=== PATIENT | male | born 1970 | race Caucasian/White ===

== ENCOUNTER 2018-09-13 10:53 | Emergency (ER) | payer SELFPAY ==
--- OUTSIDE RECORDS SUMMARY | 2018-09-13 10:55 | XMS REPORT ---
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
--- OUTSIDE RECORDS SUMMARY | 2018-09-13 10:55 | XMS REPORT ---
:1970 Author Organization [employer] Care Team Providers Name Role Phone Layla Merino Provider Role Unavailable Allergies, Adverse Reactions, Alerts Substance Reaction Event Type N.K.D.A. 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
--- NOTE | 2018-09-13 13:13 | RAD REPORT ---
EXAM DESCRIPTION: RAD - Chest Single View - 09/13/2018 1:08 pm CLINICAL HISTORY: DYSPNEA Chest pain. COMPARISON: No comparisons FINDINGS: Portable technique limits examination quality. The lungs are grossly clear. The heart is normal in size. No displaced fractures. IMPRESSION: No acute intrathoracic process suspected.
[2018-09-13 13:23] LABS: Absolute Lymphocytes (CBC) 0.5 K/uL (0.7-4.9); Absolute Monocytes 0.4 K/uL (0.1-1.3); Absolute Neutrophil 3.4 K/uL (1.8-8.0); Basophils % 0.2 % (0-1.3); Hematocrit 44.8 % (39.6-49.0); Lymphocytes % 12.1 % (15.3-44.8); MPV 10.5 fL (7.6-11.3); Monocytes % 9.6 % (3.3-12.3); RBC Red Blood Cell Count 4.74 M/uL (4.33-5.43)
[2018-09-13 13:24] LABS: Protime INR 1.16
[2018-09-13] MEDS ORDERED: NA CHLORIDE 0.9% 1,000 ML ONE (13:32)
[2018-09-13 13:50] LABS: ALT/SGPT 28 U/L (12-78); AST/SGOT 37 U/L (15-37); Albumin 3.5 g/dL (3.4-5.0); Alkaline Phosphatase 72 U/L (45-117); BUN Blood Urea Nitrogen 23 mg/dL (7-18); Bicarbonate 29 mmol/L (21-32); Bilirubin Direct 0.3 mg/dL (0-0.2); Glucose Level 80 mg/dL (74-106); Lipase 91 U/L (73-393); Magnesium 2.6 mg/dL (1.8-2.4); Potassium 3.6 mmol/L (3.5-5.1); Sodium Level 142 mmol/L (136-145)
[2018-09-13 13:54] LABS: NT PRO-BNP 164 pg/mL (<125); Troponin (Emerg Dept Use Only) < 0.02 ng/mL (0.0-0.045)
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
[2018-09-13 16:07] LABS: Blood Morphology Comment NOT SEEN (NOT SEEN); Platelet Estimate DECR; Urine White Blood Cell Casts OK
--- NOTE | 2018-09-13 16:31 | EKG ---
Test Date: 2018-09-13 Test Time: 13:01:04 Stonework Tracer: CHELY MEASUREMENT RESULTS: Intervals: Rate: 78 RI: 186 QRSD: 148 QT: 404 QTc: 460 [place]: P: 78 RI: 186 QRS: -54 T: 63 INTERPRETIVE STATEMENTS: Sinus rhythm with occasional premature ventricular complexes Right bundle branch block Left anterior fascicular block Bifascicular block Abnormal ECG Compared to ECG 08/19/2015 11:49:33 Ventricular premature complex(es) now present ST (T wave) deviation now present Bifascicular block still present Electronically Signed On 09-13-18 16:30:59 EXPERIENCE SPECIALIST by Chapo Mcgrath
== END 2018-09-13 16:22 | disposition home or self-care (01) ==
LOC: ER 10:53
DX: J10.1 Influenza due to other identified influenza virus with other respiratory manifestations (principal); I49.3 Ventricular premature depolarization; I45.2 Bifascicular block; R94.31 Abnormal electrocardiogram [ECG] [EKG]
CPT/HCPCS: 36415; 71045; 80048; 80076; 83690; 83735; 83880; 84484; 85025; 85610; 87804; 93005; 96360; 99284; J7030

== ENCOUNTER 2018-09-26 18:01 | Inpatient (IN) | payer OTHER, SELFPAY ==
--- OUTSIDE RECORDS SUMMARY | 2018-09-26 18:02 | XMS REPORT ---
[...] Medications Results No Known Results Summary Purpose [employer] Submission
[2018-09-26] MEDS ORDERED: NA CHLORIDE 0.9% 1,000 ML ONE (19:26)
--- NOTE | 2018-09-26 19:41 | RAD REPORT ---
EXAM DESCRIPTION: RAD - Chest Single View - 09/26/2018 7:31 pm CLINICAL HISTORY: Fatigue, chest pain, back pain COMPARISON: September 13, 2018 TECHNIQUE: AP portable chest image was obtained 1925 hours . FINDINGS: Focal consolidation is present in the left lung base obscuring the left hemidiaphragm. Sma ll left pleural effusion is present as well. No right lung infiltrate. Heart and vasculature are norm al. No measurable pleural effusion and no pneumothorax. No acute bony abnormality seen. No acute aort ic findings suspected. IMPRESSION: Moderately large consolidated pneumonia left lung base. Follow-up is needed to assure complete clearing.
[2018-09-26 20:04] LABS: Protime INR 1.39
[2018-09-26 20:05] LABS: Absolute Lymphocytes (CBC) 0.9 K/uL (0.7-4.9); Absolute Monocytes 0.8 K/uL (0.1-1.3); Absolute Neutrophil 4.4 K/uL (1.8-8.0); Basophils % 0.2 % (0-1.3); Eosinophils % 0.1 % (0-4.4); Hematocrit 38.7 % (39.6-49.0); Lymphocytes % 14.3 % (15.3-44.8); MPV 8.6 fL (7.6-11.3); Monocytes % 12.9 % (3.3-12.3); RBC Red Blood Cell Count 4.07 M/uL (4.33-5.43)
[2018-09-26] MEDS ORDERED: ASPIRIN 81 MG CHEWABLE TABLET ONE (20:17)
[2018-09-26] MEDS ORDERED: FAMOTIDINE 20 MG/2 ML VIAL IV ONE (20:17)
[2018-09-26] MEDS ORDERED: AZITHROMYCIN 500 MG/250 ML BAG ONE (20:18)
[2018-09-26] MEDS ORDERED: PIPER/TAZO/NS 3.375gm 3.375 GM/100 ML BAG ONE (20:18)
[2018-09-26] MEDS ORDERED: HEPARIN/D5W 25,000 UNIT/500 ML BAG IV ONE (20:20)
[2018-09-26 20:29] LABS: ALT/SGPT 18 U/L (12-78); AST/SGOT 13 U/L (15-37); Albumin 2.4 g/dL (3.4-5.0); Alkaline Phosphatase 100 U/L (45-117); BUN Blood Urea Nitrogen 9 mg/dL (7-18); Bicarbonate 31 mmol/L (21-32); Bilirubin Direct 0.4 mg/dL (0-0.2); Bilirubin Total 1.3 mg/dL (0.2-1.0); Glucose Level 94 mg/dL (74-106); Magnesium 2.2 mg/dL (1.8-2.4); NT PRO-BNP 366 pg/mL (<125); Protein, Total 6.5 g/dL (6.4-8.2); Sodium Level 139 mmol/L (136-145); Troponin (Emerg Dept Use Only) < 0.02 ng/mL (0.0-0.045)
[2018-09-26] MEDS ORDERED: FENTANYL CITR 100 MCG/2 ML ONE (20:49)
[2018-09-26] MEDS ORDERED: POTASSIUM 25 MEQ EFFERV TAB ONE (21:22)
[2018-09-26] MEDS ORDERED: VANCOMYCIN 1 GM/250 ML BAG ONE (21:23)
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
[2018-09-26] MEDS ORDERED: ALBUTEROL 2.5 MG/3 ML NEB SOL NEB PRN (23:10)
[2018-09-26] MEDS ORDERED: IPRATROPIUM BROM 0.5MG/2.5ML NEB PRN (23:10)
[2018-09-26] MEDS: NA CHLORIDE 0.9% 1,000 ML IV SCH (23:50)
[2018-09-27] MEDS: PIPER/TAZO/NS 3.375gm 3.375 GM/100 ML BAG IVPB SCH ×4 (01:59→17:00)
[2018-09-27] MEDS ORDERED: PIPER/TAZO/NS 3.375gm 3.375 GM/100 ML BAG ONE ×2 (02:06→06:29)
[2018-09-27] MEDS: TRAMADOL HCL 50 MG TAB PO PRN (05:53)
[2018-09-27 06:32] LABS: Urine Appearance CLEAR; Urine Bilirubin NEGATIVE (NEG); Urine Blood NEGATIVE (NEG); Urine Color YELLOW; Urine Glucose NEGATIVE (NEG); Urine Protein NEGATIVE (NEG); Urine Specific Gravity 1.025 (1.005-1.030)
[2018-09-27 06:33] LABS: Urine Microscopic Reflex NO UMIC
[2018-09-27 06:56] LABS: Absolute Lymphocytes (CBC) 0.8 K/uL (0.7-4.9); Absolute Monocytes 0.5 K/uL (0.1-1.3); Absolute Neutrophil 2.7 K/uL (1.8-8.0); Basophils % 0.3 % (0-1.3); Eosinophils % 0.4 % (0-4.4); Hematocrit 34.3 % (39.6-49.0); Lymphocytes % 20.3 % (15.3-44.8); MPV 8.7 fL (7.6-11.3); Monocytes % 12.9 % (3.3-12.3); RBC Red Blood Cell Count 3.63 M/uL (4.33-5.43)
[2018-09-27 07:07] LABS: BUN Blood Urea Nitrogen 8 mg/dL (7-18); Bicarbonate 28 mmol/L (21-32); Glucose Level 77 mg/dL (74-106); Potassium 3.7 mmol/L (3.5-5.1); Sodium Level 144 mmol/L (136-145)
[2018-09-27] MEDS ORDERED: INFLUENZA VACCINE (for 3y+) 0.5 ML DOSE IMVAC ONE (08:00)
[2018-09-27] MEDS ORDERED: POTASSIUM 25 MEQ EFFERV TAB PO ONE (09:00)
[2018-09-27] MEDS: NA CHLORIDE 0.9% 1,000 ML IV SCH ×2 (09:10→19:10)
[2018-09-27] MEDS: ENOXAPARIN 40 MG/0.4 ML SQ SCH (09:15)
[2018-09-27 10:11] LABS: Arterial Blood Carboxyhemoglob 1.3 % (0-1.5); Blood Gas Oxyhemoglobin 93.2 % (94-97); Blood O2 Saturation 95.5 % (92-98.5)
--- NOTE | 2018-09-27 10:45 | EKG ---
Test Date: 2018-09-26 Test Time: 19:34:58 Ortho Tech: GISSELL MEASUREMENT RESULTS: Intervals: Rate: 66 TX: 200 QRSD: 152 QT: 450 QTc: 471 [place]: P: 69 TX: 200 QRS: 4 T: 63 INTERPRETIVE STATEMENTS: Normal sinus rhythm Possible Left atrial enlargement Right bundle branch block ST elevation, consider lateral injury or acute infarct ACUTE NE / STEMI Abnormal ECG Compared to ECG 09/13/2018 13:01:04 ST (T wave) deviation now present Myocardial infarct finding now present Ventricular premature complex(es) no longer present Left anterior fascicular block no longer present Bifascicular block no longer present Electronically Signed On 09-27-18 10:42:54 SAMPLING THEORY TEACHER by Chapo Mcgrath
--- NOTE | 2018-09-27 10:45 | EKG ---
Test Date: 2018-09-26 Test Time: 19:49:28 Grader Tender: GISSELL MEASUREMENT RESULTS: Intervals: Rate: 66 PA: 200 QRSD: 154 QT: 450 QTc: 471 [place]: P: 78 PA: 200 QRS: 13 T: 63 INTERPRETIVE STATEMENTS: Normal sinus rhythm Right bundle branch block ST elevation, consider lateral injury or acute infarct ACUTE TN / STEMI Abnormal ECG Compared to ECG 09/26/2018 19:34:58 No significant changes Electronically Signed On 09-27-18 10:42:52 ECMO SPECIALIST by Chapo Mcgrath
[2018-09-27] MEDS: VANCOMYCIN 750 MG in NA CHLORIDE 0.9% 150 ML IVPB SCH ×2 (11:55→23:54)
[2018-09-27] MEDS ORDERED: VANCOMYCIN 0.75 GM in NA CHLORIDE 0.9% 250 ML IVPB SCH (12:00)
--- NOTE | 2018-09-27 14:32 | PN ---
Date of Progress Note: 09/27/2018 Subjective: The patient seen and examined. Chart reviewed and case discussed with RN. The patient overall is still having some cough and sputum production. Still feels like he has no energy. Medications: List reviewed. Physical Examination: Vital Signs: Temperature 99.2, heart rate 57, blood pressure 97/58, respirations 17, O2 saturation 9 7% on room air. General: Awake, alert, and oriented x3. Some mild distress, ill-appearing male, cachectic, BMI 15. CV: S1 and S2. No murmurs. Peripheral pulses present. Respiratory: Diminished breath sounds. No wheezing or crackles. No use of accessory muscles. Gastrointestinal: Abdomen is soft, nontender, nondistended. Positive bowel sounds. Extremities: No clubbing, cyanosis, or edema. Neurologic: Nonfocal. Laboratory Data: Sodium 144, potassium 3.7, chloride 110, CO2 28, BUN 8, creatinine 0.56, glucose 77 , calcium 7.7. WBC 4.1, H and H 11.5 and 34.3, platelets 220, neutrophils 66%. Blood cultures and s putum cultures are pending. Chest x-ray, personally reviewed, shows moderately large consolidated pn eumonia, left lung base. Assessment And Plan: A 48-year-old male with: 1.Large left lower lobe pneumonia, lobar pneumonia. We will continue with IV antibiotics. We will follow up on cultures. 2.Recent history of influenza. 3.Muscular dystrophy. 4.Pleuritic chest pain. 5.Failure to thrive. BMI 15.7. 6.Moderate protein-calorie malnutrition. Albumin is 2.4. 7.Gastrointestinal and deep venous thrombosis prophylaxis with Lovenox. We will add ranitidine. Plan: Continue IV antibiotics. Follow up on cultures. Discharge in the next 48-72 hours depending on clinical response. The patient does have large consolidated pneumonia. SA/MODL Voice ID: [id number] Report ID: [id number]
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
[2018-09-27] MEDS: RANITIDINE 150 MG TABLET PO SCH (20:38)
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
[2018-09-28] MEDS: PIPER/TAZO/NS 3.375gm 3.375 GM/100 ML BAG IVPB SCH ×2 (01:55→09:28)
[2018-09-28 03:43] LABS: BUN Blood Urea Nitrogen 9 mg/dL (7-18); Bicarbonate 28 mmol/L (21-32); Glucose Level 81 mg/dL (74-106); Potassium 3.9 mmol/L (3.5-5.1); Sodium Level 145 mmol/L (136-145)
[2018-09-28] MEDS: NA CHLORIDE 0.9% 1,000 ML IV SCH (03:51)
[2018-09-28] MEDS ORDERED: POTASSIUM 25 MEQ EFFERV TAB PO ONE (09:00)
[2018-09-28] MEDS: RANITIDINE 150 MG TABLET PO SCH ×2 (09:28→21:00)
[2018-09-28] MEDS: ENOXAPARIN 40 MG/0.4 ML SQ SCH (09:29)
--- NOTE | 2018-09-28 10:25 | P.PN ---
Subjective Date of Service: 09/28/18 Chief Complaint: Pneumonia Subjective: Improving (Patient is improving still has some chest discomfort on the left side has persistent weakness) Review of Systems General: Weakness Respiratory: Pleuritic Pain Physical Examination - Vital Signs Temperature: 99.4 F Blood Pressure: 89/52 Pulse: 52 Respirations: 18 Pulse Ox (%): 96 - Physical Exam General: Alert, Oriented x3, Mild distress Respiratory: Clear to auscultation bilaterally Cardiovascular: No edema, Regular rate/rhythm Assessment & Plan - Problems (Diagnosis) (1) Pneumonia Onset Date: 09/27/18 Current Visit: Yes Status: Acute Plan: Patient is doing well cultures are all negative he has left lower lobe pneumonia change to p.o. levofloxacin tomorrow Dc IV fluids chemistries and blood work are all unremarkable possible discharge home tomorrow on levofloxacin for 7 days I does Qualifiers: Pneumonia type: due to unspecified organism Laterality: left Lung location: lower lobe of lung Qualified Code(s): J18.1 - Lobar pneumonia, unspecified organism (2) Chronic respiratory failure Current Visit: Yes Status: Acute Plan: Patient fortunately has no insurance Veliz qualify him for Medicaid and then arrange for him to have a BiPAP as an outpatient
--- NOTE | 2018-09-28 11:44 | PN ---
Date of Progress Note: 09/28/2018 Subjective: The patient is seen and examined. Chart reviewed and case discussed with RN and Dr. Krishnamurthy. The patient does have moderate muscular dystrophy, currently not on disability, lives alone. The patient states he is feeling better, however, still having some cough and sputum production. Medications: List reviewed. Physical Examination: Vital Signs: Temperature 99.4, heart rate 52, blood pressure 89/52, respirations 18, and O2 of 96% on room air. General: Awake, alert, and oriented x3, some mild distress, ill-appearing male , frail, cachectic. BMI of 15. CV: S1 and S2. Peripheral pulses present. No murmurs. Respiratory: Diminished breath sounds on the left. Some rhonchi heard. No wheezing. No use of accessory muscles. Gastrointestinal: Abdomen is soft, nontender, and nondistended. Positive bowel sounds. Extremities: No clubbing, cyanosis, or edema. Neurologic: Nonfocal. Laboratory Data: Sodium 145, potassium 3.9, chloride 112, CO2 of 28, BUN 9, creatinine 0.69, glucose 81, and calcium 7.9. WBC 4.1, H and H of 11.5 and 34.3 , platelets pending. Blood cultures, no growth to date. Sputum cultures, no growth. Assessment And Plan: A 48-year-old male with, 1. Large left lower lobe pneumonia, lobar. Continue with IV antibiotics. Appreciate Dr. Krishnamurthy's input. The patient is improving. Still having some cough and sputum production. Cultures are negative. 2. Recent history of influenza. 3. Muscular dystrophy. 4. Pleuritic chest pain, improving. 5. Failure to thrive, BMI of 15.7. 6. Severe protein-calorie malnutrition, albumin 2.4. 7. Gastrointestinal and deep venous thrombosis prophylaxis with PPI and Lovenox. PLAN: Unfortunately, the patient is unfunded. He will need to be set up with disability as an outpatient and have noninvasive ventilator versus BiPAP set up as an outpatient through Pulmonology. The patient was evaluated by Neurology. Patient may need PEG tube placement - BMI is 15. Has risk of aspiration. Speech therapy eval. /MODL Voice ID: [id number] Report ID: [id number] [facility]
[2018-09-28] MEDS ORDERED: JEVITY 1.5 CAL LIQUID 1,000 ML BOT FT SCH (18:00)
[2018-09-28] MEDS: D5 0.45 NS 1,000 ML IV SCH (18:53)
[2018-09-29] MEDS: D5 0.45 NS 1,000 ML IV SCH ×3 (02:16→18:14)
[2018-09-29 05:20] LABS: Absolute Lymphocytes (CBC) 1.1 K/uL (0.7-4.9); Absolute Monocytes 0.4 K/uL (0.1-1.3); Absolute Neutrophil 2.1 K/uL (1.8-8.0); Basophils % 0.5 % (0-1.3); Eosinophils % 1.9 % (0-4.4); Hematocrit 35.8 % (39.6-49.0); Lymphocytes % 29.7 % (15.3-44.8); MPV 8.7 fL (7.6-11.3); Monocytes % 10.2 % (3.3-12.3); RBC Red Blood Cell Count 3.77 M/uL (4.33-5.43)
[2018-09-29 05:32] LABS: BUN Blood Urea Nitrogen 5 mg/dL (7-18); Bicarbonate 30 mmol/L (21-32); Glucose Level 95 mg/dL (74-106); Potassium 3.6 mmol/L (3.5-5.1); Sodium Level 144 mmol/L (136-145)
[2018-09-29] MEDS ORDERED: KCL 20 MEQ/100 mL IVPB 20 MEQ/100 ML BAG IV SCH (07:00)
[2018-09-29] MEDS ORDERED: levoFLOXacin 750 MG TAB PO SCH (09:00)
[2018-09-29] MEDS: RANITIDINE 150 MG TABLET PO SCH ×2 (09:00→21:00)
[2018-09-29] MEDS: ENOXAPARIN 40 MG/0.4 ML SQ SCH (09:40)
[2018-09-29] MEDS: Levofloxacin 750mg IV 750 MG/150 ML BAG IV SCH (11:24)
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
[2018-09-29 18:55] LABS: Albumin 1.9 g/dL (3.4-5.0); Bilirubin Direct 0.2 mg/dL (0-0.2); Bilirubin Total 0.5 mg/dL (0.2-1.0); Protein, Total 5.6 g/dL (6.4-8.2)
[2018-09-30] MEDS: D5 0.45 NS 1,000 ML IV SCH ×3 (03:00→18:06)
[2018-09-30] MEDS: RANITIDINE 150 MG TABLET PO SCH ×2 (08:47→21:00)
[2018-09-30] MEDS: Levofloxacin 750mg IV 750 MG/150 ML BAG IV SCH (10:39)
--- NOTE | 2018-09-30 10:51 | RAD REPORT ---
EXAM DESCRIPTION: Denzel Pa And Lat (2 Views)09/30/2018 6:11 am CLINICAL HISTORY: Cough COMPARISON: September 26 FINDINGS: The left basilar opacity has partially resolved. Small left pleural effusion is noted. The right lung appears clear. The heart is normal size IMPRESSION: Partial resolution in a left basilar pneumonia
--- NOTE | 2018-09-30 12:59 | PN ---
Date of Progress Note: 09/30/2018 Subjective: The patient overall doing better. Minimal cough or sputum production. The patient has been n.p.o. This morning, the patient states that he understands that getting the NG tube is in his best interest and has been seen by Dr. Feliciano, who has planned on performing an EGD. The patient troy l be reassessed after EGD to have NG tube placed and possible PEG tube placement after a modified bar ium swallow study result. Medications: List reviewed. Physical Examination: Vital Signs: Temperature 98.3, heart rate 63, blood pressure 111/67, respirations 20, O2 98% on room air. General: Awake, alert, oriented x3, ill-appearing male, cachectic, frail. BMI 15. CV: S1 and S2. Regular rate and rhythm. Peripheral pulses present. Respiratory: Moving air bilaterally. Some diminished breath sounds on the left. No rhonchi. No wh eezing. Gastrointestinal: Abdomen is soft, nontender, nondistended. Positive bowel sounds. Extremities: No clubbing, cyanosis, or edema. Neuro: Nonfocal. The patient does have some abnormal muscle strength, difficulty with relaxing his muscles. Does have ptosis. Laboratory Data: Potassium 4.1. Blood cultures, no growth to date. Sputum cultures not done. Ches t x-ray, I personally reviewed, shows partial resolution in left basilar pneumonia. Assessment And Plan: A 48-year-old male with: 1.Left lower lobe lobar pneumonia due to aspiration, improved, currently n.p.o. Continue IV antibio tics. The patient cannot tolerate p.o. Cultures negative to date, improving. Still has some cough, minimal sputum production. 2.Recent history of influenza. 3.Dysphagia. Modified barium swallow study scheduled for a.m. 4.Muscular dystrophy, severe muscle wasting, decreased tone. The patient has significant complicati ons including ptosis, difficulty swallowing, dysphagia, difficulty ambulating and has now developed p neumonia. He is unable to properly eat and his BMI is 15. 5.Severe protein-calorie malnutrition, albumin is 1.9. The patient is now more acceptable towards N G tube placement. We will go ahead and proceed with NG tube placement and start feeds. Modified bar ium swallow study on Monday. GI is on board. The patient receiving EGD today and will possibly need PEG tube placement in a.m. 6.Gastrointestinal and deep venous thrombosis prophylaxis with PPI and SCDs. Lovenox on hold due to procedure. Plan: EGD today. Proceed with NG tube placement, modified barium swallow study in a.m. and elio milligan on results, possible PEG tube feeds. /JOEY Voice ID: [id number] Report ID: [id number]
[2018-09-30] MEDS ORDERED: NA CHLORIDE 0.9% 500 ML ONE (19:22)
[2018-09-30] MEDS ORDERED: LIDOCAINE 1% MPF 5 ML VIAL ONE (19:29)
[2018-09-30] MEDS ORDERED: PROPOFOL 200 MG/20 ML VIAL IV ONE (19:29)
--- NOTE | 2018-09-30 20:11 | ENDO RPT ---
[address], [address] EGD WITH PEG PROCEDURE REPORT EXAM DATE: 09/30/2018 PATIENT NAME: Watson Dodge MR #: [id number] BIRTHDATE: 1970 ATTENDING: Fabian Feliciano Dr STATUS: inpatient EDGE STRIPPER: Gunjan Monge and Zoya Rojo RN INDICATIONS: The patient is a 48 yr old Male here for an EGD with PEG due to malnutrition and dysphagia PROCEDURE PERFORMED: EGD with biopsy EGD with PEG placement MEDICATIONS: Per Anesthesia. TOPICAL ANESTHETIC: none CONSENT: The patient understands the risks and benefits of the procedure and understands that these risks include, but are not limited to: sedation, allergic reaction, infection, perforation and/or bleeding. Alternative means of evaluation and treatment include, among others: physical exam, x-rays, and/or surgical intervention. The patient elects to proceed with this endoscopic procedure. DESCRIPTION OF PROCEDURE: During intra-op preparation period all mechanical medical equipment was checked for proper function. Hand hygiene and appropriate measures for infection prevention was taken. After the risks, benefits and alternatives of the procedure were thoroughly explained, Informed consent was verified, confirmed and timeout was successfully executed by the treatment team. The patient was anesthetized with topical anesthesia and the EG-[id number] ([id number]) endoscope was introduced through the mouth and advanced to the third portion of the duodenum. The instrument was slowly withdrawn as the mucosa was fully examined. Mild gastritis was found in the antrum. Multiple biopsies were obtained and sent to pathology. Duodenitis was found in the bulb of the duodenum. The stomach was then inflated with air, and by a combination of transillumination and manual palpation, the site for the gastrostomy tube placement was selected and marked on the anterior abdominal wall. The skin of the anterior abdomen was surgically prepped and draped with sterile towels. Utilizing strict sterile technique, the selected site was then anesthetized with 1% xylocaine by injection into the skin and subcutaneous tissue. A 1 cm incision was made through the skin and subcutaneous tissue, and the needle/cannula assembly was then passed through the abdominal wall and through the anterior wall of the stomach, maintaining visualization with the endoscope. A snare device previously placed through the instrument channel was then opened and placed around the cannula, the needle was removed, and the insertion wire was passed through the cannula and into the stomach lumen. The snare was then loosened from the cannula, and repositioned to snare the insertion wire. The snare was then pulled up to the endoscope distal tip, and the scope was then withdrawn bringing with it the snare and insertion wire. The insertion wire was then released from the snare, and the PEG PUSH gastrostomy tube placed over the guidewire. Using the "push technique", the tube was then pushed into place over the insertion wire at the abdominal wall end. The tube insertion site was then cleansed once again, and the external bolster was placed over the tube to secure it to the abdominal wall. A sterile dressing was then applied, and the procedure terminated. Retroflexed views revealed no abnormalities. The gastroscope was then slowly withdrawn and removed. ADVERSE EVENT: There were no complications. IMPRESSIONS: 1. Status post 20 Fr percutaneous endoscopic gastrostomy 2. Mild gastritis in the antrum, s/p biopsies 3. Duodenitis in the bulb of the duodenum RECOMMENDATIONS: 1. await biopsy results 2. acid suppression therapy 3. begin PEG use in 3 hours REPEAT EXAM: Fabian Feliciano Dr eSigned: Fabian Feliciano Dr 09/30/2018 8:10 PM cc: CPT CODES: ICD9 CODES: PATIENT NAME: Watson Dodge MR#: [id number]
[2018-09-30] MEDS ORDERED: FENTANYL CITR 100 MCG/2 ML ONE (20:58)
[2018-10-01] MEDS: ONDANSETRON 4 MG/2 ML VIAL IV PRN (01:23)
[2018-10-01] MEDS: KETOROLAC 30 MG/ML INJ IV PRN (01:28)
[2018-10-01] MEDS: D5 0.45 NS 1,000 ML IV SCH (03:00)
[2018-10-01] MEDS ORDERED: NA CHLORIDE 0.9% 250 ML IV ONE ×2 (04:25→05:35)
[2018-10-01 06:56] LABS: ALT/SGPT 27 U/L (12-78); AST/SGOT 38 U/L (15-37); Absolute Lymphocytes (CBC) 0.7 K/uL (0.7-4.9); Absolute Monocytes 0.6 K/uL (0.1-1.3); Absolute Neutrophil 4.7 K/uL (1.8-8.0); Albumin 2.1 g/dL (3.4-5.0); Alkaline Phosphatase 111 U/L (45-117); BUN Blood Urea Nitrogen 5 mg/dL (7-18); Basophils % 0.2 % (0-1.3); Bicarbonate 27 mmol/L (21-32); Bilirubin Total 0.5 mg/dL (0.2-1.0); Eosinophils % 0.6 % (0-4.4); Glucose Level 82 mg/dL (74-106); Lymphocytes % 11.8 % (15.3-44.8); MPV 8.2 fL (7.6-11.3); Monocytes % 9.4 % (3.3-12.3); Potassium 4.1 mmol/L (3.5-5.1); Protein, Total 5.7 g/dL (6.4-8.2); RBC Red Blood Cell Count 3.72 M/uL (4.33-5.43); Sodium Level 142 mmol/L (136-145)
[2018-10-01] MEDS: RANITIDINE 150 MG TABLET PO SCH (08:38)
[2018-10-01] MEDS ORDERED: NA CHLORIDE 0.9% 1,000 ML IV ONE (09:45)
[2018-10-01] MEDS ORDERED: SODIUM CHLORIDE 0.9% 10ML INJ IV PRN (09:56)
[2018-10-01] MEDS: Levofloxacin 750mg IV 750 MG/150 ML BAG IV SCH (10:39)
[2018-10-01] MEDS: TRAMADOL HCL 50 MG TAB PO PRN (10:49)
[2018-10-01] MEDS ORDERED: NA CHLORIDE 0.9% 500 ML IV ONE (11:04)
--- NOTE | 2018-10-01 12:08 | PN ---
Date of Progress Note: 10/01/2018 Subjective: The patient is seen and examined. Chart reviewed, and case discussed with RN and Dr. Satnam rolon. The patient had EGD done yesterday along with PEG tube placement. Medications: List reviewed. Physical Examination: Vital Signs: Temperature 98.5, heart rate 59, blood pressure 81/52, respirations 18, O2 of 97% on ro om air. General: Awake, alert, oriented x3, not in any acute distress. The patient does appear lethargic, c achectic. BMI 15. CV: S1, S2. Regular rate and rhythm. Peripheral pulses present. Respiratory: Moving air well bilaterally. No wheezing. Improved aeration on the left. Gastrointestinal: Abdomen is soft, nontender, nondistended. Positive bowel sounds. PEG tube in izaiah ce. Extremities: No clubbing, cyanosis, or edema. Neurologic: Nonfocal. Laboratory Data: sodium 142, potassium 4.1, chloride 110, CO2 of 27, BUN 5, creatinine 0.62, glucose 82, calcium 8.4, albumin 2.1. WBC 6, H and H 11.6 and 35, platelets 258, neutrophils 78%. Blood cu ltures, no growth to date. Assessment: A 48-year-old male with: 1.Left lower lobe pneumonia secondary to aspiration, improved. Chest x-ray shows improvement. Cult ures are negative. White blood cell count normalized. 2.Dysphagia, status post PEG tube placement, multifactorial reasons. The patient also has severe pr otein-calorie malnutrition. 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 3.Myotonic dystrophy, severe muscle wasting, decreased tone with multiple complications including pt osis, dysphagia, difficulty ambulating, pneumonia. Appreciate Dr. Grant's input. 4.Hypotension. We will bolus with 1 L normal saline. If no improvement, we will transfer to ICU. Start on pressors to keep MAP above 65. 5.Severe protein-calorie malnutrition. Albumin is 2.1. The patient now has PEG tube in place. Fee ds have been started. Appreciate Dr. Feliciano's input. 6.Gastritis and duodenitis found on endoscopy. We will start the patient on IV PPI. Follow up on b iopsy results. 7.Gastrointestinal and deep venous thrombosis prophylaxis with PPI and SCDs. We will restart Loveno x 24 hours after procedure. Plan: Monitor blood pressure closely. May need to be moved to ICU depending on improvement in the b lood pressure with fluid challenge. SA/MODL Voice ID: [id number] Report ID: [id number]
[2018-10-01] MEDS: NA CHLORIDE 0.9% 1,000 ML IV SCH ×2 (13:18→21:30)
[2018-10-02] MEDS: NA CHLORIDE 0.9% 1,000 ML IV SCH (04:38)
[2018-10-02 06:20] LABS: Absolute Lymphocytes (CBC) 0.9 K/uL (0.7-4.9); Absolute Monocytes 0.4 K/uL (0.1-1.3); Absolute Neutrophil 2.1 K/uL (1.8-8.0); Basophils % 0.4 % (0-1.3); Eosinophils % 1.2 % (0-4.4); Hematocrit 34.2 % (39.6-49.0); Lymphocytes % 25.2 % (15.3-44.8); MPV 8.2 fL (7.6-11.3); RBC Red Blood Cell Count 3.62 M/uL (4.33-5.43)
[2018-10-02 06:38] LABS: ALT/SGPT 26 U/L (12-78); AST/SGOT 25 U/L (15-37); Alkaline Phosphatase 99 U/L (45-117); BUN Blood Urea Nitrogen 5 mg/dL (7-18); Bicarbonate 27 mmol/L (21-32); Bilirubin Total 0.3 mg/dL (0.2-1.0); Glucose Level 99 mg/dL (74-106); Potassium 3.8 mmol/L (3.5-5.1); Protein, Total 5.3 g/dL (6.4-8.2); Sodium Level 146 mmol/L (136-145)
[2018-10-02] MEDS ORDERED: KCL 20 MEQ/100 mL IVPB 20 MEQ/100 ML BAG IV SCH (07:00)
[2018-10-02] MEDS: PANTOPRAZOLE 40 MG INJ IVP SCH (09:01)
[2018-10-02] MEDS: TRAMADOL HCL 50 MG TAB PO PRN (09:05)
[2018-10-02] MEDS: Levofloxacin 750mg IV 750 MG/150 ML BAG IV SCH (10:22)
[2018-10-02] MEDS: NACHLORIDE 0.45% 1,000 ML IV SCH ×2 (10:23→21:32)
--- NOTE | 2018-10-02 15:29 | RAD REPORT ---
EXAM DESCRIPTION: RAD - Barium Swallow Modified - 10/02/2018 3:09 pm CLINICAL HISTORY: Myotonic dystrophy COMPARISON: None. TECHNIQUE: The patient was given liquid, semi-solid and solid forms of barium. Lateral view fluorosc opic imaging was performed in conjunction with speech pathology service. FINDINGS: Cineloop acquisitions: 16 Fluoro time: 4 minutes 43 seconds Laryngeal penetration was observed without clearing by the patient. Likelihood of aspiration is felt to be high. There is residual contrast in the valleculae and piriform sinuses. Patient showed a signi ficant delay in swallow reflex. IMPRESSION: Laryngeal penetration without clearing by the patient. Aspiration risk is considered thi gh. Additional findings are detailed above and on speech pathology report.
--- NOTE | 2018-10-02 17:06 | P.PN ---
Subjective Date of Service: 10/02/18 Chief Complaint: Pneumonia Subjective: Improving Physical Examination - Vital Signs Temperature: 98.7 F Blood Pressure: 98/57 Pulse: 73 Respirations: 17 Pulse Ox (%): 99 - Studies Microbiology Data (last 24 hrs): 09/26/18 21:45 Blood - Blood Aerobic Blood Culture - Final No growth in 5 days. 09/26/18 21:45 Blood - Blood Anaerobic Blood Culture - Final No growth in 5 days.
--- NOTE | 2018-10-02 19:19 | P.PN ---
Subjective Date of Service: 10/02/18 Chief Complaint: Pneumonia Subjective: No C/O voiced, Improving Patient seen and examined at bedside. No family at bedside. Chart reviewed and case discussed with nursing staff. Review of Systems 10-point ROS is otherwise unremarkable Physical Examination - Vital Signs Temperature: 98.7 F Blood Pressure: 98/57 Pulse: 73 Respirations: 17 Pulse Ox (%): 99 - Studies Microbiology Data (last 24 hrs): 09/26/18 21:45 Blood - Blood Aerobic Blood Culture - Final No growth in 5 days. 09/26/18 21:45 Blood - Blood Anaerobic Blood Culture - Final No growth in 5 days. Assessment And Plan - Plan A 48-year-old male with: 1. Left lower lobe pneumonia secondary to aspiration, improved. Chest x-ray shows improvement. Cultures are negative. White blood cell count normalized. 2. Dysphagia, status post PEG tube placement, multifactorial reasons. The patient also has severe protein-calorie malnutrition. 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 3. Myotonic dystrophy, severe muscle wasting, decreased tone with multiple complications including ptosis, dysphagia, difficulty ambulating, pneumonia. Appreciate Dr. Grant's input. 4. Hypotension. Blood pressure continues to remain low, though stable. Continue to monitor. Continue IV fluids. If no improvement, we will transfer to ICU. Start on pressors to keep MAP above 65. 5. Severe protein-calorie malnutrition. Albumin is 2.1. The patient now has PEG tube in place. Feeds have been started. Appreciate Dr. Feliciano's input. 6. Gastritis and duodenitis found on endoscopy. We will start the patient on IV PPI. Follow up on biopsy results. 7. Gastrointestinal and deep venous thrombosis prophylaxis with PPI and SCDs. We will restart Lovenox 24 hours after procedure. Plan: Monitor blood pressure closely. May need to be moved to ICU depending on improvement in the blood pressure with fluid challenge. Time Spent Managing PTS Care (In Minutes): 40
[2018-10-02] MEDS: JEVITY 1.5 CAL LIQUID 1,000 ML BOT RTH SCH (21:33)
[2018-10-03] MEDS: NACHLORIDE 0.45% 1,000 ML IV SCH ×4 (05:38→19:00)
[2018-10-03 06:21] LABS: BUN Blood Urea Nitrogen 8 mg/dL (7-18); Bicarbonate 33 mmol/L (21-32); Glucose Level 109 mg/dL (74-106); Potassium 3.9 mmol/L (3.5-5.1); Sodium Level 145 mmol/L (136-145)
[2018-10-03] MEDS ORDERED: KCL 20 MEQ/100 mL IVPB 20 MEQ/100 ML BAG IV SCH (07:30)
[2018-10-03] MEDS: PANTOPRAZOLE 40 MG INJ IVP SCH (08:32)
[2018-10-03] MEDS: Levofloxacin 750mg IV 750 MG/150 ML BAG IV SCH (10:25)
[2018-10-03] MEDS: JEVITY 1.5 CAL LIQUID 1,000 ML BOT RTH SCH (11:09)
--- NOTE | 2018-10-03 13:28 | P.PN ---
Subjective Date of Service: 10/02/18 Chief Complaint: Pneumonia, protein-calorie malnutrition Subjective: Improving (s/p PEG yesterday. Tolerating Jevity TFs at 50 cc/hour. More energy today. Wants to eat but has not had MBS. May warrant further speech therapy to try to regain ability to swallow and take p.o.) Review of Systems 10-point ROS is otherwise unremarkable General: Weakness, Malaise Gastrointestinal: Other (dysphagia) Physical Examination - Vital Signs Temperature: 96.7 F Blood Pressure: 100/50 Pulse: 71 Respirations: 18 Pulse Ox (%): 99 - Physical Exam General: Alert, In no apparent distress, Oriented x3, Cooperative, Cachectic, Disheveled (thin) HEENT: Atraumatic, Normocephalic, PERRLA, EOMI, Sclerae nonicteric, Scleral icterus Neck: Supple Respiratory: Normal air movement Cardiovascular: Normal pulses Gastrointestinal: Soft and benign, No rebound, No guarding Neurological: Normal speech Assessment And Plan - Current Problems (Diagnosis) (1) Protein-calorie malnutrition Current Visit: Yes Status: Acute Comment: Albumin 1.9, Pre-albumin 8 (2) Dysphagia Current Visit: Yes Status: Acute (3) Pneumonia, aspiration Current Visit: Yes Status: Acute (4) Muscular dystrophy Onset Date: 09/27/18 Current Visit: Yes Status: Acute - Plan REC: 1) continue TFs via PEG 2) prn pain meds
--- NOTE | 2018-10-03 14:52 | P.PN ---
Subjective Date of Service: 10/03/18 Chief Complaint: Pneumonia, protein-calorie malnutrition Subjective: No new changes, No C/O voiced Patient seen and examined at bedside. No family at bedside. Chart reviewed and case discussed with nursing staff. Patient with PEG tube in place, placed recently. States he has had 6+ stools overnight but they are more formed today than yesterday. Review of Systems 10-point ROS is otherwise unremarkable Physical Examination - Vital Signs Temperature: 96.7 F Blood Pressure: 100/50 Pulse: 71 Respirations: 18 Pulse Ox (%): 99 - Physical Exam General: Alert, In no apparent distress, Oriented x3 HEENT: Atraumatic, PERRLA, EOMI Neck: Supple, JVD not distended Respiratory: Clear to auscultation bilaterally, Normal air movement Cardiovascular: Regular rate/rhythm, Normal S1 S2 Gastrointestinal: Other (PEG tube in place) Musculoskeletal: No tenderness Integumentary: No rashes Neurological: Normal speech, Normal tone, Normal affect Assessment And Plan - Plan A 48-year-old male with: Left lower lobe pneumonia secondary to aspiration, improved. Chest x-ray shows improvement. Cultures are negative. White blood cell count normalized. Dysphagia, status post PEG tube placement, multifactorial reasons. The patient also has severe protein-calorie malnutrition. 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 Myotonic dystrophy, severe muscle wasting, decreased tone with multiple complications including ptosis, dysphagia, difficulty ambulating, pneumonia. Appreciate Dr. Grant's input. Hypotension. Blood pressure continues to remain low, though stable. Continue to monitor. Continue IV fluids. If no improvement, we will transfer to ICU. Start on pressors to keep MAP above 65. Severe protein-calorie malnutrition. Albumin is 2.1. The patient now has PEG tube in place. Feeds have been started. Appreciate Dr. Feliciano's input. Gastritis and duodenitis found on endoscopy. Continue IV PPI. Follow up on biopsy results. DVT prophylaxis: SCDs and Lovenox GI prophylaxis: Protonix Disposition: Continue to monitor on the floor. Patient is pending SSI hearing on 10/09/2018. Further disposition plans after hearing. Time Spent Managing PTS Care (In Minutes): 35
[2018-10-04] MEDS: NACHLORIDE 0.45% 1,000 ML IV SCH ×4 (01:44→21:03)
[2018-10-04 06:41] LABS: BUN Blood Urea Nitrogen 11 mg/dL (7-18); Bicarbonate 32 mmol/L (21-32); Glucose Level 107 mg/dL (74-106); Magnesium 2.7 mg/dL (1.8-2.4); Sodium Level 146 mmol/L (136-145)
[2018-10-04] MEDS: PANTOPRAZOLE 40 MG INJ IVP SCH (08:14)
[2018-10-04] MEDS: JEVITY 1.5 CAL LIQUID 1,000 ML BOT RTH SCH (10:10)
[2018-10-04] MEDS: Levofloxacin 750mg IV 750 MG/150 ML BAG IV SCH (10:35)
--- NOTE | 2018-10-04 11:15 | P.PN ---
Subjective Date of Service: 10/04/18 Chief Complaint: Pneumonia, protein-calorie malnutrition Subjective: No C/O voiced, Improving Patient seen and examined at bedside. No family at bedside. Chart reviewed and case discussed with nursing staff. Patient with PEG tube in place, placed recently. Had no complaints this morning , resting comfortably in bed Review of Systems 10-point ROS is otherwise unremarkable Physical Examination - Vital Signs Temperature: 98.3 F Blood Pressure: 87/50 Pulse: 55 Respirations: 18 Pulse Ox (%): 96 - Physical Exam General: Alert, In no apparent distress HEENT: Atraumatic, PERRLA, EOMI Neck: Supple, JVD not distended Respiratory: Clear to auscultation bilaterally, Normal air movement Cardiovascular: Regular rate/rhythm, Normal S1 S2 Gastrointestinal: Normal bowel sounds, No tenderness Musculoskeletal: No tenderness Integumentary: No rashes Neurological: Normal speech, Normal tone, Normal affect Lymphatics: No axilla or inguinal lymphadenopathy Assessment And Plan - Plan A 48-year-old male with: Left lower lobe pneumonia secondary to aspiration, improved. Repeat Chest x- ray shows improvement. Cultures are negative. White blood cell count normalized. Dysphagia, status post PEG tube placement, multifactorial reasons. The patient also has severe protein-calorie malnutrition. 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 Myotonic dystrophy, severe muscle wasting, decreased tone with multiple complications including ptosis, dysphagia, difficulty ambulating, pneumonia. Appreciate Dr. Grant's input. Hypotension. Blood pressure continues to remain low, though stable. Continue to monitor. Continue IV fluids. If no improvement, we will transfer to ICU. Start on pressors to keep MAP above 65. Severe protein-calorie malnutrition. Albumin is 2.1. The patient now has PEG tube in place. Feeds have been started. Appreciate Dr. Feliciano's input. Gastritis and duodenitis found on endoscopy. Continue IV PPI. Follow up on biopsy results. DVT prophylaxis: SCDs and Lovenox GI prophylaxis: Protonix Disposition: Continue to monitor on the floor. Patient is pending SSI hearing on 10/09/2018. Further disposition plans after hearing.
[2018-10-05] MEDS: NACHLORIDE 0.45% 1,000 ML IV SCH ×3 (01:53→17:29)
[2018-10-05] MEDS: JEVITY 1.5 CAL LIQUID 1,000 ML BOT RTH SCH (06:09)
[2018-10-05] MEDS: ACETAMINOPHEN 500 MG TAB PO PRN (08:41)
[2018-10-05] MEDS: PANTOPRAZOLE 40 MG INJ IVP SCH (08:41)
[2018-10-05] MEDS: KETOROLAC 30 MG/ML INJ IV PRN (08:51)
--- NOTE | 2018-10-05 10:35 | P.PN ---
Subjective Date of Service: 10/05/18 Chief Complaint: Pneumonia, protein-calorie malnutrition Subjective: No C/O voiced, Improving Patient seen and examined at bedside. No family at bedside. Chart reviewed and case discussed with nursing staff. Patient with PEG tube in place, placed recently. Had no complaints this morning , resting comfortably in bed Review of Systems 10-point ROS is otherwise unremarkable Physical Examination - Vital Signs Temperature: 98.3 F Blood Pressure: 93/56 Pulse: 63 Respirations: 12 Pulse Ox (%): 98 - Physical Exam General: Alert, In no apparent distress HEENT: Atraumatic, PERRLA, EOMI Neck: Supple, JVD not distended Respiratory: Clear to auscultation bilaterally, Normal air movement Cardiovascular: Regular rate/rhythm, Normal S1 S2 Gastrointestinal: Normal bowel sounds, No tenderness Musculoskeletal: No tenderness Integumentary: No rashes Neurological: Normal speech, Normal tone, Normal affect Lymphatics: No axilla or inguinal lymphadenopathy Assessment And Plan - Plan A 48-year-old male with: Left lower lobe pneumonia secondary to aspiration, improved. Repeat Chest x- ray shows improvement. Cultures are negative. White blood cell count normalized. Dysphagia, status post PEG tube placement, multifactorial reasons. The patient also has severe protein-calorie malnutrition. 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 Myotonic dystrophy, severe muscle wasting, decreased tone with multiple complications including ptosis, dysphagia, difficulty ambulating, pneumonia. Appreciate Dr. Grant's input. Hypotension. Blood pressure continues to remain low, though stable. Continue to monitor. Continue IV fluids. If no improvement, we will transfer to ICU. Start on pressors to keep MAP above 65. Severe protein-calorie malnutrition. Albumin is 2.1. The patient now has PEG tube in place. Feeds have been started. Appreciate Dr. Feliciano's input. Gastritis and duodenitis found on endoscopy. Continue IV PPI. Follow up on biopsy results. DVT prophylaxis: SCDs and Lovenox GI prophylaxis: Protonix Disposition: Continue to monitor on the floor. Patient is pending SSI hearing on 10/09/2018. Further disposition plans after hearing.
[2018-10-05] MEDS: Levofloxacin 750mg IV 750 MG/150 ML BAG IV SCH (11:15)
[2018-10-06] MEDS: NACHLORIDE 0.45% 1,000 ML IV SCH ×2 (05:41→17:03)
[2018-10-06] MEDS: JEVITY 1.5 CAL LIQUID 1,000 ML BOT RTH SCH (05:42)
[2018-10-06] MEDS: PANTOPRAZOLE 40 MG INJ IVP SCH (09:16)
--- NOTE | 2018-10-06 11:42 | P.PN ---
Subjective Date of Service: 10/06/18 Chief Complaint: Pneumonia, protein-calorie malnutrition Subjective: No C/O voiced, Improving Patient seen and examined at bedside. No family at bedside. Chart reviewed and case discussed with nursing staff. Patient with PEG tube in place, placed recently. Had no complaints this morning , resting comfortably in bed Review of Systems 10-point ROS is otherwise unremarkable Physical Examination - Vital Signs Temperature: 98.0 F Blood Pressure: 104/62 Pulse: 61 Respirations: 17 Pulse Ox (%): 98 Assessment And Plan - Plan A 48-year-old male with: Left lower lobe pneumonia secondary to aspiration, improved. Repeat Chest x- ray shows improvement. Cultures are negative. White blood cell count normalized. Dysphagia, status post PEG tube placement, multifactorial reasons. The patient also has severe protein-calorie malnutrition. 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 Myotonic dystrophy, severe muscle wasting, decreased tone with multiple complications including ptosis, dysphagia, difficulty ambulating, pneumonia. Appreciate Dr. Grant's input. Hypotension. Blood pressure continues to remain low, though stable. Continue to monitor. Continue IV fluids. If no improvement, we will transfer to ICU. Start on pressors to keep MAP above 65. Severe protein-calorie malnutrition. Albumin is 2.1. The patient now has PEG tube in place. Feeds have been started. Appreciate Dr. Feliciano's input. Gastritis and duodenitis found on endoscopy. Continue IV PPI. Follow up on biopsy results. DVT prophylaxis: SCDs and Lovenox GI prophylaxis: Protonix Disposition: Continue to monitor on the floor. Patient is pending SSI hearing on 10/09/2018. Further disposition plans after hearing.
[2018-10-06] MEDS: Levofloxacin 750mg IV 750 MG/150 ML BAG IV SCH (12:43)
[2018-10-07] MEDS: NACHLORIDE 0.45% 1,000 ML IV SCH ×3 (02:14→22:44)
[2018-10-07] MEDS: JEVITY 1.5 CAL LIQUID 1,000 ML BOT RTH SCH ×2 (02:16→22:44)
[2018-10-07] MEDS: ACETAMINOPHEN 500 MG TAB PO PRN (03:52)
[2018-10-07] MEDS: PANTOPRAZOLE 40 MG INJ IVP SCH (08:28)
--- NOTE | 2018-10-07 09:40 | P.PN ---
Subjective Date of Service: 10/07/18 Chief Complaint: Pneumonia, protein-calorie malnutrition Subjective: No C/O voiced Patient seen and examined at bedside. No family at bedside. Chart reviewed and case discussed with nursing staff. Patient with PEG tube in place, placed recently. Had no complaints this morning , resting comfortably in bed Review of Systems 10-point ROS is otherwise unremarkable Physical Examination - Vital Signs Temperature: 98.7 F Blood Pressure: 98/61 Pulse: 66 Respirations: 18 Pulse Ox (%): 97 - Physical Exam General: Alert, In no apparent distress, Oriented x3 HEENT: Atraumatic, PERRLA, EOMI Neck: Supple, JVD not distended Respiratory: Clear to auscultation bilaterally, Normal air movement Cardiovascular: Regular rate/rhythm, Normal S1 S2 Gastrointestinal: Normal bowel sounds, No tenderness Musculoskeletal: No tenderness Integumentary: No rashes Neurological: Normal speech, Normal tone, Normal affect Lymphatics: No axilla or inguinal lymphadenopathy Assessment And Plan - Plan A 48-year-old male with: Left lower lobe pneumonia secondary to aspiration, improved. Repeat Chest x- ray shows improvement. Cultures are negative. White blood cell count normalized. Continue IV Levaquin, day #8. Will do a 10 day course. Dysphagia, status post PEG tube placement, multifactorial reasons. The patient also has severe protein-calorie malnutrition. 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 Myotonic dystrophy, severe muscle wasting, decreased tone with multiple complications including ptosis, dysphagia, difficulty ambulating, pneumonia. Appreciate Dr. Grant's input. Hypotension. Blood pressure continues to remain low, though stable. Continue to monitor. Patient continues to remain asymptomatic. Continue IV fluids. Monitor a.m. labs Severe protein-calorie malnutrition. The patient now has PEG tube in place. Continue feeds. Appreciate Dr. Feliciano's input. Gastritis and duodenitis found on endoscopy. Continue IV PPI. Follow up on biopsy results. DVT prophylaxis: SCDs and Lovenox GI prophylaxis: Protonix Disposition: Continue to monitor on the floor. Patient is pending SSI hearing on 10/09/2018. Further disposition/placement plans after hearing.
[2018-10-07] MEDS: Levofloxacin 750mg IV 750 MG/150 ML BAG IV SCH (11:00)
[2018-10-08] MEDS: NACHLORIDE 0.45% 1,000 ML IV SCH ×4 (06:00→18:34)
[2018-10-08 06:28] LABS: Absolute Lymphocytes (CBC) 1.2 K/uL (0.7-4.9); Absolute Monocytes 0.4 K/uL (0.1-1.3); Absolute Neutrophil 2.8 K/uL (1.8-8.0); Basophils % 0.5 % (0-1.3); Eosinophils % 1.6 % (0-4.4); Hematocrit 39.3 % (39.6-49.0); Lymphocytes % 26.4 % (15.3-44.8); MPV 8.3 fL (7.6-11.3); Monocytes % 8.9 % (3.3-12.3); RBC Red Blood Cell Count 4.23 M/uL (4.33-5.43)
[2018-10-08 06:29] LABS: ALT/SGPT 39 U/L (12-78); AST/SGOT 22 U/L (15-37); Albumin 2.7 g/dL (3.4-5.0); Alkaline Phosphatase 94 U/L (45-117); BUN Blood Urea Nitrogen 17 mg/dL (7-18); Bicarbonate 33 mmol/L (21-32); Bilirubin Total 0.4 mg/dL (0.2-1.0); Glucose Level 103 mg/dL (74-106); Potassium 4.5 mmol/L (3.5-5.1); Protein, Total 6.7 g/dL (6.4-8.2); Sodium Level 142 mmol/L (136-145)
[2018-10-08] MEDS: PANTOPRAZOLE 40 MG INJ IVP SCH (08:31)
[2018-10-08] MEDS: Levofloxacin 750mg IV 750 MG/150 ML BAG IV SCH (12:05)
--- NOTE | 2018-10-08 15:29 | P.PN ---
Subjective Date of Service: 10/08/18 Primary Care Provider: none Chief Complaint: Pneumonia, protein-calorie malnutrition Subjective: Improving Physical Examination - Vital Signs Temperature: 99.1 F Blood Pressure: 98/61 Pulse: 72 Respirations: 18 Pulse Ox (%): 97 - Physical Exam General: Alert, In no apparent distress, Cooperative HEENT: Atraumatic Neck: Supple Respiratory: Clear to auscultation bilaterally, Normal air movement Cardiovascular: Normal pulses, Regular rate/rhythm Gastrointestinal: Normal bowel sounds, Other (PEG tube in place) Neurological: Other (Muscle atrophy noted) - Studies Medications List Reviewed: Yes Assessment & Plan Discharge Plan: Home Plan to discharge in: 72 Hours Physician Review Additional Text: Impression: Left lower lobe pneumonia secondary to aspiration with recent influenza Dysphagia with noted muscular dystrophy-myotonic type complicated with severe malnutrition Gastritis Plan: Left lower lobe pneumonia secondary to aspiration with recent influenza: Patient has completed IV Levaquin times 10 days. Continue aspiration precaution. 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 Continue with speech recommendations. Continue aspiration precaution. Patient remains NPO due to his severe dysphagia. Patient will need to follow up with GI as an outpatient. Anticipate discharge once assistance for PEG tube feeds arranged at discharge. Likely in the next 2-3 days. Gastritis: Continue with PPI. Time Spent Managing Pts Care (In Minutes): 55
[2018-10-08] MEDS: ENOXAPARIN 30 MG/0.3 ML SQ SCH (18:35)
[2018-10-08] MEDS: ONDANSETRON 4 MG/2 ML VIAL IV PRN (18:35)
[2018-10-08] MEDS: JEVITY 1.5 CAL LIQUID 1,000 ML BOT RTH SCH (21:34)
[2018-10-09] MEDS: NACHLORIDE 0.45% 1,000 ML IV SCH (05:02)
[2018-10-09] MEDS: Pantoprazole (granules) 40 MG/BLIST PACKET FT SCH (05:03)
[2018-10-09 06:39] LABS: Absolute Lymphocytes (CBC) 1.1 K/uL (0.7-4.9); Absolute Monocytes 0.3 K/uL (0.1-1.3); Absolute Neutrophil 1.9 K/uL (1.8-8.0); Basophils % 0.6 % (0-1.3); Eosinophils % 2.3 % (0-4.4); Hematocrit 37.8 % (39.6-49.0); Lymphocytes % 32.3 % (15.3-44.8); MPV 8.4 fL (7.6-11.3); Monocytes % 9.5 % (3.3-12.3); RBC Red Blood Cell Count 4.04 M/uL (4.33-5.43)
[2018-10-09 06:58] LABS: ALT/SGPT 38 U/L (12-78); AST/SGOT 26 U/L (15-37); Albumin 2.6 g/dL (3.4-5.0); Alkaline Phosphatase 98 U/L (45-117); BUN Blood Urea Nitrogen 17 mg/dL (7-18); Bicarbonate 32 mmol/L (21-32); Bilirubin Total 0.5 mg/dL (0.2-1.0); Glucose Level 97 mg/dL (74-106); Potassium 4.6 mmol/L (3.5-5.1); Protein, Total 6.6 g/dL (6.4-8.2); Sodium Level 141 mmol/L (136-145)
--- NOTE | 2018-10-09 14:50 | P.PN ---
Subjective Date of Service: 10/09/18 Primary Care Provider: none Chief Complaint: Pneumonia, protein-calorie malnutrition Subjective: Improving Physical Examination - Vital Signs Temperature: 98.6 F Blood Pressure: 104/68 Pulse: 73 Respirations: 18 Pulse Ox (%): 98 - Physical Exam General: Alert HEENT: Atraumatic Neck: Supple Respiratory: Clear to auscultation bilaterally, Normal air movement Cardiovascular: Normal pulses, Regular rate/rhythm Gastrointestinal: Normal bowel sounds, Soft and benign, Non-distended Neurological: Normal speech, Normal strength at 5/5 x4 extr, Normal tone, Normal affect - Studies Medications List Reviewed: Yes Assessment & Plan Discharge Plan: Home Plan to discharge in: 48 Hours Physician Review Additional Text: Impression: Left lower lobe pneumonia secondary to aspiration with recent influenza Dysphagia with noted muscular dystrophy-myotonic type complicated with severe malnutrition Gastritis Plan: Left lower lobe pneumonia secondary to aspiration with recent influenza: Patient has completed IV Levaquin times 10 days. Continue aspiration precaution. Will monitor closely. 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 Will have dietary transition to bolus feeds. Patient remains NPO due to severe dysphagia. Patient will need to follow up with GI as an outpatient to further evaluate. Awaiting assistance from social professionals to see if the patient could qualify for help at home. Patient is to discuss further with [employer] to determine insurance status. Gastritis: Continue with PPI. Time Spent Managing Pts Care (In Minutes): 55
[2018-10-09] MEDS: ACETAMINOPHEN 500 MG TAB PO PRN (16:37)
[2018-10-09] MEDS: ENOXAPARIN 30 MG/0.3 ML SQ SCH (16:37)
[2018-10-09] MEDS: JEVITY 1.5 CAL LIQUID 1,000 ML BOT RTH SCH (20:22)
[2018-10-10] MEDS: Pantoprazole (granules) 40 MG/BLIST PACKET FT SCH (05:50)
[2018-10-10 06:53] LABS: Absolute Lymphocytes (CBC) 1.2 K/uL (0.7-4.9); Absolute Monocytes 0.3 K/uL (0.1-1.3); Absolute Neutrophil 1.7 K/uL (1.8-8.0); Basophils % 0.7 % (0-1.3); Eosinophils % 2.5 % (0-4.4); Lymphocytes % 35.4 % (15.3-44.8); MPV 8.9 fL (7.6-11.3); RBC Red Blood Cell Count 4.38 M/uL (4.33-5.43)
[2018-10-10 07:13] LABS: ALT/SGPT 46 U/L (12-78); AST/SGOT 31 U/L (15-37); Albumin 2.8 g/dL (3.4-5.0); Alkaline Phosphatase 97 U/L (45-117); BUN Blood Urea Nitrogen 19 mg/dL (7-18); Bicarbonate 32 mmol/L (21-32); Bilirubin Total 0.4 mg/dL (0.2-1.0); Glucose Level 120 mg/dL (74-106); Protein, Total 6.9 g/dL (6.4-8.2); Sodium Level 142 mmol/L (136-145)
--- NOTE | 2018-10-10 10:41 | P.PN ---
Subjective Date of Service: 10/10/18 Primary Care Provider: none Chief Complaint: Pneumonia, protein-calorie malnutrition Subjective: Doing well Physical Examination - Vital Signs Temperature: 97.9 F Blood Pressure: 98/58 Pulse: 72 Respirations: 16 Pulse Ox (%): 95 - Physical Exam General: Alert, In no apparent distress, Oriented x3, Cooperative HEENT: Atraumatic Neck: Supple Respiratory: Clear to auscultation bilaterally, Normal air movement Cardiovascular: Normal pulses, Regular rate/rhythm Gastrointestinal: Normal bowel sounds, Soft and benign, Non-distended Musculoskeletal: No erythema, No tenderness, No warmth Integumentary: No tenderness/swelling, No erythema, No warmth, No cyanosis Neurological: Normal speech, Normal strength at 5/5 x4 extr, Normal tone - Studies Medications List Reviewed: Yes Assessment & Plan Discharge Plan: Home Plan to discharge in: 24 Hours Physician Review Additional Text: Impression: Left lower lobe pneumonia secondary to aspiration with recent influenza 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 Continue with incentive spirometer. Continue aspiration precaution. Will monitor closely. 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 Will have dietary transition to bolus feeds. Patient remains NPO due to severe dysphagia. Patient will need to follow up with GI as an outpatient to further evaluate. Patient still waiting assistance from social services manager to discuss case further with [employer] office. They were to call yesterday but apparently he did not get a call. Financial services has contacted [employer] to contact patient to complete insurance progress. Gastritis: Continue with PPI. Time Spent Managing Pts Care (In Minutes): 55
[2018-10-10] MEDS: JEVITY 1.5 CAL LIQUID 1,000 ML BOT FT SCH ×4 (11:00→20:23)
[2018-10-10] MEDS: ENOXAPARIN 30 MG/0.3 ML SQ SCH (16:57)
[2018-10-11] MEDS: Pantoprazole (granules) 40 MG/BLIST PACKET FT SCH (05:25)
[2018-10-11] MEDS: JEVITY 1.5 CAL LIQUID 1,000 ML BOT FT SCH ×5 (08:28→20:32)
--- NOTE | 2018-10-11 11:28 | P.PN ---
Subjective Date of Service: 10/11/18 Primary Care Provider: none Chief Complaint: Pneumonia, protein-calorie malnutrition Subjective: Doing well (Patient doing well. Patient has been transitioned to bolus feeds.) Physical Examination - Vital Signs Temperature: 98.6 F Blood Pressure: 95/68 Pulse: 71 Respirations: 17 Pulse Ox (%): 97 - Physical Exam General: Alert, In no apparent distress, Oriented x3, Cooperative HEENT: Atraumatic Neck: Supple Respiratory: Clear to auscultation bilaterally, Normal air movement Cardiovascular: Normal pulses, Regular rate/rhythm Gastrointestinal: Normal bowel sounds, Soft and benign, Non-distended Integumentary: No erythema, No warmth, No cyanosis Neurological: Normal speech, Normal strength at 5/5 x4 extr, Normal tone, Normal affect - Studies Medications List Reviewed: Yes Assessment & Plan Discharge Plan: Home Plan to discharge in: 48 Hours Physician Review Additional Text: Impression: Left lower lobe pneumonia secondary to aspiration with recent influenza 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 Continue with incentive spirometer. Continue aspiration precaution. Will monitor closely. 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 Patient has been transitioned to bolus feeds. Will discuss with GI about future possibility of taking oral intake. Will check to see if the patient will require further evaluation and treatment of his condition. Still waiting approval for insurance. [employer] Tender is aware and working to help get this in order. Gastritis: Continue with PPI. Time Spent Managing Pts Care (In Minutes): 55
[2018-10-11] MEDS: ENOXAPARIN 30 MG/0.3 ML SQ SCH (18:06)
[2018-10-12] MEDS: Pantoprazole (granules) 40 MG/BLIST PACKET FT SCH (06:10)
[2018-10-12] MEDS: JEVITY 1.5 CAL LIQUID 1,000 ML BOT FT SCH ×2 (08:00→08:30)
[2018-10-12] MEDS: TWOCAL HN 1,000 ML BOT FT SCH ×4 (09:00→20:54)
--- NOTE | 2018-10-12 12:38 | P.PN ---
Subjective Date of Service: 10/12/18 Primary Care Provider: none Chief Complaint: Pneumonia, protein-calorie malnutrition Subjective: Doing well Physical Examination - Vital Signs Temperature: 97.7 F Blood Pressure: 114/69 Pulse: 81 Respirations: 16 Pulse Ox (%): 100 - Physical Exam General: Alert, In no apparent distress, Oriented x3, Cooperative HEENT: Atraumatic Neck: Supple Respiratory: Clear to auscultation bilaterally, Normal air movement Cardiovascular: Normal pulses, Regular rate/rhythm Gastrointestinal: Normal bowel sounds, Soft and benign, Non-distended Neurological: Normal speech, Normal strength at 5/5 x4 extr, Normal tone, Normal affect - Studies Medications List Reviewed: Yes Assessment & Plan Discharge Plan: Home Plan to discharge in: Greater than 2 days Physician Review Additional Text: Impression: Left lower lobe pneumonia secondary to aspiration with recent influenza 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 Continue with incentive spirometer. Continue aspiration precaution. Will monitor closely. 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 Patient has been transitioned to bolus feeds. Will have speech reassess swallow as the patient patient is wanting to oral intake. Still waiting approval for insurance. Sales[employer] is aware and working to help get this in order. Gastritis: Continue with PPI. Time Spent Managing Pts Care (In Minutes): 55
--- NOTE | 2018-10-12 15:52 | RAD REPORT ---
EXAM DESCRIPTION: RAD - Barium Swallow Modified - 10/12/2018 3:45 pm CLINICAL HISTORY: Dysphagia COMPARISON: October 02 TECHNIQUE: The patient was given liquid, semi-solid and solid forms of barium. Lateral view fluorosc opic imaging was performed in conjunction with speech pathology service. FINDINGS: Cineloop acquisitions: 24 Fluoro time: 4 minutes 1 second Laryngeal penetration: not cleared nectar, regular thin, pudding mech soft Aspiration: ineffective cough with regular thin wash after nectar in an attempt to decrease residue Pharyngeal residue: vallecular and pyriform. Other: delayed swallow, incomplete swallow, decreased UES opening mild with thin and nectar, moderate - sever with pudding and mech soft. moderate at beginning with all severe as study progressed IMPRESSION: Modified barium swallow as detailed above and further detailed on speech pathology sona allen
[2018-10-12] MEDS: ENOXAPARIN 30 MG/0.3 ML SQ SCH (18:00)
[2018-10-13] MEDS: Pantoprazole (granules) 40 MG/BLIST PACKET FT SCH (05:41)
[2018-10-13] MEDS: TWOCAL HN 1,000 ML BOT FT SCH ×4 (09:00→21:08)
--- NOTE | 2018-10-13 09:24 | P.PN ---
Subjective Date of Service: 10/13/18 Primary Care Provider: none Chief Complaint: Pneumonia, protein-calorie malnutrition Subjective: Doing well Physical Examination - Vital Signs Temperature: 98.1 F Blood Pressure: 105/63 Pulse: 75 Respirations: 17 Pulse Ox (%): 96 - Physical Exam General: Alert, In no apparent distress, Oriented x3, Cooperative HEENT: Atraumatic Neck: Supple Respiratory: Clear to auscultation bilaterally, Normal air movement Cardiovascular: Normal pulses, Regular rate/rhythm Neurological: Normal speech, Normal strength at 5/5 x4 extr, Normal tone - Studies Medications List Reviewed: Yes Assessment & Plan Discharge Plan: Home Plan to discharge in: Greater than 2 days Physician Review Additional Text: Impression: Left lower lobe pneumonia secondary to aspiration with recent influenza DysphPharyngeal/esophageal Dysphagia with possible esophageal stenosis and noted muscular dystrophy-myotonic type complicated with severe malnutrition status post PEG tube placement Gastritis Plan: Left lower lobe pneumonia secondary to aspiration with recent influenza: Patient has completed IV Levaquin treatment. Continue with incentive spirometer. Continue aspiration precaution. Will monitor closely. Pharyngeal/esophageal Dysphagia with possible esophageal stenosis and noted muscular dystrophy-myotonic type complicated with severe malnutrition status post PEG tube placement: Continue with PEG tube feeds. Patient has been transitioned to bolus feeds. Speech reassess swallowing. Patient still at risk for aspiration. Patient remains NPO continues with PEG tube feeds. Still waiting approval for insurance. Ply[employer] Stock Grader is aware and working to help get this in order. Awaiting approval for patient assistance program to supply PEG tube feeds. Hopefully this can be expedited. If so, the patient can be possibly discharged but this will need to be arranged 1st. Will continue to work with marriage and family social worker. Gastritis: Continue with PPI. Time Spent Managing Pts Care (In Minutes): 55
[2018-10-13] MEDS: ENOXAPARIN 30 MG/0.3 ML SQ SCH (16:27)
[2018-10-14] MEDS: Pantoprazole (granules) 40 MG/BLIST PACKET FT SCH (05:43)
[2018-10-14] MEDS: TWOCAL HN 1,000 ML BOT FT SCH ×4 (09:59→20:21)
--- NOTE | 2018-10-14 10:13 | P.PN ---
Subjective Date of Service: 10/14/18 Primary Care Provider: none Chief Complaint: Pneumonia, protein-calorie malnutrition Subjective: Doing well Physical Examination - Vital Signs Temperature: 97.0 F Blood Pressure: 111/60 Pulse: 74 Respirations: 16 Pulse Ox (%): 99 - Physical Exam General: Alert, In no apparent distress, Oriented x3, Cooperative HEENT: Atraumatic Neck: Supple Respiratory: Clear to auscultation bilaterally, Normal air movement Cardiovascular: Normal pulses, Regular rate/rhythm Gastrointestinal: Normal bowel sounds, Soft and benign, Non-distended, No masses , No rebound, No guarding Musculoskeletal: No erythema, No tenderness, No warmth Integumentary: No tenderness/swelling, No erythema, No warmth, No cyanosis Neurological: Normal speech, Normal strength at 5/5 x4 extr, Normal tone, Normal affect - Studies Medications List Reviewed: Yes Assessment & Plan Discharge Plan: Home Plan to discharge in: Greater than 2 days Physician Review Additional Text: Impression: Left lower lobe pneumonia secondary to aspiration with recent influenza DysphPharyngeal/esophageal Dysphagia with possible esophageal stenosis and noted muscular dystrophy-myotonic type complicated with severe malnutrition status post PEG tube placement Gastritis Plan: Left lower lobe pneumonia secondary to aspiration with recent influenza: Patient has completed IV Levaquin treatment. Continue with incentive spirometer. Continue aspiration precaution. Continue to monitor closely. I will turn the service over to Dr. Alicia tomorrow. I will go over the plan of care with her. Pharyngeal/esophageal Dysphagia with possible esophageal stenosis and noted muscular dystrophy-myotonic type complicated with severe malnutrition status post PEG tube placement: Continue with PEG tube feeds. Patient has been transitioned to bolus feeds. Speech reassessed swallowing on Monday. Patient still at risk for aspiration. Patient remains NPO and continues with PEG tube feeds. Patient will need to follow up with GI to further evaluate his esophageal stenosis. This will likely be done as an outpatient. I will reach out to GI for further recommendations as patient desires to be eat by mouth in the future. Still waiting approval for insurance. Cabinet Mounter is aware and working to help get this in order. Awaiting approval for patient assistance program to supply PEG tube feeds. Hopefully this can be expedited. If so, the patient can be possibly discharged but this will need to be arranged 1st. Will continue to work with social security specialist. Gastritis: Continue with PPI. Time Spent Managing Pts Care (In Minutes): 55
[2018-10-14] MEDS: ENOXAPARIN 30 MG/0.3 ML SQ SCH (16:13)
[2018-10-15] MEDS: Pantoprazole (granules) 40 MG/BLIST PACKET FT SCH (05:45)
[2018-10-15 06:20] LABS: BUN Blood Urea Nitrogen 20 mg/dL (7-18); Bicarbonate 32 mmol/L (21-32); Glucose Level 83 mg/dL (74-106); Magnesium 2.8 mg/dL (1.8-2.4); Sodium Level 144 mmol/L (136-145)
--- NOTE | 2018-10-15 06:43 | P.PN ---
Subjective Date of Service: 10/15/18 Primary Care Provider: none Chief Complaint: Pneumonia, protein-calorie malnutrition Subjective: Improving (Patient is tolerating 2 raghav TFs well, bolus TFs 4 cans per day with water flushes. He is still NPO. He wants to eat but was admitted with probable aspiration pneumonia and failed swallow evaluation. 10-12-18 modified barium swallow again revealed aspiration but also noted incomplete upper esophageal sphincter opening (muscular dystrophy history).) Review of Systems Unremarkable Physical Examination - Vital Signs Temperature: 98.9 F Blood Pressure: 95/59 Pulse: 78 Respirations: 16 Pulse Ox (%): 95 - Physical Exam General: Alert, In no apparent distress, Oriented x3, Cooperative HEENT: Atraumatic, Normocephalic, PERRLA, EOMI Neck: Supple Respiratory: Normal air movement Cardiovascular: Normal pulses Gastrointestinal: Soft and benign, No tenderness, No rebound, No guarding Neurological: Normal speech - Studies Medications List Reviewed: Yes Assessment And Plan - Current Problems (Diagnosis) (1) Protein-calorie malnutrition Current Visit: Yes Status: Acute Comment: Albumin 1.9, Pre-albumin 8 (2) Dysphagia Current Visit: Yes Status: Acute (3) Pneumonia, aspiration Current Visit: Yes Status: Acute (4) Muscular dystrophy Onset Date: 09/27/18 Current Visit: Yes Status: Acute - Plan REC: 1) continue TFs via PEG 2) check pre-albumin 3) consider esophageal motility study and possible therapy at tertiary center ( muscular dystrophy history) Physician Review Additional Text: Impression: Left lower lobe pneumonia secondary to aspiration with recent influenza DysphPharyngeal/esophageal Dysphagia with possible esophageal stenosis and noted muscular dystrophy-myotonic type complicated with severe malnutrition status post PEG tube placement Gastritis Plan: Left lower lobe pneumonia secondary to aspiration with recent influenza: Patient has completed IV Levaquin treatment. Continue with incentive spirometer. Continue aspiration precaution. Continue to monitor closely. I will turn the service over to Dr. Alicia tomorrow. I will go over the plan of care with her. Pharyngeal/esophageal Dysphagia with possible esophageal stenosis and noted muscular dystrophy-myotonic type complicated with severe malnutrition status post PEG tube placement: Continue with PEG tube feeds. Patient has been transitioned to bolus feeds. Speech reassessed swallowing on Monday. Patient still at risk for aspiration. Patient remains NPO and continues with PEG tube feeds. Patient will need to follow up with GI to further evaluate his esophageal stenosis. This will likely be done as an outpatient. I will reach out to GI for further recommendations as patient desires to be eat by mouth in the future. Still waiting approval for insurance. Ticket Machine Operator is aware and working to help get this in order. Awaiting approval for patient assistance program to supply PEG tube feeds. Hopefully this can be expedited. If so, the patient can be possibly discharged but this will need to be arranged 1st. Will continue to work with oncology social work. Gastritis: Continue with PPI.
[2018-10-15] MEDS: TWOCAL HN 1,000 ML BOT FT SCH ×4 (09:00→20:20)
--- NOTE | 2018-10-15 15:26 | P.PN ---
Subjective Date of Service: 10/15/18 Primary Care Provider: none Chief Complaint: Pneumonia, protein-calorie malnutrition Subjective: No C/O voiced Patient seen and examined at bedside. No family at bedside. Chart reviewed and case discussed with nursing staff. No acute events overnight. Complaints of slight burning at the tube site when she was being cleaned with alcohol. Denies any abdominal pain, current burning, discharge, redness, warmth or fevers. Review of Systems 10-point ROS is otherwise unremarkable Physical Examination - Vital Signs Temperature: 98.4 F Blood Pressure: 127/65 Pulse: 75 Respirations: 16 Pulse Ox (%): 98 - Physical Exam General: Alert, In no apparent distress, Oriented x3 HEENT: Atraumatic, PERRLA, EOMI Neck: Supple, JVD not distended Respiratory: Clear to auscultation bilaterally, Normal air movement Cardiovascular: Regular rate/rhythm, Normal S1 S2 Gastrointestinal: Normal bowel sounds, No tenderness, Other (PEG tube in place; incision site clear, dry and intact) Musculoskeletal: No tenderness Integumentary: No rashes Neurological: Normal speech, Normal tone, Normal affect Lymphatics: No axilla or inguinal lymphadenopathy - Studies Medications List Reviewed: Yes Assessment And Plan - Plan A 48-year-old male with: Left lower lobe pneumonia secondary to aspiration. Completed 10 day course of IV Levaquin. Continue with incentive spirometer, aspiration precautions. Dysphagia, status post PEG tube placement, Myotonic dystrophy Severe muscle wasting, decreased tone with multiple complications including ptosis, dysphagia, difficulty ambulating, pneumonia. Continue with PEG tube feeds, patient has been transitioned to post dates. The patient noted to be still at risk for aspiration, therefore remains NPO at this time. Patient will need to follow up with GI as an outpatient to further evaluate his esophageal stenosis. GI on board, recommendations appreciated. Patient unable to work from this point on due to his worsening muscle wasting/ myotonic dystrophy. Severe protein-calorie malnutrition. PEG tube in place. Continue feeds. Appreciate Dr. Feliciano's input. Gastritis and duodenitis found on endoscopy. Continue PPI. DVT prophylaxis: SCDs and Lovenox GI prophylaxis: Protonix Disposition: Continue to monitor on the floor. Patient is pending approval for insurance. security services specialist on board. He is awaiting approval for patient assistance program to supply PEG tube feeds. He can be discharged home once all that has been set up. Time Spent Managing PTS Care (In Minutes): 45
[2018-10-15] MEDS: ENOXAPARIN 30 MG/0.3 ML SQ SCH (16:44)
[2018-10-16] MEDS: Pantoprazole (granules) 40 MG/BLIST PACKET FT SCH (05:37)
[2018-10-16] MEDS: TWOCAL HN 1,000 ML BOT FT SCH ×4 (08:33→21:00)
--- NOTE | 2018-10-16 10:16 | P.PN ---
Subjective Date of Service: 10/16/18 Primary Care Provider: none Chief Complaint: Pneumonia, protein-calorie malnutrition Subjective: No C/O voiced, Improving Patient seen and examined at bedside. No family at bedside. Chart reviewed and case discussed with nursing staff. No acute events overnight. Review of Systems 10-point ROS is otherwise unremarkable Physical Examination - Vital Signs Temperature: 97.5 F Blood Pressure: 100/58 Pulse: 64 Respirations: 14 Pulse Ox (%): 97 - Physical Exam General: Alert, In no apparent distress, Oriented x3 HEENT: Atraumatic, PERRLA, EOMI Neck: Supple, JVD not distended Respiratory: Clear to auscultation bilaterally, Normal air movement Cardiovascular: Regular rate/rhythm, Normal S1 S2 Gastrointestinal: Normal bowel sounds, No tenderness Musculoskeletal: No tenderness Integumentary: No rashes Neurological: Normal speech, Normal tone, Normal affect Lymphatics: No axilla or inguinal lymphadenopathy - Studies Medications List Reviewed: Yes Assessment And Plan - Plan A 48-year-old male with: Left lower lobe pneumonia secondary to aspiration. Completed 10 day course of IV Levaquin. Continue with incentive spirometer, aspiration precautions. Dysphagia, status post PEG tube placement, Myotonic dystrophy Severe muscle wasting, decreased tone with multiple complications including ptosis, dysphagia, difficulty ambulating, pneumonia. Continue with PEG tube feeds, patient has been transitioned to post dates. The patient noted to be still at risk for aspiration, therefore remains NPO at this time. Patient will need to follow up with GI as an outpatient to further evaluate his esophageal stenosis. GI on board, recommendations appreciated. Patient unable to work from this point on due to his worsening muscle wasting/ myotonic dystrophy. Severe protein-calorie malnutrition. PEG tube in place. Continue feeds. Appreciate Dr. Feliciano's input. Gastritis and duodenitis found on endoscopy. Continue PPI. DVT prophylaxis: SCDs and Lovenox GI prophylaxis: Protonix Disposition: Continue to monitor on the floor. Patient is pending approval for insurance. director of environmental services on board. He is awaiting approval for patient assistance program to supply PEG tube feeds. He can be discharged home once all that has been set up.
[2018-10-16] MEDS: ENOXAPARIN 30 MG/0.3 ML SQ SCH (17:03)
[2018-10-17] MEDS: Pantoprazole (granules) 40 MG/BLIST PACKET FT SCH (05:38)
[2018-10-17] MEDS: TWOCAL HN 1,000 ML BOT FT SCH ×4 (08:20→21:00)
--- NOTE | 2018-10-17 14:17 | P.PN ---
Subjective Date of Service: 10/17/18 Primary Care Provider: none Chief Complaint: Pneumonia, protein-calorie malnutrition Subjective: No C/O voiced Patient seen and examined at bedside. No family at bedside. Chart reviewed and case discussed with nursing staff. No acute events overnight. Review of Systems 10-point ROS is otherwise unremarkable Physical Examination - Vital Signs Temperature: 98.3 F Blood Pressure: 94/53 Pulse: 68 Respirations: 18 Pulse Ox (%): 96 - Physical Exam General: Alert, In no apparent distress HEENT: Atraumatic, PERRLA, EOMI Neck: Supple, JVD not distended Respiratory: Clear to auscultation bilaterally, Normal air movement Cardiovascular: Regular rate/rhythm, Normal S1 S2 Gastrointestinal: Normal bowel sounds, No tenderness Musculoskeletal: No tenderness Integumentary: No rashes Neurological: Normal speech, Normal tone, Normal affect Lymphatics: No axilla or inguinal lymphadenopathy - Studies Medications List Reviewed: Yes Assessment And Plan - Plan A 48-year-old male with: Left lower lobe pneumonia secondary to aspiration. Completed 10 day course of IV Levaquin. Continue with incentive spirometer, aspiration precautions. Dysphagia, status post PEG tube placement, Myotonic dystrophy Severe muscle wasting, decreased tone with multiple complications including ptosis, dysphagia, difficulty ambulating, pneumonia. Continue with PEG tube feeds, patient has been transitioned to post dates. The patient noted to be still at risk for aspiration, therefore remains NPO at this time. Patient will need to follow up with GI as an outpatient to further evaluate his esophageal stenosis. GI on board, recommendations appreciated. Patient unable to work from this point on due to his worsening muscle wasting/ myotonic dystrophy. Severe protein-calorie malnutrition. PEG tube in place. Continue feeds. Appreciate Dr. Feliciano's input. Gastritis and duodenitis found on endoscopy. Continue PPI. DVT prophylaxis: SCDs and Lovenox GI prophylaxis: Protonix Disposition: Continue to monitor on the floor. Patient is pending approval for insurance. health services rn on board. He is awaiting approval for patient assistance program to supply PEG tube feeds. He can be discharged home once all that has been set up.
[2018-10-17] MEDS: ENOXAPARIN 30 MG/0.3 ML SQ SCH (17:09)
[2018-10-18] MEDS: Pantoprazole (granules) 40 MG/BLIST PACKET FT SCH (05:47)
[2018-10-18] MEDS: TWOCAL HN 1,000 ML BOT FT SCH ×4 (09:00→20:45)
--- NOTE | 2018-10-18 14:03 | P.PN ---
Subjective Date of Service: 10/18/18 Primary Care Provider: none Chief Complaint: Pneumonia, protein-calorie malnutrition Subjective: No C/O voiced Patient seen and examined at bedside. No family at bedside. Chart reviewed and case discussed with nursing staff. No acute events overnight. Review of Systems 10-point ROS is otherwise unremarkable Physical Examination - Vital Signs Temperature: 98.1 F Blood Pressure: 92/53 Pulse: 59 Respirations: 18 Pulse Ox (%): 96 - Physical Exam General: Alert, In no apparent distress HEENT: Atraumatic, PERRLA, EOMI Neck: Supple, JVD not distended Respiratory: Clear to auscultation bilaterally, Normal air movement Cardiovascular: Regular rate/rhythm, Normal S1 S2 Gastrointestinal: Normal bowel sounds, No tenderness Musculoskeletal: No tenderness Integumentary: No rashes Neurological: Normal speech, Normal tone, Normal affect Lymphatics: No axilla or inguinal lymphadenopathy - Studies Medications List Reviewed: Yes Assessment And Plan - Plan A 48-year-old male with: Left lower lobe pneumonia secondary to aspiration. Completed 10 day course of IV Levaquin. Continue with incentive spirometer, aspiration precautions. Dysphagia, status post PEG tube placement, Myotonic dystrophy Severe muscle wasting, decreased tone with multiple complications including ptosis, dysphagia, difficulty ambulating, pneumonia. Continue with PEG tube feeds, patient has been transitioned to post dates. The patient noted to be still at risk for aspiration, therefore remains NPO at this time. Patient will need to follow up with GI as an outpatient to further evaluate his esophageal stenosis. GI on board, recommendations appreciated. Patient unable to work from this point on due to his worsening muscle wasting/ myotonic dystrophy. Severe protein-calorie malnutrition. PEG tube in place. Continue feeds. Appreciate Dr. Feliciano's input. Gastritis and duodenitis found on endoscopy. Continue PPI. DVT prophylaxis: SCDs and Lovenox GI prophylaxis: Protonix Disposition: Continue to monitor on the floor. Patient is pending approval for insurance. business services representative on board. He is awaiting approval for patient assistance program to supply PEG tube feeds. He can be discharged home once all that has been set up.
[2018-10-18] MEDS: ENOXAPARIN 30 MG/0.3 ML SQ SCH (17:35)
[2018-10-19] MEDS: Pantoprazole (granules) 40 MG/BLIST PACKET FT SCH (06:05)
[2018-10-19] MEDS: TWOCAL HN 1,000 ML BOT FT SCH ×4 (09:00→21:31)
--- NOTE | 2018-10-19 12:05 | P.PN ---
Subjective Date of Service: 10/19/18 Primary Care Provider: none Chief Complaint: Pneumonia, protein-calorie malnutrition Patient seen and examined at bedside. No family at bedside. Chart reviewed and case discussed with nursing staff. No acute events overnight. Review of Systems 10-point ROS is otherwise unremarkable Physical Examination - Vital Signs Temperature: 98.2 F Blood Pressure: 91/53 Pulse: 63 Respirations: 16 Pulse Ox (%): 98 - Physical Exam General: Alert, In no apparent distress HEENT: Atraumatic, PERRLA, EOMI Neck: Supple, JVD not distended Respiratory: Clear to auscultation bilaterally, Normal air movement Cardiovascular: Regular rate/rhythm, Normal S1 S2 Gastrointestinal: Normal bowel sounds, No tenderness Musculoskeletal: No tenderness Integumentary: No rashes Neurological: Normal speech, Normal tone, Normal affect Lymphatics: No axilla or inguinal lymphadenopathy - Studies Medications List Reviewed: Yes Assessment And Plan - Plan A 48-year-old male with: Left lower lobe pneumonia secondary to aspiration. Completed 10 day course of IV Levaquin. Continue with incentive spirometer, aspiration precautions. Dysphagia, status post PEG tube placement, Myotonic dystrophy Severe muscle wasting, decreased tone with multiple complications including ptosis, dysphagia, difficulty ambulating, pneumonia. Continue with PEG tube feeds, patient has been transitioned to post dates. The patient noted to be still at risk for aspiration, therefore remains NPO at this time. Patient will need to follow up with GI as an outpatient to further evaluate his esophageal stenosis. GI on board, recommendations appreciated. Patient unable to work from this point on due to his worsening muscle wasting/ myotonic dystrophy. Severe protein-calorie malnutrition. PEG tube in place. Continue feeds. Appreciate Dr. Feliciano's input. Gastritis and duodenitis found on endoscopy. Continue PPI. DVT prophylaxis: SCDs and Lovenox GI prophylaxis: Protonix Disposition: Continue to monitor on the floor. Patient is pending approval for insurance. human services worker on board. He is awaiting approval for patient assistance program to supply PEG tube feeds. He can be discharged home once all that has been set up.
[2018-10-19] MEDS: ENOXAPARIN 30 MG/0.3 ML SQ SCH (17:13)
[2018-10-20] MEDS: Pantoprazole (granules) 40 MG/BLIST PACKET FT SCH (05:33)
[2018-10-20] MEDS: TWOCAL HN 1,000 ML BOT FT SCH ×4 (09:00→21:57)
[2018-10-20] MEDS: ACETAMINOPHEN 500 MG TAB PO PRN (11:31)
--- NOTE | 2018-10-20 12:42 | P.PN ---
Subjective Date of Service: 10/20/18 Primary Care Provider: none Chief Complaint: Pneumonia, protein-calorie malnutrition Subjective: No C/O voiced Patient seen and examined at bedside. No family at bedside. Chart reviewed and case discussed with nursing staff. No acute events overnight. Review of Systems 10-point ROS is otherwise unremarkable Physical Examination - Vital Signs Temperature: 98.1 F Blood Pressure: 99/56 Pulse: 65 Respirations: 16 Pulse Ox (%): 96 - Physical Exam General: Alert, In no apparent distress HEENT: Atraumatic, PERRLA, EOMI Neck: Supple, JVD not distended Respiratory: Clear to auscultation bilaterally, Normal air movement Cardiovascular: Regular rate/rhythm, Normal S1 S2 Gastrointestinal: Normal bowel sounds, No tenderness Musculoskeletal: No tenderness Integumentary: No rashes Neurological: Normal speech, Normal tone, Normal affect Lymphatics: No axilla or inguinal lymphadenopathy - Studies Medications List Reviewed: Yes Assessment And Plan - Plan A 48-year-old male with: Left lower lobe pneumonia secondary to aspiration. Completed 10 day course of IV Levaquin. Continue with incentive spirometer, aspiration precautions. Dysphagia, status post PEG tube placement, Myotonic dystrophy Severe muscle wasting, decreased tone with multiple complications including ptosis, dysphagia, difficulty ambulating, pneumonia. Continue with PEG tube feeds, patient has been transitioned to post dates. The patient noted to be still at risk for aspiration, therefore remains NPO at this time. Patient will need to follow up with GI as an outpatient to further evaluate his esophageal stenosis. GI on board, recommendations appreciated. Patient unable to work from this point on due to his worsening muscle wasting/ myotonic dystrophy. Severe protein-calorie malnutrition. PEG tube in place. Continue feeds. Appreciate Dr. Feliciano's input. Gastritis and duodenitis found on endoscopy. Continue PPI. DVT prophylaxis: SCDs and Lovenox GI prophylaxis: Protonix Disposition: Continue to monitor on the floor. Patient is pending approval for insurance. visitor services assistant on board. He is awaiting approval for patient assistance program to supply PEG tube feeds. He can be discharged home once all that has been set up.
[2018-10-20] MEDS: ENOXAPARIN 30 MG/0.3 ML SQ SCH (17:30)
[2018-10-20] MEDS ORDERED: HYDROCODONE/APAP 10/325 TAB PO ONE (21:24)
[2018-10-21] MEDS: Pantoprazole (granules) 40 MG/BLIST PACKET FT SCH (05:33)
[2018-10-21] MEDS: TWOCAL HN 1,000 ML BOT FT SCH ×4 (09:00→21:25)
--- NOTE | 2018-10-21 11:02 | P.PN ---
Subjective Date of Service: 10/21/18 Primary Care Provider: none Chief Complaint: Pneumonia, protein-calorie malnutrition Subjective: No C/O voiced Patient seen and examined at bedside. No family at bedside. Chart reviewed and case discussed with nursing staff. No acute events overnight. Review of Systems 10-point ROS is otherwise unremarkable Physical Examination - Vital Signs Temperature: 97.5 F Blood Pressure: 91/54 Pulse: 67 Respirations: 18 Pulse Ox (%): 97 - Physical Exam General: Alert, In no apparent distress HEENT: Atraumatic, PERRLA, EOMI Neck: Supple, JVD not distended Respiratory: Clear to auscultation bilaterally, Normal air movement Cardiovascular: Regular rate/rhythm, Normal S1 S2 Gastrointestinal: Normal bowel sounds, No tenderness Musculoskeletal: No tenderness Integumentary: No rashes Neurological: Normal speech, Normal tone, Normal affect Lymphatics: No axilla or inguinal lymphadenopathy - Studies Medications List Reviewed: Yes Assessment And Plan - Plan A 48-year-old male with: Left lower lobe pneumonia secondary to aspiration. Completed 10 day course of IV Levaquin. Continue with incentive spirometer, aspiration precautions. Dysphagia, status post PEG tube placement, Myotonic dystrophy Severe muscle wasting, decreased tone with multiple complications including ptosis, dysphagia, difficulty ambulating, pneumonia. Continue with PEG tube feeds, patient has been transitioned to post dates. The patient noted to be still at risk for aspiration, therefore remains NPO at this time. Patient will need to follow up with GI as an outpatient to further evaluate his esophageal stenosis. GI on board, recommendations appreciated. Patient unable to work from this point on due to his worsening muscle wasting/ myotonic dystrophy. Severe protein-calorie malnutrition. PEG tube in place. Continue feeds. Appreciate Dr. Feliciano's input. Gastritis and duodenitis found on endoscopy. Continue PPI. DVT prophylaxis: SCDs and Lovenox GI prophylaxis: Protonix Disposition: Continue to monitor on the floor. Patient is pending approval for insurance. patient services manager on board. He is awaiting approval for patient assistance program to supply PEG tube feeds. He can be discharged home once all that has been set up. Physician Review Additional Text: Impression: Left lower lobe pneumonia secondary to aspiration with recent influenza DysphPharyngeal/esophageal Dysphagia with possible esophageal stenosis and noted muscular dystrophy-myotonic type complicated with severe malnutrition status post PEG tube placement Gastritis Plan: Left lower lobe pneumonia secondary to aspiration with recent influenza: Patient has completed IV Levaquin treatment. Continue with incentive spirometer. Continue aspiration precaution. Continue to monitor closely. I will turn the service over to Dr. Alicia tomorrow. I will go over the plan of care with her. Pharyngeal/esophageal Dysphagia with possible esophageal stenosis and noted muscular dystrophy-myotonic type complicated with severe malnutrition status post PEG tube placement: Continue with PEG tube feeds. Patient has been transitioned to bolus feeds. Speech reassessed swallowing on Monday. Patient still at risk for aspiration. Patient remains NPO and continues with PEG tube feeds. Patient will need to follow up with GI to further evaluate his esophageal stenosis. This will likely be done as an outpatient. I will reach out to GI for further recommendations as patient desires to be eat by mouth in the future. Still waiting approval for insurance. Code Inspector is aware and working to help get this in order. Awaiting approval for patient assistance program to supply PEG tube feeds. Hopefully this can be expedited. If so, the patient can be possibly discharged but this will need to be arranged 1st. Will continue to work with social security benefits interviewer. Gastritis: Continue with PPI.
[2018-10-21] MEDS: ENOXAPARIN 30 MG/0.3 ML SQ SCH (17:54)
[2018-10-22] MEDS: Pantoprazole (granules) 40 MG/BLIST PACKET FT SCH (05:17)
[2018-10-22 05:58] LABS: Absolute Lymphocytes (CBC) 1.3 K/uL (0.7-4.9); Absolute Monocytes 0.3 K/uL (0.1-1.3); Absolute Neutrophil 0.9 K/uL (1.8-8.0); Basophils % 0.5 % (0-1.3); Eosinophils % 3.8 % (0-4.4); Hematocrit 39.6 % (39.6-49.0); Lymphocytes % 49.3 % (15.3-44.8); MPV 10.4 fL (7.6-11.3); Monocytes % 10.9 % (3.3-12.3); RBC Red Blood Cell Count 4.23 M/uL (4.33-5.43)
[2018-10-22 06:04] LABS: BUN Blood Urea Nitrogen 19 mg/dL (7-18); Bicarbonate 30 mmol/L (21-32); Glucose Level 83 mg/dL (74-106); Potassium 4.3 mmol/L (3.5-5.1); Sodium Level 143 mmol/L (136-145)
[2018-10-22] MEDS: TWOCAL HN 1,000 ML BOT FT SCH ×4 (09:00→22:26)
--- NOTE | 2018-10-22 10:53 | P.PN ---
Subjective Date of Service: 10/22/18 Primary Care Provider: none Chief Complaint: Pneumonia, protein-calorie malnutrition Subjective: No C/O voiced Patient seen and examined at bedside. No family at bedside. Chart reviewed and case discussed with nursing staff. No acute events overnight. Review of Systems 10-point ROS is otherwise unremarkable Physical Examination - Vital Signs Temperature: 98 F Blood Pressure: 97/60 Pulse: 66 Respirations: 18 Pulse Ox (%): 96 - Physical Exam General: Alert, In no apparent distress HEENT: Atraumatic, PERRLA, EOMI Neck: Supple, JVD not distended Respiratory: Clear to auscultation bilaterally, Normal air movement Cardiovascular: Regular rate/rhythm, Normal S1 S2 Gastrointestinal: Normal bowel sounds, No tenderness Musculoskeletal: No tenderness Integumentary: No rashes Neurological: Normal speech, Normal tone, Normal affect Lymphatics: No axilla or inguinal lymphadenopathy - Studies Medications List Reviewed: Yes Assessment And Plan - Plan A 48-year-old male with: Left lower lobe pneumonia secondary to aspiration. Completed 10 day course of IV Levaquin. Continue with incentive spirometer, aspiration precautions. Dysphagia, status post PEG tube placement, Myotonic dystrophy Severe muscle wasting, decreased tone with multiple complications including ptosis, dysphagia, difficulty ambulating, pneumonia. Continue with PEG tube feeds, patient has been transitioned to post dates. The patient noted to be still at risk for aspiration, therefore remains NPO at this time. Patient will need to follow up with GI as an outpatient to further evaluate his esophageal stenosis. GI on board, recommendations appreciated. Patient unable to work from this point on due to his worsening muscle wasting/ myotonic dystrophy. Severe protein-calorie malnutrition. PEG tube in place. Continue feeds. Appreciate Dr. Feliciano's input. Gastritis and duodenitis found on endoscopy. Continue PPI. DVT prophylaxis: SCDs and Lovenox GI prophylaxis: Protonix Disposition: Continue to monitor on the floor. Patient is pending approval for insurance. social services analyst on board. He is awaiting approval for patient assistance program to supply PEG tube feeds. He can be discharged home once all that has been set up.
[2018-10-22] MEDS: ENOXAPARIN 30 MG/0.3 ML SQ SCH (16:38)
[2018-10-23] MEDS: Pantoprazole (granules) 40 MG/BLIST PACKET FT SCH (06:18)
[2018-10-23] MEDS: TWOCAL HN 1,000 ML BOT FT SCH ×4 (09:00→20:27)
[2018-10-23] MEDS: ENOXAPARIN 30 MG/0.3 ML SQ SCH (16:43)
--- NOTE | 2018-10-23 17:49 | PN ---
Date of Progress Note: 10/23/2018 Subjective: Patient seen and examined. Chart reviewed and case discussed with RN. The patient is doing well, working with physical therapy. Tolerating his tube feeds. He was seen by me initially during the earlier stages of his hospitalization. Currently waiting for social security disability and his feeds , which will be delivered within the next 10 days. Medications: List reviewed. Physical Examination: Vital Signs: Temperature 98.6, heart rate 77, blood pressure 103/69, respirations 18, O2 98% on room air. General: Awake, alert, and oriented x3. Frail, cachectic male, ill-appearing. CV: S1 and S2. Peripheral pulses present. Respiratory: Poor respiratory effort, however, clear to auscultation bilaterally. No wheezing. Gastrointestinal: Abdomen is soft, nontender, nondistended. Positive bowel sounds. PEG tube in place. Extremities: No clubbing, cyanosis, or edema. Neurologic: Nonfocal, overall generalized weakness. Laboratory Data: Sodium 143, potassium 4.3, chloride 108, CO2 30, BUN 19, creatinine 0.54, glucose 83, calcium 8.9. This lab is from 10/22/2018. Assessment And Plan: A 48-year-old male with: 1. Left lower lobe pneumonia secondary to aspiration. The patient completed a course of IV Levaquin. We will continue with incentive spirometer and aspiration precautions. 2. Dysphagia status post PEG tube placement. Tolerating feeds. 3. Myotonic dystrophy. Severe muscle wasting, decreased tone, and multiple complications including ptosis, dysphagia, difficulty ambulating, as well as pneumonia. The patient did have a repeat swallow study, did worse, therefore remains n.p.o. at the time. Continue with PEG tube feeds. We will need to follow up with GI as outpatient to evaluate his esophageal stenosis. The patient is also disabled due to inability to work due to his worsening muscle wasting and myotonic dystrophy. 4. Severe protein-calorie malnutrition. BMI is 15. We will continue with PEG tube feeds. 5. Gastritis and duodenitis, status post esophagogastroduodenoscopy. Continue PPI. 6. DVT prophylaxis with Lovenox. 7. Leukopenia Plan: We will continue to monitor pending insurance approval, disability approval, and the patient assistance program to supply for PEG tube feeds. Discharge home once these have been arranged. /VIKASHL Voice ID: [id number] Report ID: [id number] MTDD
[2018-10-24] MEDS: Pantoprazole (granules) 40 MG/BLIST PACKET FT SCH (05:30)
[2018-10-24] MEDS: TWOCAL HN 1,000 ML BOT FT SCH ×4 (08:54→22:18)
[2018-10-24] MEDS: ENOXAPARIN 30 MG/0.3 ML SQ SCH (17:37)
--- NOTE | 2018-10-24 17:47 | PN ---
Date of Progress Note: 10/24/2018 History: The patient is seen and examined. Chart reviewed and case discussed with RN. The patient is doing well. Denies any specific complaints. Medications: List reviewed. Physical Examination: Vital Signs: Temperature 99.3, heart rate 62, blood pressure 95/60, respirations 18, O2 96% on room air. General: Awake, alert, oriented x3. No acute distress. Ill-appearing, frail, cachectic male. CV: S1, S2. Regular rate and rhythm. No murmurs. Respiratory: Moving air well bilaterally. Gastrointestinal: Abdomen is soft, nontender, nondistended. Positive bowel sounds. PEG tube in izaiah ce. Extremities: No clubbing, cyanosis, or edema. Neurologic: Nonfocal. The patient has difficulty with education rn strength. Laboratory Data: None. Assessment/plan: A 48-year-old male with: 1.Left lower lobe pneumonia secondary to aspiration. Treatment course with IV Levaquin completed. Continue with aspiration precautions and incentive spirometer. 2.Dysphagia, status post PEG tube placement. The patient doing well with tube feeds. 3.Myotonic dystrophy. The patient has severe muscle wasting, decreased tone, multiple complications including ptosis, dysphagia, difficulty ambulating, and pneumonia. The patient has been evaluated b y Neuro. Unfortunately, no significant treatment is available. Neuro did recommend oral magnesium t o help the muscular dystrophy. The patient is disabled due to his inability to work related to his m uscle wasting and myotonic dystrophy. Currently awaiting disability approval. 4.Severe protein-calorie malnutrition. BMI is 15. Continue with PEG tube feeds. 5.Gastritis and duodenitis, status post esophagogastroduodenoscopy. Will continue with PPI. 6.Deep vein thrombosis prophylaxis with Lovenox. Plan: Pending insurance approval for his PEG tube feeds supply, will be discharged home once arrange ments have been made. /JOEY Voice ID: [id number] Report ID: [id number]
[2018-10-25] MEDS: Pantoprazole (granules) 40 MG/BLIST PACKET FT SCH (00:46)
[2018-10-25] MEDS: TWOCAL HN 1,000 ML BOT FT SCH ×4 (09:00→21:00)
[2018-10-25] MEDS: BOTU TOX TYPE A 100 UNIT/VIAL ID ONE ×2 (09:30→10:56)
[2018-10-25] MEDS ORDERED: Ringers Lactate 1,000 ML IV ONE (09:58)
[2018-10-25] MEDS ORDERED: LIDOCAINE 1% MPF 5 ML VIAL ONE (10:36)
[2018-10-25] MEDS ORDERED: PROPOFOL 200 MG/20 ML VIAL IV ONE (10:36)
--- NOTE | 2018-10-25 11:17 | ENDO RPT ---
[address], [address] EGD PROCEDURE REPORT EXAM DATE: 10/25/2018 PATIENT NAME: Watson Dodge MR#: [id number] BIRTHDATE: 1970 ATTENDING: Fabian Feliciano Dr STATUS: inpatient INNER TUBE TUBER MACHINE OPERATOR: Lizzie Monge, Alice Lopez RN, and Katie Dietz RN INDICATIONS: The patient is a 48 yr old Male here for an EGD due to dysphagia and abnormal esophagram / modified barium swallow with UES spasm resulting in PROCEDURE PERFORMED: EGD with injection of Botox to upper esophageal sphincter MEDICATIONS: Per Anesthesia. TOPICAL ANESTHETIC: none CONSENT: The patient understands the risks and benefits of the procedure and understands that these risks include, but are not limited to: sedation, allergic reaction, infection, perforation and/or bleeding. Alternative means of evaluation and treatment include, among others: physical exam, x-rays, and/or surgical intervention. The patient elects to proceed with this endoscopic procedure. DESCRIPTION OF PROCEDURE: During intra-op preparation period all mechanical medical equipment was checked for proper function. Hand hygiene and appropriate measures for infection prevention was taken. Procedure, possible complications, and alternatives including but not limited to the possibility of bleeding, perforation, tear, infection, sepsis, need for surgery, need for blood transfusion, and anesthesia related complications were explained to the patient. After the risks, benefits and alternatives of the procedure were thoroughly explained, Informed consent was verified, confirmed and timeout was successfully executed by the treatment team. The patient was placed in the left lateral position. The patient was anesthetized with topical anesthesia. Through the anesthetized oropharyngeal area, the scope was passed without any difficulty. The Pentax EG-2990i ([id number]) endoscope was introduced through the mouth and advanced to the second portion of the duodenum. Retroflexed views revealed no abnormalities. The gastroscope was then slowly withdrawn and removed. Stenosis / spasm was found at the upper esophagus, s/p 8 cc of Botox (12.5 units/cc) with relaxation of UES. Mild gastritis was found in the antrum (prior biopsies on 09-30-18). ADVERSE EVENTS: There were no complications. IMPRESSIONS: 1. Stenosis / spasm at the upper esophagus sphincter, s/p 8 cc of Botox (12.5 units/cc) with relaxation of UES 2. Mild gastritis was found in the antrum (prior biopsies on 09-30-18) RECOMMENDATIONS: 1. surgery 2. begin PEG use in 3 hours REPEAT EXAM: Fabian Feliciano Dr eSigned: Fabian Feliciano Dr 10/25/2018 11:16 AM cc: CPT CODES: ICD9 CODES: PATIENT NAME: Watson DodgeJoan MR#: [id number]
--- NOTE | 2018-10-25 11:23 | ENDO RPT ---
[address], [address] EGD PROCEDURE REPORT EXAM DATE: 10/25/2018 PATIENT NAME: Watson Dodge MR#: [id number] BIRTHDATE: 1970 ATTENDING: Fabian Feliciano Dr STATUS: inpatient SPIKE MACHINE HEATER: Lizzie Monge, Alice Lopez RN, and Katie Dietz RN INDICATIONS: The patient is a 48 yr old Male here for an EGD due to dysphagia and abnormal esophagram / modified barium swallow with UES spasm resulting in PROCEDURE PERFORMED: EGD with injection of Botox to upper esophageal sphincter MEDICATIONS: Per Anesthesia. TOPICAL ANESTHETIC: none CONSENT: The patient understands the risks and benefits of the procedure and understands that these risks include, but are not limited to: sedation, allergic reaction, infection, perforation and/or bleeding. Alternative means of evaluation and treatment include, among others: physical exam, x-rays, and/or surgical intervention. The patient elects to proceed with this endoscopic procedure. DESCRIPTION OF PROCEDURE: During intra-op preparation period all mechanical medical equipment was checked for proper function. Hand hygiene and appropriate measures for infection prevention was taken. Procedure, possible complications, and alternatives including but not limited to the possibility of bleeding, perforation, tear, infection, sepsis, need for surgery, need for blood transfusion, and anesthesia related complications were explained to the patient. After the risks, benefits and alternatives of the procedure were thoroughly explained, Informed consent was verified, confirmed and timeout was successfully executed by the treatment team. The patient was placed in the left lateral position. The patient was anesthetized with topical anesthesia. Through the anesthetized oropharyngeal area, the scope was passed without any difficulty. The Pentax EG-2990i ([id number]) endoscope was introduced through the mouth and advanced to the second portion of the duodenum. Retroflexed views revealed no abnormalities. The gastroscope was then slowly withdrawn and removed. Stenosis / spasm was found at the upper esophagus, s/p 8 cc of Botox (12.5 units/cc) with relaxation of UES. Mild gastritis was found in the antrum (prior biopsies on 09-30-18). ADVERSE EVENTS: There were no complications. IMPRESSIONS: 1. Stenosis / spasm at the upper esophagus sphincter, s/p 8 cc of Botox (12.5 units/cc) with relaxation of UES 2. Mild gastritis was found in the antrum (prior biopsies on 09-30-18) RECOMMENDATIONS: 1. speech therapy to reevaluate swallow with modified barium swallow / esophagram 2. continue PEG use / tube feeds REPEAT EXAM: Fabian Feliciano Dr eSigned: Fabian Feliciano Dr 10/25/2018 11:22 AM Revised: 10/25/2018 11:22 AM cc: CPT CODES: ICD9 CODES: PATIENT NAME: Watson Dodge MR#: [id number]
--- NOTE | 2018-10-25 15:56 | PN ---
Subjective: No acute events overnight. The patient is scheduled for endoscopy today by Dr. Feliciano for esophageal dilatation. Medications: List reviewed. Physical Examination: Vital Signs: Temperature 97.6, heart rate 77, blood pressure 107/72, respirations 16, and O2 of 95% on room air. General: Awake, alert, and oriented x3. No acute distress. CV: S1 and S2. No murmurs. Respiratory: Moving air well bilaterally. No wheezing. Gastrointestinal: Abdomen is soft, nontender, and nondistended. Positive bowel sounds. PEG tube in place. Extremities: No clubbing, cyanosis, or edema. Neurologic: Nonfocal. Laboratory Data: None. Assessment And Plan: A 48-year-old male with, 1. Left lower lobe pneumonia secondary to aspiration. Completed course with Levaquin. Continue with aspiration precautions. 2. Dysphagia, status post PEG tube placement. Tolerating feeds well. Awaiting feed delivery. 3. Myotonic dystrophy. The patient has severe symptoms including muscle wasting, decreased tone, ptosis, dysphagia, difficulty ambulating and now pneumonia. 4. Severe protein-calorie malnutrition. BMI is 15.7. Continue PEG tube feeds. 5. Gastritis and duodenitis, status post EGD. Continue PPI. 6. Leukopenia 7. Deep venous thrombosis prophylaxis with SCDs. The patient wants Lovenox to be stopped as now they are hurting. The patient does ambulate 3 times a day at night as well as during the daytime. We will place SCDs. The patient understands the risk of developing clots off Lovenox. PLAN: The patient is going for a scope today for Botox injection to ease his esophageal motility. Awaiting PEG tube supplies including feeds. Once arranged, the patient may be able to be discharged. We will discuss further with Case Management. /JOEY Voice ID: [id number] Report ID: [id number] DON
[2018-10-26] MEDS: Pantoprazole (granules) 40 MG/BLIST PACKET FT SCH (05:33)
[2018-10-26] MEDS: TWOCAL HN 1,000 ML BOT FT SCH ×4 (09:00→21:00)
--- NOTE | 2018-10-26 09:52 | RAD REPORT ---
EXAM DESCRIPTION: RAD - Barium Swallow Modified - 10/26/2018 9:42 am CLINICAL HISTORY: Dysphagia COMPARISON: October 12 TECHNIQUE: The patient was given liquid, semi-solid and solid forms of barium. Lateral view fluorosc opic imaging was performed in conjunction with speech pathology service. FINDINGS: Cineloop acquisitions: 31 Fluoro time: 8 minutes 44 seconds Laryngeal penetration was observed. There is residual pharyngeal contrast material in the valleculae and piriform sinuses. Patient prolonged oral transit time crying multiple swallowing efforts. IMPRESSION: Modified barium swallow as detailed above and on speech pathology report.
--- NOTE | 2018-10-26 17:39 | PN ---
Date of Progress Note: 10/26/2018 Subjective: The patient seen and examined. Chart reviewed and case discussed with RN. The patient had a modified barium swallow study after EGD and Botox injection in the esophagus yesterday. Speech therapy evaluation still pending. Overall, patient is doing well. Medications: List reviewed. Physical Examination: Vital signs: Temperature 99, heart rate 65, blood pressure 86/53, respirations 18, and O2 96% on tami m air. General: Awake, alert, oriented x3. Some mild distress, cachectic male. BMI 15.7. CV: S1 and S2. Regular rate and rhythm. Peripheral pulses present. Respiratory: Moving air well bilaterally. No wheezing. Gastrointestinal: Abdomen is soft, nontender, nondistended. Positive bowel sounds. Extremities: No clubbing, cyanosis, or edema. Neurologic: Nonfocal. The patient does have some rigidity with extension. 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 Laboratory Data: Labs pending. Modified barium swallow study shows laryngeal penetration, residual pharyngeal contrast material in the vallecula and pyriform sinuses. Prolonged oral transit time with multiple swallowing effort. Assessment And Plan: A 48-year-old male with: 1.Left lower lobe pneumonia secondary to aspiration. The patient is taking Levaquin and completed a course of antibiotics. We will continue with aspiration precaution. 2.Dysphagia, status post PEG tube placement. Continue feeds. The patient did have a repeat EGD wit h Botox injection to help alleviate problems with his esophageal sphincter. Had a repeat swallow shiva dy done today. Awaiting speech therapy evaluation. We will continue tube feeds for now. 3.Myotonic dystrophy, severe symptoms including muscles wasting, decreased tone, ptosis, dysphagia, difficulty ambulating, as well as pneumonia. The patient has undergone neuro evaluation. We will ne ed continued followup. 4.Severe protein-calorie malnutrition. BMI 15.7. We will continue PEG tube feeds. 5.Gastritis and duodenitis. Repeat EGD also shows some gastritis. We will continue PPI. 6.Deep venous thrombosis prophylaxis with SCDs. The patient does not wish to use Lovenox. Plan: Follow up with speech therapy evaluation. Await delivery of feeds and SSI to start likely to see him once everything has been arranged. SA/MODL Voice ID: [id number] Report ID: [id number]
[2018-10-27 05:46] LABS: Absolute Lymphocytes (CBC) 1.4 K/uL (0.7-4.9); Absolute Monocytes 0.3 K/uL (0.1-1.3); Absolute Neutrophil 1.1 K/uL (1.8-8.0); Basophils % 0.3 % (0-1.3); Eosinophils % 3.7 % (0-4.4); Hematocrit 39.2 % (39.6-49.0); MPV 9.9 fL (7.6-11.3); RBC Red Blood Cell Count 4.21 M/uL (4.33-5.43)
[2018-10-27 06:04] LABS: ALT/SGPT 90 U/L (12-78); AST/SGOT 39 U/L (15-37); Alkaline Phosphatase 88 U/L (45-117); BUN Blood Urea Nitrogen 20 mg/dL (7-18); Bicarbonate 31 mmol/L (21-32); Bilirubin Total 0.8 mg/dL (0.2-1.0); Glucose Level 84 mg/dL (74-106); Potassium 3.8 mmol/L (3.5-5.1); Protein, Total 6.1 g/dL (6.4-8.2); Sodium Level 142 mmol/L (136-145)
[2018-10-27] MEDS: Pantoprazole (granules) 40 MG/BLIST PACKET FT SCH (06:04)
[2018-10-27] MEDS: TWOCAL HN 1,000 ML BOT FT SCH (08:49)
--- NOTE | 2018-10-27 08:52 | P.PN ---
Subjective Date of Service: 10/27/18 Primary Care Provider: none Chief Complaint: Pneumonia, protein-calorie malnutrition Subjective: Improving (Now able to swallow, passed swallow evalutation with speech therapy yesterday, tolerating po diet well yesterday and today! He is still doing 2cal TFs via PEG.) Review of Systems Unremarkable (Says he feels great, able to swallow and eat food again!) Physical Examination - Vital Signs Temperature: 97 F Blood Pressure: 98/63 Pulse: 62 Respirations: 16 Pulse Ox (%): 63 - Physical Exam General: Alert, In no apparent distress, Oriented x3, Cooperative HEENT: Atraumatic, Normocephalic, PERRLA, EOMI Neck: Supple Respiratory: Normal air movement Cardiovascular: Normal pulses Gastrointestinal: Soft and benign, No tenderness, No rebound, No guarding Neurological: Normal speech - Studies Medications List Reviewed: Yes Assessment And Plan - Current Problems (Diagnosis) (1) Protein-calorie malnutrition Current Visit: Yes Status: Acute Comment: Albumin 1.9, Pre-albumin 8. Improving with TFs and now po intake after EGD with Botox injection to upper esophageal sphincter 2 days ago. Passed speech therapy swallow evaluation after Botox treatment (2) Dysphagia Current Visit: Yes Status: Acute (3) Pneumonia, aspiration Current Visit: Yes Status: Acute (4) Muscular dystrophy Onset Date: 09/27/18 Current Visit: Yes Status: Acute - Plan REC: 1) continue TFs via PEG with po intake 2) check pre-albumin in 1 week 3) GI clinic f/u on 11-20-18 Physician Review Additional Text: Impression: Left lower lobe pneumonia secondary to aspiration with recent influenza DysphPharyngeal/esophageal Dysphagia with possible esophageal stenosis and noted muscular dystrophy-myotonic type complicated with severe malnutrition status post PEG tube placement Gastritis Plan: Left lower lobe pneumonia secondary to aspiration with recent influenza: Patient has completed IV Levaquin treatment. Continue with incentive spirometer. Continue aspiration precaution. Continue to monitor closely. I will turn the service over to Dr. Alicia tomorrow. I will go over the plan of care with her. Pharyngeal/esophageal Dysphagia with possible esophageal stenosis and noted muscular dystrophy-myotonic type complicated with severe malnutrition status post PEG tube placement: Continue with PEG tube feeds. Patient has been transitioned to bolus feeds. Speech reassessed swallowing on Monday. Patient still at risk for aspiration. Patient remains NPO and continues with PEG tube feeds. Patient will need to follow up with GI to further evaluate his esophageal stenosis. This will likely be done as an outpatient. I will reach out to GI for further recommendations as patient desires to be eat by mouth in the future. Still waiting approval for insurance. [employer] is aware and working to help get this in order. Awaiting approval for patient assistance program to supply PEG tube feeds. Hopefully this can be expedited. If so, the patient can be possibly discharged but this will need to be arranged 1st. Will continue to work with social services manager. Gastritis: Continue with PPI.
[2018-10-27] MEDS ORDERED: POTASSIUM 25 MEQ EFFERV TAB PO ONE (09:00)
--- NOTE | 2018-10-27 10:34 | RAD REPORT ---
EXAM DESCRIPTION: RAD - Chest Pa And Lat (2 Views) - 10/27/2018 6:25 am CLINICAL HISTORY: Cough, PNA Chest pain. COMPARISON: Chest Pa And Lat (2 Views) dated 09/30/2018; Chest Single View dated 09/26/2018; Chest Sin gle View dated 09/13/2018 FINDINGS: Emphysematous changes are present throughout the lungs. A small opacity is present left re trocardiac region suspicious for pneumonia versus postinflammatory residual. The heart is normal in s ize. No displaced fractures. IMPRESSION: Minimal infiltrate or postinflammatory residual noted left retrocardiac region.
--- NOTE | 2018-10-27 12:06 | DS ---
Date of Discharge: 10/27/2018 Consultants: Dr. Feliciano with GI, Dr. Grant with Neurology, Dr. Krishnamurthy with Pulmonology. Procedures: Dr. Feliciano, EGD on 09/30/2018, EGD with biopsy and PEG tube placement. Procedure on 10/25/2018 with repeat EGD and Botox injection into upper esophageal sphincter. Pathology: Stomach biopsy showed mild chronic and active gastritis. No Helicobacter pylori organisms. No evidence of malignancy. Admitting Diagnosis: 1. Pneumonia, left lower lobe. 2. History of influenza. 3. Muscular dystrophy. 4. Chest pain. Discharge Diagnosis: 1. Left lower lobe pneumonia, resolved, treated with Levaquin. Repeat chest x -ray shows minimal infiltrate or postinflammatory residual noted in the left retrocardiac region. 2. Dysphagia, status post PEG tube placement and Botox injection to upper esophageal sphincter. 3. Myotonic dystrophy. 4. Severe protein-calorie malnutrition, BMI 50.7. 5. Gastritis and duodenitis, on PPI. 6. Leukopenia: unclear etiology. Recommend outpt hematology work up. Hospital Course: The patient had a prolonged hospital course due to his underlying history of myotonic dystrophy. The patient was initially admitted for pneumonia in the left lower lobe which was thought to be possibly related to aspiration. He also had some pleuritic chest pain. The patient was seen by pulmonology initially for his pleuritic chest pain and respiratory symptoms. He was started on Levaquin and he improved with treatment. His blood cultures were negative and his sputum cultures were unable to be collected. The patient has significant disability and morbidity related to his myotonic dystrophy including ptosis, dysphagia, unable to use guttural sounds. Has difficulty with ambulation due to muscular stiffness and patient was seen by Neurology who recommended magnesium. The patient unfortunately has chronic condition for which there is no cure and likely has a terminal course the next 10-20 years unfortunately. The patient was susceptible to pneumonia due to his myotonic dystrophy. His swallowing function was evaluated by speech therapy. Modified barium swallow study was done and he failed his swallow study. Therefore, the patient was fed through NG tube initially, who at first was reluctant for PEG tube placement, however, was agreeable to PEG tube placement due to his dysphagia. The patient was seen by Dr. Feliciano who did an EGD, found to have gastritis and duodenitis. He was started on PPI and PEG tube was also placed. The patient was started on feeds, which he tolerated well. His BMI was very low at 15 and had severe malnutrition. The patient was then set up with social security office for disability and arrangements were made to have his feeds delivered and covered through his disability. The patient had a repeat EGD done as his repeat swallow study was also worse and after the Botox injection in the upper esophageal sphincter, he actually passed a swallow study and was able to be placed on a diet. The patient did well. He still needs to continue with aspiration precautions as well as his tube feeds to regain his weight and increase his BMI to at least goal of 18. The patient was then doing well. His repeat chest x-ray did not show any new developing pneumonia. Did have some post inflammatory changes, however, was asymptomatic. The patient was then cleared for discharge from consultants' standpoint. He is to followup with his new primary care physician Dr. Ortiz as soon as possible. Follow up with GI, Dr. Feliciano on 11/20/2018. Return to ER for worsening condition. Diet: Regular. Continue tube feeds. Activity: Fall precautions. Use a walker. Medications: As per medication reconciliation list. Physical Examination: General: Awake, alert, oriented x3. No acute distress. Frail, cachectic male. BMI 15. CV: S1, S2. Respiratory: Moving air well bilaterally. Abdomen: Abdomen is soft, nontender, nondistended. PEG tube in place. Extremities: No clubbing, cyanosis, edema. Neurologic: Nonfocal. Difficulty with extension and the patient has rigidity. Total time spent discharging the patient was 37 minutes. PEBBLES Voice ID: [id number] Report ID: [id number] DON
== END 2018-10-27 11:13 | disposition home or self-care (01) | DRG 177 ==
LOC: ER 18:01 → ERHOLD 21:46 → 2ND 23:03
PROVIDERS: ADMIT Internal Medicine; ATTEND Family Medicine
PROC: 0DH63UZ Insertion of Feeding Device into Stomach, Percutaneous Approach (ICD-10-PCS; 2018-09-30)
PROC: 3E0G76Z Introduction of Nutritional Substance into Upper GI, Via Natural or Artificial Opening (ICD-10-PCS; 2018-09-30)
PROC: 0DH67UZ Insertion of Feeding Device into Stomach, Via Natural or Artificial Opening (ICD-10-PCS; 2018-09-30)
PROC: 3E0G76Z Introduction of Nutritional Substance into Upper GI, Via Natural or Artificial Opening (ICD-10-PCS; 2018-09-30)
PROC: 0DB78ZX Excision of Stomach, Pylorus, Via Natural or Artificial Opening Endoscopic, Diagnostic (ICD-10-PCS; principal; 2018-09-30 12:00)
PROC: 3E0G8GC Introduction of Other Therapeutic Substance into Upper GI, Via Natural or Artificial Opening Endoscopic (ICD-10-PCS; 2018-10-25)
PROC: 0DJ08ZZ Inspection of Upper Intestinal Tract, Via Natural or Artificial Opening Endoscopic (ICD-10-PCS; 2018-10-25)
DX: J69.0 Pneumonitis due to inhalation of food and vomit (principal); E43 Unspecified severe protein-calorie malnutrition; Z68.1 Body mass index [BMI] 19.9 or less, adult; J96.12 Chronic respiratory failure with hypercapnia; J96.11 Chronic respiratory failure with hypoxia; R13.10 Dysphagia, unspecified; G71.11 Myotonic muscular dystrophy; K29.70 Gastritis, unspecified, without bleeding; K29.80 Duodenitis without bleeding; D72.819 Decreased white blood cell count, unspecified; G47.429 Narcolepsy in conditions classified elsewhere without cataplexy; G47.30 Sleep apnea, unspecified; R07.81 Pleurodynia; I45.10 Unspecified right bundle-branch block; R62.7 Adult failure to thrive; E87.6 Hypokalemia; H02.423 Myogenic ptosis of bilateral eyelids; R47.1 Dysarthria and anarthria; K30 Functional dyspepsia; I95.9 Hypotension, unspecified; K22.2 Esophageal obstruction; K22.4 Dyskinesia of esophagus
CPT/HCPCS: 36415; 71045; 71046; 74230; 80048; 80053; 80076; 80202; 81003; 82805; 82962; 83605; 83735; 83880; 84132; 84134; 84145; 84484; 85025; 85610; 85730; 87040; 87205; 88305; 88312; 92526; 92610; 92611; 93005; 94760; 99285; C9113; J0456; J0585; J1644; J1650; J2405; J2543; J2704; J3010; J3370; J7030

== ENCOUNTER 2020-07-21 20:08 | Inpatient (IN) | payer OTHER, SELFPAY ==
--- OUTSIDE RECORDS SUMMARY | 2020-07-21 20:11 | XMS REPORT | Continuity of Care Document ---
:1970 Author Organization [facility] t Address [address] [place] [address] Care Team Providers Name Role Phone Anthony Pond Attending Clinician Anthony Pond Admitting Clinician Problems Condition Condition Condition Status Onset Resolution Last Treating Co mments Source Name Details Category Date Date Treatment Clinician Date AUTO PED Diagnosis Active 2014-092015-08-20 M emoria ACC 2-16 02:30:00 l AUTO PED 00:00: Kris n ACC 00 Active 08/19/2015 [facility] PELVIC FX Diagnosis Active 2014-092015-08-26 Memoria 2-16 21:52:00 l PELVIC 00:00: Giovani FX 00 Active 5 [facility] Myotonic Myotonic Problem Active [facility] dystrophy [facility] [place] Problem Active 2018-12-30 Mem oria myotonic 06:35:09 l dystrophy [facility] 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) Active Problem 12/30/2018 [facility] Allergies, Adverse Reactions, Alerts Allergy Allergy Status Severity Reaction(s) Onset Inactive Treating Comm ents Source Name Type Date Date Clinician No Known No Known Active Memori a Medicati Medicati l on on Giovani Allergtj Allergie s s Social History Social Habit Start Date Stop Date Quantity Comments Source Social History 2018-12-13 2018-12-13 [place] 15:49:33 15:49:33 Smoking Status Start Date Stop Date Source Social History [facility] Giovani Medications Ordered Filled Start Stop Current Ordering Indication Dosage Frequency Signature Comments Components Source Medication Medication Date Date Medication? Clinician (SIG) Name Name Hydroxyzine 2014-09 Yes 25 mg = 1 M emoria Hydrochlori 2-18 cap, PO, l de 25 MG 19:52: QID, PRN Cindi nn Oral 00 Itching, X Capsule 7 day, # 28 cap, 0 Refill(s) Vistaril 2014-09 No 25 mg, Memoria 2-18 Route: PO, l 19:48: Drug form: [place] 00 CAP, QID, Dosing Weight 59, kg, PRN Anxiety, Start date: 08/21/15 13:48:00, Duration: 30 day, Stop date: 09/20/15 13:47:00 temazepam 2014-09 No 7.5 mg = 1 Me moria 7.5 mg oral 2-18 cap, PO, l capsule 19:45: Q12H, PRN Cindi nn 00 Anxiety, X 14 day, # 28 cap, 0 Refill(s) heparin 2014-09 No Notes: Memoria sodium, 2-17 porcine l porcine 22:00: heparin Giovani 2500 UNT/ML 00 Injectable Solution naproxen 2014-09 Yes 500 mg, Memori a 500 mg oral 2-17 PO, BID, l tablet 20:28: PRN Pain, Kris n 00 # 30 tab, 0 Refill(s) tramadol 2014-09 Yes 1 - 2 Memoria hydrochlori 2-17 tabs, PO, l de 50 MG 20:28: Q4-6H, PRN Her lopez Oral Tablet 00 Pain Score [Ultram] 1-5, X 7 day, # 50 tab, 0 Refill(s) sennosides, 2014-09 No Notes: Dillon janette CARE HOME 2-17 (Same as: l 15:00: Senokot) Gi[place]ani Docusate 2014-09 No Notes: Memoria 2-17 (Same as: l 15:00: Colace) Giovani (Do Not Crush) Naproxen 2014-09 No Notes: Memoria 2-17 (Same as: l 09:00: Naprosyn) Giovani Take with food. Hydroxyzine 2014-09 No Notes: Dillon janette 2-17 (Same as: l 08:43: Vistaril) [place] Trazodone 2014-09 No Notes: Memori a Hydrochlori 2-17 (Same As: l de 50 MG 08:43: Desyrel) Cindi nn Oral Tablet 00 Acetaminoph 2014-09 No Notes: Do M emoria en 2-17 not exceed l 08:43: 4 gm/day. [place] 00 (Same as: Tylenol) Acetaminoph 2014-09 No Notes: Dillon janette en 325 MG / 2-17 (Same as: l Hydrocodone 08:43: [place] Cindi nn Bitartrate 00 325/5) Do 5 MG Oral not exceed Tablet 4gm/day of acetaminop hen. Morphine 2014-09 No Notes: Memoria 2-17 (Same l 08:43: as:MORPhin Giovani 00 e Sulfate) Ondansetron 2014-09 No Notes: Dillon janette 2-17 (Same as: l 08:43: Zofran) [place] 00 MEDICATION WASTE Product Size: 4 mg Product Wasted: ___ mg Fentanyl 2014-09 No Notes: Memoria 2-17 (Same as: l 03:17: Sublimaze) [place] 00 Preservat jennie free. Zofran 2014-09 No Notes: Memoria -17 (Same as: l 03:17: Zofran) [place] 00 MEDICATION WASTE Product Size: 4 mg Product Wasted: ___ mg Saline 2014-09 No Notes: Memoria Flush 0.9% 10-20 (Same as: l 23:07: BD Giovani 00 Posiflush) Vital Signs Vital Name Observation Time Observation Value Comments Source Systolic (mm Hg) 2015-08-21 17:00:00 Dillon rial [place] Diastolic (mm Hg) 2015-08-21 17:00:00 Mem orial [place] Temperature Oral (F) 2015-08-21 17:00:00 96.6 F [facility] Heart Rate 2015-08-21 17:00:00 [facility] [place] Respitory Rate 2015-08-21 17:00:00 Memori al [place] Heart Rate 2015-08-21 13:23:00 [facility] [place] Respitory Rate 2015-08-21 13:23:00 Memori al [place] Temperature Oral (F) 2015-08-21 13:23:00 97.3 F [facility] [place] Systolic (mm Hg) 2015-08-21 13:23:00 Dillon rial [place] Diastolic (mm Hg) 2015-08-21 13:23:00 Mem orial [place] Systolic (mm Hg) 2015-08-21 10:49:00 Dillon rial [place] Diastolic (mm Hg) 2015-08-21 10:49:00 Mem orial [place] Respitory Rate 2015-08-21 10:49:00 Memori al [place] Heart Rate 2015-08-21 10:49:00 [facility] [place] Temperature Oral (F) 2015-08-21 10:49:00 98.4 F [facility] [place] Weight 2015-08-20 14:29:00 [facility] [place] Weight 2015-08-20 08:43:00 [facility] [place] BMI Calculated 2015-08-20 08:43:00 Mem[facility] al [place] Height 2015-08-20 08:43:00 175.26 cm [facility] Weight 2015-08-19 22:46:00 [facility] [place] BMI Calculated 2015-08-19 22:46:00 Mem[facility] al [place] Height 2015-08-19 22:46:00 175.26 cm [facility] Procedures Procedure Date / Time Performed Performing Clinician Sourc e Cheek operation [facility] Exploration<sup>1, 2</sup> Mem[facility] ial [facility] Nose operation [facility] Repair of ligament of knee Memor ial [place] joint<sup>3</sup> Tonsillectomy [facility] PEG - Percutaneous [facility] endoscopic gastrostomy Encounters Start End Encounter Admission Attending Care Care Encounter Source Date/Time Date/Time Type Type Clinicians Facility Department ID 2018-12-26 2018-12-27 Outpatient MHMISCHER MHMISCHER [id number] 08:37:00 23:59:59 00 2018-12-26 2018-12-27 Outpatient MHMISCHER MHMISCHER [id number] 08:37:00 23:59:59 00 2018-05-24 2018-05-24 [facility] [id number] [facility] 15:01:00 15:01:00 [facility] 2018-05-23 2018-05-23 [facility] [id number] [facility] [address] 15:26:00 15:26:00 [facility] 2018-05-22 2018-05-22 [facility] [id number] [facility] 13:20:00 13:20:00 [facility] 2018-05-17 2018-05-17 [facility] [id number] [facility] [address] 11:00:00 11:00:00 [facility] 2015-08-19 2015-08-21 Outpatient Dejah, [facility] [id number] 16:45:00 14:10:00 Kennedy Cruz Results Test Description Test Time Test Comments Results Result [facility] e Comments CARDIAC ENZYMES 2015-08-20 <0.02 [facility] 01:27:00 [place] DRUG SCREEN 2015-08-19 Negative [facility] 23:28:00 *NA*(08/19/15 [place] 5:28 PM) DRUG SCREEN 2015-08-19 Positive [facility] 23:28:00 *ABN*(08/19/15 [place] 5:28 PM) DRUG SCREEN 2015-08-19 Negative [facility] 23:28:00 *NA*(08/19/15 [place] 5:28 PM) DRUG SCREEN 2015-08-19 See Note [facility] 23:28:00 (08/19/15 5:28 [place] PM) DRUG SCREEN 2015-08-19 Negative [facility] 23:28:00 *NA*(08/19/15 [place] 5:28 PM) DRUG SCREEN 2015-08-19 Negative [facility] 23:28:00 *NA*(08/19/15 [place] 5:28 PM) DRUG SCREEN 2015-08-19 Negative [facility] 23:28:00 *NA*(08/19/15 [place] 5:28 PM) DRUG SCREEN 2015-08-19 Negative [facility] 23:28:00 *NA*(08/19/15 [place] 5:28 PM) URINE AND STOOL 2015-08-19 Small [facility] 23:28:00 *ABN*(08/19/15 [place] 5:28 PM) URINE AND STOOL 2015-08-19 Negative [facility] 23:28:00 *NA*(08/19/15 [place] 5:28 PM) URINE AND STOOL 2015-08-19 1 [facility] 23:28:00 [place] URINE AND STOOL 2015-08-19 Negative [facility] 23:28:00 (08/19/15 5:28 [place] PM) URINE AND STOOL 2015-08-19 Negative [facility] 23:28:00 (08/19/15 5:28 [place] PM) URINE AND STOOL 2015-08-19 2.0 [facility] 23:28:00 [place] URINE AND STOOL 2015-08-19 Negative [facility] 23:28:00 (08/19/15 5:28 [place] PM) URINE AND STOOL 2015-08-19 23:28:00 Test Item Value Reference Range Interpretation Comme nts UA pH (test code = UA pH) 6.5 1 5.0-8.0 [facility] [id number] 23:28:00Negative (08/19/15 5:28 PM) [facility] [id number] 23:28:00Negative (08/19/15 5:28 PM) [facility] [id number] 23:28:00 Test Item Value Reference Range Interpretation Comments UA Spec Grav (test code = UA Spec 1.010 1 Grav) [facility] [id number] 23:28:00Clear (08/19/15 5:28 PM) [facility] [id number] 23:28:00Yellow *NA*(08/19/15 5:28 PM) [facility] HermannBLOOD BANK [id number] 23:11:00Negative (08/19/15 5:11 PM) [facility]annCHEM [id number] 23:11:001.3[facility] HermannELECTROLYTES 2015-08-19 23:11:0026[facility] WzauyccHQACWJBZRVNX2518-57-66 23:11:18666Jphbinwm QirdhjsXXBFBAXZGTHP6303-88-49 23:11:008.9[facility] QxkhvtmVDUMPGRNMDWB9692-06-29 23:11:000.86[facility] CrhfyzmYVFWOAMGMDDU1320-51-74 23:11:74462Bwwboukm [facility] SEEOSPJQTXNG0605-67-10 23:11:004.1[facility] OreonhrFNAGIGALRLGL7151-64-04 23:11:24794Zugzuybu WfyddfuRIUAAAUJGAWU1089-07-02 23:11:0016[facility] VPYSSZHOSOSG1562-22-46 23:11:11214Pfhxisna ZynkwlyYDLWTTKLHWYM3021-69-97 23:11:0012.1[facility] WoqzmewQXLNAPFYRE5290-15-20 23:11:000.2[facility] [place] JRXUEOBBGT5224-68-33 23:11:008.4[facility] ZorquhwARCZYUKZVC0854-67-11 23:11:008.5 [facility] YskblacERCGIALSEL1086-54-72 23:11:000.6[facility] HermannHEMATOLOGY 2015-08-19 23:11:000.8[facility] YuhkklrGUVMHBIRHZ9221-12-72 23:11:006.1[facility] PuikppbCNGLOEKAPA9347-71-69 23:11:0085.3[facility] WegbgtxGFLSKISXBH6988-55-95 23:11:000.4[facility] NstldwaYCPXRJSPXC4027-04-53 23:11:00 Test Item Value Reference Range Interpretation Comments K-time (test code = K-time) 1.7 min 0.6-2.3 [facility]kt[facility]hRDJWNZGJFZ0153-70-20 23:11:00 Test Item Value Reference Range Interpretation Comments Angle (test code = Angle) 70 degrees 64-80 [facility] HospitalCcyjbkbESIQOBULXH1112-18-86 23:11:00 Test Item Value Reference Range Interpretation Comments R-time (test code = R-time) 0.8 min 0.4-0.7 [facility] HospitalRzijdjjINBVHBEZUP5293-40-43 23:11:00Citrated Whole Blood (08/19/15 5:11 PM)[facility] HospitalIwyjfgcNUIOLALHIE1460-73-12 23:11:00 Test Item Value Reference Range Interpretation Comments Split Point (test code = Split Point) 0.7 min [facility] HospitalKwsyknuIWLSTFHTPE8300-07-43 23:11:00 Test Item Value Reference Range Interpretation Comments ACT (TEG) (test code = ACT (TEG)) 128 s 86-118 [facility] HospitalIpdggiwUTVVPHHMZH8137-97-46 23:11:009.5[facility] 2015-08-19 23:11:00 Test Item Value Reference Range Interpretation Comments Max Amp (test code = Max Amp) 66 mm 52-71 [facility] HospitalQhgfjqiHXVUVCMYAJ7750-95-78 23:11:44452Yxuavkou HermannHEMATOLOGY 2015-08-19 23:11:009.4[facility] UgwjztbDTODRXEDWB6297-02-70 23:11:0014.0[facility] ThruklhUDUTNBYAAU6482-36-98 23:11:00 Test Item Value Reference Range Interpretation Comments MCH (test code = MCH) 31.3 pg 27.0-31.0 [facility] FgdbxriQQCKBRXFCB9115-76-25 23:11:0044.1[facility]annHEMATOLOGY 2015-08-19 23:11:0096.5[facility] MwchhjdYJDTQXNSQW5607-96-81 23:11:0014.3[facility] BfftaskTYGSSFQSRD6020-13-47 23:11:004.57[facility] LgicpkqQIWWQBPKNH3932-19-95 23:11:0032.5[facility] JswwfcjZHQFPTWYZG2125-32-69 23:11:0010.0[facility] [place]
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
[2020-07-21] MEDS ORDERED: NA CHLORIDE 0.9% 1,000 ML ONE (21:19)
[2020-07-21] MEDS ORDERED: FAMOTIDINE 20 MG/2 ML VIAL IV ONE (21:37)
[2020-07-21] MEDS ORDERED: METOPROLOL TARTRATE 5 MG/5 ML INJ IV ONE ×2 (21:37→22:28)
[2020-07-21] MEDS ORDERED: ASPIRIN 81 MG CHEWABLE TABLET ONE (21:37)
[2020-07-21 21:41] LABS: Absolute Lymphocytes (CBC) 0.5 K/uL (0.7-4.9); Basophils % 0.3 % (0-1.3); Hematocrit 47.6 % (39.6-49.0); Lymphocytes % 8.3 % (15.3-44.8)
[2020-07-21 21:46] LABS: Protime INR 1.02
[2020-07-21 22:01] LABS: ALT/SGPT 27 U/L (12-78); AST/SGOT 23 U/L (15-37); Albumin 3.3 g/dL (3.4-5.0); Alkaline Phosphatase 127 U/L (45-117); BUN Blood Urea Nitrogen 13 mg/dL (7-18); Bicarbonate 27 mmol/L (21-32); Bilirubin Direct 0.1 mg/dL (0-0.2); Bilirubin Total 0.8 mg/dL (0.2-1.0); CKMB Creatine Kinase MB 2.8 ng/mL (0.3-3.6); Creatine Phosphokinase 110 U/L (39-308); Glucose Level 95 mg/dL (74-106); Lipase 48 U/L (73-393); Magnesium 2.3 mg/dL (1.8-2.4); NT PRO-BNP 261 pg/mL (<125); Protein, Total 6.8 g/dL (6.4-8.2); Sodium Level 145 mmol/L (136-145); Troponin (Emerg Dept Use Only) < 0.02 ng/mL (0.0-0.045)
--- NOTE | 2020-07-21 22:05 | RAD REPORT ---
EXAM DESCRIPTION: RAD - Chest Single View - 07/21/2020 9:21 pm CLINICAL HISTORY: PAIN Chest pain. COMPARISON: Chest Pa And Lat (2 Views) dated 10/27/2018; Chest Pa And Lat (2 Views) dated 09/30/2018; Chest Single View dated 09/26/2018; Chest Single View dated 09/13/2018 FINDINGS: Portable technique limits examination quality. Mild interstitial pulmonary edema. The heart is upper limit of normal in size. Moderate left pleural effusion suspected.
[2020-07-21] MEDS ORDERED: METOPROLOL TAR 50 MG TAB ONE (22:27)
[2020-07-21] MEDS ORDERED: DIGOXIN 0.25 MG/ML AMP ONE (22:27)
[2020-07-21] MEDS ORDERED: ENOXAPARIN 100 MG/ML SYR SQ ONE (22:28)
[2020-07-21 22:34] LABS: Phosphorus 2.9 mg/dL (2.5-4.9)
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
[2020-07-22 00:17] LABS: Urine Blood NEGATIVE (NEG); Urine Glucose NEGATIVE (NEG); Urine Protein NEGATIVE (NEG); Urine Specific Gravity 1.025 (1.005-1.030)
[2020-07-22] MEDS ORDERED: ACETAMINOPHEN 500 MG TAB PO PRN (00:20)
[2020-07-22] MEDS ORDERED: METOPROLOL TARTRATE 5 MG/5 ML INJ IV PRN (00:20)
[2020-07-22] MEDS ORDERED: ONDANSETRON 4 MG/2 ML VIAL IV PRN (00:20)
[2020-07-22 00:40] VITALS: O2SAT 100; BMI 22.1
[2020-07-22 05:08] LABS: Basophils % 0.6 % (0-1.3); Hematocrit 41.9 % (39.6-49.0); Lymphocytes % 22.7 % (15.3-44.8); MPV 8.9 fL (7.6-11.3); RBC Red Blood Cell Count 4.39 M/uL (4.33-5.43)
[2020-07-22 05:22] LABS: BUN Blood Urea Nitrogen 10 mg/dL (7-18); Bicarbonate 25 mmol/L (21-32); Glucose Level 76 mg/dL (74-106); HDL Cholesterol 47 mg/dL (40-60); LDL Cholesterol, Calculated 86 (<130); Magnesium 2.1 mg/dL (1.8-2.4); Sodium Level 143 mmol/L (136-145)
[2020-07-22] MEDS: FUROSEMIDE 20 MG/ 2ML VIAL IV SCH ×2 (08:07→17:02)
[2020-07-22] MEDS ORDERED: FUROSEMIDE 100 MG/10 ML VIAL IV ONE (08:15)
[2020-07-22] MEDS ORDERED: ENOXAPARIN 60 MG/0.6 ML SQ ONE (08:15)
[2020-07-22] MEDS ORDERED: ENOXAPARIN 60 MG/0.6 ML SQ SCH (09:00)
[2020-07-22] MEDS ORDERED: METOPROLOL TAR 50 MG TAB PO SCH (09:00)
--- NOTE | 2020-07-22 10:24 | RAD REPORT ---
EXAM DESCRIPTION: CT - Chest For Pe Angio - 07/22/2020 6:57 am CLINICAL HISTORY: Chest pain; Dyspnea TECHNIQUE: Contiguous axial images obtained through the chest during angiographic phase following th e uneventful administration of IV contrast. Sagittal and coronal reformatted images were provided. UT P reformatted images were provided. This exam was performed according to our departmental dose-optimization program, which includes autom ated exposure control, adjustment of the mA and/or kV according to patient size and/or use of iterati ve reconstruction technique. COMPARISON: No prior exams provided for comparison. FINDINGS: Diagnostic quality: There is good opacification of the pulmonary arterial tree. Motion art ifact degrades image quality and limits evaluation of segmental and subsegmental vessels. Lungs: Mild biapical pleural parenchymal scar. Mild left basilar consolidation. Airways are patent. Pleura: Moderate left pleural effusion. No pneumothorax. Heart and pericardium: The heart is moderately enlarged. Trace pericardial effusion. Mediastinum and maribeth: No pathologically enlarged lymph nodes. Lower neck and chest wall: Unremarkable Vessels: No pulmonary arterial filling defects. The ascending aorta measures 3.8 cm in maximum diamet er. Upper abdomen: The liver is enlarged. Bones: Unremarkable IMPRESSION: 1. Motion artifact degrades image quality and limits evaluation of segmental and subse gmental vessels. No central pulmonary embolic disease. 2. Moderate left pleural effusion. Adjacent left basilar consolidation (atelectasis and/or infiltra te). 3. Other findings as above. Electronically signed by: Henna García MD 07/22/2020 12:13 AM CLIENT ACCOUNT REPRESENTATIVE Due to temporary technical issues with the PACS/Fluency reporting system, reports are being signed by the in house radiologist without review as a courtesy to ensure prompt reporting. The interpreting r adiologist is fully responsible for the content of the report.
--- NOTE | 2020-07-22 17:11 | P.DS ---
Admission Date: 07/21/20 Discharge Date: 07/22/20 Disposition: ROUTINE DISCHARGE Discharge Condition: FAIR Reason for Admission: Atrial flutter - Problems (1) Atrial flutter Current Visit: Yes Status: Acute (2) Acute diastolic heart failure Current Visit: Yes Status: Acute (3) Muscular dystrophy Onset Date: 09/27/18 Current Visit: No Status: Acute Brief History of Present Illness: 50-year-old gentleman with a history of muscular dystrophy and narcolepsy presented to the emergency department with a complaint of chest pain. Patient was found to have atrial flutter at a ventricular rate of 146. He was given multiple doses of IV Lopressor, digoxin, followed by oral metoprolol which finally controlled his heart rate to the 60s. His chest pain resolved with a heart rate control. Initial troponin was negative. Chest x-ray showed mild interstitial pulmonary edema and mild nerve pleural effusion. CTA thorax was performed which was negative for pulmonary embolism but demonstrated cardiomegaly and confirmed left pleural effusion. Patient was given full-dose Lovenox and hospitalized for further management. Hospital Course: Patient was asymptomatic during the hospital stay. Troponin trended negative. Echocardiogram was performed and result is pending. His systolic blood pressure ranged in the low 100s. His heart rate remained controlled in the 60s. Patient was denying any complain after hospitalization and was requesting to go home today. Case was discussed with cardiology-Dr. Mcgrath recommended low-dose beta-giana and anticoagulation for the atrial flutter. Dr. Mcgrath plans to follow with the patient within 2 weeks. Patient is therefore discharged per his request and prescribed metoprolol 25 mg bid and Eliquis. Vital Signs/Physical Exam: Temp Pulse Resp BP Pulse Ox 97.5 F 71 19 101/70 100 07/22/20 12:00 07/22/20 12:00 07/22/20 12:00 07/22/20 12:00 07/22/20 12:00 General: Alert, In no apparent distress HEENT: Atraumatic, PERRLA, Mucous membr. moist/pink, Abnormal EOM Neck: Supple, JVD not distended Respiratory: Clear to auscultation bilaterally, Normal air movement Cardiovascular: No edema, Normal pulses, Normal S1 S2, No murmurs, Irregular he art rate/rhythm Gastrointestinal: Normal bowel sounds, Soft and benign, Non-distended, No tenderness Musculoskeletal: No swelling, No tenderness Integumentary: No rashes, No erythema Neurological: Normal speech, Normal strength at 5/5 x4 extr, Cranial nerves 3-12 intact Laboratory Data at Discharge: WBC 4.5 K/uL (4.3-10.9) D 07/22/20 04:41 Hgb 13.9 g/dL (13.6-17.9) 07/22/20 04:41 Hct 41.9 % (39.6-49.0) 07/22/20 04:41 Plt Count 152 K/uL (152-406) 07/22/20 04:41 PT 12.0 SECONDS (9.5-12.5) 07/21/20 21:25 INR 1.02 07/21/20 21:25 Sodium 143 mmol/L (136-145) 07/22/20 04:41 Potassium 4.0 mmol/L (3.5-5.1) 07/22/20 04:41 BUN 10 mg/dL (7-18) 07/22/20 04:41 Creatinine 0.58 mg/dL (0.55-1.3) 07/22/20 04:41 Glucose 76 mg/dL (74-106) 07/22/20 04:41 Phosphorus Cancelled 07/21/20 22:16 Magnesium 2.1 mg/dL (1.8-2.4) 07/22/20 04:41 Total Bilirubin 0.8 mg/dL (0.2-1.0) 07/21/20 21:25 AST 23 U/L (15-37) 07/21/20 21:25 ALT 27 U/L (12-78) 07/21/20 21:25 Alkaline Phosphatase 127 U/L (45-117) H 07/21/20 21:25 Troponin I < 0.02 ng/mL (0.0-0.045) 07/22/20 10:30 Triglycerides 82 mg/dL (<150) 07/22/20 04:41 Cholesterol 149 mg/dL (<200) 07/22/20 04:41 HDL Cholesterol 47 mg/dL (40-60) 07/22/20 04:41 Cholesterol/HDL Ratio 3.17 07/22/20 04:41 Lipase 48 U/L (73-393) L 07/21/20 21:25 Home Medications: Magnesium Oxide 400 mg PO BID #60 tablet 10/27/18 Pantoprazole Granules [Protonix Granules*] 40 mg FT DAILYAC #30 packet 10/27/18 Twocal Hn 237 ml FT QID bot 10/27/18 Apixaban [Eliquis] 5 mg PO BID #60 tablet 07/22/20 Metoprolol Tartrate 25 mg PO BID #60 tablet 07/22/20 New Medications: Apixaban [Eliquis] 5 mg PO BID #60 tablet Metoprolol Tartrate 25 mg PO BID #60 tablet Diet: AHA Activity: Ad andrew Followup: Chapo Mcgrath MD [ACTIVE - CAN ADMIT] - 1-2 Weeks NONE,NONE [Primary Care Provider] - 1 Week Time spent managing pt's care (in minutes): 42
[2020-07-22 17:35] VITALS: BP 100/61; TEMP 98.2
--- NOTE | 2020-07-23 06:08 | EKG ---
Test Date: 2020-07-21 Test Time: 20:44:34 Hand Ii Cutter: JAYLIN MEASUREMENT RESULTS: Intervals: Rate: 148 CA: 88 QRSD: 158 QT: 340 QTc: 533 [place]: P: 78 CA: 88 QRS: -19 T: 60 INTERPRETIVE STATEMENTS: Sinus tachycardia with short CA Right bundle branch block Minimal voltage criteria for LVH, may be normal variant Abnormal ECG Compared to ECG 09/26/2018 19:49:28 Short CA interval now present Left ventricular hypertrophy now present Sinus rhythm no longer present ST (T wave) deviation no longer present Myocardial infarct finding no longer present Electronically Signed On 07-23-20 06:03:26 DIAMOND BROKER by Chapo Mcgrath
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
--- NOTE | 2020-07-23 07:22 | ECHO ---
HEIGHT: 5 ft 2 in WEIGHT: 182 lb 0 oz DATE OF STUDY: 07/22/[address]: Chapo Mcgrath MD 2-DIMENSIONAL: YES M.MODE: YES DOPPLER: YES COLOR FLOW: YES TDS: PORTABLE: DEFINITY: BUBBLE STUDY: DIAGNOSIS: ATRIAL FLUTTER CARDIAC HISTORY: CATHERIZATION: NO SURGERY: NO PROSTHETIC VALVE: NO PACEMAKER: NO MEASUREMENTS (cm) DIASTOLIC (NORMALS) SYSTOLIC (NORMALS) IVSd 1.0 (0.6-1.2) LA Diam 2.7 (1.9-4.0) LVEF 67% LVIDd 4.3 (3.5-5.7) LVIDs 2.7 (2.0-3.5) %FS 37% LVPWd 1.1 (0.6-1.2) Ao Diam 3.7 (2.0-3.7) 2 DIMENSIONAL ASSESSMENT: RIGHT ATRIUM: NORMAL LEFT ATRIUM: NORMAL RIGHT VENTRICLE: NORMAL LEFT VENTRICLE: NORMAL TRICUSPID VALVE: NORMAL MITRAL VALVE: NORMAL PULMONIC VALVE: NORMAL AORTIC VALVE: NORMAL PERICARDIAL EFFUSION: NONE AORTIC ROOT: NORMAL LEFT VENTRICULAR WALL MOTION: NORMAL DOPPLER/COLOR FLOW: MILD TRICUSPID REGURGITATION COMMENTS: ATRIAL FIBRILLATION. NORMAL LEFT VENTRICULAR SIZE AND FUNCTION. NO THROMBUS. MILD TRICUSPID REGURGITATION - NORMAL RIGHT VENTRICULAR SYSTOLIC PRESSURE. TECHNOLOGIST: MADHU HOLLAND
== END 2020-07-22 17:44 | disposition home or self-care (01) | DRG 308 ==
LOC: ER 20:08 → OBSVTOIN 23:41 → ERHOLD 23:41 → 4TH 07-22 14:17
PROVIDERS: ADMIT Internal Medicine; ATTEND Internal Medicine
DX: I48.92 Unspecified atrial flutter (principal); I50.31 Acute diastolic (congestive) heart failure; G71.00 Muscular dystrophy, unspecified; G47.419 Narcolepsy without cataplexy; Z60.2 Problems related to living alone; Z79.01 Long term (current) use of anticoagulants; Z79.899 Other long term (current) drug therapy; Z20.828 Contact with and (suspected) exposure to other viral communicable diseases
CPT/HCPCS: 36415; 71045; 71275; 80048; 80061; 80076; 81003; 82550; 82553; 83605; 83690; 83735; 83880; 84100; 84443; 84484; 85025; 85610; 87040; 87086; 87088; 93005; 93306; 96361; 96372; 96374; 96375; 99285; J1160; J1650; J1940; J7030; Q9967; U0003

== ENCOUNTER 2021-04-11 11:35 | Inpatient (IN) | payer OTHER, SELFPAY ==
--- OUTSIDE RECORDS SUMMARY | 2021-04-11 11:39 | XMS REPORT | Continuity of Care Document ---
:1970 Author Organization [facility] t Address [address] [place] [address] Care Team Providers Name Role Phone Anthony Pond Attending Clinician Anthony Pond Admitting Clinician Problems Condition Condition Condition Status Onset Resolution Last Treating Co mments Source Name Details Category Date Date Treatment Clinician Date PELVIC FX Diagnosis Active 2014-092015-08-26 Memoria 2-16 21:52:00 l PELVIC 00:00: [place] FX 00 Active 5 [facility] AUTO PED Diagnosis Active 2014-092015-08-20 M emoria ACC 2-16 02:30:00 l AUTO PED 00:00: Kris n ACC 00 Active 08/19/2015 [facility] 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 Social History Social Habit Start Date Stop Date Quantity Comments Source Social History 2018-12-13 2018-12-13 Gold rivera 15:49:33 15:49:33 Smoking Status Start Date Stop Date Source Social History [facility] Medications Ordered Filled Start Stop Current [...] 2-18 Route: PO, l 19:48: Drug form: Giovani 00 CAP, QID, Dosing Weight 59, kg, [...] sodium, 2-17 porcine l porcine 22:00: heparin [place] 2500 UNT/ML 00 Injectable Solution naproxen 2014-09 [...] Refill(s) sennosides, 2014-09 No Notes: Dillon janette JAIL 2-17 (Same as: l 15:00: Senokot) Docusate 2014-09 No Notes: Memoria 2-17 (Same as: l 15:00: Colace) Giovani (Do Not Crush) Naproxen 2014-09 No Notes: Memoria 2-17 (Same as: l 09:00: Naprosyn) [place] Take with food. Morphine 2014-09 No Notes: Memoria 2-17 (Same l 08:43: as:MORPhin Igovani 00 e Sulfate) Ondansetron 2014-09 No Notes: [place] janette 2-17 (Same as: l 08:43: Zofran) MEDICATION WASTE Product Size: 4 mg Product Wasted: ___ mg Hydroxyzine 2014-09 No Notes: Dillon janette 2-17 (Same as: l 08:43: Vistaril) Trazodone 2014-09 No Notes: Memori a Hydrochlori 2-17 (Same As: l de 50 MG 08:43: Desyrel) Cindi nn Oral Tablet 00 Acetaminoph 2014-09 No Notes: Do M emoria en 2-17 not exceed l 08:43: 4 gm/day. [place] 00 (Same as: Tylenol) Acetaminoph 2014-09 No Notes: Dillon janette en 325 MG / 2-17 (Same as: l Hydrocodone 08:43: [place] Cindi nn Bitartrate 00 325/5) Do 5 MG Oral not exceed Tablet 4gm/day of acetaminop hen. Fentanyl 2014-09 No Notes: Memoria 2-17 (Same as: l 03:17: Sublimaze) Giovani 00 Preservat jennie free. Zofran 2014-09 No Notes: Memoria 2-17 (Same as: l 03:17: Zofran) [place] 00 MEDICATION WASTE Product Size: 4 mg Product Wasted: ___ mg Saline 2014-09 No Notes: Memoria Flush 0.9% -16 (Same as: l 23:07: BD [place] 00 Posiflush) Vital Signs Vital Name Observation Time Observation Value Comments Source Systolic (mm Hg) 2015-08-21 17:00:00 Dillon rial [place] Diastolic (mm Hg) 2015-08-21 17:00:00 Mem orial [place] Temperature Oral (F) 2015-08-21 17:00:00 96.6 F [facility] Heart Rate 2015-08-21 17:00:00 [facility] [place] Respitory Rate 2015-08-21 17:00:00 Memori al [place] Respitory Rate 2015-08-21 13:23:00 Memori al [place] Temperature Oral (F) 2015-08-21 13:23:00 97.3 F [facility] [place] Systolic (mm Hg) 2015-08-21 13:23:00 Dillon rial Gi[place] Diastolic (mm Hg) 2015-08-21 13:23:00 Mem orial [place] Heart Rate 2015-08-21 13:23:00 [facility] [place] Systolic (mm Hg) 2015-08-21 10:49:00 Dillon rial [place] Diastolic (mm Hg) 2015-08-21 10:49:00 Mem orial [place] Respitory Rate 2015-08-21 10:49:00 Memori al [place] Heart Rate 2015-08-21 10:49:00 [facility] [place] Temperature Oral (F) 2015-08-21 10:49:00 98.4 F [facility] [place] Weight 2015-08-20 14:29:00 [facility] [place] Weight 2015-08-20 08:43:00 [facility] [place] BMI Calculated 2015-08-20 08:43:00 [facility] al [place] Height 2015-08-20 08:43:00 175.26 cm [facility] [place] Weight 2015-08-19 22:46:00 [facility] [place] BMI Calculated 2015-08-19 22:46:00 Memori al [place] Height 2015-08-19 22:46:00 175.26 cm [facility] [place] Procedures Procedure Date / Time Performed Performing Clinician Renetta e Cheek operation [facility] [place] Exploration<sup>1, 2</sup> [facility] Nose operation [facility] [place] Repair of ligament of knee [facility] ial [place] joint<sup>3</sup> Tonsillectomy [facility] [place] PEG - Percutaneous [facility] elisabeth endoscopic gastrostomy Encounters Start End Encounter Admission Attending Care Care Encounter Source Date/Time Date/Time Type Type Clinicians Facility Department ID 2018-12-26 2018-12-28 Outside nullFlavo MNA [id number] [facility] 13:37:00 04:59:59 Medical r Neurology 00 l Records Nereida Matute 2018-12-26 2018-12-27 Outpatient MHMISCHER MHMISCHER [id number] 08:37:00 23:59:59 00 2018-12-26 2018-12-27 Outpatient MHMISCHER MHMISCHER [id number] 08:37:00 23:59:59 00 2018-12-13 2018-12-13 Outpatient MHIE MHIE [id number] [facility] 10:15:00 10:15:00 00 marlyn Matute 2018-05-24 2018-05-24 Outpatient Jasmine Lynne [id number] [facility] 15:01:00 15:01:00 [facility] Medicine Medicine Outpati ent Clinics 2018-05-23 2018-05-23 Outpatient Jasmine Lynne [id number] [facility] 15:26:00 15:26:[address] [facility] ent [facility] 2018-05-22 2018-05-22 [facility] [id number] [facility] 13:20:00 13:20:00 t [facility] 2018-05-17 2018-05-17 [facility] [id number] [facility] 11:00:00 11:00:00 [facility] 2015-08-19 2015-08-21 OBS nullFlavo [facility] [id number] Memoria 22:45:00 20:10:00 Observatio r Giovani 50 l n Patient [facility] 2015-08-19 2015-08-21 Outpatient Dejah, [facility] [id number] 16:45:00 14:10:00 Kennedy Cruz Results Test Description Test Time Test Comments Results Result Sourc e Comments CARDIAC ENZYMES 2015-08-20 <0.02 [facility] 01:27:00 [place] DRUG SCREEN 2015-08-19 Negative [facility] 23:28:00 *NA*(08/19/15 Giovani 5:28 PM) DRUG SCREEN 2015-08-19 Positive [facility] 23:28:00 *ABN*(08/19/15 [place] 5:28 PM) DRUG SCREEN 2015-08-19 Negative [facility] 23:28:00 *NA*(08/19/15 [place] 5:28 PM) DRUG SCREEN 2015-08-19 See Note [facility] 23:28:00 (08/19/15 5:28 Giov[place] PM) DRUG SCREEN 2015-08-19 Negative [facility] 23:28:00 *NA*(08/19/15 [place] 5:28 PM) DRUG SCREEN 2015-08-19 Negative [facility] 23:28:00 *NA*(08/19/15 [place] 5:28 PM) DRUG SCREEN 2015-08-19 Negative [facility] 23:28:00 *NA*(08/19/15 [place] 5:28 PM) DRUG SCREEN 2015-08-19 Negative [facility] 23:28:00 *NA*(08/19/15 [place] 5:28 PM) URINE AND STOOL 2015-08-19 Small [facility] 23:28:00 *ABN*(12/16/15 Giov[place] 5:28 PM) URINE AND STOOL 2015-08-19 Negative [facility] 23:28:00 *NA*(08/19/15 [place] 5:28 PM) URINE AND STOOL 2015-08-19 1 [facility] 23:28:00 [place] URINE AND STOOL 2015-08-19 Negative [facility] 23:28:00 (08/19/15 5:28 Giovani PM) URINE AND STOOL 2015-08-19 Negative [facility] 23:28:00 (08/19/15 5:28 [place] PM) URINE AND STOOL 2015-08-19 2.0 [facility] 23:28:00 [place] URINE AND STOOL 2015-08-19 Negative [facility] 23:28:00 (08/19/15 5:28 [place] PM) URINE AND STOOL 2015-08-19 23:28:00 Test Item Value Reference Range Interpretation Comme nts UA pH (test code = UA pH) 6.5 1 5.0-8.0 [facility] [id number] 23:28:00Negative (08/19/15 5:28 PM) [facility] [id number] 23:28:00Negative (08/19/15 5:28 PM) [facility] [id number] 23:28:00 Test Item Value Reference Range Interpretation Comments UA Spec Grav (test code = UA Spec 1.010 1 Grav) [facility] [id number] 23:28:00Clear (08/19/15 5:28 PM) [facility] [id number] 23:28:00Yellow *NA*(08/19/15 5:28 PM) [facility] [id number] 23:11:00Negative (08/19/15 5:11 PM) [facility] ZUDBE6299-24-30 23:11:001.3[facility]annELECTROLYTES 2015-08-19 23:11:0026[facility] FfboyzaVGHWKUONHNFC0895-21-89 23:11:34512Dthdhnnm NhtkueiFJCSNVNFHOQM9372-62-54 23:11:008.9[facility] JvqzmbdHRORAQTFBIOA8235-89-89 23:11:000.86[facility] RgsgvstFYKZRTYXJJOG9893-73-49 23:11:32994Uakqdhsn [address] NJCBZMBMHHBY3488-56-49 23:11:004.1[facility] LjgnkqvURPLYDVVHOSY8565-97-69 23:11:85664Aczxmmnv MsrkzdzOLZKEAZJDMWD1173-86-26 23:11:0016[facility] RQWIWEXULZJV5643-87-01 23:11:77320Viwyhmet RoffannPKNPPHVJXEZU4600-20-10 23:11:0012.1[facility] NooudlhCKGGJGKVSQ3839-97-17 23:11:000.2[facility] [place] YMUWVFDCDT7970-01-51 23:11:008.4[facility] MaitpyzQWNZJVZDGG3947-81-76 23:11:008.5 Memorial GvvocjuYBLTYWYQPS1023-12-44 23:11:000.6[facility]annHEMATOLOGY 2015-08-19 23:11:000.8[facility] VcwsedjEGUVBAGSMA1107-88-34 23:11:006.1[facility] UgrhbsuOBRYXJQTMV2575-19-93 23:11:0085.3[facility] JdtqbwlCFUOSVNGNI5450-62-39 23:11:000.4[facility] ZswjukvWWCECFQCLX4373-69-14 23:11:00 Test Item Value Reference Range Interpretation Comments K-time (test code = K-time) 1.7 min 0.6-2.3 [facility] IcxncxbDYTGAGHQTT0085-16-54 23:11:00 Test Item Value Reference Range Interpretation Comments Angle (test code = Angle) 70 degrees 64-80 [facility] OsvzdkmRVMYAEKNLN9676-73-07 23:11:00 Test Item Value Reference Range Interpretation Comments R-time (test code = R-time) 0.8 min 0.4-0.7 [facility] IbgxepkDWALDILWBI3232-17-58 23:11:00Citrated Whole Blood (08/19/15 5:11 PM)[facility] LfrdcxuLFYDMMRAZB3815-99-62 23:11:00 Test Item Value Reference Range Interpretation Comments Split Point (test code = Split Point) 0.7 min [facility] MnwhbijKFUPMNGYGT1636-32-86 23:11:00 Test Item Value Reference Range Interpretation Comments ACT (TEG) (test code = ACT (TEG)) 128 s 86-118 [facility] NfrkzizXLKUJBNTIO7230-53-10 23:11:009.5[facility]annHEMATOLOGY 2015-08-19 23:11:00 Test Item Value Reference Range Interpretation Comments Max Amp (test code = Max Amp) 66 mm 52-71 [facility] WnfodzgUGIKNBJYWV8805-26-85 23:11:90899Vvdmiosc HermannHEMATOLOGY 2015-08-19 23:11:009.4[facility] SxqfecmCJBHYDELUY0099-22-47 23:11:0014.0[facility] GjuxqnfGCUDAXVTTS6388-44-51 23:11:00 Test Item Value Reference Range Interpretation Comments MCH (test code = MCH) 31.3 pg 27.0-31.0 [facility] BrhkincTYCFXKMVGP2048-11-83 23:11:0044.1[facility]ann[facility]MATOLOGY 2015-08-19 23:11:0096.5[facility] XppdellAVKZYDVKWK6229-27-30 23:11:0014.3[facility] WlwyspfGBXUPCISBV7794-65-70 23:11:004.57[facility] YsfjzmuXHPVSGSSTZ1175-62-10 23:11:0032.5[facility] RwwkqdeAKDTZDCRAE3863-37-24 23:11:0010.0[facility]
[2021-04-11 16:02] LABS: Absolute Lymphocytes (CBC) 0.5 K/uL (0.7-4.9); Basophils % 0.3 % (0-1.3); Hematocrit 55.2 % (39.6-49.0); Lymphocytes % 12.8 % (15.3-44.8); MPV 11.2 fL (7.6-11.3); Protime INR 1.13; RBC Red Blood Cell Count 5.75 M/uL (4.33-5.43)
[2021-04-11 16:32] LABS: Albumin 4.4 g/dL (3.4-5.0); Bilirubin Direct 0.4 mg/dL (0-0.2); Bilirubin Total 1.1 mg/dL (0.2-1.0); Protein, Total 8.9 g/dL (6.4-8.2); Troponin (Emerg Dept Use Only) 0.04 ng/mL (0.0-0.045)
[2021-04-11 16:33] LABS: Magnesium 2.7 mg/dL (1.8-2.4); Potassium 3.4 mmol/L (3.5-5.1)
[2021-04-11] MEDS ORDERED: NA CHLORIDE 0.9% 1,000 ML ONE (16:53)
[2021-04-11] MEDS ORDERED: PANTOPRAZOLE 40 MG INJ ONE (16:53)
[2021-04-11] MEDS ORDERED: ONDANSETRON 4 MG/2 ML VIAL ONE (16:53)
[2021-04-11] MEDS ORDERED: DIPHENHYDRAMINE 50 MG/ML VIAL ONE (17:11)
[2021-04-11] MEDS ORDERED: PROMETHAZINE INJ 25 MG/ML AMP ONE (17:12)
--- NOTE | 2021-04-11 17:32 | RAD REPORT ---
EXAM DESCRIPTION: RAD - Chest Single View - 04/11/2021 4:33 pm CLINICAL HISTORY: COUGH COMPARISON: Chest Single View dated 07/21/2020; Chest Pa And Lat (2 Views) dated 10/27/2018; Chest Pa And Lat (2 Views) dated 09/30/2018; Chest Single View dated 09/26/2018 FINDINGS: No evidence of edema or pneumonia. The heart size is within normal limits.No acute osseous abnormality. No significant pleural effusions or pneumothorax. IMPRESSION: No acute cardiopulmonary disease.
[2021-04-11] MEDS ORDERED: POTASSIUM 25 MEQ EFFERV TAB ONE (18:16)
[2021-04-11] MEDS ORDERED: METOPROLOL TAR 25 MG TAB ONE (18:16)
[2021-04-11] MEDS ORDERED: METOPROLOL TARTRATE 5 MG/5 ML INJ IV ONE (18:17)
--- NOTE | 2021-04-11 18:20 | ER ---
Nurse's Notes [facility] Name: Watson Dodge Age: 51 yrs Sex: Male : 1970 Arrival Date: 04/11/2021 Time: 11:38 Bed 18 Private MD: Diagnosis: Dysphagia;SARS-associated coronavirus as the cause of diseases classified elsewhere;Chronic atrial fibrillation Presentation: 04/11 12:24 Chief complaint: Patient states: Difficulty swallowing x 4 days, it happened before 2 jl[address] Dr[address] Becerril did a Botox shot. Also have a headache and chills. Coronavirus screen: Client denies travel out of the [place] in the last 14 days. At this time, the client does not indicate any symptoms associated with coronavirus-19. Ebola Screen: No symptoms or risks identified at this time. Initial Sepsis Screen: Does the patient meet any 2 criteria? No. Patient's initial sepsis screen is negative. Does the patient have a suspected source of infection? No. Patient's initial sepsis screen is negative. Risk Assessment: Do you want to hurt yourself or someone else? Patient reports no desire to harm self or others. Onset of symptoms was March 09, 2021. Care prior to arrival: None. 12:24 Method Of Arrival: Wheelchair jl7 12:24 Acuity: JOSE C 3 jl7 Triage Assessment: 12:26 General: Appears in no apparent distress. uncomfortable, Behavior is calm, cooperative. jl7 Pain: Complains of pain in neck Pain currently is 3 out of 10 on a pain scale. Neuro: Level of Consciousness is awake, alert, obeys commands, Oriented to person, place, time, situation. Cardiovascular: Patient's skin is warm and dry. Respiratory: Airway is patent Respiratory effort is even, unlabored, Respiratory pattern is regular, symmetrical, Denies shortness of breath. GI: Reports nausea. Derm: Skin is dry, Skin is pale, Skin temperature is warm. Historical: - Allergies: 16:50 Zofran; rb3 - PMHx: 12:26 muscular dystrophy; narcolepsy; Sleep Apnea; jl7 - Immunization history:: Adult Immunizations not up to date, Client reports having NOT received the Covid vaccine. - Social history:: Smoking status: Patient denies any tobacco usage or history of. Screenin:48 Abuse screen: Denies threats or abuse. Denies injuries from another. Nutritional iw screening: Has had N/V for 3 or more days. Tuberculosis screening: No symptoms or risk factors identified. Fall Risk IV access (20 points). Assessment: 15:47 General: Appears in no apparent distress. uncomfortable, Behavior is calm, cooperative. iw Pain: Denies pain. Neuro: Level of Consciousness is awake, alert, obeys commands, Moves all extremities. GI: EENT: Reports difficulty swallowing. Derm: Skin is thin, with poor turgor Skin is Skin temperature is warm. 16:40 Reassessment: Patient appears in no apparent distress at this time. Patient and/or rb3 family updated on plan of care and expected duration. Pain level reassessed. Patient is alert, oriented x 3, equal unlabored respirations, skin warm/dry/pink. Pt was moved from a hallway chair to the bed at approximately 1633. 16:47 Reassessment: Pt reports that his arm is itching and red after receiving his rb3 medications. Reports having Protonix before without any reaction, but can not recall if he has had Zofran before. Provider notified. Received verbal order for Benadryl 25 mg IVP x once and Phenergan 12.5 mg IVP x once. 100% verbal read back. 17:17 Reassessment: Rash is pink instead of red now and pt reports that his arm isn't itching rb3 anymore. Improvement noted on the right forearm. 18:15 Reassessment: Patient appears in no apparent distress at this time. Patient and/or rb3 family updated on plan of care and expected duration. Pain level reassessed. Patient is alert, oriented x 3, equal unlabored respirations, skin warm/dry/pink. Vital Signs: 12:24 BP 97 / 66; Pulse 71; Resp 16; Temp 98.3(O); Pulse Ox 96% on R/A; Weight 67.59 kg; jl7 Height 5 ft. 9 in. (175.26 cm); Pain 3/10; 17:00 BP 117 / 75; Pulse 106; Resp 17; Pulse Ox 99% ; rb3 18:00 BP 117 / 79; Pulse 97; Resp 18; Pulse Ox 98% ; rb3 12:24 Body Mass Index 22.00 (67.59 kg, 175.26 cm) jl7 ED Course: 11:38 Patient arrived in ED. ds1 12:26 Triage completed. jl7 12:26 Arm band placed on right wrist. jl7 15:01 Barrie Gann MD is Attending Physician. chadwick 15:26 Barrie Matta PA is PHCP. cp 15:37 Kerline Alexander, RN is Primary Nurse. iw 15:46 Initial lab(s) drawn, by me, sent to lab. Inserted saline lock: 22 gauge in right iw forearm, using aseptic technique. Blood collected. 16:33 XRAY Chest (1 view) In Process Unspecified. EDMS 16:40 Patient has correct armband on for positive identification. Bed in low position. Call rb3 light in reach. Side rails up X 1. pvc monitor on. Pulse ox on. NIBP on. Warm blanket given. 17:34 US Abdomen Limited In Process Unspecified. EDMS 18:19 Sonny Wyatt FNP-C is Hospitalizing Provider. cp 18:20 Latoya Sheth MD is Hospitalizing Provider. la1 19:31 Thyroid Stimulating Hormone Sent. bs2 19:31 CBC with Automated Diff Sent. bs2 19:31 T4 Free Sent. bs2 19:31 T4 Free Sent. bs2 19:31 Thyroid Stimulating Hormone Sent. bs2 19:31 Magnesium Sent. bs2 04/12 19:21 Primary Nurse role handed off by Kreline Alexander, RN mw2 04/13 19:00 Report given to Lorenzo BAUMAN. vg1 04/14 13:20 Theodora Cardenas, MERNA is Primary Nurse. tr6 13:21 Patient admitted, IV remains in place. tr6 Administered Medications: 04/11 16:33 Drug: NS 0.9% 1000 ml Route: IV; Rate: 1 bolus; Site: right wrist; rb3 16:33 Drug: ProTONIX (pantoprazole) 40 mg Route: IVP; Site: right wrist; rb3 16:47 Follow up: Response: pt reports having protonix before without any reaction. rb3 16:34 Drug: Zofran (Ondansetron) 4 mg Route: IVP; Site: right wrist; rb3 16:47 Follow up: Response: Adverse reaction, Physician notified; pt reports that he doesn't rb3 recall if he has ever had Zofran before. Arm is red and itching. Provider notified. 16:50 Drug: Benadryl (diphenhydrAMINE) 25 mg Route: IVP; Site: right wrist; rb3 17:17 Follow up: Response: No adverse reaction; Marked relief of symptoms rb3 16:50 Drug: Phenergan (promethazine) 12.5 mg Route: IVP; Site: right wrist; rb3 17:05 Follow up: Response: No adverse reaction; Nausea is decreased rb3 17:23 Not Given (Duplicate Order): Phenergan (promethazine) 12.5 mg IVP once rb3 18:20 Drug: Lopressor (metoprolol) 5 mg Route: IVP; Site: right forearm; rb3 18:22 Not Given (Other Intervention Used): Potassium Effervescent Tablet 50 mEq PO once; la1 dissolve in 4 ounces of water or juice 18:22 Not Given (Other Intervention Used): Aspirin Chewable Tablet 324 mg PO once; 81 mg la1 tablets x 4 18:22 Not Given (Other Intervention Used): Eliquis (apixaban) 5 mg PO once la1 18:30 Drug: Lovenox (enoxaparin) 1 mg/kg Route: Sub-Q; Site: abdomen; rb3 18:45 Follow up: Response: No adverse reaction rb3 Intake: Outcome: 18:20 Decision to Hospitalize by Provider. deedee 04/14 13:20 Admitted to Med/surg accompanied by nurse, via wheelchair, room . tr6 13:21 Condition: stable tr6 13:24 Patient left the ED. tr6 Signatures: Dispatcher [employer] EDVA Barrie Gann MD MD cha [place], Demi ds1 Kerline Alexander, RN RN Sonny Muniz, K 8 SCHOOL PRINCIPAL-C K 8 SCHOOL PRINCIPAL-Cla1 Barrie Matta PA PA cp Regan Galicia RN RN jl7 Julián Ram mw2 Estela Lopez RN RN vg1 Renee Louise, RN RN rb3 Theodora Cardenas RN RN tr6 Cindy Amaya RN RN bs2 Corrections: (The following items were deleted from the chart) 04/11 17:17 12:26 Allergies: No Known Allergies; jl7 rb3 17:22 16:40 Reassessment: Patient appears in no apparent distress at this time. Patient rb3 and/or family updated on plan of care and expected duration. Pain level reassessed. Patient is alert, oriented x 3, equal unlabored respirations, skin warm/dry/pink. rb3
--- NOTE | 2021-04-11 18:20 | EDPHYS ---
Physician Documentation [facility] Name: Watson Dodge Age: 51 yrs Sex: Male : 1970 Arrival Date: 04/11/2021 Time: 11:38 Bed 18 Private MD: HEATH Physician Barrie Gann HPI: 04/11 15:05 This 51 yrs old Male presents to ER via Wheelchair with complaints of cp Difficulty Swallowing, Chills. 15:05 The patient presents with dysphagia, of both solids and liquids. cp 15:05 Onset: The symptoms/episode began/occurred gradually, and became worse 4 day(s) ago. cp 15:05 The patient presents to the emergency department with nausea, with "dry heaves", cp vomiting, that is continuous. Possible causes: flare up of chronic muscular dystrophy. Severity of symptoms: in the emergency department the symptoms are unchanged, despite home interventions. Historical: - Allergies: 16:50 Zofran; rb3 - PMHx: 12:26 muscular dystrophy; narcolepsy; Sleep Apnea; jl7 - Immunization history:: Adult Immunizations not up to date, Client reports having NOT received the Covid vaccine. - Social history:: Smoking status: Patient denies any tobacco usage or history of. ROS: 15:05 Abdomen/GI: Positive for nausea and vomiting, anorexia, Negative for hematemesis. cp 15:05 Constitutional: Positive for poor PO intake, Negative for fever. cp 15:05 ENT: Positive for difficulty swallowing, Negative for difficulty handling secretions. 15:05 Cardiovascular: Negative for chest pain, palpitations. cp 15:05 Eyes: Negative for injury, pain, redness, and discharge. cp 15:05 Respiratory: Negative for cough, shortness of breath, wheezing. 15:05 Neuro: Negative for altered mental status, dizziness, headache, syncope, weakness. 15:05 All other systems are negative. Exam: 15:10 Constitutional: The patient appears alert, awake, non-diaphoretic, non-toxic, well cp developed, frail. 15:10 Head/Face: Normocephalic, atraumatic. cp 15:10 Eyes: Periorbital structures: appear normal, Pupils: equal, round, and reactive to light and accomodation, Extraocular movements: intact throughout, Conjunctiva: normal, no exudate, no injection, Sclera: no appreciated abnormality, Lids and lashes: appear normal, bilaterally. 15:10 ENT: External ear(s): are unremarkable, Nose: is normal, Mouth: Lips: moist, Oral mucosa: pink and intact, moist, Posterior pharynx: Airway: no evidence of obstruction, patent, Tonsils: are normal in appearance, Uvula: midline, swelling, is not appreciated, erythema, is not appreciated, exudate, is not appreciated. 15:10 Neck: ROM/movement: is normal, is supple, without pain, no range of motions limitations, no meningismus, no nuchal rigidity. 15:10 Chest/axilla: Inspection: normal, Palpation: is normal, no crepitus, no tenderness. 15:10 Cardiovascular: Rate: normal, Rhythm: irregular, Edema: is not appreciated, JVD: is not appreciated. 15:10 Respiratory: the patient does not display signs of respiratory distress, Respirations: normal, no use of accessory muscles, no retractions, labored breathing, is not present, Breath sounds: are clear throughout, no decreased breath sounds, no stridor, no wheezing. 15:10 Abdomen/GI: Inspection: abdomen appears normal, Bowel sounds: active, all quadrants, Palpation: soft, in all quadrants, mild abdominal tenderness, in the epigastric area, rebound tenderness, is not appreciated, voluntary guarding, is not appreciated, involuntary guarding, is not appreciated. 15:10 Back: pain, is absent, ROM is normal. 15:10 Skin: no rash present. 15:10 Neuro: Orientation: to person, place \\T\\ time. Mentation: is normal, Motor: moves all fours, general weakness with no focal deficits, Sensation: is normal. 17:50 ECG was reviewed by the Attending Physician. cp Vital Signs: 12:24 BP 97 / 66; Pulse 71; Resp 16; Temp 98.3(O); Pulse Ox 96% on R/A; Weight 67.59 kg; jl7 Height 5 ft. 9 in. (175.26 cm); Pain 3/10; 17:00 BP 117 / 75; Pulse 106; Resp 17; Pulse Ox 99% ; rb3 18:00 BP 117 / 79; Pulse 97; Resp 18; Pulse Ox 98% ; rb3 12:24 Body Mass Index 22.00 (67.59 kg, 175.26 cm) jl7 MDM: 15:01 Patient medically screened. [facility] 16:00 Differential diagnosis: gastritis, pancreatitis, dehydration, electrolyte abnormality cp tonsillitis, uvulitis, viral syndrome. 18:30 Data reviewed: vital signs, nurses notes, lab test result(s), EKG, radiologic studies, cp plain films, I have discussed the patient's presentation/case with the attending Emergency Department Physician; and as a result, I will admit patient. 18:30 Test interpretation: by ED physician or midlevel provider: ECG, plain radiologic cp studies. Counseling: I had a detailed discussion with the patient and/or guardian regarding: the historical points, exam findings, and any diagnostic results supporting the discharge/admit diagnosis, lab results, radiology results, the need for further work-up and treatment in the hospital. Response to treatment: the patient's symptoms have mildly improved after treatment, VSS. Patient continues to be intolerant of po meds. Will admit for continued treatment. Physician consultation: Sonny MEJIA was contacted at 18:20, regarding admission, to the telemetry unit. patient's condition, and will see patient in ED, shortly. 04/11 15:02 Order name: Basic Metabolic Panel; Complete Time: 16:34 [facility] 04/11 16:34 Interpretation: Normal except: K 3.4; CL 108; BUN 19; GFR 73. cp 04/11 15:02 Order name: CBC with Diff; Complete Time: 16:17 [facility] 04/11 16:18 Interpretation: Normal except: WBC 3.50; RBC 5.75; HGB 18.1; HCT 55.2; PLT 112; LYM% cp 12.8; MN% 15.5; LYMA 0.5. 04/11 15:02 Order name: LFT's; Complete Time: 16:34 [facility] 04/11 15:02 Order name: Magnesium; Complete Time: 16:34 [facility] 04/11 15:02 Order name: NT PRO-BNP; Complete Time: 16:34 [facility] 04/11 15:02 Order name: PT-INR; Complete Time: 16:17 [facility] 04/11 15:02 Order name: Troponin (emerg Dept Use Only); Complete Time: 16:34 [facility] 04/11 15:02 Order name: Lipase; Complete Time: 16:34 [facility] 04/11 18:07 Order name: SARS-COV-2 RT PCR; Complete Time: 18:08 EDMS 04/11 18:09 Interpretation: SARSCOV2 RT PCR POSITIVE; Results reviewed. cp 04/11 19:19 Order name: Comprehensive Metabolic Panel EDMS 04/11 19:19 Order name: Comprehensive Metabolic Panel EDMS 04/11 19:19 Order name: Comprehensive Metabolic Panel EDMS 04/11 19:19 Order name: Comprehensive Metabolic Panel EDMS 04/11 19:19 Order name: Comprehensive Metabolic Panel EDMS 04/11 19:19 Order name: Magnesium EDMS 04/11 19:19 Order name: Magnesium EDMS 04/11 19:19 Order name: Magnesium EDMS 04/11 19:19 Order name: Magnesium EDMS 04/11 19:19 Order name: Magnesium EDMS 04/11 19:19 Order name: T4 Free EDMS 04/11 19:19 Order name: T4 Free EDMS 04/11 19:19 Order name: Thyroid Stimulating Hormone EDMS 04/11 19:19 Order name: CBC with Automated Diff EDMS 04/11 19:19 Order name: Thyroid Stimulating Hormone EDMS 04/12 04:58 Order name: CBC with Automated Diff EDMS 04/12 05:25 Order name: C-Reactive Protein EDMS 04/12 05:25 Order name: Ferritin EDMS 04/12 09:01 Order name: Manual Differential EDMS 04/13 05:20 Order name: CBC with Automated Diff EDMS 04/11 15:02 Order name: XRAY Chest (1 view); Complete Time: 17:37 [facility] 04/11 15:02 Order name: EKG; Complete Time: 15:03 [facility] 04/11 15:02 Order name: Cardiac monitoring; Complete Time: 19:22 [facility] 04/11 15:02 Order name: EKG - Nurse/Tech; Complete Time: 19:22 [facility] 04/11 15:02 Order name: IV Saline Lock; Complete Time: 15:46 [facility] 04/11 15:02 Order name: Labs collected and sent; Complete Time: 15:46 [facility] 04/11 15:02 Order name: O2 Per Protocol; Complete Time: 16:27 [facility] 04/11 15:02 Order name: O2 Sat Monitoring; Complete Time: 16:27 [facility] 04/11 15:02 Order name: Urine Dipstick-Ancillary (obtain specimen) [facility] 04/11 16:36 Order name: US Abdomen Limited; Complete Time: 19:47 cp 04/11 19:19 Order name: CONS Physician Consult EDMS 04/11 19:19 Order name: Speech Therapy Consult EDMS 04/11 19:19 Order name: NPO EDMS 04/12 13:01 Order name: RAD EDMS 04/13 05:34 Order name: C-Reactive Protein EDMS 04/13 05:34 Order name: Ferritin EDMS 04/14 05:04 Order name: CBC with Automated Diff EDMS 04/14 05:20 Order name: C-Reactive Protein EDMS 04/14 05:20 Order name: Ferritin EDMS 04/11 16:37 Order name: NPO; Complete Time: 17:23 cp EC:50 Rate is 102 beats/min. Rhythm is irregular. QRS interval is prolonged at 1 msec. QT cp interval is normal. Interpreted by me. Reviewed by me. Administered Medications: 16:33 Drug: NS 0.9% 1000 ml Route: IV; Rate: 1 bolus; Site: right wrist; rb3 16:33 Drug: ProTONIX (pantoprazole) 40 mg Route: IVP; Site: right wrist; rb3 16:47 Follow up: Response: pt reports having protonix before without any reaction. rb3 16:34 Drug: Zofran (Ondansetron) 4 mg Route: IVP; Site: right wrist; rb3 16:47 Follow up: Response: Adverse reaction, Physician notified; pt reports that he doesn't rb3 recall if he has ever had Zofran before. Arm is red and itching. Provider notified. 16:50 Drug: Benadryl (diphenhydrAMINE) 25 mg Route: IVP; Site: right wrist; rb3 17:17 Follow up: Response: No adverse reaction; Marked relief of symptoms rb3 16:50 Drug: Phenergan (promethazine) 12.5 mg Route: IVP; Site: right wrist; rb3 17:05 Follow up: Response: No adverse reaction; Nausea is decreased rb3 17:23 Not Given (Duplicate Order): Phenergan (promethazine) 12.5 mg IVP once rb3 18:20 Drug: Lopressor (metoprolol) 5 mg Route: IVP; Site: right forearm; rb3 18:22 Not Given (Other Intervention Used): Potassium Effervescent Tablet 50 mEq PO once; la1 dissolve in 4 ounces of water or juice 18:22 Not Given (Other Intervention Used): Aspirin Chewable Tablet 324 mg PO once; 81 mg la1 tablets x 4 18:22 Not Given (Other Intervention Used): Eliquis (apixaban) 5 mg PO once la1 18:30 Drug: Lovenox (enoxaparin) 1 mg/kg Route: Sub-Q; Site: abdomen; rb3 18:45 Follow up: Response: No adverse reaction rb3 Disposition: 04/15 07:11 Co-signature as Attending Physician, Barrie Gann MD I agree with the assessment and chadwick plan of care. Disposition Summary: 04/11/21 18:20 Hospitalization Ordered Hospitalization Status: Inpatient Admission cp Condition: Fair cp Problem: an acute exacerbation cp Symptoms: have improved cp Bed/Room Type: Standard cp Provider: Latoya Sheth(04/11/21 18:20) la1 Location: Telemetry/MedSurg (Inpatient)(04/14/21 12:18) aa5 Room Assignment: 404(04/14/21 12:18) aa5 Diagnosis - Dysphagia cp - SARS-associated coronavirus as the cause of diseases classified elsewhere cp - Chronic atrial fibrillation cp Forms: - Medication Reconciliation Form cp - SBAR form cp Signatures: Dispatcher [employer] EDMS Barrie Gann MD MD cha Calderon, Audri, RN RN aa5 Sonny Wyatt, BLUNGER LOADER-C BLUNGER LOADER-Cla1 Barrie Matta PA PA cp Garcia, Cindy, RN Regan Tijerina RN RN jl7 Renee Louise, RN RN rb3 Corrections: (The following items were deleted from the chart) 04/11 17:05 15:03 CORONAVIRUS+MR.LAB.BRZ ordered. EDMS EDMS 17:17 12:26 Allergies: No Known Allergies; jl7 rb3 18:20 18:20 Sonny Wyatt cp la1 19:02 18:19 Soft Tissue Neck W/Contr+CT.RAD.BRZ ordered. EDMS EDMS 23:10 18:20 Telemetry/MedSurg (Inpatient) cp cg 23:10 18:20 cp cg 04/14 12:18 04/11 23:10 [facility] ER HOLD cg aa5 04/14 12:18 04/11 23:10 ERHOLD- aa5
[2021-04-11] MEDS ORDERED: ASPIRIN EC 81 MG TAB PO ONE (18:21)
--- NOTE | 2021-04-11 18:21 | RAD REPORT ---
EXAM DESCRIPTION: US - Abdomen Exam Limited - 04/11/2021 5:34 pm CLINICAL HISTORY: elevated liver enzymes COMPARISON: Barium Swallow Modified dated 10/26/2018 FINDINGS: Mildly nodular liver contour with coarsened echogenicity. No gallbladder wall thickening. No pericholecystic fluid is seen. No focal mass identified. The common bile duct measures 6 millimete rs which is upper limits of normal. 5 millimeter echogenic intraluminal focus may represent a small p olyp. No shadowing gallstones identified. Negative sonographic Stiles's sign. IMPRESSION: Negative for cholelithiasis or acute cholecystitis. Question 5 millimeter gallbladder po lyp which does not require follow-up
[2021-04-11] MEDS ORDERED: APIXABAN 5 MG TABLET ONE (18:29)
[2021-04-11] MEDS ORDERED: ENOXAPARIN 60 MG/0.6 ML SQ ONE (18:39)
[2021-04-11] MEDS: D5.45NS W/KCL 20MEQ 1,000 ML IV SCH (19:18)
[2021-04-11] MEDS ORDERED: METOPROLOL TARTRATE 5 MG/5 ML INJ IV PRN (19:18)
[2021-04-11] MEDS ORDERED: ONDANSETRON 4 MG/2 ML VIAL IV PRN (19:18)
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
[2021-04-11] MEDS ORDERED: D5.45NS W/KCL 20MEQ 1,000 ML IV ONE (21:26)
[2021-04-12 04:47] LABS: Absolute Lymphocytes (CBC) 0.7 K/uL (0.7-4.9); Basophils % 0.2 % (0-1.3); Hematocrit 45.9 % (39.6-49.0); Lymphocytes % 38.2 % (15.3-44.8); MPV 9.7 fL (7.6-11.3); RBC Red Blood Cell Count 4.74 M/uL (4.33-5.43)
[2021-04-12 05:12] LABS: ALT/SGPT 28 U/L (12-78); AST/SGOT 41 U/L (15-37); Albumin 2.9 g/dL (3.4-5.0); Alkaline Phosphatase 94 U/L (45-117); BUN Blood Urea Nitrogen 15 mg/dL (7-18); Bicarbonate 26 mmol/L (21-32); Bilirubin Total 0.7 mg/dL (0.2-1.0); Ferritin 261.7 ng/mL (26-388); Glucose Level 90 mg/dL (74-106); Magnesium 2.3 mg/dL (1.8-2.4); Potassium 3.2 mmol/L (3.5-5.1); Protein, Total 5.9 g/dL (6.4-8.2); Sodium Level 146 mmol/L (136-145); Thyroid Stimulating Hormone 0.458 uIU/mL (0.360-3.740)
[2021-04-12] MEDS: D5.45NS W/KCL 20MEQ 1,000 ML IV SCH ×2 (05:18→17:03)
[2021-04-12 09:01] LABS: Blood Morphology Comment NOT SEEN (NOT SEEN); Platelet Estimate DECR
[2021-04-12] MEDS: ENOXAPARIN 80 MG/0.8 ML SQ SCH ×2 (11:00→21:00)
[2021-04-12] MEDS ORDERED: ENOXAPARIN 80 MG/0.8 ML SQ ONE ×2 (11:12→21:12)
--- NOTE | 2021-04-12 13:00 | RAD REPORT ---
EXAM DESCRIPTION: RAD - Barium Swallow Modified - 04/12/2021 12:54 pm CLINICAL HISTORY: Dysphagia, pneumonia FINDINGS: Aspiration, no cough with thin liquid by cup , residue Pharyngeal residue: Moderate to Severe with thin by tsp, thin by cup and pudding by tsp in both the V allecula and Pyriform Absent swallow response, no epiglottic deflection. decreased UES opening. Min residue in UES at end o f study. Thirty-four fluoroscopic spot series obtained. Fluoroscopy time 4 minutes
--- NOTE | 2021-04-12 13:39 | CON ---
Date of Consultation: 04/12/2021 Reason For Consultation: Atrial flutter and dysphagia. History Of Present Illness: Mr. Dodge is 51. He was admitted and complaining of chills and difficult y swallowing and was noted to be in atrial flutter at a rate of 71. He has a history of muscular dys trophy. Denied narcolepsy and sleep apnea. No chest pain. No nausea, vomiting, diaphoresis, PND, o rthopnea, pedal edema, palpitations, or syncope. He has dysphagia to both liquids and solids. Past Medical History: As stated above. Allergies: HE IS ALLERGIC TO ZOFRAN. Review of Systems: Negative. Social History: Negative. Family History: Noncontributory. Medications: At home include Eliquis, metoprolol, pantoprazole. Physical Examination: Vital Signs: He was in atrial flutter at a rate of 80. Blood pressure was 105/69. He had 96% O2 sa turation on 2 L. Atrial flutter, rate controlled. HEENT: Negative. Neck: Supple with no bruit. Chest: Clear. Cardiac: Revealed a regular rhythm and rate. No murmurs, gallops, or rubs. Abdomen: Benign. Extremities: Revealed no clubbing, cyanosis, or edema. The patient has muscular dystrophy. Diagnostic Data: Showed a hemoglobin of 8.1. His white count was 3.5. Creatinine was normal. Gluc ose was 143. Magnesium was 2.3. His troponin was negative. BNP was 2473. C-reactive protein was 1 20. He was COVID positive. Impression And Plan: 1.Chronic atrial fibrillation, on metoprolol and Eliquis. 2.Muscular dystrophy. 3.Hypertension. 4.Gastroesophageal reflux disease. I have no intention of changing his medicine. He should be on a beta-igana and Eliquis which is already on. Case was discussed with Dr. Sheth. Echocardiogram is pending. We will see what that shows before making further decisions. JOYCE/VIKASHL Voice ID: [id number] Report ID: [id number]
--- NOTE | 2021-04-12 14:30 | ECHO ---
HEIGHT: 5 ft 9 in WEIGHT: 148 lb 0 oz DATE OF STUDY: 04/12/[address]: Latoya Sheth MD 2-DIMENSIONAL: YES M.MODE: YES DOPPLER: YES COLOR FLOW: YES TDS: NO PORTABLE: NO DEFINITY: NO BUBBLE STUDY: NO DIAGNOSIS: CONGESTIVE HEART FAILURE CARDIAC HISTORY: CATHERIZATION: NO SURGERY: NO PROSTHETIC VALVE: NO PACEMAKER: NO MEASUREMENTS (cm) DIASTOLIC (NORMALS) SYSTOLIC (NORMALS) IVSd 1.0 (0.6-1.2) LA Diam 2.5 (1.9-4.0) LVEF 43% LVIDd 4.7 (3.5-5.7) LVIDs 3.7 (2.0-3.5) %FS 21% LVPWd 0.9 (0.6-1.2) Ao Diam 3.9 (2.0-3.7) 2 DIMENSIONAL ASSESSMENT: RIGHT ATRIUM: NORMAL LEFT ATRIUM: NORMAL RIGHT VENTRICLE: NORMAL LEFT VENTRICLE: REDUCED FUNCTION TRICUSPID VALVE: MITRAL VALVE: PULMONIC VALVE: NORMAL AORTIC VALVE: NORMAL PERICARDIAL EFFUSION: NONE AORTIC ROOT: NORMAL LEFT VENTRICULAR WALL MOTION: MILD GLOBAL HYPOKINESIS. DOPPLER/COLOR FLOW: MILD MITRAL AND TRICUSPID REGURGITATION. COMMENTS: MILDLY REDUCED LEFT VENTRICULAR EJECTION FRACTION OF 40-45%. MILD GLOBAL HYPOKINESIS. MILD MITRAL AND TRICUSPID REGURGITATION. TECHNOLOGIST: Keegan HOLLAND
[2021-04-12] MEDS ORDERED: DIGOXIN 0.25 MG/ML AMP IV SCH (17:00)
[2021-04-12] MEDS ORDERED: DIGOXIN 0.25 MG/ML AMP ONE (17:08)
[2021-04-12] MEDS ORDERED: D5.45NS W/KCL 20MEQ 1,000 ML IV ONE (17:09)
--- NOTE | 2021-04-12 18:05 | P.PN ---
Subjective Date of Service: 04/12/21 Subjective: No new changes, No C/O voiced, Improving Review of Systems 10-point ROS is otherwise unremarkable Physical Examination - Vital Signs Temperature: 98.5 F Blood Pressure: 114/68 Pulse: 88 Respirations: 22 Pulse Ox (%): 97 - Physical Exam General: Alert, In no apparent distress, Oriented x3 Respiratory: Clear to auscultation bilaterally, Normal air movement Cardiovascular: Regular rate/rhythm, Normal S1 S2, No murmurs Gastrointestinal: Normal bowel sounds, Soft and benign, Non-distended, No tenderness Musculoskeletal: No clubbing, No swelling, No tenderness Neurological: Sensation intact, Cranial nerves 3-12 intact - Studies Medications List Reviewed: Yes Assessment & Plan - Problems (Diagnosis) (1) Acute diastolic heart failure Current Visit: No Status: Acute (2) Atrial flutter Current Visit: No Status: Acute (3) Chronic respiratory failure Current Visit: No Status: Acute (4) Pneumonia Onset Date: 09/27/18 Current Visit: No Status: Acute Qualifiers: Pneumonia type: due to unspecified organism Laterality: left Lung location: lower lobe of lung Qualified Code(s): J18.9 - Pneumonia, unspecified organism (5) Dysphagia Current Visit: No Status: Acute (6) Muscular dystrophy Onset Date: 09/27/18 Current Visit: No Status: Acute - Plan PLAN: 1. SWALLOW STUDY 2. SPEECH 3. GI & CARDIOLOGY APPRECIATED 4. RATE CONTROL WITH BETA-TERRY; ECHO PENDING 5. NPO Discharge Plan: Home Plan to discharge in: Greater than 2 days - Advance Directives Does patient have a Living Will: No Does patient have a Durable POA for Healthcare: No - Code Status/Comfort Care Code Status Assessed: Yes Code Status: Full Code Critical Care: No Time Spent Managing PTS Care (In Minutes): 35
--- NOTE | 2021-04-12 20:13 | CON ---
Reason For Consultation: Dysphagia, failure to thrive. History Of Present Illness: Patient is 51-year-old gentleman who came because of chills, difficulty swallowing, not feeling well, found to be having atrial flutter, rate of 51. He has a history of mus cular dystrophy, has had dysphagia for a long time. He has had PEG tube placed multiple times before , but had them removed due to issues, specifically diarrhea. Past Medical History: As above. Allergies: TO ZOFRAN. Social History: Negative. Family History: Noncontributory. Medications: Eliquis, metoprolol, pantoprazole. Physical Examination: Patient was asleep, comfortable with good saturation. I tried to wake him up twice, but he did not w ant to at this time, so I did not do physical exam. Laboratory Data: Reviewed. He is COVID positive. Barium swallow was done, which shows some aspirat ion. Impression: A 51-year-old gentleman with muscular dystrophy, dysphagia, would be a candidate for PEG ; however, he has had several times before, but refuses because of complications, particularly diarrh ea. He is COVID positive as well. Plan: Continue current management. No intervention from GI at this time. If the patient decides he definitely wants to proceed with PEG tube placement, we will consider it. However, as it is an elec tive procedure, we will discuss with Anesthesia when they would be willing to do the case. /JOEY Voice ID: [id number] Report ID: [id number]
[2021-04-13] MEDS ORDERED: D5.45NS W/KCL 20MEQ 1,000 ML IV ONE ×3 (01:41→21:25)
[2021-04-13] MEDS: D5.45NS W/KCL 20MEQ 1,000 ML IV SCH ×3 (02:07→21:18)
[2021-04-13 05:09] LABS: Absolute Lymphocytes (CBC) 0.6 K/uL (0.7-4.9); Basophils % 0.6 % (0-1.3); Hematocrit 41.9 % (39.6-49.0); MPV 9.4 fL (7.6-11.3); RBC Red Blood Cell Count 4.39 M/uL (4.33-5.43)
[2021-04-13 05:33] LABS: ALT/SGPT 24 U/L (12-78); AST/SGOT 43 U/L (15-37); Albumin 2.5 g/dL (3.4-5.0); Alkaline Phosphatase 86 U/L (45-117); BUN Blood Urea Nitrogen 8 mg/dL (7-18); Bicarbonate 27 mmol/L (21-32); Bilirubin Total 0.7 mg/dL (0.2-1.0); Ferritin 258.6 ng/mL (26-388); Glucose Level 91 mg/dL (74-106); Magnesium 2.1 mg/dL (1.8-2.4); Potassium 3.7 mmol/L (3.5-5.1); Protein, Total 5.1 g/dL (6.4-8.2); Sodium Level 144 mmol/L (136-145)
--- NOTE | 2021-04-13 07:36 | P.PN ---
Date of Service: 04/13/21 Subjective Subjective: FAILED SWALLOW STUDY; NPO; WILL NEED FEEDING TUBE Review of Systems 10-point ROS is otherwise unremarkable Physical Examination - Vital Signs REVIEWED - Physical Exam General: Alert, In no apparent distress, Oriented x3 Respiratory: Clear to auscultation bilaterally, Normal air movement Cardiovascular: Regular rate/rhythm, Normal S1 S2, No murmurs Gastrointestinal: Normal bowel sounds, Soft and benign, Non-distended, No tenderness Musculoskeletal: No clubbing, No swelling, No tenderness Neurological: Sensation intact, Cranial nerves 3-12 intact - Studies Medications List Reviewed: Yes Assessment & Plan - Problems (Diagnosis) (1) Acute diastolic heart failure Current Visit: No Status: Acute (2) Atrial flutter Current Visit: No Status: Acute (3) Chronic respiratory failure Current Visit: No Status: Acute (4) Pneumonia Onset Date: 09/27/18 Current Visit: No Status: Acute Qualifiers: Pneumonia type: due to unspecified organism Laterality: left Lung lo cation: lower lobe of lung Qualified Code(s): J18.9 - Pneumonia, unspecified organism (5) Dysphagia Current Visit: No Status: Acute (6) Muscular dystrophy Onset Date: 09/27/18 Current Visit: No Status: Acute - Plan PLAN: 1. SWALLOW STUDY FAILED 2. SPEECH 3. GI & CARDIOLOGY APPRECIATED 4. ECHO GLOBAL HYPOKINESIS; EF OF 40-45% 5. NPO 6. SCHEDULE IV BETABLOCKER THERAPY 7. HOLD LOVENOX 12H PRIOR TO SURGERY
[2021-04-13] MEDS: METOPROLOL TARTRATE 5 MG/5 ML INJ IV SCH ×3 (08:00→20:00)
[2021-04-13] MEDS: ENOXAPARIN 80 MG/0.8 ML SQ SCH ×2 (09:00→21:00)
[2021-04-13] MEDS ORDERED: METOPROLOL TARTRATE 5 MG/5 ML INJ IV ONE (10:01)
[2021-04-13] MEDS ORDERED: ENOXAPARIN 80 MG/0.8 ML SQ ONE ×2 (10:01→21:25)
--- NOTE | 2021-04-13 14:50 | PN ---
Date of Progress Note: 04/13/2021 The patient had come in with atrial flutter. Ejection fraction was 40% to 45%. He typically takes m etoprolol and Eliquis at home, which should be continued. There is a plan for a PEG placement, but t he patient is not sure if he wants it. His white count is down. For now, he is staying on IV beta-b locker p.r.n., heart rate greater than 110. He is in atrial flutter this morning with a rate of 90. No cardiac complaints. I will sign off his case for now. The patient should eventually be on metop rolol and Eliquis for rate control. He may benefit from a low-dose SAI inhibitor because of his ejec tion fraction. JOYCE/JOEY Voice ID: [id number] Report ID: [id number]
[2021-04-13 20:10] VITALS: BMI 21.9
[2021-04-14] MEDS: METOPROLOL TARTRATE 5 MG/5 ML INJ IV SCH ×4 (00:17→13:58)
[2021-04-14] MEDS ORDERED: METOPROLOL TARTRATE 5 MG/5 ML INJ IV ONE ×2 (00:37→10:09)
[2021-04-14] MEDS: PROMETHAZINE INJ 25 MG/ML AMP IV PRN (01:37)
[2021-04-14] MEDS ORDERED: PROMETHAZINE INJ 25 MG/ML AMP ONE (01:54)
[2021-04-14] MEDS ORDERED: NA CHLORIDE 0.9% 50 ML ONE (01:55)
[2021-04-14 05:00] LABS: Absolute Lymphocytes (CBC) 0.5 K/uL (0.7-4.9); Basophils % 0.3 % (0-1.3); Hematocrit 44.5 % (39.6-49.0); Lymphocytes % 29.2 % (15.3-44.8); MPV 10.3 fL (7.6-11.3)
[2021-04-14 05:19] LABS: ALT/SGPT 28 U/L (12-78); AST/SGOT 54 U/L (15-37); Albumin 2.6 g/dL (3.4-5.0); Alkaline Phosphatase 100 U/L (45-117); BUN Blood Urea Nitrogen 6 mg/dL (7-18); Bicarbonate 25 mmol/L (21-32); Bilirubin Total 0.8 mg/dL (0.2-1.0); Ferritin 327.2 ng/mL (26-388); Glucose Level 88 mg/dL (74-106); Magnesium 1.9 mg/dL (1.8-2.4); Protein, Total 5.4 g/dL (6.4-8.2); Sodium Level 141 mmol/L (136-145)
[2021-04-14] MEDS: ENOXAPARIN 80 MG/0.8 ML SQ SCH ×2 (09:00→20:39)
[2021-04-14] MEDS: D5.45NS W/KCL 20MEQ 1,000 ML IV SCH ×2 (09:55→17:28)
[2021-04-14] MEDS ORDERED: ENOXAPARIN 80 MG/0.8 ML SQ ONE (10:10)
[2021-04-14] MEDS ORDERED: D5.45NS W/KCL 20MEQ 1,000 ML IV ONE (10:10)
--- NOTE | 2021-04-14 13:03 | EKG ---
Test Date: 2021-04-12 Test Time: 19:54:47 Outside Sales Account Executive: HB MEASUREMENT RESULTS: Intervals: Rate: 73 PA: 192 QRSD: 162 QT: 480 QTc: 528 [place]: P: PA: 192 QRS: -28 T: -50 INTERPRETIVE STATEMENTS: Demand pacemaker, interpretation is based on intrinsic rhythm Sinus rhythm with premature supraventricular complexes with occasional premature ventricular complexes Right bundle branch block Lateral infarct, age undetermined Abnormal ECG Compared to ECG 04/12/2021 16:30:58 Atrial premature complex(es) now present Ventricular premature complex(es) now present Myocardial infarct finding now present Atrial flutter no longer present Left-axis deviation no longer present Left ventricular hypertrophy no longer present T-wave abnormality no longer present Possible ischemia no longer present Electronically Signed On 04-14-21 12:59:32 CDT by Chapo Mcgrath
--- NOTE | 2021-04-14 13:03 | EKG ---
Test Date: 2021-04-12 Test Time: 16:30:58 [place]: CLAUDIO MEASUREMENT RESULTS: Intervals: Rate: 66 NM: QRSD: 160 QT: 490 QTc: 513 [place]: P: 236 NM: QRS: -35 T: 3 INTERPRETIVE STATEMENTS: Atrial flutter with variable AV block Left axis deviation Right bundle branch block Voltage criteria for left ventricular hypertrophy T wave abnormality, consider inferolateral ischemia Abnormal ECG Compared to ECG 04/11/2021 17:43:52 Myocardial infarct finding no longer present T-wave abnormality still present Possible ischemia still present Electronically Signed On 04-14-21 12:59:33 CDT by Chapo Mcgrath
--- NOTE | 2021-04-14 16:16 | P.PN ---
Date of Service: 04/14/21 Subjective Subjective: Patient does not want feeding tube. States he had Botox injected per Dr. Feliciano. Spoke with GI and they recommend discussing this with Dr. Feliciano as possible treatment for patient while in the hospital or we can talk to ENT and see if they will do it.. Review of Systems 10-point ROS is otherwise unremarkable Physical Examination - Vital Signs REVIEWED - Physical Exam General: Alert, In no apparent distress, Oriented x3 Respiratory: Clear to auscultation bilaterally, Normal air movement Cardiovascular: Regular rate/rhythm, Normal S1 S2, No murmurs Gastrointestinal: Normal bowel sounds, Soft and benign, Non-distended, No tenderness Musculoskeletal: No clubbing, No swelling, No tenderness Neurological: Sensation intact, Cranial nerves 3-12 intact - Studies Medications List Reviewed: Yes Assessment & Plan - Problems (Diagnosis) (1) Acute diastolic heart failure Current Visit: No Status: Acute (2) Atrial flutter Current Visit: No Status: Acute (3) Chronic respiratory failure Current Visit: No Status: Acute (4) Pneumonia Onset Date: 09/27/18 Current Visit: No Status: Acute Qualifiers: Pneumonia type: due to unspecified organism Laterality: left Lung location: lower lobe of lung Qualified Code(s): J18.9 - Pneumonia, unspecified organism (5) Dysphagia Current Visit: No Status: Acute (6) Muscular dystrophy Onset Date: 09/27/18 Current Visit: No Status: Acute - Plan PLAN: 1. SWALLOW STUDY FAILED; will try to get REBECA, Dr. Feliciano to do intervention. 2. SPEECH therapy consultation 3. GI & CARDIOLOGY APPRECIATED 4. ECHO GLOBAL HYPOKINESIS; EF OF 40-45% 5. NPO 6. SCHEDULE IV BETABLOCKER THERAPY 7. HOLD LOVENOX 12H PRIOR TO SURGERY
[2021-04-14] MEDS ORDERED: ACETAMINOPHEN 650MG/RECT SUPP PR ONE (17:00)
--- NOTE | 2021-04-15 02:12 | P.PN ---
Date of Service: 04/15/21 Subjective Subjective: Spoke with shell worker Dr. Feliciano and he may be able to do the procedure today or tomorrow. Also spoke with ENT and they will be available if necessary. Review of Systems 10-point ROS is otherwise unremarkable Physical Examination - Vital Signs REVIEWED - Physical Exam General: Alert, In no apparent distress, Oriented x3 Respiratory: Clear to auscultation bilaterally, Normal air movement Cardiovascular: Regular rate/rhythm, Normal S1 S2, No murmurs Gastrointestinal: Normal bowel sounds, Soft and benign, Non-distended, No tenderness Musculoskeletal: No clubbing, No swelling, No tenderness Neurological: Sensation intact, Cranial nerves 3-12 intact - Studies Medications List Reviewed: Yes Assessment & Plan - Problems (Diagnosis) (1) Acute diastolic heart failure Current Visit: No Status: Acute (2) Atrial flutter Current Visit: No Status: Acute (3) Chronic respiratory failure Current Visit: No Status: Acute (4) Pneumonia Onset Date: 09/27/18 Current Visit: No Status: Acute Qualifiers: Pneumonia type: due to unspecified organism Laterality: left Lung location: lower lobe of lung Qualified Code(s): J18.9 - Pneumonia, unspecified organism (5) Dysphagia Current Visit: No Status: Acute (6) Muscular dystrophy Onset Date: 09/27/18 Current Visit: No Status: Acute - Plan PLAN: 1. SWALLOW STUDY FAILED 2. Speech therapy was consulted 3. GI & CARDIOLOGY APPRECIATED; Dr. Felix wanted us to talk with Dr. Feliciano or ENT. Dr. Feliciano states that he may be able to do the procedure. 4. ECHO GLOBAL HYPOKINESIS; EF OF 40-45% 5. NPO; pending cricopharyngeal injection with Botox 6. SCHEDULE IV BETABLOCKER THERAPY 7. HOLD LOVENOX 12H PRIOR TO SURGERY
[2021-04-15] MEDS: METOPROLOL TARTRATE 5 MG/5 ML INJ IV SCH ×4 (02:38→20:28)
[2021-04-15] MEDS: PROMETHAZINE INJ 25 MG/ML AMP IV PRN ×2 (02:39→12:25)
[2021-04-15] MEDS: D5.45NS W/KCL 20MEQ 1,000 ML IV SCH ×3 (04:49→20:03)
[2021-04-15 06:16] LABS: Absolute Lymphocytes (CBC) 0.4 K/uL (0.7-4.9); Basophils % 0.3 % (0-1.3); Hematocrit 42.8 % (39.6-49.0); Lymphocytes % 31.6 % (15.3-44.8); MPV 9.5 fL (7.6-11.3); RBC Red Blood Cell Count 4.53 M/uL (4.33-5.43)
[2021-04-15 06:22] LABS: Potassium 3.6 mmol/L (3.5-5.1); Sodium Level 145 mmol/L (136-145)
[2021-04-15 06:32] LABS: ALT/SGPT 35 U/L (12-78); AST/SGOT 69 U/L (15-37); Albumin 2.5 g/dL (3.4-5.0); Alkaline Phosphatase 100 U/L (45-117); BUN Blood Urea Nitrogen 3 mg/dL (7-18); Bicarbonate 29 mmol/L (21-32); Bilirubin Total 0.6 mg/dL (0.2-1.0); Ferritin 379.5 ng/mL (26-388); Glucose Level 93 mg/dL (74-106); Protein, Total 5.2 g/dL (6.4-8.2)
[2021-04-15] MEDS ORDERED: POTASSIUM CL SA 10 MEQ TAB PO ONE (09:00)
[2021-04-15] MEDS ORDERED: KCL 20 MEQ/100 mL IVPB 20 MEQ/100 ML BAG IV SCH (11:00)
[2021-04-15] MEDS: ACETAMINOPHEN 650MG/RECT SUPP PR PRN (20:24)
[2021-04-16] MEDS: METOPROLOL TARTRATE 5 MG/5 ML INJ IV SCH ×4 (02:00→20:00)
[2021-04-16] MEDS: D5.45NS W/KCL 20MEQ 1,000 ML IV SCH ×2 (05:46→19:18)
[2021-04-16] MEDS: PROMETHAZINE INJ 25 MG/ML AMP IV PRN (07:19)
[2021-04-16] MEDS: METOPROLOL TARTRATE 5 MG/5 ML INJ IV PRN (07:58)
[2021-04-16] MEDS ORDERED: NA CHLORIDE 0.9% 500 ML IV ONE (08:24)
--- NOTE | 2021-04-16 09:37 | P.PN ---
Date of Service: 04/16/21 Subjective Subjective: Patient was tachycardic. Rate controlled after beta-giana therapy. Continue with gentle hydration. Patient status post Botox intramuscularly to the cricopharyngeal muscle per GI, Dr. Feliciano; patient has some increased secretions. Will need to do a bedside swallow eval. Use scopolamine and some IV steroids. Repeat chest x-ray and will get a CT scan of the chest if secretions continue. Patient does have COVID-19, but no pulmonary issues as of yet. Continue to closely monitor. Review of Systems 10-point ROS is otherwise unremarkable Physical Examination - Vital Signs REVIEWED - Physical Exam General: Alert, In no apparent distress, Oriented x3 Respiratory: Clear to auscultation bilaterally, Normal air movement Cardiovascular: Regular rate/rhythm, Normal S1 S2, No murmurs Gastrointestinal: Normal bowel sounds, Soft and benign, Non-distended, No tenderness Musculoskeletal: No clubbing, No swelling, No tenderness Neurological: Sensation intact, Cranial nerves 3-12 intact; generalized weakness - Studies Medications List Reviewed: Yes Assessment & Plan - Problems (Diagnosis) (1) Acute diastolic heart failure Current Visit: No Status: Acute (2) Atrial flutter Current Visit: No Status: Acute (3) leukopenia Current Visit: No Status: Acute (4) Pneumonia Onset Date: 09/27/18 Current Visit: No Status: Acute Qualifiers: Pneumonia type: due to unspecified organism Laterality: left Lung location: lower lobe of lung Qualified Code(s): J18.9 - Pneumonia, unspecified organism (5) Dysphagia Current Visit: No Status: Acute (6) Muscular dystrophy Onset Date: 09/27/18 Current Visit: No Status: Acute - Plan Plan: 1. Botox injection to the cricopharyngeal muscle has helped. However, patient with increased secretions. This is not abnormal per GI. He is able to handle his secretions and is not really choking on them. Will get chest x-ray and CT scan as well. 2. Speech therapy outpt; bedside swallow eval; If patient bedside swallow eval is appropriate then may start feeding 3. Echocardiogram with global hypokinesis 4. Monitor volume status and continue with beta-giana therapy orally. 5. Patient with absolute neutrophil count of 800. No need for Neupogen at this time; if white blood cell count decreases and absolute neutrophil count under 500; then we may give him a dose of Neupogen and Consult Hematology 6. Continue with IV beta-giana therapy 7. Hold anti coagulation
[2021-04-16] MEDS ORDERED: BOTU TOX TYPE A 100 UNIT/VIAL ID ONE (13:11)
[2021-04-16] MEDS ORDERED: Ringers Lactate 1,000 ML IV ONE (14:07)
[2021-04-16] MEDS ORDERED: propofoL 200 MG/20 ML VIAL IV ONE (14:53)
[2021-04-16] MEDS ORDERED: LIDOCAINE 1% MPF 5 ML VIAL ONE (14:53)
[2021-04-16] MEDS ORDERED: POTASSIUM CL SA 10 MEQ TAB PO ONE (15:00)
--- NOTE | 2021-04-16 15:16 | ENDO RPT ---
[address], [address] EGD PROCEDURE REPORT EXAM DATE: 04/16/2021 PATIENT NAME: Watson Dodge MR#: [id number] BIRTHDATE: 1970 ATTENDING: Fabian Feliciano Dr STATUS: inpatient - [facility] [employer] MACH[employer] OPERATOR: Kellen Chaney RN and Lisa Monge INDICATIONS: The patient is a 51 yr old Male here for an EGD due to dysphagia and malnutrition PROCEDURE PERFORMED: EGD with biopsy MEDICATIONS: Per Anesthesia. TOPICAL ANESTHETIC: none CONSENT: The patient understands the risks and benefits of the procedure and understands that these risks include, but are not limited to: sedation, allergic reaction, infection, perforation and/or bleeding. Alternative means of evaluation and treatment include, among others: physical exam, x-rays, and/or surgical intervention. The patient elects to proceed with this endoscopic procedure. DESCRIPTION OF PROCEDURE: During intra-op preparation period all mechanical medical equipment was checked for proper function. Hand hygiene and appropriate measures for infection prevention was taken. Procedure, possible complications, and alternatives including but not limited to the possibility of bleeding, perforation, tear, infection, sepsis, need for surgery, need for blood transfusion, and anesthesia related complications were explained to the patient. After the risks, benefits and alternatives of the procedure were thoroughly explained, Informed consent was verified, confirmed and timeout was successfully executed by the treatment team. The patient was placed in the left lateral position. The patient was anesthetized with topical anesthesia. Through the anesthetized oropharyngeal area, the scope was passed without any difficulty. The EG-[id number] ([id number]) endoscope was introduced through the mouth and advanced to the second portion of the duodenum. Retroflexed views revealed no abnormalities. The gastroscope was then slowly withdrawn and removed. ADVERSE EVENTS: There were no complications. IMPRESSIONS: RECOMMENDATIONS: REPEAT EXAM: Fabian Feliciano Dr eSigned: Fabian Feliciano Dr 04/16/2021 3:16 PM cc: CPT CODES: ICD9 CODES: PATIENT NAME: Watson Dodge MR#: [id number]
--- NOTE | 2021-04-16 15:30 | ENDO RPT ---
[address], [address] EGD PROCEDURE REPORT EXAM DATE: 04/16/2021 PATIENT NAME: Watson Dodge MR#: [id number] BIRTHDATE: 1970 ATTENDING: Fabian Feliciano Dr STATUS: inpatient - [facility] P[employer] HATCH[employer] LABORER: Kellen Chaney RN and Lisa Monge INDICATIONS: The patient is a 51 yr old Male here for an EGD due to dysphagia and malnutrition, prior 2019 abnormal esophagram / modified barium swallow with successful Botox injection) PROCEDURE PERFORMED: EGD with biopsy, EGD with injection of Botox to upper esophageal sphincter MEDICATIONS: Per Anesthesia. TOPICAL ANESTHETIC: none CONSENT: The patient understands the risks and benefits of the procedure and understands that these risks include, but are not limited to: sedation, allergic reaction, infection, perforation and/or bleeding. Alternative means of evaluation and treatment include, among others: physical exam, x-rays, and/or surgical intervention. The patient elects to proceed with this endoscopic procedure. DESCRIPTION OF PROCEDURE: During intra-op preparation period all mechanical medical equipment was checked for proper function. Hand hygiene and appropriate measures for infection prevention was taken. Procedure, possible complications, and alternatives including but not limited to the possibility of bleeding, perforation, tear, infection, sepsis, need for surgery, need for blood transfusion, and anesthesia related complications were explained to the patient. After the risks, benefits and alternatives of the procedure were thoroughly explained, Informed consent was verified, confirmed and timeout was successfully executed by the treatment team. The patient was placed in the left lateral position. The patient was anesthetized with topical anesthesia. Through the anesthetized oropharyngeal area, the scope was passed without any difficulty. The EG-[id number] ([id number]) endoscope was introduced through the mouth and advanced to the second portion of the duodenum. Retroflexed views revealed no abnormalities. The gastroscope was then slowly withdrawn and removed. Stenosis / spasm was found at the upper esophageal sphincter, s/p 8 cc of Botox (10 units/cc) with relaxation of UES. Moderate gastritis was found in the body < the antrum of the stomach. Multiple biopsies were obtained and sent to pathology. Multiple (7) erosions were found in the antrum. ADVERSE EVENTS: There were no complications. IMPRESSIONS: 1. 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 Moderate gastritis in the body < the antrum of the stomach, s/p biopsies 3. Multiple (7) erosions were found in the antrum RECOMMENDATIONS: 1. await biopsy results 2. acid suppression therapy advance 4. consider ENT consult for possible surgical myotomy of cricopharyngeus muscle instead of repeated Botox injections REPEAT EXAM: Fabian Feliciano Dr eSigned: Fabian Feliciano Dr 04/16/2021 3:29 PM Revised: 04/16/2021 3:29 PM cc: CPT CODES: ICD9 CODES: PATIENT NAME: Watson Dodge MR#: [id number]
[2021-04-16] MEDS ORDERED: ALBUTEROL 2.5 MG/3 ML NEB SOL ONE (15:54)
[2021-04-16] MEDS ORDERED: DIGOXIN 0.25 MG/ML AMP IV ONE (17:00)
[2021-04-16] MEDS: ENOXAPARIN 80 MG/0.8 ML SQ SCH (20:52)
[2021-04-17] MEDS: METOPROLOL TARTRATE 5 MG/5 ML INJ IV PRN (00:09)
[2021-04-17] MEDS: PROMETHAZINE INJ 25 MG/ML AMP IV PRN (00:13)
[2021-04-17] MEDS ORDERED: PROMETHAZINE INJ 25 MG/ML AMP IV ONE (00:45)
[2021-04-17] MEDS ORDERED: METOPROLOL TARTRATE 5 MG/5 ML INJ IV STA (01:18)
[2021-04-17] MEDS ORDERED: SCOPOLAMINE HYDROBROMIDE PATCH TD ONE (01:32)
[2021-04-17] MEDS: METOPROLOL TARTRATE 5 MG/5 ML INJ IV SCH ×4 (01:36→20:00)
[2021-04-17] MEDS: PANTOPRAZOLE 40 MG INJ IVP SCH ×3 (01:36→21:14)
[2021-04-17] MEDS: DIGOXIN 0.25 MG/ML AMP IV SCH ×2 (01:57→08:00)
[2021-04-17] MEDS ORDERED: ALBUTEROL 2.5 MG/3 ML NEB SOL NEB SCH (02:00)
[2021-04-17] MEDS: LEVALBUTEROL 1.25 MG/3 ML NEB NEB SCH ×4 (02:00→20:30)
[2021-04-17] MEDS: FENTANYL CITR 100 MCG/2 ML IV PRN (02:01)
[2021-04-17] MEDS: METHYLPREDNISOLONE 125 MG INJ IV SCH ×3 (02:05→17:23)
[2021-04-17] MEDS: ACETAMINOPHEN 650MG/RECT SUPP PR PRN (04:30)
[2021-04-17] MEDS: ENOXAPARIN 80 MG/0.8 ML SQ SCH ×2 (09:00→21:00)
[2021-04-17] MEDS: D5.45NS W/KCL 20MEQ 1,000 ML IV SCH (09:07)
--- NOTE | 2021-04-17 10:50 | P.PN ---
Subjective Date of Service: 04/17/21 Primary Care Provider: Dr. Ramon Chief Complaint: Dysphagia Subjective: No new changes (more drowsy today -reported given benadryl last pm for icthing -s/p high secretions last pm after given pudding with some coughing fits -) Physical Examination - Vital Signs Temperature: 96.3 F Blood Pressure: 115/55 Pulse: 70 Respirations: 24 Pulse Ox (%): 91 - Physical Exam General: Other (drowsy) HEENT: Atraumatic, Normocephalic, PERRLA Neck: Supple, 2+ carotid pulse no bruit, JVD not distended, Other (poor swallowing noted ) Respiratory: Normal air movement, Diminished Cardiovascular: No edema, Normal pulses, Regular rate/rhythm, Normal S1 S2 Gastrointestinal: Normal bowel sounds, Soft and benign, Non-distended, W/out succussion splash Musculoskeletal: No clubbing, No swelling, No erythema Integumentary: No rashes, No breakdown, No significant lesion Neurological: Abnormal affect - Studies Medications List Reviewed: Yes Assessment And Plan Physician Review: Patient Assessed, Agree with Above Assessment and Plan Physician Review Additional Text: Problems (Diagnosis) (1) Acute diastolic heart failure Current Visit: No Status: Acute (2) Atrial flutter Current Visit: No Status: Acute (3) leukopenia Current Visit: No Status: Acute (4) Pneumonia Onset Date: 09/27/18 Current Visit: No Status: Acute Qualifiers: Pneumonia type: due to unspecified organism Laterality: left Lung location: lower lobe of lung Qualified Code(s): J18.9 - Pneumonia, unspecified organism (5) Dysphagia Current Visit: No Status: Acute (6) Muscular dystrophy Onset Date: 09/27/18 Current Visit: No Status: Acute 7 Covid Pneumonia - Plan Increase drowsy state today may be due to scopolamine patch as well as recent Benadryl use Will avoid further sedatives Botox injection to the cricopharyngeal muscle has helped. However, patient with increased secretions. This is not abnormal per GI. DC scopolamine patch and further Benadryl as needed use We will reassess swallowing eval when patient more awake Hold further p.o. intake for now We will switch IV fluid from D5 half NS to D5W since borderline low glucose le vels and associated Covid pneumonia to avoid fluid overload especially in setting of diastolic CHF Follow repeat pending labs today Pleural low absolute neutrophil count of 800, follow-up plan for dose Neupogen if less than 500 Prior echo with global hypokinesis, avoid fluid overload Continue IV steroids insulin sliding scale for Covid pneumonia Continue to hold anticoagulation/DVT prophylaxis Continue to follow inflammatory markers History of A. fib, currently rate controlled, continue metoprolol Time Spent Managing PTS Care (In Minutes): 35
[2021-04-17] MEDS ORDERED: D5W 1,000 ML IV SCH (11:00)
[2021-04-17 11:29] LABS: Absolute Lymphocytes (CBC) 0.4 K/uL (0.7-4.9); Basophils % 0.2 % (0-1.3); Hematocrit 46.2 % (39.6-49.0); Lymphocytes % 6.4 % (15.3-44.8); MPV 9.6 fL (7.6-11.3); RBC Red Blood Cell Count 4.84 M/uL (4.33-5.43)
--- NOTE | 2021-04-17 11:29 | RAD REPORT ---
EXAM DESCRIPTION: CT - Chest For Pe Angio - 04/17/2021 10:36 am CLINICAL HISTORY: cough, abnormal chest film COMPARISON: Chest For Pe Angio dated 07/21/2020; Chest Single View dated 04/17/2021 TECHNIQUE: Dynamically enhanced 3 mm thick images of the chest were obtained during administration o f approximately 150mL Isovue 370 IV contrast. Coronal and oblique MIP reconstruction images were gene rated and reviewed. Exam utilizes a protocol to evaluate the pulmonary arterial tree. All CT scans are performed using dose optimization technique as appropriate and may include automated exposure control or mA/KV adjustment according to patient size. FINDINGS: No pulmonary emboli are identified. The aorta as imaged shows no acute or suspicious finding. No pericardial thickening or effusion. Posteromedial left lower lobe airspace opacification present. Air bronchograms are present. Patchy op acification is seen in the air spaces of the left upper lobe along the fissure. Trace amounts of grou nd-glass opacification seen in the lateral right upper lobe along the major fissure. Trace amount of pleural fluid on the left and right. Trace amount of atelectasis in the posterior gutter on the right . No mediastinal or hilar suspicious masses. A few small reactive type mediastinal and hilar lymph node s seen. No chest wall masses or abnormal axillary lymphadenopathy. No mass or abnormality seen at the GE junction. No evidence for esophageal wall thickening or mass. N o endobronchial lesions seen. IMPRESSION: No pulmonary emboli identified. Left lower lobe pneumonia with minimal pneumonia findings in the left upper lobe and right upper lobe . Minimal bilateral pleural effusions. No esophageal or GE junction abnormality evident.
[2021-04-17] MEDS: PIPER/TAZO/NS 3.375gm 3.375 GM/100 ML BAG IVPB SCH ×2 (11:31→17:23)
[2021-04-17 11:45] LABS: ALT/SGPT 86 U/L (12-78); Albumin 2.6 g/dL (3.4-5.0); Alkaline Phosphatase 186 U/L (45-117); BUN Blood Urea Nitrogen 5 mg/dL (7-18); Bicarbonate 25 mmol/L (21-32); Bilirubin Total 1.9 mg/dL (0.2-1.0); Glucose Level 122 mg/dL (74-106); Protein, Total 5.9 g/dL (6.4-8.2); Sodium Level 141 mmol/L (136-145)
[2021-04-17 11:47] LABS: AST/SGOT 166 U/L (15-37); Magnesium 1.7 mg/dL (1.8-2.4); Potassium 5.3 mmol/L (3.5-5.1)
[2021-04-17] MEDS: METOPROLOL TAR 25 MG TAB PO SCH (17:14)
--- NOTE | 2021-04-17 18:22 | RAD REPORT ---
EXAM DESCRIPTION: RAD - Chest Single View - 04/17/2021 1:57 am CLINICAL HISTORY: Cough COMPARISON: CTA Chest With Contrast 07/21/2020 TECHNIQUE: Chest 1 View AP FINDINGS: Patient moderately leftward rotated making evaluation more difficult. Poor visualization of left lower lung/chest (retrocardiac space). An underlying true left lower lung/chest opacity at this location cannot be ruled out. Right lung grossly clear. No pneumothorax. Bones unremarkable. IMPRESSION: Patient moderately leftward rotated making evaluation more difficult. Poor visualization of left lower lung/chest (retrocardiac space). An underlying true left lower lung/chest opacity such as atelectasis, consolidation, mass, or pleural effusion at this location cannot be ruled out. Follow up chest radiograph 2 views (PA and lateral) in upright position with full inspiration in radi ology department may be helpful. Electronically signed by: Bobby Shipman MD 04/17/2021 2:28 AM CDT Due to temporary technical issues with the PACS/Fluency reporting system, reports are being signed by the in house radiologists without review as a courtesy to insure prompt reporting. The interpreting radiologist is fully responsible for the content of the report.
[2021-04-18] MEDS: METHYLPREDNISOLONE 125 MG INJ IV SCH ×2 (00:36→08:43)
[2021-04-18] MEDS: METOPROLOL TARTRATE 5 MG/5 ML INJ IV SCH ×4 (01:43→20:00)
[2021-04-18] MEDS: LEVALBUTEROL 1.25 MG/3 ML NEB NEB SCH ×2 (02:55→09:41)
[2021-04-18 03:57] LABS: Absolute Lymphocytes (CBC) 0.4 K/uL (0.7-4.9); Basophils % 0.1 % (0-1.3); Hematocrit 44.8 % (39.6-49.0); Lymphocytes % 10.8 % (15.3-44.8); MPV 9.6 fL (7.6-11.3); RBC Red Blood Cell Count 4.74 M/uL (4.33-5.43)
[2021-04-18 04:17] LABS: ALT/SGPT 76 U/L (12-78); AST/SGOT 89 U/L (15-37); Albumin 2.5 g/dL (3.4-5.0); Alkaline Phosphatase 142 U/L (45-117); BUN Blood Urea Nitrogen 9 mg/dL (7-18); Bicarbonate 27 mmol/L (21-32); Bilirubin Total 1.3 mg/dL (0.2-1.0); Glucose Level 135 mg/dL (74-106); Potassium 3.7 mmol/L (3.5-5.1); Protein, Total 5.9 g/dL (6.4-8.2); Sodium Level 143 mmol/L (136-145)
[2021-04-18] MEDS: PIPER/TAZO/NS 3.375gm 3.375 GM/100 ML BAG IVPB SCH ×4 (05:17→17:25)
[2021-04-18] MEDS: METOPROLOL TAR 25 MG TAB PO SCH ×2 (05:36→17:26)
--- NOTE | 2021-04-18 06:06 | P.PN ---
Subjective Date of Service: 04/18/21 Primary Care Provider: Dr. Ramon Chief Complaint: Dysphagia Subjective: Other (Patient alert. Currently on 2 L per nasal cannula.) Physical Examination - Vital Signs Temperature: 97.3 F Blood Pressure: 110/60 Pulse: 43 Respirations: 22 Pulse Ox (%): 100 - Studies Medications List Reviewed: Yes Assessment & Plan Discharge Plan: Home Plan to discharge in: 48 Hours Physician Review Additional Text: COVID: Positive CT scan: COMPARISON: Chest For Pe Angio dated 07/21/2020; Chest Single View dated 04/17/2021 TECHNIQUE: Dynamically enhanced 3 mm thick images of the chest were obtained during administration of approximately 150mL Isovue 370 IV contrast. Coronal and oblique MIP reconstruction images were generated and reviewed. Exam utilizes a protocol to evaluate the pulmonary arterial tree. All CT scans are performed using dose optimization technique as appropriate and may include automated exposure control or mA/KV adjustment according to patient size. FINDINGS: No pulmonary emboli are identified. The aorta as imaged shows no acute or suspicious finding. No pericardial thickening or effusion. Posteromedial left lower lobe airspace opacification present. Air bronchograms are present. Patchy opacification is seen in the air spaces of the left upper lobe along the fissure. Trace amounts of ground-glass opacification seen in the lateral right upper lobe along the major fissure. Trace amount of pleural fluid on the left and right. Trace amount of atelectasis in the posterior gutter on the right. No mediastinal or hilar suspicious masses. A few small reactive type mediastinal and hilar lymph nodes seen. No chest wall masses or abnormal axillary lymphadenopathy. No mass or abnormality seen at the GE junction. No evidence for esophageal wall thickening or mass. No endobronchial lesions seen. IMPRESSION: No pulmonary emboli identified. Left lower lobe pneumonia with minimal pneumonia findings in the left upper lobe and right upper lobe. Minimal bilateral pleural effusions. No esophageal or GE junction abnormality evident. ECHO: MEASUREMENTS (cm) DIASTOLIC (NORMALS) SYSTOLIC (NORMALS) IVSd 1.0 (0.6-1.2) LA Diam 2.5 (1.9-4.0) LVEF 43% LVIDd 4.7 (3.5-5.7) LVIDs 3.7 (2.0-3.5) %FS 21% LVPWd 0.9 (0.6-1.2) Ao Diam 3.9 (2.0-3.7) 2 DIMENSIONAL ASSESSMENT: RIGHT ATRIUM: NORMAL LEFT ATRIUM: NORMAL RIGHT VENTRICLE: NORMAL LEFT VENTRICLE: REDUCED FUNCTION TRICUSPID VALVE: MITRAL VALVE: PULMONIC VALVE: NORMAL AORTIC VALVE: NORMAL PERICARDIAL EFFUSION: NONE AORTIC ROOT: NORMAL LEFT VENTRICULAR WALL MOTION: MILD GLOBAL HYPOKINESIS. DOPPLER/COLOR FLOW: MILD MITRAL AND TRICUSPID REGURGITATION. COMMENTS: MILDLY REDUCED LEFT VENTRICULAR EJECTION FRACTION OF 40-45%. MILD GLOBAL HYPOKINESIS. MILD MITRAL AND TRICUSPID REGURGITATION. Endoscopy: Impression 1. 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 Moderate gastritis in the body at the antrum of the stomach, s/p biopsies 3. Multiple 7 erosions were found in the antrum Plan: Await biopsy Continue acid suppression therapy Consider ENT for possible surgical myotomy of cryo pharyngeus muscle instead of repeated Botox injections in the future Physical exam: General: Patient, alert and cooperative. HEENT: Atraumatic, Normocephalic, PERRLA Neck: Supple, 2+ carotid pulse no bruit, JVD not distended, Other (poor swallowing noted ) Respiratory: Normal air movement, Diminished. Currently on 2 L per nasal cannula Cardiovascular: No edema, Normal pulses, Regular rate/rhythm, Normal S1 S2 Gastrointestinal: Normal bowel sounds, Soft and benign, Non-distended, W/out succussion splash Musculoskeletal: No clubbing, No swelling, No erythema Integumentary: No rashes, No breakdown, No significant lesion Neurological: Abnormal affect Impression: Dyspnea secondary to bilateral Covid pneumonia with hypoxia complicated with left lower lobe pneumonia Atrial flutter/atrial fibrillation Acute on chronic diastolic CHF Dysphagia with history of muscular dystrophy status post EGD with Botox treatment of the upper esophageal sphincter Moderate gastritis with noted stenosis/spasm of the upper esophageal sphincter and antrum erosions status post Botox treatment Thrombocytopenia Plan: Dyspnea secondary to bilateral Covid pneumonia with hypoxia complicated with left lower lobe pneumonia: Patient continues with IV Zosyn. Will decrease IV Solu-Medrol for his Covid pneumonia. Continue to wean off oxygen. Currently on 2 L per nasal cannula. Continue with Xopenex as needed. Patient had Botox tr eatments for his dysphagia. Scopolamine was discontinued due to increased sedation. Patient failed swallow study today. Will have speech evaluate tomorrow. If he continues to fail will need some direction from GI about future plan of care. Patient has had PEG tube in the past with complications related to diarrhea. We will continue to monitor closely. Await further recommendations from pulmonology. Wean off oxygen. Continue IV fluids for now. Wanted to consider other alternatives for nutrition if speech evaluation tomorrow is abnormal. Atrial flutter/atrial fibrillation: Continue metoprolol. Parameters in place. Patient also on digoxin. Patient on Lovenox with parameters to hold if with significant thrombocytopenia. Acute on chronic diastolic CHF EF 40 to 45%: Ejection fraction 40 to 45%. Continue to monitor fluid intake. Dysphagia with history of muscular dystrophy status post EGD with Botox treatment of the upper esophageal sphincter: Patient had Botox treatment by GI. Continue Protonix IV twice daily. Patient failed a swallow evaluation by nursing today. Will consult speech for further recommendation. If still abnormal will need to discuss with GI about plan of care. Moderate gastritis with noted stenosis/spasm of the upper esophageal sphincter and antrum erosions status post Botox treatment: Continue with Protonix Thrombocytopenia: Etiology unknown. Parameters in place to hold Lovenox if platelet count less than 100 CODE STATUS: Full code DVT prophylaxis: Lovenox Advanced care [id number] minutes: Home at discharge Time Spent Managing Pts Care (In Minutes): 55
[2021-04-18] MEDS: PANTOPRAZOLE 40 MG INJ IVP SCH ×2 (08:42→20:24)
[2021-04-18] MEDS: DIGOXIN 0.25 MG TABLET PO SCH (08:45)
[2021-04-18] MEDS ORDERED: KCL 20 MEQ/100 mL IVPB 20 MEQ/100 ML BAG IV SCH (09:00)
[2021-04-18] MEDS: ENOXAPARIN 80 MG/0.8 ML SQ SCH ×2 (09:00→20:24)
[2021-04-18] MEDS ORDERED: MAGNESIUM SULFATE 1 gm IVPB 1 GM/100 ML BAG IV ONE (11:00)
[2021-04-18] MEDS ORDERED: LEVALBUTEROL 1.25 MG/3 ML NEB NEB PRN (12:57)
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
[2021-04-18 19:46] LABS: Magnesium 2.4 mg/dL (1.8-2.4); Potassium 3.9 mmol/L (3.5-5.1)
[2021-04-18] MEDS: METHYLPREDNISOLONE 40 MG INJ IV SCH (20:25)
[2021-04-19] MEDS: METOPROLOL TARTRATE 5 MG/5 ML INJ IV SCH ×4 (02:00→20:00)
[2021-04-19 04:26] LABS: Absolute Lymphocytes (CBC) 0.2 K/uL (0.7-4.9); Basophils % 0.2 % (0-1.3); Hematocrit 38.5 % (39.6-49.0); Lymphocytes % 5.4 % (15.3-44.8); MPV 9.3 fL (7.6-11.3); RBC Red Blood Cell Count 4.07 M/uL (4.33-5.43)
[2021-04-19 04:45] LABS: BUN Blood Urea Nitrogen 12 mg/dL (7-18); Bicarbonate 28 mmol/L (21-32); Ferritin 372.9 ng/mL (26-388); Glucose Level 107 mg/dL (74-106); Magnesium 2.4 mg/dL (1.8-2.4); Sodium Level 145 mmol/L (136-145)
[2021-04-19] MEDS: PIPER/TAZO/NS 3.375gm 3.375 GM/100 ML BAG IVPB SCH ×4 (05:38→16:53)
[2021-04-19] MEDS: METOPROLOL TAR 25 MG TAB PO SCH ×2 (05:39→18:00)
--- NOTE | 2021-04-19 06:15 | P.PN ---
Subjective Date of Service: 04/19/21 Primary Care Provider: Dr. Ramon Chief Complaint: Dysphagia Subjective: Other (Overall stable. Currently on 1 to 2 L) Physical Examination - Vital Signs Temperature: 97.8 F Blood Pressure: 104/68 Pulse: 55 Respirations: 15 Pulse Ox (%): 97 - Studies Medications List Reviewed: Yes Assessment & Plan Discharge Plan: Other (Inpatient rehab) Plan to discharge in: 72 Hours Physician Review Additional Text: COVID: Positive, unvaccinated CT scan: COMPARISON: Chest For Pe Angio dated 07/21/2020; Chest Single View dated 04/17/2021 TECHNIQUE: Dynamically enhanced 3 mm thick images of the chest were obtained during administration of approximately 150mL Isovue 370 IV contrast. Coronal and oblique MIP reconstruction images were generated and reviewed. Exam utilizes a protocol to evaluate the pulmonary arterial tree. All CT scans are performed using dose optimization technique as appropriate and may include automated exposure control or mA/KV adjustment according to patient size. FINDINGS: No pulmonary emboli are identified. The aorta as imaged shows no acute or suspicious finding. No pericardial thickening or effusion. Posteromedial left lower lobe airspace opacification present. Air bronchograms are present. Patchy opacification is seen in the air spaces of the left upper lobe along the fissure. Trace amounts of ground-glass opacification seen in the lateral right upper lobe along the major fissure. Trace amount of pleural fluid on the left and right. Trace amount of atelectasis in the posterior gutter on the right. No mediastinal or hilar suspicious masses. A few small reactive type mediastinal and hilar lymph nodes seen. No chest wall masses or abnormal axillary lymphadenopathy. No mass or abnormality seen at the GE junction. No evidence for esophageal wall thickening or mass. No endobronchial lesions seen. IMPRESSION: No pulmonary emboli identified. Left lower lobe pneumonia with minimal pneumonia findings in the left upper lobe and right upper lobe. Minimal bilateral pleural effusions. No esophageal or GE junction abnormality evident. ECHO: MEASUREMENTS (cm) DIASTOLIC (NORMALS) SYSTOLIC (NORMALS) IVSd 1.0 (0.6-1.2) LA Diam 2.5 (1.9-4.0) LVEF 43% LVIDd 4.7 (3.5-5.7) LVIDs 3.7 (2.0-3.5) %FS 21% LVPWd 0.9 (0.6-1.2) Ao Diam 3.9 (2.0-3.7) 2 DIMENSIONAL ASSESSMENT: RIGHT ATRIUM: NORMAL LEFT ATRIUM: NORMAL RIGHT VENTRICLE: NORMAL LEFT VENTRICLE: REDUCED FUNCTION TRICUSPID VALVE: MITRAL VALVE: PULMONIC VALVE: NORMAL AORTIC VALVE: NORMAL PERICARDIAL EFFUSION: NONE AORTIC ROOT: NORMAL LEFT VENTRICULAR WALL MOTION: MILD GLOBAL HYPOKINESIS. DOPPLER/COLOR FLOW: MILD MITRAL AND TRICUSPID REGURGITATION. COMMENTS: MILDLY REDUCED LEFT VENTRICULAR EJECTION FRACTION OF 40-45%. MILD GLOBAL HYPOKINESIS. MILD MITRAL AND TRICUSPID REGURGITATION. Endoscopy: Impression 1. 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 Moderate gastritis in the body at the antrum of the stomach, s/p biopsies 3. Multiple 7 erosions were found in the antrum Plan: Await biopsy Continue acid suppression therapy Consider ENT for possible surgical myotomy of cryo pharyngeus muscle instead of repeated Botox injections in the future Physical exam: General: Patient, alert and cooperative. HEENT: Atraumatic, Normocephalic, PERRLA Neck: Supple, 2+ carotid pulse no bruit, JVD not distended, Other (poor swallowing noted ) Respiratory: Normal air movement, Diminished. Currently on 2 L per nasal cannula Cardiovascular: No edema, Normal pulses, Regular rate/rhythm, Normal S1 S2 Gastrointestinal: Normal bowel sounds, Soft and benign, Non-distended, W/out succussion splash Musculoskeletal: No clubbing, No swelling, No erythema Integumentary: No rashes, No breakdown, No significant lesion Neurological: Abnormal affect Impression: Dyspnea secondary to bilateral Covid pneumonia with hypoxia complicated with left lower lobe pneumonia Atrial flutter/atrial fibrillation Acute on chronic diastolic CHF Dysphagia with history of muscular dystrophy status post EGD with Botox treatment of the upper esophageal sphincter Moderate gastritis with noted stenosis/spasm of the upper esophageal sphincter and antrum erosions status post Botox treatment Thrombocytopenia Plan: Dyspnea secondary to bilateral Covid pneumonia with hypoxia complicated with left lower lobe pneumonia: Patient remained stable on 2 L. Patient continues on IV Zosyn, IV Solu-Medrol. Continue to wean off oxygen to maintain sats above 93%. Patient had Botox treatments for his dysphagia. Scopolamine was discontinued due to increased sedation. Patient failed swallow study over the weekend. Patient remains n.p.o until he is seen by speech. Speech to perform modified barium swallow to further evaluate his dysphagia. If abnormal patient will require PEG tube. Patient understands this. Await recommendations from speech. Physical therapy and Occupational Therapy ordered. Will recommend inpatient rehab at discharge. Atrial flutter/atrial fibrillation: Heart rate is low. Will discontinue digoxin. Metoprolol was decreased to 12.5 mg 1 pill twice daily. Continue metoprolol with parameters in place. Patient on Lovenox with parameters to hold if with significant thrombocytopenia. Acute on chronic diastolic CHF EF 40 to 45%: Ejection fraction 40 to 45%. Continue to monitor fluid intake. Dysphagia with history of muscular dystrophy status post EGD with Botox treatment of the upper esophageal sphincter: Patient had Botox treatment by GI. Continue Protonix IV twice daily. Patient failed a swallow evaluation by nursing over the weekend. Speech to evaluate for further evaluation. Modified barium swallow ordered. Await recommendations. If abnormal patient will need PEG tube. Patient in agreement. Moderate gastritis with noted stenosis/spasm of the upper esophageal sphincter and antrum erosions status post Botox treatment: Continue with Protonix Thrombocytopenia: Etiology unknown. Parameters in place to hold Lovenox if platelet count less than 100 CODE STATUS: Full code DVT prophylaxis: Lovenox Advanced care [id number] minutes: Home at discharge Time Spent Managing Pts Care (In Minutes): 55
[2021-04-19] MEDS: PANTOPRAZOLE 40 MG INJ IVP SCH ×2 (08:45→21:14)
[2021-04-19] MEDS: ENOXAPARIN 80 MG/0.8 ML SQ SCH ×2 (08:45→21:00)
[2021-04-19] MEDS: DIGOXIN 0.25 MG TABLET PO SCH (08:46)
[2021-04-19] MEDS: METHYLPREDNISOLONE 40 MG INJ IV SCH ×2 (08:46→21:14)
[2021-04-19 08:51] LABS: Blood Morphology Comment NOT SEEN (NOT SEEN); Platelet Estimate DECR; White Blood Cell Scan OK (OK)
[2021-04-20] MEDS: PIPER/TAZO/NS 3.375gm 3.375 GM/100 ML BAG IVPB SCH ×3 (00:34→16:29)
[2021-04-20] MEDS: METOPROLOL TARTRATE 5 MG/5 ML INJ IV SCH ×4 (02:00→20:00)
[2021-04-20 05:06] LABS: Absolute Lymphocytes (CBC) 0.2 K/uL (0.7-4.9); Basophils % 0.1 % (0-1.3); Hematocrit 40.6 % (39.6-49.0); MPV 9.8 fL (7.6-11.3); RBC Red Blood Cell Count 4.28 M/uL (4.33-5.43)
[2021-04-20 05:14] LABS: BUN Blood Urea Nitrogen 23 mg/dL (7-18); Bicarbonate 29 mmol/L (21-32); Ferritin 372.7 ng/mL (26-388); Glucose Level 85 mg/dL (74-106); Magnesium 2.9 mg/dL (1.8-2.4); Potassium 4.1 mmol/L (3.5-5.1); Sodium Level 147 mmol/L (136-145)
[2021-04-20] MEDS: METOPROLOL TAR 25 MG TAB PO SCH ×2 (06:00→17:50)
--- NOTE | 2021-04-20 06:03 | P.PN ---
Subjective Date of Service: 04/20/21 Primary Care Provider: Dr. Ramon Chief Complaint: Dysphagia Subjective: Other (Patient stable. Awaiting modified barium swallow with speech today.) Physical Examination - Vital Signs Temperature: 97.6 F Blood Pressure: 97/55 Pulse: 37 Respirations: 16 Pulse Ox (%): 95 - Studies Medications List Reviewed: Yes Assessment & Plan Discharge Plan: Other (Inpatient rehab) Plan to discharge in: 24 Hours Physician Review Additional Text: COVID: Positive, unvaccinated CT scan: COMPARISON: Chest For Pe Angio dated 07/21/2020; Chest Single View dated 04/17/2021 TECHNIQUE: Dynamically enhanced 3 mm thick images of the chest were obtained during administration of approximately 150mL Isovue 370 IV contrast. Coronal and oblique MIP reconstruction images were generated and reviewed. Exam utilizes a protocol to evaluate the pulmonary arterial tree. All CT scans are performed using dose optimization technique as appropriate and may include automated exposure control or mA/KV adjustment according to patient size. FINDINGS: No pulmonary emboli are identified. The aorta as imaged shows no acute or suspicious finding. No pericardial thickening or effusion. Posteromedial left lower lobe airspace opacification present. Air bronchograms are present. Patchy opacification is seen in the air spaces of the left upper lobe along the fissure. Trace amounts of ground-glass opacification seen in the lateral right upper lobe along the major fissure. Trace amount of pleural fluid on the left and right. Trace amount of atelectasis in the posterior gutter on the right. No mediastinal or hilar suspicious masses. A few small reactive type mediastinal and hilar lymph nodes seen. No chest wall masses or abnormal axillary lymphadenopathy. No mass or abnormality seen at the GE junction. No evidence for esophageal wall thickening or mass. No endobronchial lesions seen. IMPRESSION: No pulmonary emboli identified. Left lower lobe pneumonia with minimal pneumonia findings in the left upper lobe and right upper lobe. Minimal bilateral pleural effusions. No esophageal or GE junction abnormality evident. ECHO: MEASUREMENTS (cm) DIASTOLIC (NORMALS) SYSTOLIC (NORMALS) IVSd 1.0 (0.6-1.2) LA Diam 2.5 (1.9-4.0) LVEF 43% LVIDd 4.7 (3.5-5.7) LVIDs 3.7 (2.0-3.5) %FS 21% LVPWd 0.9 (0.6-1.2) Ao Diam 3.9 (2.0-3.7) 2 DIMENSIONAL ASSESSMENT: RIGHT ATRIUM: NORMAL LEFT ATRIUM: NORMAL RIGHT VENTRICLE: NORMAL LEFT VENTRICLE: REDUCED FUNCTION TRICUSPID VALVE: MITRAL VALVE: PULMONIC VALVE: NORMAL AORTIC VALVE: NORMAL PERICARDIAL EFFUSION: NONE AORTIC ROOT: NORMAL LEFT VENTRICULAR WALL MOTION: MILD GLOBAL HYPOKINESIS. DOPPLER/COLOR FLOW: MILD MITRAL AND TRICUSPID REGURGITATION. COMMENTS: MILDLY REDUCED LEFT VENTRICULAR EJECTION FRACTION OF 40-45%. MILD GLOBAL HYPOKINESIS. MILD MITRAL AND TRICUSPID REGURGITATION. Endoscopy: Impression 1. 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 Moderate gastritis in the body at the antrum of the stomach, s/p biopsies 3. Multiple 7 erosions were found in the antrum Plan: Await biopsy Continue acid suppression therapy Consider ENT for possible surgical myotomy of cryo pharyngeus muscle instead of repeated Botox injections in the future Physical exam: General: Patient, alert and cooperative. HEENT: Atraumatic, Normocephalic, PERRLA Neck: Neck supple. Patient remains n.p.o. Respiratory: Normal air movement, Diminished. Currently on 2 L per nasal cannula Cardiovascular: No edema, Normal pulses, Regular rate/rhythm, Normal S1 S2 Gastrointestinal: Normal bowel sounds, Soft and benign, Non-distended, W/out succussion splash Musculoskeletal: No clubbing, No swelling, No erythema Integumentary: No rashes, No breakdown, No significant lesion Neurological: Abnormal affect Impression: Dyspnea secondary to bilateral Covid pneumonia with hypoxia complicated with left lower lobe pneumonia Atrial flutter/atrial fibrillation Acute on chronic diastolic CHF Dysphagia with history of muscular dystrophy status post EGD with Botox treatment of the upper esophageal sphincter Moderate gastritis with noted stenosis/spasm of the upper esophageal sphincter and antrum erosions status post Botox treatment Thrombocytopenia Hypernatremia Plan: Dyspnea secondary to bilateral Covid pneumonia with hypoxia complicated with left lower lobe pneumonia: Patient overall stable. Patient remained stable on 2 L. Patient continues on IV Zosyn, IV Solu-Medrol. Will decrease Solu-Medrol today. Will transition to oral medication once patient evaluated by speech. Continue to wean off oxygen to maintain sats above 93%. Patient had Botox treatments for his dysphagia. Patient failed swallow study over the weekend. Patient remains n.p.o until he is seen by speech. Speech to perform modified barium swallow to further evaluate his dysphagia today. If abnormal patient will require PEG tube. Patient understands this. Await recommendations from speech. Physical therapy and Occupational Therapy ordered. Will recommend inpatient rehab at discharge. Will discuss with social services specialist. Atrial flutter/atrial fibrillation: Digoxin discontinued yesterday. Metoprolol was decreased to 12.5 mg 1 pill twice daily. Continue metoprolol with parameters in place. Patient on Lovenox with parameters to hold if with significant thrombocytopenia. Acute on chronic diastolic CHF EF 40 to 45%: Ejection fraction 40 to 45%. Continue to monitor fluid intake. Dysphagia with history of muscular dystrophy status post EGD with Botox treatment of the upper esophageal sphincter: Patient had Botox treatment by GI. Continue Protonix IV twice daily. Patient failed a swallow evaluation by nursing over the weekend. Speech to evaluate for further evaluation. Modified barium swallow ordered. Await recommendations. If abnormal patient will need PEG tube. Patient in agreement. Moderate gastritis with noted stenosis/spasm of the upper esophageal sphincter and antrum erosions status post Botox treatment: Continue with Protonix Thrombocytopenia: Etiology unknown. Parameters in place to hold Lovenox if platelet count less than 100 Hypernatremia: D5W started. Await recommendations from speech. CODE STATUS: Full code DVT prophylaxis: Lovenox Advanced care [id number] minutes: Home at discharge Time Spent Managing Pts Care (In Minutes): 55
[2021-04-20] MEDS: D5W 1,000 ML IV SCH ×2 (06:50→20:26)
[2021-04-20] MEDS: THIAMINE 200 MG/2 ML INJ IVP SCH ×2 (09:00→09:43)
[2021-04-20] MEDS: ENOXAPARIN 80 MG/0.8 ML SQ SCH ×2 (09:00→20:27)
[2021-04-20] MEDS: FOLIC ACID 5 MG/ML VIAL IVP SCH ×2 (09:00→09:44)
[2021-04-20] MEDS: METHYLPREDNISOLONE 40 MG INJ IV SCH ×2 (09:41→20:25)
[2021-04-20] MEDS: PANTOPRAZOLE 40 MG INJ IVP SCH ×2 (09:41→20:26)
[2021-04-20 10:43] LABS: Urine Appearance CLEAR (Clear); Urine Blood NEGATIVE (Negative); Urine Color DK YELLOW (Yellow); Urine Glucose NEGATIVE (Negative); Urine Protein TRACE (Negative); Urine Specific Gravity >=1.030 (1.005-1.030)
[2021-04-20 11:03] LABS: Urine Bilirubin 1+ (Negative); Urine Microscopic Reflex ORDER UMIC
[2021-04-20 11:15] LABS: Urine Amorphous Sediment 1+ /HPF (NONE SEEN); Urine Bacteria NONE SEEN /HPF (NONE SEEN); Urine RBC <5 /HPF (NONE SEEN)
--- NOTE | 2021-04-20 12:22 | RAD REPORT ---
EXAM DESCRIPTION: RAD - Barium Swallow Modified - 04/20/2021 12:13 pm CLINICAL HISTORY: failed bedside swallow Dysphagia COMPARISON: Barium Swallow Modified dated 04/12/2021 TECHNIQUE: The patient was given liquid, semi-solid and solid forms of barium. Lateral view fluorosc opic imaging was performed in conjunction with speech pathology service. FINDINGS: Laryngeal penetration: Not cleared with thin liquid, nectar, honey Aspiration: with thin liquid, with delayed ineffective cough. Moderate to severe residue in the vallecule and pyriforms with thin, nectar, and honey. Multiple swallow attempts, 10 sec + swallow delay. absent swallow response, slight improvement in UES opening since previous study. Total fluoroscopy time: 1 minutes 45 seconds
[2021-04-21] MEDS: PIPER/TAZO/NS 3.375gm 3.375 GM/100 ML BAG IVPB SCH ×3 (00:07→16:00)
[2021-04-21] MEDS: METOPROLOL TARTRATE 5 MG/5 ML INJ IV SCH ×2 (01:15→08:00)
[2021-04-21 04:23] LABS: Absolute Lymphocytes (CBC) 0.2 K/uL (0.7-4.9); Basophils % 0.2 % (0-1.3); Hematocrit 36.7 % (39.6-49.0); Lymphocytes % 5.9 % (15.3-44.8); RBC Red Blood Cell Count 3.89 M/uL (4.33-5.43)
[2021-04-21 04:33] LABS: BUN Blood Urea Nitrogen 18 mg/dL (7-18); Bicarbonate 30 mmol/L (21-32); Ferritin 308.3 ng/mL (26-388); Glucose Level 122 mg/dL (74-106); Magnesium 2.8 mg/dL (1.8-2.4); Sodium Level 144 mmol/L (136-145)
[2021-04-21] MEDS: METOPROLOL TAR 25 MG TAB PO SCH (05:31)
--- NOTE | 2021-04-21 06:05 | P.PN ---
Subjective Date of Service: 04/21/21 Primary Care Provider: Dr. Ramon Chief Complaint: Dysphagia Subjective: Other (Overall stable. Patient prepared for PEG tube placement today.) Physical Examination - Vital Signs Temperature: 96.7 F Blood Pressure: 119/63 Pulse: 43 Respirations: 16 Pulse Ox (%): 95 - Studies Medications List Reviewed: Yes Assessment & Plan Discharge Plan: Other (Inpatient rehab) Plan to discharge in: 48 Hours Physician Review Additional Text: COVID: Positive, unvaccinated CT scan: COMPARISON: Chest For Pe Angio dated 07/21/2020; Chest Single View dated 04/17/2021 TECHNIQUE: Dynamically enhanced 3 mm thick images of the chest were obtained during administration of approximately 150mL Isovue 370 IV contrast. Coronal and oblique MIP reconstruction images were generated and reviewed. Exam utilizes a protocol to evaluate the pulmonary arterial tree. All CT scans are performed using dose optimization technique as appropriate and may include automated exposure control or mA/KV adjustment according to patient size. FINDINGS: No pulmonary emboli are identified. The aorta as imaged shows no acute or suspicious finding. No pericardial thickening or effusion. Posteromedial left lower lobe airspace opacification present. Air bronchograms are present. Patchy opacification is seen in the air spaces of the left upper lobe along the fissure. Trace amounts of ground-glass opacification seen in the lateral right upper lobe along the major fissure. Trace amount of pleural fluid on the left and right. Trace amount of atelectasis in the posterior gutter on the right. No mediastinal or hilar suspicious masses. A few small reactive type mediastinal and hilar lymph nodes seen. No chest wall masses or abnormal axillary lymphadenopathy. No mass or abnormality seen at the GE junction. No evidence for esophageal wall thickening or mass. No endobronchial lesions seen. IMPRESSION: No pulmonary emboli identified. Left lower lobe pneumonia with minimal pneumonia findings in the left upper lobe and right upper lobe. Minimal bilateral pleural effusions. No esophageal or GE junction abnormality evident. ECHO: MEASUREMENTS (cm) DIASTOLIC (NORMALS) SYSTOLIC (NORMALS) IVSd 1.0 (0.6-1.2) LA Diam 2.5 (1.9-4.0) LVEF 43% LVIDd 4.7 (3.5-5.7) LVIDs 3.7 (2.0-3.5) %FS 21% LVPWd 0.9 (0.6-1.2) Ao Diam 3.9 (2.0-3.7) 2 DIMENSIONAL ASSESSMENT: RIGHT ATRIUM: NORMAL LEFT ATRIUM: NORMAL RIGHT VENTRICLE: NORMAL LEFT VENTRICLE: REDUCED FUNCTION TRICUSPID VALVE: MITRAL VALVE: PULMONIC VALVE: NORMAL AORTIC VALVE: NORMAL PERICARDIAL EFFUSION: NONE AORTIC ROOT: NORMAL LEFT VENTRICULAR WALL MOTION: MILD GLOBAL HYPOKINESIS. DOPPLER/COLOR FLOW: MILD MITRAL AND TRICUSPID REGURGITATION. COMMENTS: MILDLY REDUCED LEFT VENTRICULAR EJECTION FRACTION OF 40-45%. MILD GLOBAL HYPOKINESIS. MILD MITRAL AND TRICUSPID REGURGITATION. Endoscopy: Impression 1. 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 Moderate gastritis in the body at the antrum of the stomach, s/p biopsies 3. Multiple 7 erosions were found in the antrum Plan: Await biopsy Continue acid suppression therapy Consider ENT for possible surgical myotomy of cryo pharyngeus muscle instead of repeated Botox injections in the future Physical exam: General: Patient, alert and cooperative. HEENT: Atraumatic, Normocephalic, PERRLA Neck: Neck supple. Patient remains n.p.o. Respiratory: Normal air movement, Diminished. Currently on 3 L per nasal cannula Cardiovascular: No edema, Normal pulses, Regular rate/rhythm, Normal S1 S2 Gastrointestinal: Normal bowel sounds, Soft and benign, Non-distended, W/out succussion splash Musculoskeletal: No clubbing, No swelling, No erythema Integumentary: No rashes, No breakdown, No significant lesion Neurological: Abnormal affect Impression: Dyspnea secondary to bilateral Covid pneumonia with hypoxia complicated with left lower lobe pneumonia Atrial flutter/atrial fibrillation now with sinus bradycardia Acute on chronic diastolic CHF Dysphagia with history of muscular dystrophy status post EGD with Botox treatment of the upper esophageal sphincter Moderate gastritis with noted stenosis/spasm of the upper esophageal sphincter and antrum erosions status post Botox treatment Thrombocytopenia Hypernatremia Plan: Dyspnea secondary to bilateral Covid pneumonia with hypoxia complicated with left lower lobe pneumonia: Patient overall stable. Patient on 3 L per nasal cannula. Patient continues on IV Zosyn and IV Solu-Medrol. Solu-Medrol was decreased yesterday. CRP and ferritin improved. Continue to wean off oxygen to maintain sats above 93%. Patient had Botox treatments for his dysphagia. Patient failed swallow study over the weekend. Patient was seen and evaluated by speech therapy with modified barium swallow. Patient failed evaluation. Speech recommends PEG tube placement. Case discussed with GI yesterday. GI will plan for PEG tube. Patient in agreement. Continue with physical therapy and Occupational Therapy as the patient would benefit with inpatient rehab at discharge. Case discussed with social science analyst as well. Atrial flutter/atrial fibrillation now with bradycardia: Patient no longer on digoxin. Heart rate still low. Will discontinue metoprolol. Will monitor off medication. Will discuss with cardiology. Patient on Lovenox with parameters to hold if with significant thrombocytopenia. Acute on chronic diastolic CHF EF 40 to 45%: Ejection fraction 40 to 45%. Continue to monitor fluid intake. Dysphagia with history of muscular dystrophy status post EGD with Botox treatment of the upper esophageal sphincter: Patient had Botox treatment by GI. Continue Protonix IV twice daily. Patient failed a swallow evaluation by nursing over the weekend. Continue with above plan of care for PEG tube. Moderate gastritis with noted stenosis/spasm of the upper esophageal sphincter and antrum erosions status post Botox treatment: Continue with Protonix Thrombocytopenia: Etiology unknown. Parameters in place to hold Lovenox if platelet count less than 100 Hypernatremia: D5W started. Will monitor lab closely. Will transition off IV fluids likely in the next 1 to 2 days. CODE STATUS: Full code DVT prophylaxis: Lovenox Advanced care minutes: Home at discharge Time Spent Managing Pts Care (In Minutes): 55
[2021-04-21] MEDS: FOLIC ACID 1 MG in NA CHLORIDE 0.9% 50 ML IV SCH (08:00)
[2021-04-21] MEDS: ENOXAPARIN 80 MG/0.8 ML SQ SCH ×2 (08:12→19:51)
[2021-04-21] MEDS: PANTOPRAZOLE 40 MG INJ IVP SCH ×2 (08:13→19:51)
[2021-04-21] MEDS: METHYLPREDNISOLONE 40 MG INJ IV SCH (08:13)
[2021-04-21] MEDS: THIAMINE 200 MG/2 ML INJ IVP SCH (08:13)
[2021-04-21] MEDS: D5W 1,000 ML IV SCH ×2 (08:14→19:54)
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
--- NOTE | 2021-04-21 15:39 | RAD REPORT ---
EXAM DESCRIPTION: RAD - Chest Single View - 04/21/2021 3:04 pm CLINICAL HISTORY: COVID pneumonia COMPARISON: CT chest April 17, portable chest April 17 TECHNIQUE: AP portable chest image was obtained 04/21/2021 3:04 pm . FINDINGS: Lung volumes are substantially lower than the prior study. Left base consolidation is stil l present obscuring the left hemidiaphragm and partially obscuring the left heart border. Patchy inte rstitial and alveolar opacities in both lower lung heath are present suspected to be atelectasis rat her than progressive pneumonia. No diffuse pulmonary edema pattern. Heart and vasculature are normal. No pneumothorax. Small left pleural effusion could be obscured. No acute bony abnormality seen. No acute aortic findings suspected. IMPRESSION: Consolidated pneumonia in the left base not clearly different from April 17. New or progressive lung parenchymal disease not suspected.
--- NOTE | 2021-04-21 17:43 | P.PN ---
Subjective Date of Service: 04/21/21 Primary Care Provider: Dr. Ramon Chief Complaint: Dysphagia/ Cvid penumonia Subjective: New changes (Failed swallow evaluation s/p repeat Botox to cricopharyngeus muscle (prior success in 2019). Crowded OR schedule did not allow add on GI cases today until after 530 PM and told no OR cases (or few) tomorrow.) Physical Examination - Vital Signs Temperature: 98.6 F Blood Pressure: 135/63 Pulse: 35 Respirations: 18 Pulse Ox (%): 96 - Studies Medications List Reviewed: Yes Assessment And Plan - Current Problems (Diagnosis) (1) Acute diastolic heart failure Current Visit: No Status: Acute (2) Atrial flutter Current Visit: No Status: Acute (3) Chronic respiratory failure Current Visit: No Status: Acute (4) Dysphagia Current Visit: No Status: Acute (5) Muscular dystrophy Onset Date: 09/27/18 Current Visit: No Status: Acute (6) Pneumonia, aspiration Current Visit: No Status: Acute (7) Protein-calorie malnutrition Current Visit: No Status: Acute - Plan REC: 1) continue IVFs 2) can use NGT or DHT for TFs and NPO after MN 3) EGD with PEG tomorrow Physician Review: Patient Assessed, Agree with Above Assessment and Plan Physician Review Additional Text: COVID: Positive, unvaccinated CT scan: COMPARISON: Chest For Pe Angio dated 07/21/2020; Chest Single View dated 04/17/2021 TECHNIQUE: Dynamically enhanced 3 mm thick images of the chest were obtained during administration of approximately 150mL Isovue 370 IV contrast. Coronal and oblique MIP reconstruction images were generated and reviewed. Exam utilizes a protocol to evaluate the pulmonary arterial tree. All CT scans are performed using dose optimization technique as appropriate and may include automated exposure control or mA/KV adjustment according to patient size. FINDINGS: No pulmonary emboli are identified. The aorta as imaged shows no acute or suspicious finding. No pericardial thickening or effusion. Posteromedial left lower lobe airspace opacification present. Air bronchograms are present. Patchy opacification is seen in the air spaces of the left upper lobe along the fissure. Trace amounts of ground-glass opacification seen in the lateral right upper lobe along the major fissure. Trace amount of pleural fluid on the left and right. Trace amount of atelectasis in the posterior gutter on the right. No mediastinal or hilar suspicious masses. A few small reactive type mediastinal and hilar lymph nodes seen. No chest wall masses or abnormal axillary lymphadenopathy. No mass or abnormality seen at the GE junction. No evidence for esophageal wall thickening or mass. No endobronchial lesions seen. IMPRESSION: No pulmonary emboli identified. Left lower lobe pneumonia with minimal pneumonia findings in the left upper lobe and right upper lobe. Minimal bilateral pleural effusions. No esophageal or GE junction abnormality evident. ECHO: MEASUREMENTS (cm) DIASTOLIC (NORMALS) SYSTOLIC (NORMALS) IVSd 1.0 (0.6-1.2) LA Diam 2.5 (1.9-4.0) LVEF 43% LVIDd 4.7 (3.5-5.7) LVIDs 3.7 (2.0-3.5) %FS 21% LVPWd 0.9 (0.6-1.2) Ao Diam 3.9 (2.0-3.7) 2 DIMENSIONAL ASSESSMENT: RIGHT ATRIUM: NORMAL LEFT ATRIUM: NORMAL RIGHT VENTRICLE: NORMAL LEFT VENTRICLE: REDUCED FUNCTION TRICUSPID VALVE: MITRAL VALVE: PULMONIC VALVE: NORMAL AORTIC VALVE: NORMAL PERICARDIAL EFFUSION: NONE AORTIC ROOT: NORMAL LEFT VENTRICULAR WALL MOTION: MILD GLOBAL HYPOKINESIS. DOPPLER/COLOR FLOW: MILD MITRAL AND TRICUSPID REGURGITATION. COMMENTS: MILDLY REDUCED LEFT VENTRICULAR EJECTION FRACTION OF 40-45%. MILD GLOBAL HYPOKINESIS. MILD MITRAL AND TRICUSPID REGURGITATION. Endoscopy: Impression 1. 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 Moderate gastritis in the body at the antrum of the stomach, s/p biopsies 3. Multiple 7 erosions were found in the antrum Plan: Await biopsy Continue acid suppression therapy Consider ENT for possible surgical myotomy of cryo pharyngeus muscle instead of repeated Botox injections in the future Physical exam: General: Patient, alert and cooperative. HEENT: Atraumatic, Normocephalic, PERRLA Neck: Neck supple. Patient remains n.p.o. Respiratory: Normal air movement, Diminished. Currently on 3 L per nasal cannula Cardiovascular: No edema, Normal pulses, Regular rate/rhythm, Normal S1 S2 Gastrointestinal: Normal bowel sounds, Soft and benign, Non-distended, W/out succussion splash Musculoskeletal: No clubbing, No swelling, No erythema Integumentary: No rashes, No breakdown, No significant lesion Neurological: Abnormal affect Impression: Dyspnea secondary to bilateral Covid pneumonia with hypoxia complicated with left lower lobe pneumonia Atrial flutter/atrial fibrillation now with sinus bradycardia Acute on chronic diastolic CHF Dysphagia with history of muscular dystrophy status post EGD with Botox treatment of the upper esophageal sphincter Moderate gastritis with noted stenosis/spasm of the upper esophageal sphincter and antrum erosions status post Botox treatment Thrombocytopenia Hypernatremia Plan: Dyspnea secondary to bilateral Covid pneumonia with hypoxia complicated with left lower lobe pneumonia: Patient overall stable. Patient on 3 L per nasal cannula. Patient continues on IV Zosyn and IV Solu-Medrol. Solu-Medrol was decreased yesterday. CRP and ferritin improved. Continue to wean off oxygen to maintain sats above 93%. Patient had Botox treatments for his dysphagia. Patient failed swallow study over the weekend. Patient was seen and evaluated by speech therapy with modified barium swallow. Patient failed evaluation. Speech recommends PEG tube placement. Case discussed with GI yesterday. GI will plan for PEG tube. Patient in agreement. Continue with physical therapy and Occupational Therapy as the patient would benefit with inpatient rehab at discharge. Case discussed with social worker health services as well. Atrial flutter/atrial fibrillation now with bradycardia: Patient no longer on digoxin. Heart rate still low. Will discontinue metoprolol. Will monitor off medication. Will discuss with cardiology. Patient on Lovenox with parameters to hold if with significant thrombocytopenia. Acute on chronic diastolic CHF EF 40 to 45%: Ejection fraction 40 to 45%. Continue to monitor fluid intake. Dysphagia with history of muscular dystrophy status post EGD with Botox treatment of the upper esophageal sphincter: Patient had Botox treatment by GI. Continue Protonix IV twice daily. Patient failed a swallow evaluation by nursing over the weekend. Continue with above plan of care for PEG tube. Moderate gastritis with noted stenosis/spasm of the upper esophageal sphincter and antrum erosions status post Botox treatment: Continue with Protonix Thrombocytopenia: Etiology unknown. Parameters in place to hold Lovenox if platelet count less than 100 Hypernatremia: D5W started. Will monitor lab closely. Will transition off IV fluids likely in the next 1 to 2 days. CODE STATUS: Full code DVT prophylaxis: Lovenox Advanced care [id number] minutes: Home at discharge
[2021-04-22] MEDS: PIPER/TAZO/NS 3.375gm 3.375 GM/100 ML BAG IVPB SCH ×3 (00:29→16:00)
[2021-04-22 04:18] LABS: Absolute Lymphocytes (CBC) 0.3 K/uL (0.7-4.9); Basophils % 0.3 % (0-1.3); Hematocrit 39.5 % (39.6-49.0); Lymphocytes % 10.6 % (15.3-44.8); MPV 8.9 fL (7.6-11.3); RBC Red Blood Cell Count 4.24 M/uL (4.33-5.43)
[2021-04-22 04:39] LABS: BUN Blood Urea Nitrogen 8 mg/dL (7-18); Bicarbonate 30 mmol/L (21-32); Ferritin 358.6 ng/mL (26-388); Glucose Level 98 mg/dL (74-106); Magnesium 2.6 mg/dL (1.8-2.4); Potassium 3.4 mmol/L (3.5-5.1); Sodium Level 146 mmol/L (136-145)
--- NOTE | 2021-04-22 06:12 | P.PN ---
Subjective Date of Service: 04/22/21 Primary Care Provider: Dr. Ramon Chief Complaint: Dysphagia/Covid penumonia Subjective: Other (Patient overall stable. Patient in preparation for PEG tube) Physical Examination - Vital Signs Temperature: 98.6 F Blood Pressure: 118/67 Pulse: 47 Respirations: 17 Pulse Ox (%): 95 - Studies Medications List Reviewed: Yes Assessment & Plan Discharge Plan: Other (Inpatient rehab) Plan to discharge in: 72 Hours Physician Review Additional Text: COVID: Positive, unvaccinated CT scan: COMPARISON: Chest For Pe Angio dated 07/21/2020; Chest Single View dated 04/17/2021 TECHNIQUE: Dynamically enhanced 3 mm thick images of the chest were obtained during administration of approximately 150mL Isovue 370 IV contrast. Coronal and oblique MIP reconstruction images were generated and reviewed. Exam utilizes a protocol to evaluate the pulmonary arterial tree. All CT scans are performed using dose optimization technique as appropriate and may include automated exposure control or mA/KV adjustment according to patient size. FINDINGS: No pulmonary emboli are identified. The aorta as imaged shows no acute or suspicious finding. No pericardial thickening or effusion. Posteromedial left lower lobe airspace opacification present. Air bronchograms are present. Patchy opacification is seen in the air spaces of the left upper lobe along the fissure. Trace amounts of ground-glass opacification seen in the lateral right upper lobe along the major fissure. Trace amount of pleural fluid on the left and right. Trace amount of atelectasis in the posterior gutter on the right. No mediastinal or hilar suspicious masses. A few small reactive type mediastinal and hilar lymph nodes seen. No chest wall masses or abnormal axillary lymphadenopathy. No mass or abnormality seen at the GE junction. No evidence for esophageal wall thickening or mass. No endobronchial lesions seen. IMPRESSION: No pulmonary emboli identified. Left lower lobe pneumonia with minimal pneumonia findings in the left upper lobe and right upper lobe. Minimal bilateral pleural effusions. No esophageal or GE junction abnormality evident. ECHO: MEASUREMENTS (cm) DIASTOLIC (NORMALS) SYSTOLIC (NORMALS) IVSd 1.0 (0.6-1.2) LA Diam 2.5 (1.9-4.0) L VEF 43% LVIDd 4.7 (3.5-5.7) LVIDs 3.7 (2.0-3.5) %FS 21% LVPWd 0.9 (0.6-1.2) Ao Diam 3.9 (2.0-3.7) 2 DIMENSIONAL ASSESSMENT: RIGHT ATRIUM: NORMAL LEFT ATRIUM: NORMAL RIGHT VENTRICLE: NORMAL LEFT VENTRICLE: REDUCED FUNCTION TRICUSPID VALVE: MITRAL VALVE: PULMONIC VALVE: NORMAL AORTIC VALVE: NORMAL PERICARDIAL EFFUSION: NONE AORTIC ROOT: NORMAL LEFT VENTRICULAR WALL MOTION: MILD GLOBAL HYPOKINESIS. DOPPLER/COLOR FLOW: MILD MITRAL AND TRICUSPID REGURGITATION. COMMENTS: MILDLY REDUCED LEFT VENTRICULAR EJECTION FRACTION OF 40-45%. MILD GLOBAL HYPOKINESIS. MILD MITRAL AND TRICUSPID REGURGITATION. Endoscopy: Impression 1. 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 Moderate gastritis in the body at the antrum of the stomach, s/p biopsies 3. Multiple 7 erosions were found in the antrum Plan: Await biopsy Continue acid suppression therapy Consider ENT for possible surgical myotomy of cryo pharyngeus muscle instead of repeated Botox injections in the future Physical exam: General: Patient, alert and cooperative. HEENT: Atraumatic, Normocephalic, PERRLA Neck: Neck supple. Patient remains n.p.o. Respiratory: Normal air movement. Currently on room air Cardiovascular: No edema, Normal pulses, Regular rate/rhythm, Normal S1 S2 Gastrointestinal: Normal bowel sounds, Soft and benign, Non-distended, W/out succussion splash Musculoskeletal: No clubbing, No swelling, No erythema Integumentary: No rashes, No breakdown, No significant lesion Neurological: Abnormal affect Impression: Dyspnea secondary to bilateral Covid pneumonia with hypoxia complicated with left lower lobe pneumonia Atrial flutter/atrial fibrillation now with sinus bradycardia Acute on chronic diastolic CHF Dysphagia with history of muscular dystrophy status post EGD with Botox treatment of the upper esophageal sphincter Moderate gastritis with noted stenosis/spasm of the upper esophageal sphincter a nd antrum erosions status post Botox treatment Thrombocytopenia Hypernatremia Plan: Dyspnea secondary to bilateral Covid pneumonia with hypoxia complicated with left lower lobe pneumonia: Patient overall stable. Currently on room air. Patient remains on IV Zosyn, IV Solu-Medrol. Patient in preparation for PEG tube today. Continue to monitor CRP and ferritin. Continue to wean off oxygen to maintain sats above 93%. Once PEG tube placed will discuss with GI on when this can be used. Dietary consulted to help with PEG tube feeds. Patient cleared by cardiology for procedure. Will order physical therapy and Occupational Therapy in preparation for inpatient rehab after PEG tube placement Atrial flutter/atrial fibrillation now with bradycardia: Patient no longer on digoxin. Heart rate still low. Will discontinue metoprolol. Will monitor off medication. Patient cleared by cardiology for PEG tube.. Patient on Lovenox with parameters to hold if with significant thrombocytopenia. Acute on chronic diastolic CHF EF 40 to 45%: Ejection fraction 40 to 45%. Continue to monitor fluid intake. Dysphagia with history of muscular dystrophy status post EGD with Botox treatment of the upper esophageal sphincter: Continue Protonix twice daily. Continue with PEG tube. Moderate gastritis with noted stenosis/spasm of the upper esophageal sphincter and antrum erosions status post Botox treatment: Continue with Protonix Thrombocytopenia: Etiology unknown. Parameters in place to hold Lovenox if platelet count less than 100 Hypernatremia: D5W started. Will monitor lab closely. Will transition off IV fluids likely in the next 1 to 2 days. CODE STATUS: Full code DVT prophylaxis: Lovenox Advanced care [id number] minutes: Will recommend inpatient rehab after PEG tube placement to help with recovery Time Spent Managing Pts Care (In Minutes): 55
[2021-04-22] MEDS: KCL 20 MEQ/100 mL IVPB 20 MEQ/100 ML BAG IV SCH ×2 (06:27→07:40)
[2021-04-22] MEDS: D5W 1,000 ML IV SCH ×2 (06:27→12:20)
[2021-04-22] MEDS: PANTOPRAZOLE 40 MG INJ IVP SCH ×2 (07:38→21:07)
[2021-04-22] MEDS: THIAMINE 200 MG/2 ML INJ IVP SCH (07:38)
[2021-04-22] MEDS: ENOXAPARIN 80 MG/0.8 ML SQ SCH (07:39)
[2021-04-22] MEDS: FOLIC ACID 1 MG in NA CHLORIDE 0.9% 50 ML IV SCH (08:00)
--- NOTE | 2021-04-22 08:31 | EKG ---
Test Date: 2021-04-21 Test Time: 12:58:26 Foster Care Case Manager: CHELY MEASUREMENT RESULTS: Intervals: Rate: 40 GA: QRSD: 168 QT: 606 QTc: 493 [place]: P: GA: QRS: -11 T: -77 INTERPRETIVE STATEMENTS: Atrial fibrillation with slow ventricular response with premature ventricular or aberrantly conducted complexes Right bundle branch block T wave abnormality, consider inferolateral ischemia or digitalis effect Abnormal ECG Compared to ECG 04/19/2021 12:13:28 Sinus bradycardia no longer present Sinus arrhythmia no longer present T-wave abnormality still present Possible ischemia still present Electronically Signed On 04-22-21 08:29:35 CDT by Chapo Mcgrath
--- NOTE | 2021-04-22 08:31 | EKG ---
Test Date: 2021-04-19 Test Time: 12:13:28 Road Engineer: CHELY MEASUREMENT RESULTS: Intervals: Rate: 50 DE: 206 QRSD: 154 QT: 538 QTc: 490 [place]: P: 57 DE: 206 QRS: -1 T: -57 INTERPRETIVE STATEMENTS: Sinus bradycardia with marked sinus arrhythmia with occasional premature ventricular complexes Right bundle branch block T wave abnormality, consider inferolateral ischemia Abnormal ECG Compared to ECG 04/12/2021 19:54:47 T-wave abnormality now present Possible ischemia now present Ventricular-paced complex(es) or rhythm no longer present Sinus rhythm no longer present Atrial premature complex(es) no longer present Myocardial infarct finding no longer present Electronically Signed On 04-22-21 08:29:36 CDT by Chapo Mcgrath
[2021-04-22] MEDS ORDERED: Ringers Lactate 1,000 ML IV ONE (11:37)
--- NOTE | 2021-04-22 12:13 | PN ---
Date of Progress Note: 04/21/2021 I was asked for cardiac clearance before a GI procedure by Dr. Feliciano. The patient is 51. He was in itially seen because of atrial flutter and dysphagia on 04/11/2021. He has chronic atrial fibrillati on for which he was taking metoprolol and Eliquis, both of those have been held because of bradycardi a. His heart rate is 60. No cardiac complaint. He has muscular dystrophy, hypertension, and gastro esophageal reflux disease. He had an echocardiogram on 04/12/2021, showing ejection fraction of 43% with mild global hypokinesis and mild mitral tricuspid regurgitation. He is hemodynamically stable w ith adequate blood pressure despite heart rate that has run between 35 and 47. He is on Lovenox. He is not on beta-blockers. He is not on calcium blockers or digoxin. I think he is at low risk for p erioperative mortality. I would definitely give him some atropine if he becomes hypotensive. Otherw ise, as long as his blood pressure is adequate, I would not do anything about the heart rate at this point. JOYCE/JOEY Voice ID: [id number] Report ID: [id number]
[2021-04-22] MEDS ORDERED: propofoL 200 MG/20 ML VIAL IV ONE (12:27)
[2021-04-22] MEDS ORDERED: LIDOCAINE 1% MPF 5 ML VIAL ONE (12:27)
[2021-04-22] MEDS ORDERED: ETOMIDATE 20 MG/10 ML VIAL IV ONE (12:27)
--- NOTE | 2021-04-22 13:06 | ENDO RPT ---
[address], [address] EGD WITH PEG PROCEDURE REPORT EXAM DATE: 04/22/2021 PATIENT NAME: Watson Dodge MR #: [id number] BIRTHDATE: 1970 ATTENDING: Fabian Feliciano Dr STATUS: inpatient DIETITIAN ASSISTANT: Noemi Yang RN and Renee SMART INDICATIONS: The patient is a 51 yr old Male here for an EGD with PEG due to dysphagia and protein-calorie malnutrition (albumin 2.5) PROCEDURE PERFORMED: EGD-PEG MEDICATIONS: Per Anesthesia. TOPICAL ANESTHETIC: none CONSENT: The patient understands the risks and benefits of the procedure and understands that these risks include, but are not limited to: sedation, allergic reaction, infection, perforation and/or bleeding. Alternative means of evaluation and treatment include, among others: physical exam, x-rays, and/or surgical intervention. The patient elects to proceed with this endoscopic procedure. DESCRIPTION OF PROCEDURE: During intra-op preparation period all mechanical medical equipment was checked for proper function. Hand hygiene and appropriate measures for infection prevention was taken. After the risks, benefits and alternatives of the procedure were thoroughly explained, Informed consent was verified, confirmed and timeout was successfully executed by the treatment team. The patient was anesthetized with topical anesthesia and the EG-[id number] ([id number]) endoscope was introduced through the mouth and advanced to the third portion of the duodenum. The instrument was slowly withdrawn as the mucosa was fully examined. Bile reflux was found in the total esophagus - suctioned out with endoscope. The stomach was then inflated with air, and by a combination of transillumination and manual palpation, the site for the gastrostomy tube placement was selected and marked on the anterior abdominal wall. The skin of the anterior abdomen was surgically prepped and draped with sterile towels. Utilizing strict sterile technique, the selected site was then anesthetized with 1% xylocaine by injection into the skin and subcutaneous tissue. A 1 cm incision was made through the skin and subcutaneous tissue, and the needle/cannula assembly was then passed through the abdominal wall and through the anterior wall of the stomach, maintaining visualization with the endoscope. A snare device previously placed through the instrument channel was then opened and placed around the cannula, the needle was removed, and the insertion wire was passed through the cannula and into the stomach lumen. The snare was then loosened from the cannula, and repositioned to snare the insertion wire. The snare was then pulled up to the endoscope distal tip, and the scope was then withdrawn bringing with it the snare and insertion wire. The insertion wire was then released from the snare, and the PEG PUSH gastrostomy tube placed over the guidewire. Using the push technique, the tube was then pushed into place over the insertion wire at the abdominal wall end. The tube insertion site was then cleansed once again, and the external bolster was placed over the tube to secure it to the abdominal wall. A sterile dressing was then applied, and the procedure terminated. Retroflexed views revealed no abnormalities. The gastroscope was then slowly withdrawn and removed. ADVERSE EVENT: There were no complications. IMPRESSIONS: 1. Status post 20 Fr percutaneous endoscopic gastrostomy 2. Bile reflux in the total esophagus - suctioned out with endoscope RECOMMENDATIONS: begin PEG use in 3 hours REPEAT EXAM: Fabian Feliciano Dr eSigned: Fabian Feliciano Dr 04/22/2021 1:05 PM cc: CPT CODES: ICD9 CODES: PATIENT NAME: Watson Dodge MR#: [id number]
[2021-04-22] MEDS: JEVITY 1.5 CAL LIQUID 1,000 ML BOT RTH SCH (16:49)
[2021-04-23] MEDS: PIPER/TAZO/NS 3.375gm 3.375 GM/100 ML BAG IVPB SCH ×3 (00:16→16:42)
[2021-04-23] MEDS: GUAIFENESIN/DM 5 ML UCUP PO PRN (00:30)
[2021-04-23] MEDS: D5W 1,000 ML IV SCH ×2 (01:40→16:42)
[2021-04-23] MEDS ORDERED: DIGOXIN 0.25 MG/ML AMP IV ONE (02:36)
[2021-04-23] MEDS ORDERED: DIGOXIN 0.25 MG/ML AMP ONE (02:59)
[2021-04-23 04:36] LABS: Absolute Lymphocytes (CBC) 1.3 K/uL (0.7-4.9); Basophils % 0.3 % (0-1.3); Hematocrit 55.4 % (39.6-49.0); Lymphocytes % 19.3 % (15.3-44.8); MPV 9.2 fL (7.6-11.3); RBC Red Blood Cell Count 5.88 M/uL (4.33-5.43)
[2021-04-23] MEDS ORDERED: METOPROLOL TARTRATE 5 MG/5 ML INJ IV STA (04:41)
[2021-04-23] MEDS ORDERED: POTASSIUM 25 MEQ EFFERV TAB PO ONE (04:50)
[2021-04-23] MEDS ORDERED: METOPROLOL TARTRATE 5 MG/5 ML INJ IV ONE (05:06)
--- NOTE | 2021-04-23 06:18 | P.PN ---
Subjective Date of Service: 04/23/21 Primary Care Provider: Dr. Ramon Chief Complaint: Dysphagia/Covid penumonia Subjective: Other (Patient had episode of increased cough yesterday. Patient required more oxygen. A flutter noted as well. Patient given digoxin. PEG tu be feeds were held. Later this afternoon patient had diarrhea.) Physical Examination - Vital Signs Temperature: 97.1 F Blood Pressure: 100/55 Pulse: 132 Respirations: 20 Pulse Ox (%): 97 - Studies Medications List Reviewed: Yes Assessment & Plan Discharge Plan: LTAC Plan to discharge in: Greater than 2 days Physician Review Additional Text: COVID: Positive, unvaccinated CT scan: COMPARISON: Chest For Pe Angio dated 07/21/2020; Chest Single View dated 04/17/2021 TECHNIQUE: Dynamically enhanced 3 mm thick images of the chest were obtained during administration of approximately 150mL Isovue 370 IV contrast. Coronal and oblique MIP reconstruction images were generated and reviewed. Exam utilizes a protocol to evaluate the pulmonary arterial tree. All CT scans are performed using dose optimization technique as appropriate and may include automated exposure control or mA/KV adjustment according to patient size. FINDINGS: No pulmonary emboli are identified. The aorta as imaged shows no acute or suspicious finding. No pericardial thickening or effusion. Posteromedial left lower lobe airspace opacification present. Air bronchograms are present. Patchy opacification is seen in the air spaces of the left upper lobe along the fissure. Trace amounts of ground-glass opacification seen in the lateral right upper lobe along the major fissure. Trace amount of pleural fluid on the left and right. Trace amount of atelectasis in the posterior gutter on the right. No mediastinal or hilar suspicious masses. A few small reactive type mediastinal and hilar lymph nodes seen. No chest wall masses or abnormal axillary lymphadenopathy. No mass or abnormality seen at the GE junction. No evidence for esophageal wall thickening or mass. No endobronchial lesions seen. IMPRESSION: No pulmonary emboli identified. Left lower lobe pneumonia with minimal pneumonia findings in the left upper lobe and right upper lobe. Minimal bilateral pleural effusions. No esophageal or GE junction abnormality evident. ECHO: MEASUREMENTS (cm) DIASTOLIC (NORMALS) SYSTOLIC (NORMALS) IVSd 1.0 (0.6-1.2) LA Diam 2.5 (1.9-4.0) LVEF 43% LVIDd 4.7 (3.5-5.7) LVIDs 3.7 (2.0-3.5) %FS 21% LVPWd 0.9 (0.6-1.2) Ao Diam 3.9 (2.0-3.7) 2 DIMENSIONAL ASSESSMENT: RIGHT ATRIUM: NORMAL LEFT ATRIUM: NORMAL RIGHT VENTRICLE: NORMAL LEFT VENTRICLE: REDUCED FUNCTION TRICUSPID VALVE: MITRAL VALVE: PULMONIC VALVE: NORMAL AORTIC VALVE: NORMAL PERICARDIAL EFFUSION: NONE AORTIC ROOT: NORMAL LEFT VENTRICULAR WALL MOTION: MILD GLOBAL HYPOKINESIS. DOPPLER/COLOR FLOW: MILD MITRAL AND TRICUSPID REGURGITATION. COMMENTS: MILDLY REDUCED LEFT VENTRICULAR EJECTION FRACTION OF 40-45%. MILD GLOBAL HYPOKINESIS. MILD MITRAL AND TRICUSPID REGURGITATION. Endoscopy: Impression 1. 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 Moderate gastritis in the body at the antrum of the stomach, s/p biopsies 3. Multiple 7 erosions were found in the antrum Plan: Await biopsy Continue acid suppression therapy Consider ENT for possible surgical myotomy of cryo pharyngeus muscle instead of repeated Botox injections in the future EGD 04/22/2021: PEG tube placement Follow-up chest x-ray 04/23/2021: COMPARISON: 04/17/2021 FINDINGS: Single view of the chest was obtained portable. Prior films were compared. The lung volume is decreased. External EKG leads within the [id number] limits diagnosis. The heart is not enlarged. The thoracic aorta is unremarkable. Focal area of opacity/consolidation is again identified within the left lung base suspicious for pneumonia and/or small trace of left pleural effusion. The right lung demonstrate minimal atelectatic changes medial aspect. The rest of the soft tissue and bony structures demonstrate to be unremarkable. IMPRESSION: Decreased lung volume. Focal area of opacity/consolidation left lung base suspicious for pneumonia and/or small trace of left pleural effusion. No significant interval change. Physical exam: General: Patient, alert and cooperative. HEENT: Atraumatic, Normocephalic, PERRLA Neck: Neck supple. Patient remains n.p.o. Respiratory: Slightly decreased to the bases. Currently on 15 L. Cardiovascular: No edema, Normal pulses, Regular rate/rhythm, Normal S1 S2 Gastrointestinal: Normal bowel sounds, Soft and benign, Non-distended, W/out succussion splash Musculoskeletal: No clubbing, No swelling, No erythema Integumentary: No rashes, No breakdown, No significant lesion Neurological: Abnormal affect Impression: Dyspnea secondary to bilateral Covid pneumonia with hypoxia complicated with left lower lobe pneumonia Atrial flutter/atrial fibrillation now with sinus bradycardia Acute on chronic diastolic CHF Dysphagia with history of muscular dystrophy status post EGD with Botox treatment of the upper esophageal sphincter Moderate gastritis with noted stenosis/spasm of the upper esophageal sphincter and antrum erosions status post Botox treatment Thrombocytopenia Hypernatremia Diarrhea Plan: Dyspnea secondary to bilateral Covid pneumonia with hypoxia complicated with left lower lobe pneumonia: Patient currently on 15 L. Patient had coughing episode last night. Patient was suctioned by respiratory. Improvement noted. PEG tube was placed yesterday afternoon. PEG tube feeds held. Some diarrhea noted this afternoon. Patient also with atrial fibrillation. Heart rate slightly elevated. Digoxin restarted. With his diarrhea will consult dietary to consider change in feeding. Patient has had issues with his prior PEG tubes in the past. Continue with IV Zosyn, Solu-Medrol. Will monitor CRP and ferritin. Maintain sats above 93%. Continue to wean off. Await recommendations by dietary. Due to his current status patient likely not a good candidate for inpatient rehab. Therefore we will pursue long-term acute care facility placement. I will turn the service over to the hospitalist team tomorrow. I will go plan of care with him. Atrial flutter/atrial fibrillation now with bradycardia: Heart rate elevated. Patient restarted on digoxin. Will monitor closely on this medication. Hold off on metoprolol. Will discuss with cardiology. Patient on Lovenox with parameters to hold if with significant thrombocytopenia. Acute on chronic diastolic CHF EF 40 to 45%: Ejection fraction 40 to 45%. Continue to monitor fluid intake. Dysphagia with history of muscular dystrophy status post EGD with Botox treatment of the upper esophageal sphincter: Continue Protonix twice daily. Continue with PEG tube. Moderate gastritis with noted stenosis/spasm of the upper esophageal sphincter and antrum erosions status post Botox treatment: Continue with Protonix Thrombocytopenia: This has improved. Will monitor closely.. Parameters in place to hold Lovenox if platelet count less than 100 Hypernatremia: Continue D5W. Will monitor lab closely. Will transition off IV fluids likely in the next 1 to 2 days once patient taking good oral intake. Diarrhea: This may be related to his current PEG tube feeds. Will have dietary evaluate this. We will need to monitor closely. Continue IV fluids.. CODE STATUS: Full code DVT prophylaxis: Stephy Advanced care [id number] minutes: We will pursue long-term acute care facility placement Time Spent Managing Pts Care (In Minutes): 55
[2021-04-23] MEDS: FOLIC ACID 1 MG in NA CHLORIDE 0.9% 50 ML IV SCH (09:52)
[2021-04-23] MEDS: THIAMINE 200 MG/2 ML INJ IVP SCH (09:53)
[2021-04-23] MEDS: DIGOXIN 0.125 MG TABLET FT SCH (09:53)
[2021-04-23] MEDS: PANTOPRAZOLE 40 MG INJ IVP SCH ×2 (09:54→19:28)
--- NOTE | 2021-04-23 10:31 | RAD REPORT ---
EXAM DESCRIPTION: RAD - Chest Single View - 04/23/2021 3:45 am CLINICAL HISTORY: 51 years, Male, SOB COMPARISON: 04/17/2021 FINDINGS: Single view of the chest was obtained portable. Prior films were compared. The lung volume is decreased. External EKG leads within the [id number] limits diagnosis. The heart is not enlar ged. The thoracic aorta is unremarkable. Focal area of opacity/consolidation is again identified with in the left lung base suspicious for pneumonia and/or small trace of left pleural effusion. The right lung demonstrate minimal atelectatic changes medial aspect. The rest of the soft tissue and bony str uctures demonstrate to be unremarkable. IMPRESSION: Decreased lung volume. Focal area of opacity/consolidation left lung base suspicious for pneumonia and/or small trace of lef t pleural effusion. No significant interval change. Electronically signed by: Justin Vicente MD 04/23/2021 3:56 AM CDT Due to temporary technical issues with the PACS/Fluency reporting system, reports are being signed by the in house radiologist without review as a courtesy to ensure prompt reporting. The interpreting r adiologist is fully responsible for the content of the report.
[2021-04-23 12:26] LABS: Blood Morphology Comment NOT SEEN (NOT SEEN); Platelet Estimate ADEQ; White Blood Cell Scan OK (OK)
[2021-04-23 14:56] LABS: BUN Blood Urea Nitrogen 15 mg/dL (7-18); Bicarbonate 28 mmol/L (21-32); Ferritin 610.4 ng/mL (26-388); Glucose Level 76 mg/dL (74-106); Magnesium 2.1 mg/dL (1.8-2.4); Potassium 3.7 mmol/L (3.5-5.1); Sodium Level 145 mmol/L (136-145)
--- NOTE | 2021-04-23 16:35 | P.PN ---
Subjective Date of Service: 04/28/21 Primary Care Provider: Dr. Ramon Chief Complaint: Dysphagia/Covid penumonia Subjective: New changes (s/p EGD with PEG tube yesterday. Not tolerating TFs. Stopped due to fluid overload though IVFs continued though at reduced rate.) Review of Systems General: Weakness, Malaise Respiratory: Shortness of Breath Physical Examination - Vital Signs Temperature: 97.1 F Blood Pressure: 100/55 Pulse: 132 Respirations: 20 Pulse Ox (%): 97 - Physical Exam General: Alert, Cooperative HEENT: Atraumatic, Normocephalic, PERRLA, EOMI Neck: Supple Respiratory: Diminished Cardiovascular: Normal pulses Gastrointestinal: Soft and benign, No tenderness, No rebound, No guarding - Studies Medications List Reviewed: Yes Assessment And Plan - Current Problems (Diagnosis) (1) Acute diastolic heart failure Current Visit: No Status: Acute (2) Atrial flutter Current Visit: No Status: Acute (3) Chronic respiratory failure Current Visit: No Status: Acute (4) Dysphagia Current Visit: No Status: Acute (5) Muscular dystrophy Onset Date: 09/27/18 Current Visit: No Status: Acute (6) Pneumonia, aspiration Current Visit: No Status: Acute (7) Protein-calorie malnutrition Current Visit: No Status: Acute - Plan REC: 1) restart tube feeds & discontinue IVFs at this time 2) check gastric residuals 3) outpatient speech therapy follow-up Physician Review: Patient Assessed, Agree with Above Assessment and Plan Physician Review Additional Text: COVID: Positive, unvaccinated CT scan: COMPARISON: Chest For Pe Angio dated 07/21/2020; Chest Single View dated 04/17/2021 TECHNIQUE: Dynamically enhanced 3 mm thick images of the chest were obtained during administration of approximately 150mL Isovue 370 IV contrast. Coronal and oblique MIP reconstruction images were generated and reviewed. Exam utilizes a protocol to evaluate the pulmonary arterial tree. All CT scans are performed using dose optimization technique as appropriate and may include automated exposure control or mA/KV adjustment according to patient size. FINDINGS: No pulmonary emboli are identified. The aorta as imaged shows no acute or suspicious finding. No pericardial thickening or effusion. Posteromedial left lower lobe airspace opacification present. Air bronchograms are present. Patchy opacification is seen in the air spaces of the left upper lobe along the fissure. Trace amounts of ground-glass opacification seen in the lateral right upper lobe along the major fissure. Trace amount of pleural fluid on the left and right. Trace amount of atelectasis in the posterior gutter on the right. No mediastinal or hilar suspicious masses. A few small reactive type mediastinal and hilar lymph nodes seen. No chest wall masses or abnormal axillary lymphadenopathy. No mass or abnormality seen at the GE junction. No evidence for esophageal wall thickening or mass. No endobronchial lesions seen. IMPRESSION: No pulmonary emboli identified. Left lower lobe pneumonia with minimal pneumonia findings in the left upper lobe and right upper lobe. Minimal bilateral pleural effusions. No esophageal or GE junction abnormality evident. ECHO: MEASUREMENTS (cm) DIASTOLIC (NORMALS) SYSTOLIC (NORMALS) IVSd 1.0 (0.6-1.2) LA Diam 2.5 (1.9-4.0) LVEF 43% LVIDd 4.7 (3.5-5.7) LVIDs 3.7 (2.0-3.5) %FS 21% LVPWd 0.9 (0.6-1.2) Ao Diam 3.9 (2.0-3.7) 2 DIMENSIONAL ASSESSMENT: RIGHT ATRIUM: NORMAL LEFT ATRIUM: NORMAL RIGHT VENTRICLE: NORMAL LEFT VENTRICLE: REDUCED FUNCTION TRICUSPID VALVE: MITRAL VALVE: PULMONIC VALVE: NORMAL AORTIC VALVE: NORMAL PERICARDIAL EFFUSION: NONE AORTIC ROOT: NORMAL LEFT VENTRICULAR WALL MOTION: MILD GLOBAL HYPOKINESIS. DOPPLER/COLOR FLOW: MILD MITRAL AND TRICUSPID REGURGITATION. COMMENTS: MILDLY REDUCED LEFT VENTRICULAR EJECTION FRACTION OF 40-45%. MILD GLOBAL HYPOKINESIS. MILD MITRAL AND TRICUSPID REGURGITATION. Endoscopy: Impression 1. 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 Moderate gastritis in the body at the antrum of the stomach, s/p biopsies 3. Multiple 7 erosions were found in the antrum Plan: Await biopsy Continue acid suppression therapy Consider ENT for possible surgical myotomy of cryo pharyngeus muscle instead of repeated Botox injections in the future EGD 04/22/2021: PEG tube placement Follow-up chest x-ray 04/23/2021: COMPARISON: 04/17/2021 FINDINGS: Single view of the chest was obtained portable. Prior films were compared. The lung volume is decreased. External EKG leads within the [id number] limits diagnosis. The heart is not enlarged. The thoracic aorta is unremarkable. Focal area of opacity/consolidation is again identified within the left lung base suspicious for pneumonia and/or small trace of left pleural effusion. The right lung demonstrate minimal atelectatic changes medial aspect. The rest of the soft tissue and bony structures demonstrate to be unremarkable. IMPRESSION: Decreased lung volume. Focal area of opacity/consolidation left lung base suspicious for pneumonia and/or small trace of left pleural effusion. No significant interval change. Physical exam: General: Patient, alert and cooperative. HEENT: Atraumatic, Normocephalic, PERRLA Neck: Neck supple. Patient remains n.p.o. Respiratory: Slightly decreased to the bases. Currently on 15 L. Cardiovascular: No edema, Normal pulses, Regular rate/rhythm, Normal S1 S2 Gastrointestinal: Normal bowel sounds, Soft and benign, Non-distended, W/out succussion splash Musculoskeletal: No clubbing, No swelling, No erythema Integumentary: No rashes, No breakdown, No significant lesion Neurological: Abnormal affect Impression: Dyspnea secondary to bilateral Covid pneumonia with hypoxia complicated with left lower lobe pneumonia Atrial flutter/atrial fibrillation now with sinus bradycardia Acute on chronic diastolic CHF Dysphagia with history of muscular dystrophy status post EGD with Botox treatment of the upper esophageal sphincter Moderate gastritis with noted stenosis/spasm of the upper esophageal sphincter and antrum erosions status post Botox treatment Thrombocytopenia Hypernatremia Diarrhea Plan: Dyspnea secondary to bilateral Covid pneumonia with hypoxia complicated with left lower lobe pneumonia: Patient currently on 15 L. Patient had coughing episode last night. Patient was suctioned by respiratory. Improvement noted. PEG tube was placed yesterday afternoon. PEG tube feeds held. Some diarrhea noted this afternoon. Patient also with atrial fibrillation. Heart rate slightly elevated. Digoxin restarted. With his diarrhea will consult dietary to consider change in feeding. Patient has had issues with his prior PEG tubes in the past. Continue with IV Zosyn, Solu-Medrol. Will monitor CRP and ferritin. Maintain sats above 93%. Continue to wean off. Await recommendations by dietary. Due to his current status patient likely not a good candidate for inpatient rehab. Therefore we will pursue long-term acute care facility placement. I will turn the service over to the hospitalist team tomorrow. I will go plan of care with him. Atrial flutter/atrial fibrillation now with bradycardia: Heart rate elevated. Patient restarted on digoxin. Will monitor closely on this medication. Hold off on metoprolol. Will discuss with cardiology. Patient on Lovenox with parameters to hold if with significant thrombocytopenia. Acute on chronic diastolic CHF EF 40 to 45%: Ejection fraction 40 to 45%. Continue to monitor fluid intake. Dysphagia with history of muscular dystrophy status post EGD with Botox treatment of the upper esophageal sphincter: Continue Protonix twice daily. Continue with PEG tube. Moderate gastritis with noted stenosis/spasm of the upper esophageal sphincter and antrum erosions status post Botox treatment: Continue with Protonix Thrombocytopenia: This has improved. Will monitor closely.. Parameters in place to hold Lovenox if platelet count less than 100 Hypernatremia: Continue D5W. Will monitor lab closely. Will transition off IV fluids likely in the next 1 to 2 days once patient taking good oral intake. Diarrhea: This may be related to his current PEG tube feeds. Will have dietary evaluate this. We will need to monitor closely. Continue IV fluids.. CODE STATUS: Full code DVT prophylaxis: Lovenox Advanced care [id number] minutes: We will pursue long-term acute care facility placement
[2021-04-24] MEDS: PIPER/TAZO/NS 3.375gm 3.375 GM/100 ML BAG IVPB SCH ×3 (02:07→17:44)
[2021-04-24 06:58] LABS: Absolute Lymphocytes (CBC) 0.4 K/uL (0.7-4.9); Basophils % 0.4 % (0-1.3); Hematocrit 42.8 % (39.6-49.0); Lymphocytes % 4.9 % (15.3-44.8); MPV 9.6 fL (7.6-11.3); RBC Red Blood Cell Count 4.58 M/uL (4.33-5.43)
[2021-04-24 07:40] LABS: BUN Blood Urea Nitrogen 12 mg/dL (7-18); Bicarbonate 29 mmol/L (21-32); Ferritin 864.3 ng/mL (26-388); Glucose Level 120 mg/dL (74-106); Magnesium 2.1 mg/dL (1.8-2.4); Potassium 3.4 mmol/L (3.5-5.1); Sodium Level 140 mmol/L (136-145)
[2021-04-24] MEDS: PANTOPRAZOLE 40 MG INJ IVP SCH ×2 (09:26→20:07)
[2021-04-24] MEDS: THIAMINE 200 MG/2 ML INJ IVP SCH (09:26)
[2021-04-24] MEDS: DIGOXIN 0.125 MG TABLET FT SCH (09:27)
[2021-04-24] MEDS: ACETAMINOPHEN 650MG/RECT SUPP PR PRN ×2 (09:27→21:22)
[2021-04-24] MEDS: FOLIC ACID 1 MG in NA CHLORIDE 0.9% 50 ML IV SCH (09:29)
[2021-04-24 12:12] LABS: Blood Morphology Comment NOT SEEN (NOT SEEN); Platelet Estimate DECR; White Blood Cell Scan OK (OK)
--- NOTE | 2021-04-24 16:06 | P.PN ---
Date of Service: 04/24/21 Subjective Subjective: Patient did not tolerate the Botox injection. Dysphagia continued and PEG tube placed a couple a days ago. Patient tolerating tube feeds. Working on LTAC placement Review of Systems 10-point ROS is otherwise unremarkable Physical Examination - Vital Signs REVIEWED - Physical Exam General: Alert, In no apparent distress, Oriented x3 Respiratory: Clear to auscultation bilaterally, Normal air movement Cardiovascular: Regular rate/rhythm, Normal S1 S2, No murmurs Gastrointestinal: Normal bowel sounds, Soft and benign, Non-distended, No tenderness Musculoskeletal: No clubbing, No swelling, No tenderness Neurological: Sensation intact, Cranial nerves 3-12 intact; generalized weakness - Studies Medications List Reviewed: Yes Assessment & Plan - Problems (Diagnosis) (1) Acute diastolic heart failure Current Visit: No Status: Acute (2) Atrial flutter Current Visit: No Status: Acute (3) leukopenia Current Visit: No Status: Acute (4) Pneumonia Onset Date: 09/27/18 Current Visit: No Status: Acute Qualifiers: Pneumonia type: due to unspecified organism Laterality: left Lung location: lower lobe of lung Qualified Code(s): J18.9 - Pneumonia, unspecified organism (5) Dysphagia Current Visit: No Status: Acute (6) Muscular dystrophy Onset Date: 09/27/18 Current Visit: No Status: Acute - Plan Plan: 1. Botox injection to the cricopharyngeal muscle did not fix the dysphasia and patient required PEG tube placement a couple of days ago. Clinically stable what wheezing. Continue nutritional support. Awaiting LTAC placement. 2. Speech therapy 3. Echocardiogram with global hypokinesis; continue with cardiac meds 4. Monitor volume status and continue with beta-giana therapy orally. 5. Monitor CBC 6. Continue with IV beta-giana therapy 7. Hold anti coagulation
[2021-04-24] MEDS: GUAIFENESIN/DM 5 ML UCUP PO PRN (20:07)
[2021-04-24] MEDS: FENTANYL CITR 100 MCG/2 ML IV PRN (21:22)
[2021-04-25] MEDS: PIPER/TAZO/NS 3.375gm 3.375 GM/100 ML BAG IVPB SCH ×3 (00:20→15:52)
[2021-04-25] MEDS: THIAMINE 200 MG/2 ML INJ IVP SCH (08:37)
[2021-04-25] MEDS: PANTOPRAZOLE 40 MG INJ IVP SCH ×2 (08:37→21:27)
[2021-04-25] MEDS: DIGOXIN 0.125 MG TABLET FT SCH (08:38)
[2021-04-25] MEDS: GUAIFENESIN/DM 5 ML UCUP PO PRN ×2 (08:49→15:52)
--- NOTE | 2021-04-25 10:45 | EKG ---
Test Date: 2021-04-23 Test Time: 02:29:49 Lugger: RT MEASUREMENT RESULTS: Intervals: Rate: 114 KS: QRSD: 140 QT: 404 QTc: 556 Sheridan: P: KS: QRS: -34 T: 239 INTERPRETIVE STATEMENTS: Atrial fibrillation with rapid ventricular response with premature ventricular or aberrantly conducted complexes Left axis deviation Right bundle branch block Moderate voltage criteria for LVH, may be normal variant Abnormal ECG Compared to ECG 04/21/2021 12:58:26 Left-axis deviation now present Left ventricular hypertrophy now present T-wave abnormality no longer present Possible ischemia no longer present Electronically Signed On 04-25-21 10:40:24 CDT by Chapo Mcgrath
[2021-04-25] MEDS: FOLIC ACID 1 MG in NA CHLORIDE 0.9% 50 ML IV SCH (12:17)
--- NOTE | 2021-04-25 12:50 | P.PN ---
Subjective Date of Service: 04/25/21 Primary Care Provider: Dr. Ramon Chief Complaint: Dysphagia/Covid penumonia, increasing WBC and polys Subjective: New changes Physical Examination - Vital Signs Temperature: 100.1 F Blood Pressure: 107/67 Pulse: 102 Respirations: 20 Pulse Ox (%): 93 - Studies Medications List Reviewed: Yes Assessment And Plan - Current Problems (Diagnosis) (1) Acute diastolic heart failure Current Visit: No Status: Acute (2) Atrial flutter Current Visit: No Status: Acute (3) Chronic respiratory failure Current Visit: No Status: Acute (4) Dysphagia Current Visit: No Status: Acute (5) Muscular dystrophy Onset Date: 09/27/18 Current Visit: No Status: Acute (6) Pneumonia, aspiration Current Visit: No Status: Acute (7) Protein-calorie malnutrition Current Visit: No Status: Acute - Plan REC: 1) consider addition of Clindamycin or other, with increasing WBC / polys in aspiration pneumonia pt 2) continue tube feeds 3) outpatient speech therapy follow-up Physician Review: Patient Assessed, Agree with Above Assessment and Plan Physician Review Additional Text: COVID: Positive, unvaccinated CT scan: COMPARISON: Chest For Pe Angio dated 07/21/2020; Chest Single View dated 04/17/2021 TECHNIQUE: Dynamically enhanced 3 mm thick images of the chest were obtained during administration of approximately 150mL Isovue 370 IV contrast. Coronal and oblique MIP reconstruction images were generated and reviewed. Exam utilizes a protocol to evaluate the pulmonary arterial tree. All CT scans are performed using dose optimization technique as appropriate and may include automated exposure control or mA/KV adjustment according to patient size. FINDINGS: No pulmonary emboli are identified. The aorta as imaged shows no acute or suspicious finding. No pericardial thickening or effusion. Posteromedial left lower lobe airspace opacification present. Air bronchograms are present. Patchy opacification is seen in the air spaces of the left upper lobe along the fissure. Trace amounts of ground-glass opacification seen in the lateral right upper lobe along the major fissure. Trace amount of pleural fluid on the left and right. Trace amount of atelectasis in the posterior gutter on the right. No mediastinal or hilar suspicious masses. A few small reactive type mediastinal and hilar lymph nodes seen. No chest wall masses or abnormal axillary lymphadenopathy. No mass or abnormality seen at the GE junction. No evidence for esophageal wall thickening or mass. No endobronchial lesions seen. IMPRESSION: No pulmonary emboli identified. Left lower lobe pneumonia with minimal pneumonia findings in the left upper lobe and right upper lobe. Minimal bilateral pleural effusions. No esophageal or GE junction abnormality evident. ECHO: MEASUREMENTS (cm) DIASTOLIC (NORMALS) SYSTOLIC (NORMALS) IVSd 1.0 (0.6-1.2) LA Diam 2.5 (1.9-4.0) LVEF 43% LVIDd 4.7 (3.5-5.7) LVIDs 3.7 (2.0-3.5) %FS 21% LVPWd 0.9 (0.6-1.2) Ao Diam 3.9 (2.0-3.7) 2 DIMENSIONAL ASSESSMENT: RIGHT ATRIUM: NORMAL LEFT ATRIUM: NORMAL RIGHT VENTRICLE: NORMAL LEFT VENTRICLE: REDUCED FUNCTION TRICUSPID VALVE: MITRAL VALVE: PULMONIC VALVE: NORMAL AORTIC VALVE: NORMAL PERICARDIAL EFFUSION: NONE AORTIC ROOT: NORMAL LEFT VENTRICULAR WALL MOTION: MILD GLOBAL HYPOKINESIS. DOPPLER/COLOR FLOW: MILD MITRAL AND TRICUSPID REGURGITATION. COMMENTS: MILDLY REDUCED LEFT VENTRICULAR EJECTION FRACTION OF 40-45%. MILD GLOBAL HYPOKINESIS. MILD MITRAL AND TRICUSPID REGURGITATION. Endoscopy: Impression 1. 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 Moderate gastritis in the body at the antrum of the stomach, s/p biopsies 3. Multiple 7 erosions were found in the antrum Plan: Await biopsy Continue acid suppression therapy Consider ENT for possible surgical myotomy of cryo pharyngeus muscle instead of repeated Botox injections in the future EGD 04/22/2021: PEG tube placement Follow-up chest x-ray 04/23/2021: COMPARISON: 04/17/2021 FINDINGS: Single view of the chest was obtained portable. Prior films were compared. The lung volume is decreased. External EKG leads within the [id number] limits diagnosis. The heart is not enlarged. The thoracic aorta is unremarkable. Focal area of opacity/consolidation is again identified within the left lung base suspicious for pneumonia and/or small trace of left pleural effusion. The right lung demonstrate minimal atelectatic changes medial aspect. The rest of the soft tissue and bony structures demonstrate to be unremarkable. IMPRESSION: Decreased lung volume. Focal area of opacity/consolidation left lung base suspicious for pneumonia and/or small trace of left pleural effusion. No significant interval change. Physical exam: General: Patient, alert and cooperative. HEENT: Atraumatic, Normocephalic, PERRLA Neck: Neck supple. Patient remains n.p.o. Respiratory: Slightly decreased to the bases. Currently on 15 L. Cardiovascular: No edema, Normal pulses, Regular rate/rhythm, Normal S1 S2 Gastrointestinal: Normal bowel sounds, Soft and benign, Non-distended, W/out succussion splash Musculoskeletal: No clubbing, No swelling, No erythema Integumentary: No rashes, No breakdown, No significant lesion Neurological: Abnormal affect Impression: Dyspnea secondary to bilateral Covid pneumonia with hypoxia complicated with left lower lobe pneumonia Atrial flutter/atrial fibrillation now with sinus bradycardia Acute on chronic diastolic CHF Dysphagia with history of muscular dystrophy status post EGD with Botox treatment of the upper esophageal sphincter Moderate gastritis with noted stenosis/spasm of the upper esophageal sphincter and antrum erosions status post Botox treatment Thrombocytopenia Hypernatremia Diarrhea Plan: Dyspnea secondary to bilateral Covid pneumonia with hypoxia complicated with left lower lobe pneumonia: Patient currently on 15 L. Patient had coughing episode last night. Patient was suctioned by respiratory. Improvement noted. PEG tube was placed yesterday afternoon. PEG tube feeds held. Some diarrhea noted this afternoon. Patient also with atrial fibrillation. Heart rate slightly elevated. Digoxin restarted. With his diarrhea will consult dietary to consider change in feeding. Patient has had issues with his prior PEG tubes in the past. Continue with IV Zosyn, Solu-Medrol. Will monitor CRP and ferritin. Maintain sats above 93%. Continue to wean off. Await recommendations by dietary. Due to his current status patient likely not a good candidate for inpatient rehab. Therefore we will pursue long-term acute care facility placement. I will turn the service over to the hospitalist team tomorrow. I will go plan of care with him. Atrial flutter/atrial fibrillation now with bradycardia: Heart rate elevated. Patient restarted on digoxin. Will monitor closely on this medication. Hold off on metoprolol. Will discuss with cardiology. Patient on Lovenox with parameters to hold if with significant thrombocytopenia. Acute on chronic diastolic CHF EF 40 to 45%: Ejection fraction 40 to 45%. Continue to monitor fluid intake. Dysphagia with history of muscular dystrophy status post EGD with Botox treatment of the upper esophageal sphincter: Continue Protonix twice daily. Continue with PEG tube. Moderate gastritis with noted stenosis/spasm of the upper esophageal sphincter and antrum erosions status post Botox treatment: Continue with Protonix Thrombocytopenia: This has improved. Will monitor closely.. Parameters in place to hold Lovenox if platelet count less than 100 Hypernatremia: Continue D5W. Will monitor lab closely. Will transition off IV fluids likely in the next 1 to 2 days once patient taking good oral intake. Diarrhea: This may be related to his current PEG tube feeds. Will have dietary evaluate this. We will need to monitor closely. Continue IV fluids.. CODE STATUS: Full code DVT prophylaxis: Lovenox Advanced care [id number] minutes: We will pursue long-term acute care facility placement
[2021-04-25] MEDS: JEVITY 1.5 CAL LIQUID 1,000 ML BOT RTH SCH (16:00)
[2021-04-25] MEDS: FENTANYL CITR 100 MCG/2 ML IV PRN (21:27)
[2021-04-26] MEDS: PIPER/TAZO/NS 3.375gm 3.375 GM/100 ML BAG IVPB SCH ×3 (01:56→16:34)
[2021-04-26] MEDS: FENTANYL CITR 100 MCG/2 ML IV PRN (04:46)
[2021-04-26] MEDS: D5W 1,000 ML IV SCH (05:29)
[2021-04-26 06:43] LABS: BUN Blood Urea Nitrogen 8 mg/dL (7-18); Bicarbonate 28 mmol/L (21-32); Glucose Level 108 mg/dL (74-106); Potassium 3.7 mmol/L (3.5-5.1); Sodium Level 141 mmol/L (136-145)
[2021-04-26] MEDS: DIGOXIN 0.125 MG TABLET FT SCH (09:18)
[2021-04-26] MEDS: THIAMINE 200 MG/2 ML INJ IVP SCH (09:18)
[2021-04-26] MEDS: FOLIC ACID 1 MG in NA CHLORIDE 0.9% 50 ML IV SCH (09:18)
[2021-04-26] MEDS: PANTOPRAZOLE 40 MG INJ IVP SCH ×2 (09:18→21:59)
--- NOTE | 2021-04-26 10:57 | P.PN ---
Date of Service: 04/25/21 Subjective Patient tolerating tube feeds. Patient clinically symptoms are improving. Review of Systems 10-point ROS is otherwise unremarkable Physical Examination - Vital Signs REVIEWED - Physical Exam General: Alert, In no apparent distress, Oriented x2-3 Respiratory: Clear to auscultation bilaterally, Normal air movement Cardiovascular: Regular rate/rhythm, Normal S1 S2, No murmurs Gastrointestinal: Normal bowel sounds, Soft and benign, Non-distended, No tenderness Musculoskeletal: No clubbing, No swelling, No tenderness Neurological: Generalized weakness; physical therapy evaluation - Studies Medications List Reviewed: Yes Assessment & Plan - Problems (Diagnosis) (1) Acute diastolic heart failure Current Visit: No Status: Acute (2) Atrial flutter Current Visit: No Status: Acute (3) leukopenia Current Visit: No Status: Acute (4) Pneumonia Onset Date: 09/27/18 Current Visit: No Status: Acute Qualifiers: Pneumonia type: due to unspecified organism Laterality: left Lung location: lower lobe of lung Qualified Code(s): J18.9 - Pneumonia, unspecified organism (5) Dysphagia Current Visit: No Status: Acute (6) Muscular dystrophy Onset Date: 09/27/18 Current Visit: No Status: Acute - Plan Plan: 1. Tolerating tube feeds. Waiting for LTAC placement. 2. Speech therapy, physical therapy, and occupational therapy consultation 3. Echocardiogram with global hypokinesis; continue with cardiac meds 4. Monitor volume status and continue with beta-giana therapy orally. 5. Monitor CBC 6. Continue with beta-giana therapy 7. Hold anti coagulation
--- NOTE | 2021-04-26 11:36 | P.PN ---
Date of Service: 04/26/21 Subjective Patient tolerating tube feeds. Patient still with generalized weakness and we have just started tube feeds. Patient's strength is diminished. He needs to start ambulating better. With his muscular dystrophy and being in bed for the last couple weeks prognosis is poor unless he gets significant assistance. Attempting placement at [facility] Review of Systems 10-point ROS is otherwise unremarkable Physical Examination - Vital Signs REVIEWED - Physical Exam General: Alert, In no apparent distress, Oriented x2-3 Respiratory: Clear to auscultation bilaterally, Normal air movement Cardiovascular: Regular rate/rhythm, Normal S1 S2, No murmurs Gastrointestinal: Normal bowel sounds, Soft and benign, Non-distended, No tenderness Musculoskeletal: No clubbing, No swelling, No tenderness Neurological: Generalized weakness; physical therapy evaluation - Studies Medications List Reviewed: Yes Assessment & Plan - Problems (Diagnosis) (1) Acute diastolic heart failure Current Visit: No Status: Acute (2) Atrial flutter Current Visit: No Status: Acute (3) leukopenia Current Visit: No Status: Acute (4) Pneumonia Onset Date: 09/27/18 Current Visit: No Status: Acute Qualifiers: Pneumonia type: due to unspecified organism Laterality: left Lung location: lower lobe of lung Qualified Code(s): J18.9 - Pneumonia, unspecified organism (5) Dysphagia Current Visit: No Status: Acute (6) Muscular dystrophy Onset Date: 09/27/18 Current Visit: No Status: Acute - Plan Plan: 1. Tolerating tube feeds. Waiting for LTAC placement. 2. Speech therapy, physical therapy, and occupational therapy consultation 3. Echocardiogram with global hypokinesis; continue with cardiac meds 4. Monitor volume status and continue with beta-giana therapy orally. 5. Monitor CBC 6. Continue with beta-giana therapy 7. Hold anti coagulation
[2021-04-26] MEDS: METOCLOPRAMIDE 10 MG/2mL INJ IV SCH ×2 (15:43→17:14)
[2021-04-26] MEDS ORDERED: HYDROCORTISONE SUC 100 MG INJ IV ONE (18:11)
[2021-04-26] MEDS: FLUCONAZOLE 200mg IVPB 200 MG/100 ML BAG IV SCH (18:30)
[2021-04-26] MEDS ORDERED: ALBUTEROL 2.5 MG/3 ML NEB SOL NEB SCH (20:00)
[2021-04-26] MEDS: IPRATROPIUM BROM 0.5MG/2.5ML NEB SCH (20:00)
[2021-04-26] MEDS: LEVALBUTEROL 1.25 MG/3 ML NEB NEB SCH (20:00)
[2021-04-27] MEDS ORDERED: PIPER/TAZO/NS 3.375gm 3.375 GM/100 ML BAG IVPB SCH
[2021-04-27] MEDS: PIPER/TAZO/NS 3.375gm 3.375 GM/100 ML BAG IVPB SCH ×3 (01:34→16:13)
[2021-04-27] MEDS: METOCLOPRAMIDE 10 MG/2mL INJ IV SCH ×4 (01:34→17:34)
[2021-04-27] MEDS: LEVALBUTEROL 1.25 MG/3 ML NEB NEB SCH ×4 (02:25→19:20)
[2021-04-27] MEDS: IPRATROPIUM BROM 0.5MG/2.5ML NEB SCH ×4 (02:25→19:20)
[2021-04-27] MEDS: MORPHINE 2 MG/ML SYR IV PRN (04:59)
[2021-04-27] MEDS ORDERED: D50W 25 GM/50 ML SYRINGE IV PRN (06:02)
[2021-04-27] MEDS ORDERED: D50W 50 ML IV ONE (06:28)
[2021-04-27 07:58] LABS: ALT/SGPT 29 U/L (12-78); AST/SGOT 16 U/L (15-37); Absolute Lymphocytes (CBC) 0.4 K/uL (0.7-4.9); Albumin 1.7 g/dL (3.4-5.0); Alkaline Phosphatase 97 U/L (45-117); BUN Blood Urea Nitrogen 6 mg/dL (7-18); Basophils % 0.2 % (0-1.3); Bicarbonate 30 mmol/L (21-32); Bilirubin Total 1.7 mg/dL (0.2-1.0); Glucose Level 104 mg/dL (74-106); Hematocrit 41.1 % (39.6-49.0); Lymphocytes % 4.6 % (15.3-44.8); MPV 8.9 fL (7.6-11.3); Magnesium 2.3 mg/dL (1.8-2.4); NT PRO-BNP 1550 pg/mL (<125); Potassium 3.2 mmol/L (3.5-5.1); Protein, Total 5.5 g/dL (6.4-8.2); RBC Red Blood Cell Count 4.41 M/uL (4.33-5.43); Sodium Level 143 mmol/L (136-145)
--- NOTE | 2021-04-27 08:03 | RAD REPORT ---
EXAM DESCRIPTION: Denzel Single View04/27/2021 6:26 am CLINICAL HISTORY: Shortness of breath COMPARISON: April 23, 2021 FINDINGS: Mild worsening in left lung opacities. Small left pleural effusion. Mild right basilar lung opacity unchanged Heart is mildly enlarged IMPRESSION: Mild worsening in the left and no significant change in the right pulmonary opacities pr obably pneumonia
[2021-04-27] MEDS: THIAMINE 200 MG/2 ML INJ IVP SCH (09:00)
[2021-04-27] MEDS: PANTOPRAZOLE 40 MG INJ IVP SCH ×2 (09:00→20:40)
[2021-04-27] MEDS: FOLIC ACID 1 MG in NA CHLORIDE 0.9% 50 ML IV SCH (09:00)
[2021-04-27] MEDS: DIGOXIN 0.125 MG TABLET FT SCH (09:00)
[2021-04-27] MEDS: D5W 1,000 ML IV SCH (10:18)
[2021-04-27] MEDS: FLUCONAZOLE 200mg IVPB 200 MG/100 ML BAG IV SCH (17:34)
[2021-04-28] MEDS: METOCLOPRAMIDE 10 MG/2mL INJ IV SCH ×4 (01:13→17:09)
[2021-04-28] MEDS: PIPER/TAZO/NS 3.375gm 3.375 GM/100 ML BAG IVPB SCH ×3 (01:13→17:11)
[2021-04-28] MEDS: LEVALBUTEROL 1.25 MG/3 ML NEB NEB SCH ×4 (01:15→20:00)
[2021-04-28] MEDS: IPRATROPIUM BROM 0.5MG/2.5ML NEB SCH ×4 (01:15→20:00)
[2021-04-28 05:57] LABS: Absolute Lymphocytes (CBC) 0.4 K/uL (0.7-4.9); Basophils % 0.2 % (0-1.3); Lymphocytes % 4.9 % (15.3-44.8); MPV 8.6 fL (7.6-11.3); RBC Red Blood Cell Count 4.49 M/uL (4.33-5.43)
[2021-04-28 06:05] LABS: BUN Blood Urea Nitrogen 7 mg/dL (7-18); Bicarbonate 30 mmol/L (21-32); Glucose Level 82 mg/dL (74-106); Magnesium 2.4 mg/dL (1.8-2.4); Potassium 3.3 mmol/L (3.5-5.1); Sodium Level 144 mmol/L (136-145)
[2021-04-28] MEDS: THIAMINE 200 MG/2 ML INJ IVP SCH (08:05)
[2021-04-28] MEDS: DIGOXIN 0.125 MG TABLET FT SCH (08:05)
[2021-04-28] MEDS: PANTOPRAZOLE 40 MG INJ IVP SCH ×2 (08:06→20:15)
[2021-04-28] MEDS ORDERED: POTASSIUM 25 MEQ EFFERV TAB PO ONE (09:00)
[2021-04-28] MEDS: FOLIC ACID 1 MG in NA CHLORIDE 0.9% 50 ML IV SCH (09:22)
[2021-04-28 10:04] LABS: Blood Morphology Comment NOT SEEN (NOT SEEN); Platelet Estimate ADEQ; White Blood Cell Scan OK (OK)
--- NOTE | 2021-04-28 13:13 | P.PN ---
Subjective Date of Service: 04/28/21 Primary Care Provider: Dr. Ramon Chief Complaint: Dysphagia/Covid penumonia Subjective: New changes (Not tolerating TFs for N/V/regurgitation for unclear reasons. Still on antibiotics for pneumonia.) Review of Systems 10-point ROS is otherwise unremarkable General: Weakness, Malaise Respiratory: Cough, Shortness of Breath Physical Examination - Vital Signs Temperature: 99.2 F Blood Pressure: 124/76 Pulse: 123 Respirations: 24 Pulse Ox (%): 92 - Physical Exam General: Disheveled, Delirious HEENT: Atraumatic, Normocephalic, PERRLA Respiratory: Diminished, Crackles/rales (faint) Gastrointestinal: Soft and benign, No rebound, No guarding - Studies Medications List Reviewed: Yes Assessment And Plan - Current Problems (Diagnosis) (1) Acute diastolic heart failure Current Visit: No Status: Acute (2) Atrial flutter Current Visit: No Status: Acute (3) Chronic respiratory failure Current Visit: No Status: Acute (4) Dysphagia Current Visit: No Status: Acute (5) Muscular dystrophy Onset Date: 09/27/18 Current Visit: No Status: Acute (6) Pneumonia, aspiration Current Visit: No Status: Acute (7) Protein-calorie malnutrition Current Visit: No Status: Acute - Plan REC: 1) attempt 20 cc/hour tube feeds with Reglan 10 mg IV q 8 hours 2) check gastric residuals 3) if not successful, surgically placed J-tube Physician Review: Patient Assessed, Agree with Above Assessment and Plan Physician Review Additional Text: COVID: Positive, unvaccinated CT scan: COMPARISON: Chest For Pe Angio dated 07/21/2020; Chest Single View dated 04/17/2021 TECHNIQUE: Dynamically enhanced 3 mm thick images of the chest were obtained during administration of approximately 150mL Isovue 370 IV contrast. Coronal and oblique MIP reconstruction images were generated and reviewed. Exam utilizes a protocol to evaluate the pulmonary arterial tree. All CT scans are performed using dose optimization technique as appropriate and may include automated exposure control or mA/KV adjustment according to patient size. FINDINGS: No pulmonary emboli are identified. The aorta as imaged shows no acute or suspicious finding. No pericardial thickening or effusion. Posteromedial left lower lobe airspace opacification present. Air bronchograms are present. Patchy opacification is seen in the air spaces of the left upper lobe along the fissure. Trace amounts of ground-glass opacification seen in the lateral right upper lobe along the major fissure. Trace amount of pleural fluid on the left and right. Trace amount of atelectasis in the posterior gutter on the right. No mediastinal or hilar suspicious masses. A few small reactive type mediastinal and hilar lymph nodes seen. No chest wall masses or abnormal axillary lymphadenopathy. No mass or abnormality seen at the GE junction. No evidence for esophageal wall thickening or mass. No endobronchial lesions seen. IMPRESSION: No pulmonary emboli identified. Left lower lobe pneumonia with minimal pneumonia findings in the left upper lobe and right upper lobe. Minimal bilateral pleural effusions. No esophageal or GE junction abnormality evident. ECHO: MEASUREMENTS (cm) DIASTOLIC (NORMALS) SYSTOLIC (NORMALS) IVSd 1.0 (0.6-1.2) LA Diam 2.5 (1.9-4.0) LVEF 43% LVIDd 4.7 (3.5-5.7) LVIDs 3 .7 (2.0-3.5) %FS 21% LVPWd 0.9 (0.6-1.2) Ao Diam 3.9 (2.0-3.7) 2 DIMENSIONAL ASSESSMENT: RIGHT ATRIUM: NORMAL LEFT ATRIUM: NORMAL RIGHT VENTRICLE: NORMAL LEFT VENTRICLE: REDUCED FUNCTION TRICUSPID VALVE: MITRAL VALVE: PULMONIC VALVE: NORMAL AORTIC VALVE: NORMAL PERICARDIAL EFFUSION: NONE AORTIC ROOT: NORMAL LEFT VENTRICULAR WALL MOTION: MILD GLOBAL HYPOKINESIS. DOPPLER/COLOR FLOW: MILD MITRAL AND TRICUSPID REGURGITATION. COMMENTS: MILDLY REDUCED LEFT VENTRICULAR EJECTION FRACTION OF 40-45%. MILD GLOBAL HYPOKINESIS. MILD MITRAL AND TRICUSPID REGURGITATION. Endoscopy: Impression 1. 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 Moderate gastritis in the body at the antrum of the stomach, s/p biopsies 3. Multiple 7 erosions were found in the antrum Plan: Await biopsy Continue acid suppression therapy Consider ENT for possible surgical myotomy of cryo pharyngeus muscle instead of repeated Botox injections in the future EGD 04/22/2021: PEG tube placement Follow-up chest x-ray 04/23/2021: COMPARISON: 04/17/2021 FINDINGS: Single view of the chest was obtained portable. Prior films were compared. The lung volume is decreased. External EKG leads within the [id number] limits diagnosis. The heart is not enlarged. The thoracic aorta is unremarkable. Focal area of opacity/consolidation is again identified within the left lung base suspicious for pneumonia and/or small trace of left pleural effusion. The right lung demonstrate minimal atelectatic changes medial aspect. The rest of the soft tissue and bony structures demonstrate to be unremarkable. IMPRESSION: Decreased lung volume. Focal area of opacity/consolidation left lung base suspicious for pneumonia and/or small trace of left pleural effusion. No significant interval change. Physical exam: General: Patient, alert and cooperative. HEENT: Atraumatic, Normocephalic, PERRLA Neck: Neck supple. Patient remains n.p.o. Respiratory: Slightly decreased to the bases. Currently on 15 L. Cardiovascular: No edema, Normal pulses, Regular rate/rhythm, Normal S1 S2 Gastrointestinal: Normal bowel sounds, Soft and benign, Non-distended, W/out succussion splash Musculoskeletal: No clubbing, No swelling, No erythema Integumentary: No rashes, No breakdown, No significant lesion Neurological: Abnormal affect Impression: Dyspnea secondary to bilateral Covid pneumonia with hypoxia complicated with left lower lobe pneumonia Atrial flutter/atrial fibrillation now with sinus bradycardia Acute on chronic diastolic CHF Dysphagia with history of muscular dystrophy status post EGD with Botox treatment of the upper esophageal sphincter Moderate gastritis with noted stenosis/spasm of the upper esophageal sphincter and antrum erosions status post Botox treatment Thrombocytopenia Hypernatremia Diarrhea Plan: Dyspnea secondary to bilateral Covid pneumonia with hypoxia complicated with left lower lobe pneumonia: Patient currently on 15 L. Patient had coughing episode last night. Patient was suctioned by respiratory. Improvement noted. PEG tube was placed yesterday afternoon. PEG tube feeds held. Some diarrhea noted this afternoon. Patient also with atrial fibrillation. Heart rate slightly elevated. Digoxin restarted. With his diarrhea will consult dietary to consider change in feeding. Patient has had issues with his prior PEG tubes in the past. Continue with IV Zosyn, Solu-Medrol. Will monitor CRP and ferritin. Maintain sats above 93%. Continue to wean off. Await recommendations by dietary. Due to his current status patient likely not a good candidate for inpatient rehab. Therefore we will pursue long-term acute care facility placement. I will turn the service over to the hospitalist team tomorrow. I will go plan of care with him. Atrial flutter/atrial fibrillation now with bradycardia: Heart rate elevated. Patient restarted on digoxin. Will monitor closely on this medication. Hold off on metoprolol. Will discuss with cardiology. Patient on Lovenox with parameters to hold if with significant thrombocytopenia. Acute on chronic diastolic CHF EF 40 to 45%: Ejection fraction 40 to 45%. Continue to monitor fluid intake. Dysphagia with history of muscular dystrophy status post EGD with Botox treatment of the upper esophageal sphincter: Continue Protonix twice daily. Continue with PEG tube. Moderate gastritis with noted stenosis/spasm of the upper esophageal sphincter and antrum erosions status post Botox treatment: Continue with Protonix Thrombocytopenia: This has improved. Will monitor closely.. Parameters in place to hold Lovenox if platelet count less than 100 Hypernatremia: Continue D5W. Will monitor lab closely. Will transition off IV fluids likely in the next 1 to 2 days once patient taking good oral intake. Diarrhea: This may be related to his current PEG tube feeds. Will have dietary evaluate this. We will need to monitor closely. Continue IV fluids.. CODE STATUS: Full code DVT prophylaxis: Lovenox Advanced care [id number] minutes: We will pursue long-term acute care facility placement
[2021-04-28] MEDS: D5W 1,000 ML IV SCH ×2 (14:00→17:14)
[2021-04-28] MEDS: FLUCONAZOLE 200mg IVPB 200 MG/100 ML BAG IV SCH (17:06)
[2021-04-28] MEDS: MORPHINE 2 MG/ML SYR IV PRN (18:27)
[2021-04-29] MEDS: PIPER/TAZO/NS 3.375gm 3.375 GM/100 ML BAG IVPB SCH ×2 (01:19→09:31)
[2021-04-29] MEDS: METOCLOPRAMIDE 10 MG/2mL INJ IV SCH ×4 (01:20→17:21)
[2021-04-29] MEDS: LEVALBUTEROL 1.25 MG/3 ML NEB NEB SCH ×4 (02:45→20:20)
[2021-04-29] MEDS: IPRATROPIUM BROM 0.5MG/2.5ML NEB SCH ×4 (02:45→20:20)
[2021-04-29 06:19] LABS: Absolute Lymphocytes (CBC) 0.5 K/uL (0.7-4.9); Basophils % 0.2 % (0-1.3); Hematocrit 38.6 % (39.6-49.0); RBC Red Blood Cell Count 4.14 M/uL (4.33-5.43)
[2021-04-29 06:31] LABS: BUN Blood Urea Nitrogen 7 mg/dL (7-18); Bicarbonate 31 mmol/L (21-32); Glucose Level 93 mg/dL (74-106); Magnesium 2.3 mg/dL (1.8-2.4); Potassium 3.4 mmol/L (3.5-5.1); Sodium Level 140 mmol/L (136-145)
[2021-04-29] MEDS ORDERED: POTASSIUM 25 MEQ EFFERV TAB PO ONE (09:00)
[2021-04-29] MEDS: FOLIC ACID 1 MG in NA CHLORIDE 0.9% 50 ML IV SCH (09:25)
[2021-04-29] MEDS: DIGOXIN 0.125 MG TABLET FT SCH (09:25)
[2021-04-29] MEDS: PANTOPRAZOLE 40 MG INJ IVP SCH ×2 (09:27→20:23)
[2021-04-29] MEDS: THIAMINE 200 MG/2 ML INJ IVP SCH (09:33)
--- NOTE | 2021-04-29 10:46 | RAD REPORT ---
EXAM DESCRIPTION: RAD - Chest Single View - 04/29/2021 10:31 am CLINICAL HISTORY: dyspnea Chest pain. COMPARISON: Chest Single View dated 04/27/2021; Chest Single View dated 04/23/2021; Chest Single View dated 04/21/2021; Chest Single View dated 04/17/2021 FINDINGS: Portable technique limits examination quality. Since 04/27/2021, mild worsening of bilateral pulmonary opacities are noted. The heart is mildly enla rged in size. Pleural effusion is noted, greater on the left. IMPRESSION: Mild to moderate worsening of lung aeration since comparative study.
[2021-04-29] MEDS ORDERED: ALBUMIN HUMAN 25% 100 ML IV ONE (11:08)
[2021-04-29] MEDS: METHYLPREDNISOLONE 125 MG INJ IV SCH ×2 (12:03→17:22)
[2021-04-29] MEDS: CLINDAMYCIN INJ 600 MG in NA CHLORIDE 0.9% 50 ML IV SCH ×2 (12:47→17:21)
[2021-04-29] MEDS: D5W 1,000 ML IV SCH (12:48)
[2021-04-29] MEDS ORDERED: CLINDAMYCIN INJ 600 MG in NA CHLORIDE 0.9% 50 ML IV SCH (17:00)
[2021-04-29] MEDS: FLUCONAZOLE 200mg IVPB 200 MG/100 ML BAG IV SCH (17:35)
[2021-04-29] MEDS: ACETYLCYST 20% 4 ML VIAL IH SCH (20:20)
[2021-04-30] MEDS: METHYLPREDNISOLONE 125 MG INJ IV SCH ×4 (00:06→17:41)
[2021-04-30] MEDS: CLINDAMYCIN INJ 600 MG in NA CHLORIDE 0.9% 50 ML IV SCH ×3 (00:07→17:10)
[2021-04-30] MEDS: METOCLOPRAMIDE 10 MG/2mL INJ IV SCH ×4 (00:07→18:00)
[2021-04-30] MEDS: LEVALBUTEROL 1.25 MG/3 ML NEB NEB SCH ×4 (01:55→19:30)
[2021-04-30] MEDS: IPRATROPIUM BROM 0.5MG/2.5ML NEB SCH ×4 (01:55→19:30)
[2021-04-30] MEDS: D5W 1,000 ML IV SCH (05:31)
[2021-04-30] MEDS: ACETYLCYST 20% 4 ML VIAL IH SCH ×2 (08:00→19:30)
[2021-04-30] MEDS: FOLIC ACID 1 MG in NA CHLORIDE 0.9% 50 ML IV SCH (10:02)
[2021-04-30] MEDS: DIGOXIN 0.125 MG TABLET FT SCH (10:03)
[2021-04-30] MEDS: THIAMINE 200 MG/2 ML INJ IVP SCH (10:03)
[2021-04-30] MEDS: PANTOPRAZOLE 40 MG INJ IVP SCH ×2 (10:03→21:16)
[2021-04-30] MEDS: FLUCONAZOLE 200mg IVPB 200 MG/100 ML BAG IV SCH (17:42)
[2021-05-01] MEDS: METHYLPREDNISOLONE 125 MG INJ IV SCH ×4 (00:20→17:31)
[2021-05-01] MEDS: METOCLOPRAMIDE 10 MG/2mL INJ IV SCH ×4 (00:20→17:31)
[2021-05-01] MEDS: CLINDAMYCIN INJ 600 MG in NA CHLORIDE 0.9% 50 ML IV SCH ×3 (00:21→17:31)
[2021-05-01] MEDS: IPRATROPIUM BROM 0.5MG/2.5ML NEB SCH ×4 (01:25→19:20)
[2021-05-01] MEDS: LEVALBUTEROL 1.25 MG/3 ML NEB NEB SCH ×4 (01:25→19:20)
[2021-05-01] MEDS: D5W 1,000 ML IV SCH ×3 (02:00→22:00)
[2021-05-01 09:51] LABS: Absolute Lymphocytes (CBC) 0.2 K/uL (0.7-4.9); Hematocrit 40.3 % (39.6-49.0); Lymphocytes % 2.1 % (15.3-44.8); MPV 7.6 fL (7.6-11.3); RBC Red Blood Cell Count 4.29 M/uL (4.33-5.43)
[2021-05-01] MEDS: FOLIC ACID 1 MG in NA CHLORIDE 0.9% 50 ML IV SCH (09:54)
[2021-05-01] MEDS: DIGOXIN 0.125 MG TABLET FT SCH (09:54)
[2021-05-01] MEDS: PANTOPRAZOLE 40 MG INJ IVP SCH ×2 (09:55→21:35)
[2021-05-01] MEDS: THIAMINE 200 MG/2 ML INJ IVP SCH (09:55)
[2021-05-01 10:18] LABS: ALT/SGPT 18 U/L (12-78); AST/SGOT 18 U/L (15-37); Albumin 1.6 g/dL (3.4-5.0); Alkaline Phosphatase 77 U/L (45-117); BUN Blood Urea Nitrogen 11 mg/dL (7-18); Bicarbonate 31 mmol/L (21-32); Bilirubin Total 0.7 mg/dL (0.2-1.0); Ferritin 1051.1 ng/mL (26-388); Glucose Level 110 mg/dL (74-106); Potassium 3.5 mmol/L (3.5-5.1); Protein, Total 5.8 g/dL (6.4-8.2); Sodium Level 140 mmol/L (136-145)
--- NOTE | 2021-05-01 10:55 | RAD REPORT ---
EXAM DESCRIPTION: RAD - Chest Single View - 05/01/2021 7:09 am CLINICAL HISTORY: pneumonia Chest pain. COMPARISON: Chest Single View dated 04/29/2021; Chest Single View dated 04/27/2021; Chest Single View dated 04/23/2021; Chest Single View dated 04/21/2021; Chest For Pe Angio dated 04/17/2021 FINDINGS: Portable technique limits examination quality. Since 04/29/2021, mild improvement seen bilateral pulmonary opacities, greater on left. Small left pl eural effusion suspected. Heart is moderately enlarged in size. IMPRESSION: Mild improvement in lung aeration seen since 04/29/2021.
[2021-05-01 12:02] LABS: Blood Morphology Comment NOT SEEN (NOT SEEN); Platelet Estimate ADEQ; White Blood Cell Scan OK (OK)
[2021-05-01] MEDS: ACETYLCYST 20% 4 ML VIAL IH SCH ×2 (14:49→19:20)
[2021-05-01] MEDS: FLUCONAZOLE 200mg IVPB 200 MG/100 ML BAG IV SCH (17:32)
--- NOTE | 2021-05-01 18:13 | P.PN ---
Date of Service: 04/27/21 Subjective Patient started aspirating his tube feeds. Had to put those on hold. Spoke to GI and may trying 24-48 hr. Review of Systems 10-point ROS is otherwise unremarkable Physical Examination - Vital Signs REVIEWED - Physical Exam General: Alert, In no apparent distress, Oriented x2-3 Respiratory: Clear to auscultation bilaterally, Normal air movement Cardiovascular: Regular rate/rhythm, Normal S1 S2, No murmurs Gastrointestinal: Normal bowel sounds, Soft and benign, Non-distended, No tenderness Musculoskeletal: No clubbing, No swelling, No tenderness Neurological: Generalized weakness; physical therapy evaluation - Studies Medications List Reviewed: Yes Assessment & Plan - Problems (Diagnosis) (1) Acute diastolic heart failure Current Visit: No Status: Acute (2) Atrial flutter Current Visit: No Status: Acute (3) leukopenia Current Visit: No Status: Acute (4) Pneumonia Onset Date: 09/27/18 Current Visit: No Status: Acute Qualifiers: Pneumonia type: due to unspecified organism Laterality: left Lung location: lower lobe of lung Qualified Code(s): J18.9 - Pneumonia, unspecified organism (5) Dysphagia Current Visit: No Status: Acute (6) Muscular dystrophy Onset Date: 09/27/18 Current Visit: No Status: Acute - Plan Plan: 1. Aspirated tube feeds. Tube feeds on hold. Continue with NPO. 2. Speech therapy, physical therapy, and occupational therapy consultation 3. Echocardiogram with global hypokinesis; continue with cardiac meds; continue with diuresing 4. Monitor volume status and continue with beta-giana therapy orally. 5. Monitor CBC 6. May resume anti coagulation if no bleeding.
--- NOTE | 2021-05-01 18:30 | P.PN ---
Date of Service: 04/28/21 Subjective Doing well with no new c/o Review of Systems 10-point ROS is otherwise unremarkable Physical Examination - Vital Signs REVIEWED - Physical Exam General: Alert, In no apparent distress, Oriented x2-3 Respiratory: rhonchi basilar crackles Cardiovascular: Regular rate/rhythm, Normal S1 S2, No murmurs Gastrointestinal: Normal bowel sounds, Soft and benign, Non-distended, No tenderness Musculoskeletal: No clubbing, No swelling, No tenderness Neurological: Generalized weakness; Assessment & Plan - Problems (Diagnosis) (1) Acute diastolic heart failure Current Visit: No Status: Acute (2) Atrial flutter Current Visit: No Status: Acute (3) Leukopenia Current Visit: No Status: Acute (4) Aspiration pneumonia Onset Date: 04/27/21 Status: Acute Pneumonia type: due to unspecified organism Laterality: left Lung location: lower lobe of lung Qualified Code(s): J18.9 - Pneumonia, unspecified organism (5) Dysphagia Current Visit: No Status: Acute (6) Muscular dystrophy Onset Date: 09/27/1979 Current Visit: No Status: Acute - Plan Plan: 1. Will start TFs in AM. Continue with NPO. 2. Continue with therapy as needed 3. Echocardiogram with global hypokinesis; continue with cardiac meds; continue with diuresing 4. Monitor volume status and continue with beta-giana therapy orally. 5. Monitor CBC 6. May resume anti coagulation if no bleeding.
--- NOTE | 2021-05-01 18:34 | P.PN ---
Date of Service: 04/29/21 Subjective Pt stable; start feedings Review of Systems 10-point ROS is otherwise unremarkable Physical Examination - Vital Signs reviewed - Physical Exam General: Alert, In no apparent distress, Oriented x2-3 Respiratory: rhonchi basilar crackles Cardiovascular: Regular rate/rhythm, Normal S1 S2, No murmurs Gastrointestinal: Normal bowel sounds, Soft and benign, Non-distended, No tenderness Musculoskeletal: No clubbing, No swelling, No tenderness Neurological: Generalized weakness; Assessment & Plan - Problems (Diagnosis) (1) Acute diastolic heart failure Current Visit: No Status: Acute (2) Atrial flutter Current Visit: No Status: Acute (3) Leukopenia Current Visit: No Status: Acute (4) Aspiration pneumonia Onset Date: 04/27/21 Status: Acute Pneumonia type: due to unspecified organism Laterality: left Lung location: lower lobe of lung Qualified Code(s): J18.9 - Pneumonia, unspecified organism (5) Dysphagia Current Visit: No Status: Acute (6) Muscular dystrophy Onset Date: 09/27/1979 Current Visit: No Status: Acute - Plan Plan: 1. Will start TFs in AM. 2. Continue with therapy as needed 3. Echocardiogram with global hypokinesis; continue with cardiac meds; continue with diuresing 4. Monitor volume status and continue with beta-giana therapy orally. 5. Monitor labs 6. Continue with cardiac meds
--- NOTE | 2021-05-01 18:37 | P.PN ---
Date of Service: 04/30/21 Subjective Pt aspirated again; spoke with [id number]. Still wants to proceed with whatever we can to get him for better. Review of Systems 10-point ROS is otherwise unremarkable Physical Examination - Vital Signs reviewed - Physical Exam General: Alert, In no apparent distress, Oriented x2-3 Respiratory: rhonchi basilar crackles Cardiovascular: Regular rate/rhythm, Normal S1 S2, No murmurs Gastrointestinal: Normal bowel sounds, Soft and benign, Non-distended, No tenderness; G-tube Musculoskeletal: No clubbing, No swelling, No tenderness Neurological: Generalized weakness; Assessment & Plan - Problems (Diagnosis) (1) Acute diastolic heart failure Current Visit: No Status: Acute (2) Atrial flutter Current Visit: No Status: Acute (3) Leukopenia Current Visit: No Status: Acute (4) Aspiration pneumonia Onset Date: 04/27/21 Status: Acute Pneumonia type: due to unspecified organism Laterality: left Lung location: lower lobe of lung Qualified Code(s): J18.9 - Pneumonia, unspecified organism (5) Dysphagia Current Visit: No Status: Acute (6) Muscular dystrophy Onset Date: 09/27/1979 Current Visit: No Status: Acute - Plan Plan: 1. Will stop TFs in AM. D/w GI and will see wgere to go from there 2. Continue with therapy as needed 3. Echocardiogram with global hypokinesis; continue with cardiac meds; continue with diuresing 4. Monitor volume status and continue with beta-giana therapy orally. 5. Monitor labs 6. Continue with cardiac meds
--- NOTE | 2021-05-01 18:42 | P.PN ---
Date of Service: 05/01/21 Subjective Spoke with surgery and GI and making arrangements for possible J-tube. Review of Systems 10-point ROS is otherwise unremarkable Physical Examination - Vital Signs reviewed - Physical Exam General: Alert, In no apparent distress, Oriented x2-3 Respiratory: rhonchi basilar crackles Cardiovascular: Regular rate/rhythm, Normal S1 S2, No murmurs Gastrointestinal: Normal bowel sounds, Soft and benign, Non-distended, No tenderness; G-tube Musculoskeletal: No clubbing, No swelling, No tenderness Neurological: Generalized weakness; Assessment & Plan - Problems (Diagnosis) (1) Acute diastolic heart failure Current Visit: No Status: Acute (2) Atrial flutter Current Visit: No Status: Acute (3) Leukopenia Current Visit: No Status: Acute (4) Aspiration pneumonia Onset Date: 04/27/21 Status: Acute Pneumonia type: due to unspecified organism Laterality: left Lung location: lower lobe of lung Qualified Code(s): J18.9 - Pneumonia, unspecified organism (5) Dysphagia Current Visit: No Status: Acute (6) Muscular dystrophy Onset Date: 09/27/1979 Current Visit: No Status: Acute - Plan Plan: 1. Repeat x-ray. Continue antibiotics. Possible J-tube placement. 2. Continue with therapy as needed 3. Echocardiogram with global hypokinesis; continue with cardiac meds; continue with diuresing 4. Monitor volume status and continue with beta-giana therapy orally. 5. Monitor labs 6. Continue with cardiac meds
--- NOTE | 2021-05-01 22:18 | P.PN ---
Subjective Date of Service: 05/01/21 Primary Care Provider: Dr. Ramon Chief Complaint: Dysphagia/Covid penumonia Subjective: New changes (Not tolerating TFs with recurrent regurg / reflux despite medical therapy. Probable recurrent aspiration with known prior aspiration pneumonia.) Physical Examination - Vital Signs Temperature: 96.4 F Blood Pressure: 111/60 Pulse: 86 Respirations: 18 Pulse Ox (%): 88 - Studies Medications List Reviewed: Yes Assessment And Plan - Current Problems (Diagnosis) (1) Acute diastolic heart failure Current Visit: No Status: Acute (2) Atrial flutter Current Visit: No Status: Acute (3) Chronic respiratory failure Current Visit: No Status: Acute (4) Dysphagia Current Visit: No Status: Acute (5) Muscular dystrophy Onset Date: 09/27/18 Current Visit: No Status: Acute (6) Pneumonia, aspiration Current Visit: No Status: Acute (7) Protein-calorie malnutrition Current Visit: No Status: Acute - Plan REC: 1) surgical consult for possible J-tube 2) IVFs 3) NPO Physician Review: Patient Assessed, Agree with Above Assessment and Plan Physician Review Additional Text: COVID: Positive, unvaccinated CT scan: COMPARISON: Chest For Pe Angio dated 07/21/2020; Chest Single View dated 04/17/2021 TECHNIQUE: Dynamically enhanced 3 mm thick images of the chest were obtained during administration of approximately 150mL Isovue 370 IV contrast. Coronal and oblique MIP reconstruction images were generated and reviewed. Exam utilizes a protocol to evaluate the pulmonary arterial tree. All CT scans are performed using dose optimization technique as appropriate and may include automated exposure control or mA/KV adjustment according to patient size. FINDINGS: No pulmonary emboli are identified. The aorta as imaged shows no acute or suspicious finding. No pericardial thickening or effusion. Posteromedial left lower lobe airspace opacification present. Air bronchograms are present. Patchy opacification is seen in the air spaces of the left upper lobe along the fissure. Trace amounts of ground-glass opacification seen in the lateral right upper lobe along the major fissure. Trace amount of pleural fluid on the left and right. Trace amount of atelectasis in the posterior gutter on the right. No mediastinal or hilar suspicious masses. A few small reactive type mediastinal and hilar lymph nodes seen. No chest wall masses or abnormal axillary ly mphadenopathy. No mass or abnormality seen at the GE junction. No evidence for esophageal wall thickening or mass. No endobronchial lesions seen. IMPRESSION: No pulmonary emboli identified. Left lower lobe pneumonia with minimal pneumonia findings in the left upper lobe and right upper lobe. Minimal bilateral pleural effusions. No esophageal or GE junction abnormality evident. ECHO: MEASUREMENTS (cm) DIASTOLIC (NORMALS) SYSTOLIC (NORMALS) IVSd 1.0 (0.6-1.2) LA Diam 2.5 (1.9-4.0) LVEF 43% LVIDd 4.7 (3.5-5.7) LVIDs 3.7 (2.0-3.5) %FS 21% LVPWd 0.9 (0.6-1.2) Ao Diam 3.9 (2.0-3.7) 2 DIMENSIONAL ASSESSMENT: RIGHT ATRIUM: NORMAL LEFT ATRIUM: NORMAL RIGHT VENTRICLE: NORMAL LEFT VENTRICLE: REDUCED FUNCTION TRICUSPID VALVE: MITRAL VALVE: PULMONIC VALVE: NORMAL AORTIC VALVE: NORMAL PERICARDIAL EFFUSION: NONE AORTIC ROOT: NORMAL LEFT VENTRICULAR WALL MOTION: MILD GLOBAL HYPOKINESIS. DOPPLER/COLOR FLOW: MILD MITRAL AND TRICUSPID REGURGITATION. COMMENTS: MILDLY REDUCED LEFT VENTRICULAR EJECTION FRACTION OF 40-45%. MILD GLOBAL HYPOKINESIS. MILD MITRAL AND TRICUSPID REGURGITATION. Endoscopy: Impression 1. 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 Moderate gastritis in the body at the antrum of the stomach, s/p biopsies 3. Multiple 7 erosions were found in the antrum Plan: Await biopsy Continue acid suppression therapy Consider ENT for possible surgical myotomy of cryo pharyngeus muscle instead of repeated Botox injections in the future EGD 04/22/2021: PEG tube placement Follow-up chest x-ray 04/23/2021: COMPARISON: 04/17/2021 FINDINGS: Single view of the chest was obtained portable. Prior films were com pared. The lung volume is decreased. External EKG leads within the [id number] limits diagnosis. The heart is not enlarged. The thoracic aorta is unremarkable. Focal area of opacity/consolidation is again identified within the left lung base suspicious for pneumonia and/or small trace of left pleural effusion. The right lung demonstrate minimal atelectatic changes medial aspect. The rest of the soft tissue and bony structures demonstrate to be unremarkable. IMPRESSION: Decreased lung volume. Focal area of opacity/consolidation left lung base suspicious for pneumonia and/or small trace of left pleural effusion. No significant interval change. Physical exam: General: Patient, alert and cooperative. HEENT: Atraumatic, Normocephalic, PERRLA Neck: Neck supple. Patient remains n.p.o. Respiratory: Slightly decreased to the bases. Currently on 15 L. Cardiovascular: No edema, Normal pulses, Regular rate/rhythm, Normal S1 S2 Gastrointestinal: Normal bowel sounds, Soft and benign, Non-distended, W/out succussion splash Musculoskeletal: No clubbing, No swelling, No erythema Integumentary: No rashes, No breakdown, No significant lesion Neurological: Abnormal affect Impression: Dyspnea secondary to bilateral Covid pneumonia with hypoxia complicated with left lower lobe pneumonia Atrial flutter/atrial fibrillation now with sinus bradycardia Acute on chronic diastolic CHF Dysphagia with history of muscular dystrophy status post EGD with Botox treatment of the upper esophageal sphincter Moderate gastritis with noted stenosis/spasm of the upper esophageal sphincter and antrum erosions status post Botox treatment Thrombocytopenia Hypernatremia Diarrhea Plan: Dyspnea secondary to bilateral Covid pneumonia with hypoxia complicated with left lower lobe pneumonia: Patient currently on 15 L. Patient had coughing episode last night. Patient was suctioned by respiratory. Improvement noted. PEG tube was placed yesterday afternoon. PEG tube feeds held. Some diarrhea noted this afternoon. Patient also with atrial fibrillation. Heart rate slightly elevated. Digoxin restarted. With his diarrhea will consult dietary to consider change in feeding. Patient has had issues with his prior PEG tubes in the past. Continue with IV Zosyn, Solu-Medrol. Will monitor CRP and f erritin. Maintain sats above 93%. Continue to wean off. Await recommendations by dietary. Due to his current status patient likely not a good candidate for inpatient rehab. Therefore we will pursue long-term acute care facility placement. I will turn the service over to the hospitalist team tomorrow. I will go plan of care with him. Atrial flutter/atrial fibrillation now with bradycardia: Heart rate elevated. Patient restarted on digoxin. Will monitor closely on this medication. Hold off on metoprolol. Will discuss with cardiology. Patient on Lovenox with p arameters to hold if with significant thrombocytopenia. Acute on chronic diastolic CHF EF 40 to 45%: Ejection fraction 40 to 45%. Continue to monitor fluid intake. Dysphagia with history of muscular dystrophy status post EGD with Botox treatment of the upper esophageal sphincter: Continue Protonix twice daily. Continue with PEG tube. Moderate gastritis with noted stenosis/spasm of the upper esophageal sphincter and antrum erosions status post Botox treatment: Continue with Protonix Thrombocytopenia: This has improved. Will monitor closely.. Parameters in place to hold Lovenox if platelet count less than 100 Hypernatremia: Continue D5W. Will monitor lab closely. Will transition off IV fluids likely in the next 1 to 2 days once patient taking good oral intake. Diarrhea: This may be related to his current PEG tube feeds. Will have dietary evaluate this. We will need to monitor closely. Continue IV fluids.. CODE STATUS: Full code DVT prophylaxis: Lovenox Advanced care [id number] minutes: We will pursue long-term acute care facility placement
[2021-05-02] MEDS: METHYLPREDNISOLONE 125 MG INJ IV SCH ×4 (00:01→17:55)
[2021-05-02] MEDS: METOCLOPRAMIDE 10 MG/2mL INJ IV SCH ×4 (00:01→17:55)
[2021-05-02] MEDS: LEVALBUTEROL 1.25 MG/3 ML NEB NEB SCH ×4 (01:00→19:30)
[2021-05-02] MEDS: IPRATROPIUM BROM 0.5MG/2.5ML NEB SCH ×4 (01:00→19:30)
[2021-05-02 06:30] LABS: Absolute Lymphocytes (CBC) 0.1 K/uL (0.7-4.9); Basophils % 0.5 % (0-1.3); Hematocrit 41.4 % (39.6-49.0); Lymphocytes % 2.1 % (15.3-44.8); MPV 7.9 fL (7.6-11.3); RBC Red Blood Cell Count 4.41 M/uL (4.33-5.43)
[2021-05-02 07:01] LABS: ALT/SGPT 26 U/L (12-78); AST/SGOT 38 U/L (15-37); Albumin 1.6 g/dL (3.4-5.0); Alkaline Phosphatase 80 U/L (45-117); BUN Blood Urea Nitrogen 10 mg/dL (7-18); Bicarbonate 32 mmol/L (21-32); Bilirubin Total 0.7 mg/dL (0.2-1.0); Glucose Level 99 mg/dL (74-106); Magnesium 2.6 mg/dL (1.8-2.4); Potassium 3.7 mmol/L (3.5-5.1); Protein, Total 6.1 g/dL (6.4-8.2); Sodium Level 142 mmol/L (136-145)
[2021-05-02] MEDS: ACETYLCYST 20% 4 ML VIAL IH SCH ×2 (08:02→19:30)
--- NOTE | 2021-05-02 08:56 | RAD REPORT ---
EXAM DESCRIPTION: Denzel Single View05/02/2021 6:52 am CLINICAL HISTORY: Shortness of breath COMPARISON: May 01, 2021 FINDINGS: No significant change in the bilateral pulmonary opacities and left lower lobe consolidati on. Small left pleural effusion Heart is mildly enlarged IMPRESSION: No significant change in the bilateral pulmonary opacities and left lower lobe consolida tion likely pneumonia
[2021-05-02] MEDS: THIAMINE 200 MG/2 ML INJ IVP SCH (09:00)
[2021-05-02] MEDS ORDERED: KCL 20 MEQ/100 mL IVPB 20 MEQ/100 ML BAG IV SCH (09:00)
[2021-05-02] MEDS: DIGOXIN 0.125 MG TABLET FT SCH (09:00)
[2021-05-02] MEDS: PANTOPRAZOLE 40 MG INJ IVP SCH ×2 (09:00→20:09)
[2021-05-02] MEDS: FOLIC ACID 1 MG in NA CHLORIDE 0.9% 50 ML IV SCH (10:38)
[2021-05-02] MEDS: CLINDAMYCIN INJ 600 MG in NA CHLORIDE 0.9% 50 ML IV SCH ×4 (10:39→17:57)
[2021-05-02] MEDS: FLUCONAZOLE 200mg IVPB 200 MG/100 ML BAG IV SCH (17:55)
[2021-05-02] MEDS: D5W 1,000 ML IV SCH (20:11)
[2021-05-03] MEDS: METHYLPREDNISOLONE 125 MG INJ IV SCH ×5 (00:26→23:52)
[2021-05-03] MEDS: CLINDAMYCIN INJ 600 MG in NA CHLORIDE 0.9% 50 ML IV SCH ×3 (00:26→17:08)
[2021-05-03] MEDS: METOCLOPRAMIDE 10 MG/2mL INJ IV SCH ×5 (00:28→23:52)
--- NOTE | 2021-05-03 01:52 | P.PN ---
Date of Service: 05/02/21 Subjective General surgery did attempted carotid chains NG tube in to a G-J-tube. Consult placed and will evaluate in a.m. patient continues to have coughing congestion along with generalized weakness. Repeat chest x-ray in the morning. Review of Systems 10-point ROS is otherwise unremarkable Physical Examination - Vital Signs reviewed - Physical Exam General: Alert, In no apparent distress, Oriented x2-3 Respiratory: rhonchi basilar crackles Cardiovascular: Regular rate/rhythm, Normal S1 S2, No murmurs Gastrointestinal: Normal bowel sounds, Soft and benign, Non-distended, No tenderness; G-tube Musculoskeletal: No clubbing, No swelling, No tenderness Neurological: Generalized weakness; Assessment & Plan - Problems (Diagnosis) (1) Acute diastolic heart failure Current Visit: No Status: Acute (2) Atrial flutter Current Visit: No Status: Acute (3) Leukopenia Current Visit: No Status: Acute (4) Aspiration pneumonia Onset Date: 04/27/21 Status: Acute Pneumonia type: due to unspecified organism Laterality: left Lung location: lower lobe of lung Qualified Code(s): J18.9 - Pneumonia, unspecified organism (5) Dysphagia Current Visit: No Status: Acute (6) Muscular dystrophy Onset Date: 09/27/1979 Current Visit: No Status: Acute - Plan Plan: 1. Repeat x-ray. Continue antibiotics. Scheduling for G-J-tube placement 2. Continue with therapy as needed; patient with generalized weakness and need to improve his strength 3. Echocardiogram with global hypokinesis; continue with cardiac meds; continue with diuresing 4. Monitor volume status and continue with beta-giana therapy orally. 5. Monitor labs closely 6. Continue with cardiac meds for rate control
[2021-05-03] MEDS ORDERED: FENTANYL CITR 100 MCG/2 ML IV ONE (04:09)
[2021-05-03] MEDS ORDERED: SCOPOLAMINE HYDROBROMIDE PATCH TD ONE (04:09)
[2021-05-03] MEDS: ACETAMINOPHEN 650MG/RECT SUPP PR PRN (04:33)
[2021-05-03 05:41] LABS: ALT/SGPT 40 U/L (12-78); AST/SGOT 49 U/L (15-37); Albumin 1.7 g/dL (3.4-5.0); Alkaline Phosphatase 83 U/L (45-117); BUN Blood Urea Nitrogen 11 mg/dL (7-18); Bicarbonate 30 mmol/L (21-32); Bilirubin Total 0.8 mg/dL (0.2-1.0); Glucose Level 103 mg/dL (74-106); Magnesium 2.3 mg/dL (1.8-2.4); Protein, Total 6.3 g/dL (6.4-8.2); Sodium Level 141 mmol/L (136-145)
[2021-05-03] MEDS: IPRATROPIUM BROM 0.5MG/2.5ML NEB SCH ×4 (08:44→20:28)
[2021-05-03] MEDS: ACETYLCYST 20% 4 ML VIAL IH SCH ×2 (08:44→20:28)
[2021-05-03] MEDS: LEVALBUTEROL 1.25 MG/3 ML NEB NEB SCH ×4 (08:44→20:28)
[2021-05-03] MEDS: PANTOPRAZOLE 40 MG INJ IVP SCH ×2 (09:33→20:49)
[2021-05-03] MEDS: THIAMINE 200 MG/2 ML INJ IVP SCH (09:33)
[2021-05-03] MEDS: FOLIC ACID 1 MG in NA CHLORIDE 0.9% 50 ML IV SCH (09:34)
[2021-05-03] MEDS: DIGOXIN 0.125 MG TABLET FT SCH (09:35)
[2021-05-03 10:15] LABS: Absolute Lymphocytes (CBC) 0.1 K/uL (0.7-4.9); Basophils % 0.3 % (0-1.3); Hematocrit 43.9 % (39.6-49.0); MPV 8.9 fL (7.6-11.3); RBC Red Blood Cell Count 4.68 M/uL (4.33-5.43)
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
[2021-05-03] MEDS: D5W 1,000 ML IV SCH (14:00)
--- NOTE | 2021-05-03 16:25 | P.PN ---
Subjective Date of Service: 05/03/21 Primary Care Provider: Dr. Ramon Chief Complaint: Dysphagia/Covid penumonia Subjective: Other (Overall stable. Currently on 15 L) Physical Examination - Vital Signs Temperature: 98.0 F Blood Pressure: 128/67 Pulse: 73 Respirations: 28 Pulse Ox (%): 92 - Studies Medications List Reviewed: Yes Assessment & Plan Discharge Plan: [facility] Plan to discharge in: Greater than 2 days Physician Review Additional Text: COVID: Positive, unvaccinated CT scan: COMPARISON: Chest For Pe Angio dated 07/21/2020; Chest Single View dated 04/17/2021 TECHNIQUE: Dynamically enhanced 3 mm thick images of the chest were obtained during administration of approximately 150mL Isovue 370 IV contrast. Coronal and oblique MIP reconstruction images were generated and reviewed. Exam utilizes a protocol to evaluate the pulmonary arterial tree. All CT scans are performed using dose optimization technique as appropriate and may include automated exposure control or mA/KV adjustment according to patient size. FINDINGS: No pulmonary emboli are identified. The aorta as imaged shows no acute or suspicious finding. No pericardial thickening or effusion. Posteromedial left lower lobe airspace opacification present. Air bronchograms are present. Patchy opacification is seen in the air spaces of the left upper lobe along the fissure. Trace amounts of ground-glass opacification seen in the lateral right upper lobe along the major fissure. Trace amount of pleural fluid on the left and right. Trace amount of atelectasis in the posterior gutter on the right. No mediastinal or hilar suspicious masses. A few small reactive type mediastinal and hilar lymph nodes seen. No chest wall masses or abnormal axillary lymphadenopathy. No mass or abnormality seen at the GE junction. No evidence for esophageal wall thickening or mass. No endobronchial lesions seen. IMPRESSION: No pulmonary emboli identified. Left lower lobe pneumonia with minimal pneumonia findings in the left upper lobe and right upper lobe. Minimal bilateral pleural effusions. No esophageal or GE junction abnormality evident. ECHO: MEASUREMENTS (cm) DIASTOLIC (NORMALS) SYSTOLIC (NORMALS) IVSd 1.0 (0.6-1.2) LA Diam 2.5 (1.9-4.0) LVEF 43% LVIDd 4.7 (3.5-5.7) LVIDs 3.7 (2.0-3.5) %FS 21% LVPWd 0.9 (0.6-1.2) Ao Diam 3.9 (2.0-3.7) 2 DIMENSIONAL ASSESSMENT: RIGHT ATRIUM: NORMAL LEFT ATRIUM: NORMAL RIGHT VENTRICLE: NORMAL LEFT VENTRICLE: REDUCED FUNCTION TRICUSPID VALVE: MITRAL VALVE: PULMONIC VALVE: NORMAL AORTIC VALVE: NORMAL PERICARDIAL EFFUSION: NONE AORTIC ROOT: NORMAL LEFT VENTRICULAR WALL MOTION: MILD GLOBAL HYPOKINESIS. DOPPLER/COLOR FLOW: MILD MITRAL AND TRICUSPID REGURGITATION. COMMENTS: MILDLY REDUCED LEFT VENTRICULAR EJECTION FRACTION OF 40-45%. MILD GLOBAL HYPOKINESIS. MILD MITRAL AND TRICUSPID REGURGITATION. Endoscopy: Impression 1. 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 Moderate gastritis in the body at the antrum of the stomach, s/p biopsies 3. Multiple 7 erosions were found in the antrum Plan: Await biopsy Continue acid suppression therapy Consider ENT for possible surgical myotomy of cryo pharyngeus muscle instead of repeated Botox injections in the future EGD 04/22/2021: PEG tube placement Follow-up chest x-ray 05/02/2021: COMPARISON: May 01, 2021 FINDINGS: No significant change in the bilateral pulmonary opacities and left lower lobe consolidation. Small left pleural effusion Heart is mildly enlarged IMPRESSION: No significant change in the bilateral pulmonary opacities and left lower lobe consolidation likely pneumonia Physical exam: General: Patient, alert and cooperative. HEENT: Atraumatic, Normocephalic, PERRLA Neck: Neck supple. Patient remains n.p.o. Respiratory: Slightly decreased to the bases. Currently on 15 L. Cardiovascular: No edema, Normal pulses, Regular rate/rhythm, Normal S1 S2 Gastrointestinal: Normal bowel sounds, Soft and benign, Non-distended, W/out succussion splash Musculoskeletal: No clubbing, No swelling, No erythema Integumentary: No rashes, No breakdown, No significant lesion Neurological: Abnormal affect Impression: Dyspnea secondary to bilateral Covid pneumonia with hypoxia complicated with left lower lobe recurrent aspiration pneumonia Atrial flutter/atrial fibrillation now with sinus bradycardia Acute on chronic diastolic CHF Dysphagia with history of muscular dystrophy status post EGD with Botox treatment of the upper esophageal sphincter Moderate gastritis with noted stenosis/spasm of the upper esophageal sphincter and antrum erosions status post Botox treatment Thrombocytopenia Hypernatremia Plan: Dyspnea secondary to bilateral Covid pneumonia with hypoxia complicated with left lower lobe recurrent aspiration pneumonia: Patient continues to have recurrent aspiration after PEG tube. GI recommends surgical intervention. Case discussed with length with surgery. Surgery plans for J-tube extension with G- tube in place. This will likely occur on Monday or . Continue with current plan of care. Will monitor closely. Continue with IV fluids. Patient remains n.p.o. Continue with IV clindamycin. Atrial flutter/atrial fibrillation now with bradycardia: Continue with digoxin. Acute on chronic diastolic CHF EF 40 to 45%: Ejection fraction 40 to 45%. Continue to monitor fluid intake. Dysphagia with history of muscular dystrophy status post EGD with Botox treatment of the upper esophageal sphincter status post PEG tube: Continue Protonix twice daily. Patient remains n.p.o. Plan for G-tube. Case discussed at length with surgery Moderate gastritis with noted stenosis/spasm of the upper esophageal sphincter and antrum erosions status post Botox treatment Status post PEG tube: Continue with above plan of care. Thrombocytopenia: This has improved. Will monitor closely.. Parameters in place to hold Lovenox if platelet count less than 100 Hypernatremia: Continue IV fluids.. CODE STATUS: Full code DVT prophylaxis: Lovenox Advanced care [id number] minutes: Continue long-term acute care facility placement. [place] today patient was denied. May need to reassess this after J-tube placement. Will try to get a hold of brother phone number [phone] to go over plan of care Time Spent Managing Pts Care (In Minutes): 55
[2021-05-04] MEDS: CLINDAMYCIN INJ 600 MG in NA CHLORIDE 0.9% 50 ML IV SCH ×2 (01:01→10:08)
[2021-05-04] MEDS: IPRATROPIUM BROM 0.5MG/2.5ML NEB SCH ×2 (01:10→08:02)
[2021-05-04] MEDS: LEVALBUTEROL 1.25 MG/3 ML NEB NEB SCH ×2 (01:10→08:02)
[2021-05-04 04:44] LABS: Absolute Lymphocytes (CBC) 0.1 K/uL (0.7-4.9); Basophils % 0.1 % (0-1.3); Hematocrit 41.1 % (39.6-49.0); MPV 7.9 fL (7.6-11.3); RBC Red Blood Cell Count 4.43 M/uL (4.33-5.43)
[2021-05-04 05:05] LABS: ALT/SGPT 35 U/L (12-78); AST/SGOT 31 U/L (15-37); Albumin 1.5 g/dL (3.4-5.0); Alkaline Phosphatase 77 U/L (45-117); BUN Blood Urea Nitrogen 10 mg/dL (7-18); Bicarbonate 31 mmol/L (21-32); Bilirubin Total 0.9 mg/dL (0.2-1.0); Glucose Level 109 mg/dL (74-106); Magnesium 2.2 mg/dL (1.8-2.4); Potassium 3.9 mmol/L (3.5-5.1); Protein, Total 6.1 g/dL (6.4-8.2); Sodium Level 141 mmol/L (136-145)
[2021-05-04] MEDS ORDERED: MORPHINE 2 MG/ML SYR IV ONE (05:09)
[2021-05-04] MEDS: METHYLPREDNISOLONE 125 MG INJ IV SCH ×3 (05:31→17:38)
[2021-05-04] MEDS: METOCLOPRAMIDE 10 MG/2mL INJ IV SCH ×3 (05:31→17:39)
--- NOTE | 2021-05-04 06:38 | P.PN ---
Subjective Date of Service: 05/04/21 Primary Care Provider: Dr. Ramon Chief Complaint: Dysphagia/Covid penumonia Subjective: Other (Overall stable. Patient remains on 15 L.) Physical Examination - Vital Signs Temperature: 98.1 F Blood Pressure: 126/84 Pulse: 78 Respirations: 24 Pulse Ox (%): 89 - Studies Medications List Reviewed: Yes Assessment & Plan Discharge Plan: Home Plan to discharge in: Greater than 2 days Physician Review Additional Text: COVID: Positive, unvaccinated CT scan: COMPARISON: Chest For Pe Angio dated 07/21/2020; Chest Single View dated 04/17/2021 TECHNIQUE: Dynamically enhanced 3 mm thick images of the chest were obtained during administration of approximately 150mL Isovue 370 IV contrast. Coronal and oblique MIP reconstruction images were generated and reviewed. Exam utilizes a protocol to evaluate the pulmonary arterial tree. All CT scans are performed using dose optimization technique as appropriate and may include automated exposure control or mA/KV adjustment according to patient size. FINDINGS: No pulmonary emboli are identified. The aorta as imaged shows no acute or suspicious finding. No pericardial thickening or effusion. Posteromedial left lower lobe airspace opacification present. Air bronchograms are present. Patchy opacification is seen in the air spaces of the left upper lobe along the fissure. Trace amounts of ground-glass opacification seen in the lateral right upper lobe along the major fissure. Trace amount of pleural fluid on the left and right. Trace amount of atelectasis in the posterior gutter on the right. No mediastinal or hilar suspicious masses. A few small reactive type mediastinal and hilar lymph nodes seen. No chest wall masses or abnormal axillary lymphadenopathy. No mass or abnormality seen at the GE junction. No evidence for esophageal wall thickening or mass. No endobronchial lesions seen. IMPRESSION: No pulmonary emboli identified. Left lower lobe pneumonia with minimal pneumonia findings in the left upper lobe and right upper lobe. Minimal bilateral pleural effusions. No esophageal or GE junction abnormality evident. ECHO: MEASUREMENTS (cm) DIASTOLIC (NORMALS) SYSTOLIC (NORMALS) IVSd 1.0 (0.6-1.2) LA Diam 2.5 (1.9-4.0) LVEF 43% LVIDd 4.7 (3.5-5.7) LVIDs 3.7 (2.0-3.5) %FS 21% LVPWd 0.9 (0.6-1.2) Ao Diam 3.9 (2.0-3.7) 2 DIMENSIONAL ASSESSMENT: RIGHT ATRIUM: NORMAL LEFT ATRIUM: NORMAL RIGHT VENTRICLE: NORMAL LEFT VENTRICLE: REDUCED FUNCTION TRICUSPID VALVE: MITRAL VALVE: PULMONIC VALVE: NORMAL AORTIC VALVE: NORMAL PERICARDIAL EFFUSION: NONE AORTIC ROOT: NORMAL LEFT VENTRICULAR WALL MOTION: MILD GLOBAL HYPOKINESIS. DOPPLER/COLOR FLOW: MILD MITRAL AND TRICUSPID REGURGITATION. COMMENTS: MILDLY REDUCED LEFT VENTRICULAR EJECTION FRACTION OF 40-45%. MILD GLOBAL HYPOKINESIS. MILD MITRAL AND TRICUSPID REGURGITATION. Endoscopy: Impression 1. 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 Moderate gastritis in the body at the antrum of the stomach, s/p biopsies 3. Multiple 7 erosions were found in the antrum Plan: Await biopsy Continue acid suppression therapy Consider ENT for possible surgical myotomy of cryo pharyngeus muscle instead of repeated Botox injections in the future EGD 04/22/2021: PEG tube placement Follow-up chest x-ray 05/04/2021: COMPARISON: May 02, 2021 FINDINGS: Improvement in the bilateral pulmonary opacities. Heart remains enlarged. IMPRESSION: Mild improvement in the bilateral pneumonia Physical exam: General: Patient, alert and cooperative. HEENT: Atraumatic, Normocephalic, PERRLA Neck: Neck supple. Patient remains n.p.o. Respiratory: Slightly decreased to the bases. Currently on 15 L. Cardiovascular: No edema, Normal pulses, Regular rate/rhythm, Normal S1 S2 Gastrointestinal: Normal bowel sounds, Soft and benign, Non-distended, W/out succussion splash Musculoskeletal: No clubbing, No swelling, No erythema Integumentary: No rashes, No breakdown, No significant lesion Neurological: Abnormal affect Impression: Dyspnea secondary to bilateral Covid pneumonia with hypoxia complicated with left lower lobe recurrent aspiration pneumonia Atrial flutter/atrial fibrillation now with sinus bradycardia Acute on chronic diastolic CHF Dysphagia with history of muscular dystrophy status post EGD with Botox treatment of the upper esophageal sphincter Moderate gastritis with noted stenosis/spasm of the upper esophageal sphincter and antrum erosions status post Botox treatment Thrombocytopenia Hypernatremia Plan: Dyspnea secondary to bilateral Covid pneumonia with hypoxia complicated with left lower lobe recurrent aspiration pneumonia: Patient remained stable on 15 L. Case discussed at length with pulmonology and pharmacy. The patient has been on multiple antibiotics for multiple days including Zosyn and clindamycin. White count remains normal. Chest x-ray improved. Will discontinue IV clindamycin at this time. Remain off antibiotics for now. Case discussed with surgery. Surgery plans for J-tube extension and G-tube in place. This will likely occur tomorrow. Patient in agreement. Continue to monitor CRP and ferritin. Continue IV steroids. Patient remains on IV fluids for now until J- tube can be placed. Will change Xopenex and Atrovent to as needed. Patient remains on Mucomyst. Continue to wean off oxygen. Maintain sats above 93%. Aspiration precaution in place. Atrial flutter/atrial fibrillation now with bradycardia: Continue with digoxin. Acute on chronic diastolic CHF EF 40 to 45%: Ejection fraction 40 to 45%. Continue to monitor fluid intake. Dysphagia with history of muscular dystrophy status post EGD with Botox treatment of the upper esophageal sphincter status post PEG tube: Continue Protonix twice daily. Patient remains n.p.o. Plan for G-tube. Case discussed at length with surgery Moderate gastritis with noted stenosis/spasm of the upper esophageal sphincter and antrum erosions status post Botox treatment Status post PEG tube: Continue with above plan of care. Thrombocytopenia: This has improved. Will monitor closely.. Parameters in place to hold Lovenox if platelet count less than 100 Hypernatremia: Resolved. Continue IV fluids. CODE STATUS: Full code DVT prophylaxis: Lovenox Advanced care [id number] minutes: Continue long-term acute care facility placement. [place] today patient was denied. Will need to discuss with social work instructor about plan of care after J- tube. He is discussed with brother yesterday concerning plan of care. His phone number is [phone]. Surgery to also discuss plan of care. Time Spent Managing Pts Care (In Minutes): 55
--- NOTE | 2021-05-04 07:39 | RAD REPORT ---
EXAM DESCRIPTION: [facility] Single View05/04/2021 7:10 am CLINICAL HISTORY: Shortness of breath COMPARISON: May 02, 2021 FINDINGS: Improvement in the bilateral pulmonary opacities. Heart remains enlarged. IMPRESSION: Mild improvement in the bilateral pneumonia
[2021-05-04] MEDS: ACETYLCYST 20% 4 ML VIAL IH SCH ×3 (08:02→19:30)
[2021-05-04] MEDS ORDERED: KCL 20 MEQ/100 mL IVPB 20 MEQ/100 ML BAG IV SCH (09:00)
[2021-05-04] MEDS: PANTOPRAZOLE 40 MG INJ IVP SCH ×2 (10:08→21:12)
[2021-05-04] MEDS: FOLIC ACID 1 MG in NA CHLORIDE 0.9% 50 ML IV SCH (10:08)
[2021-05-04] MEDS: DIGOXIN 0.125 MG TABLET FT SCH (10:40)
[2021-05-04] MEDS: THIAMINE 200 MG/2 ML INJ IVP SCH (10:49)
[2021-05-04] MEDS: D5W 1,000 ML IV SCH (11:35)
[2021-05-04] MEDS: LEVALBUTEROL 1.25 MG/3 ML NEB NEB PRN ×2 (15:55→19:30)
[2021-05-04] MEDS ORDERED: ENOXAPARIN 30 MG/0.3 ML SQ SCH (17:00)
[2021-05-04] MEDS: ACETAMINOPHEN 650MG/RECT SUPP PR PRN (17:38)
[2021-05-04] MEDS ORDERED: LORazepam 2 MG/ML VIAL IV ONE (21:23)
[2021-05-05] MEDS: METHYLPREDNISOLONE 125 MG INJ IV SCH ×4 (00:41→16:22)
[2021-05-05] MEDS: METOCLOPRAMIDE 10 MG/2mL INJ IV SCH ×4 (00:41→16:53)
[2021-05-05 04:55] LABS: Absolute Lymphocytes (CBC) 0.1 K/uL (0.7-4.9); Basophils % 0.2 % (0-1.3); Hematocrit 42.9 % (39.6-49.0); Lymphocytes % 1.3 % (15.3-44.8); RBC Red Blood Cell Count 4.64 M/uL (4.33-5.43)
[2021-05-05 05:23] LABS: Blood Morphology Comment NOT SEEN (NOT SEEN); Platelet Estimate ADEQ
--- NOTE | 2021-05-05 06:20 | P.PN ---
Subjective Date of Service: 05/05/21 Primary Care Provider: Dr. Ramon Chief Complaint: Dysphagia/Covid penumonia Subjective: Other (Stable on 15 L) Physical Examination - Vital Signs Temperature: 97.8 F Blood Pressure: 142/75 Pulse: 86 Respirations: 16 Pulse Ox (%): 93 - Studies Medications List Reviewed: Yes Assessment & Plan Discharge Plan: Home Plan to discharge in: Greater than 2 days Physician Review Additional Text: COVID: Positive, unvaccinated CT scan: COMPARISON: Chest For Pe Angio dated 07/21/2020; Chest Single View dated 04/17/2021 TECHNIQUE: Dynamically enhanced 3 mm thick images of the chest were obtained during administration of approximately 150mL Isovue 370 IV contrast. Coronal and oblique MIP reconstruction images were generated and reviewed. Exam utilizes a protocol to evaluate the pulmonary arterial tree. All CT scans are performed using dose optimization technique as appropriate and may include automated exposure control or mA/KV adjustment according to patient size. FINDINGS: No pulmonary emboli are identified. The aorta as imaged shows no acute or suspicious finding. No pericardial thickening or effusion. Posteromedial left lower lobe airspace opacification present. Air bronchograms are present. Patchy opacification is seen in the air spaces of the left upper lobe along the fissure. Trace amounts of ground-glass opacification seen in the lateral right upper lobe along the major fissure. Trace amount of pleural fluid on the left and right. Trace amount of atelectasis in the posterior gutter on the right. No mediastinal or hilar suspicious masses. A few small reactive type mediastinal and hilar lymph nodes seen. No chest wall masses or abnormal axillary lymphadenopathy. No mass or abnormality seen at the GE junction. No evidence for esophageal wall thickening or mass. No endobronchial lesions seen. IMPRESSION: No pulmonary emboli identified. Left lower lobe pneumonia with minimal pneumonia findings in the left upper lobe and right upper lobe. Minimal bilateral pleural effusions. No esophageal or GE junction abnormality evident. ECHO: MEASUREMENTS (cm) DIASTOLIC (NORMALS) SYSTOLIC (NORMALS) IVSd 1.0 (0.6-1.2) LA Diam 2.5 (1.9-4.0) LVEF 43% LVIDd 4.7 (3.5-5.7) LVIDs 3.7 (2.0-3.5) %FS 21% LVPWd 0.9 (0.6-1.2) Ao Diam 3.9 (2.0-3.7) 2 DIMENSIONAL ASSESSMENT: RIGHT ATRIUM: NORMAL LEFT ATRIUM: NORMAL RIGHT VENTRICLE: NORMAL LEFT VENTRICLE: REDUCED FUNCTION TRICUSPID VALVE: MITRAL VALVE: PULMONIC VALVE: NORMAL AORTIC VALVE: NORMAL PERICARDIAL EFFUSION: NONE AORTIC ROOT: NORMAL LEFT VENTRICULAR WALL MOTION: MILD GLOBAL HYPOKINESIS. DOPPLER/COLOR FLOW: MILD MITRAL AND TRICUSPID REGURGITATION. COMMENTS: MILDLY REDUCED LEFT VENTRICULAR EJECTION FRACTION OF 40-45%. MILD GLOBAL HYPOKINESIS. MILD MITRAL AND TRICUSPID REGURGITATION. Endoscopy: Impression 1. 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 Moderate gastritis in the body at the antrum of the stomach, s/p biopsies 3. Multiple 7 erosions were found in the antrum Plan: Await biopsy Continue acid suppression therapy Consider ENT for possible surgical myotomy of cryo pharyngeus muscle instead of repeated Botox injections in the future EGD 04/22/2021: PEG tube placement Follow-up chest x-ray 05/04/2021: COMPARISON: May 02, 2021 FINDINGS: Improvement in the bilateral pulmonary opacities. Heart remains enlarged. IMPRESSION: Mild improvement in the bilateral pneumonia Physical exam: General: Patient, alert and cooperative. HEENT: Atraumatic, Normocephalic, PERRLA Neck: Neck supple. Patient remains n.p.o. Respiratory: Slightly decreased to the bases. Currently on 15 L. Cardiovascular: No edema, Normal pulses, Regular rate/rhythm, Normal S1 S2 Gastrointestinal: Normal bowel sounds, Soft and benign, Non-distended, W/out succussion splash Musculoskeletal: No clubbing, No swelling, No erythema Integumentary: No rashes, No breakdown, No significant lesion Neurological: Abnormal affect Impression: Dyspnea secondary to bilateral Covid pneumonia with hypoxia complicated with left lower lobe recurrent aspiration pneumonia Atrial flutter/atrial fibrillation now with sinus bradycardia Acute on chronic diastolic CHF Dysphagia with history of muscular dystrophy status post EGD with Botox treatment of the upper esophageal sphincter Moderate gastritis with noted stenosis/spasm of the upper esophageal sphincter and antrum erosions status post Botox treatment Thrombocytopenia Hypernatremia Plan: Dyspnea secondary to bilateral Covid pneumonia with hypoxia complicated with left lower lobe recurrent aspiration pneumonia: Patient remained stable on 15 L. Continue to wean off oxygen to maintain sats above 93%. Spoke with surgery at length. SurgeryJ-tube extension held due to current oxygen requirement. Surgery wants the patient to be a little bit stronger before intervention. We will continue to monitor the patient closely. Continue to monitor CRP and ferritin. PICC line ordered. TPN ordered. Aspiration precaution in place. Atrial flutter/atrial fibrillation now with bradycardia: Continue with digoxin. Acute on chronic diastolic CHF EF 40 to 45%: Ejection fraction 40 to 45%. Continue to monitor fluid intake. Dysphagia with history of muscular dystrophy status post EGD with Botox treatment of the upper esophageal sphincter status post PEG tube: Continue Protonix twice daily. Patient remains n.p.o. plan for J-tube extension once patient oxygen status improved Moderate gastritis with noted stenosis/spasm of the upper esophageal sphincter and antrum erosions status post Botox treatment Status post PEG tube: Continue with above plan of care. Thrombocytopenia: This has improved. Will monitor closely.. Parameters in place to hold Lovenox if platelet count less than 100 Hypernatremia: Resolved. Continue IV fluids. CODE STATUS: Full code DVT prophylaxis: Lovenox Advanced care [id number] minutes: Continue long-term acute care facility placement. [place] today patient was denied. Will need to discuss with social media intern about plan of care after J- tube. He is discussed with brother yesterday concerning plan of care. His phone number is [phone]. Surgery to also discuss plan of care. Time Spent Managing Pts Care (In Minutes): 55
[2021-05-05] MEDS: ACETYLCYST 20% 4 ML VIAL IH SCH ×2 (08:00→20:00)
[2021-05-05] MEDS: IPRATROPIUM BROM 0.5MG/2.5ML NEB PRN ×2 (08:21→20:00)
[2021-05-05] MEDS: LEVALBUTEROL 1.25 MG/3 ML NEB NEB PRN ×2 (08:21→20:00)
[2021-05-05 08:28] LABS: BUN Blood Urea Nitrogen 9 mg/dL (7-18); Bicarbonate 32 mmol/L (21-32); Ferritin 1422.7 ng/mL (26-388); Glucose Level 107 mg/dL (74-106); Magnesium 2.2 mg/dL (1.8-2.4); Potassium 4.2 mmol/L (3.5-5.1); Sodium Level 138 mmol/L (136-145)
--- NOTE | 2021-05-05 09:08 | P.PN ---
Subjective Date of Service: 05/04/21 Primary Care Provider: Dr. Ramon Chief Complaint: Dysphagia/Covid penumonia Patient remains lethargic and minimally verbal during my examination. Physical Examination - Vital Signs Temperature: 97.8 F Blood Pressure: 142/75 Pulse: 86 Respirations: 16 Pulse Ox (%): 93 - Physical Exam General: Other (lethargic but arousable) Respiratory: Diminished Cardiovascular: Regular rate/rhythm Gastrointestinal: Soft and benign (PEG tube in place) - Studies Medications List Reviewed: Yes Assessment And Plan - Current Problems (Diagnosis) (1) Dysphagia Current Visit: No Status: Acute Plan: I have discussed the options with the patient as well as his brother whom is MPOA, we have decided to start TPN via PICC line and will plan to exchange the PEG for a PEG Jejunostomy tube. - i have explained the risks, benefits and alterantives of the PEG J including but not limited to bleeding, infection, damage to surrounding internal organs, need for more surgery or procedures and noted that PEG-J frequently require ongoing procedures due to malpositioning. - will plan for tube placement on Mon. Physician Review: Patient Assessed, Agree with Above Assessment and Plan Physician Review Additional Text: COVID: Positive, unvaccinated CT scan: COMPARISON: Chest For Pe Angio dated 07/21/2020; Chest Single View dated 04/17/2021 TECHNIQUE: Dynamically enhanced 3 mm thick images of the chest were obtained during administration of approximately 150mL Isovue 370 IV contrast. Coronal and oblique MIP reconstruction images were generated and reviewed. Exam utilizes a protocol to evaluate the pulmonary arterial tree. All CT scans are performed using dose optimization technique as appropriate and may include automated exposure control or mA/KV adjustment according to patient size. FINDINGS: No pulmonary emboli are identified. The aorta as imaged shows no acute or suspicious finding. No pericardial thickening or effusion. Posteromedial left lower lobe airspace opacification present. Air bronchograms are present. Patchy opacification is seen in the air spaces of the left upper lobe along the fissure. Trace amounts of ground-glass opacification seen in the lateral right upper lobe along the major fissure. Trace amount of pleural fluid on the left and right. Trace amount of atelectasis in the posterior gutter on the right. No mediastinal or hilar suspicious masses. A few small reactive type mediastinal and hilar lymph nodes seen. No chest wall masses or abnormal axillary lymphadenopathy. No mass or abnormality seen at the GE junction. No evidence for esophageal wall thickening or mass. No endobronchial lesions seen. IMPRESSION: No pulmonary emboli identified. Left lower lobe pneumonia with minimal pneumonia findings in the left upper lobe and right upper lobe. Minimal bilateral pleural effusions. No esophageal or GE junction abnormality evident. ECHO: MEASUREMENTS (cm) DIASTOLIC (NORMALS) SYSTOLIC (NORMALS) IVSd 1.0 (0.6-1.2) LA Diam 2.5 (1.9-4.0) LVEF 43% LVIDd 4.7 (3.5-5.7) LVIDs 3.7 (2.0-3.5) %FS 21% LVPWd 0.9 (0.6-1.2) Ao Diam 3.9 (2.0-3.7) 2 DIMENSIONAL ASSESSMENT: RIGHT ATRIUM: NORMAL LEFT ATRIUM: NORMAL RIGHT VENTRICLE: NORMAL LEFT VENTRICLE: REDUCED FUNCTION TRICUSPID VALVE: MITRAL VALVE: PULMONIC VALVE: NORMAL AORTIC VALVE: NORMAL PERICARDIAL EFFUSION: NONE AORTIC ROOT: NORMAL LEFT VENTRICULAR WALL MOTION: MILD GLOBAL HYPOKINESIS. DOPPLER/COLOR FLOW: MILD MITRAL AND TRICUSPID REGURGITATION. COMMENTS: MILDLY REDUCED LEFT VENTRICULAR EJECTION FRACTION OF 40-45%. MILD GLOBAL HYPOKINESIS. MILD MITRAL AND TRICUSPID REGURGITATION. Endoscopy: Impression 1. 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 Moderate gastritis in the body at the antrum of the stomach, s/p biopsies 3. Multiple 7 erosions were found in the antrum Plan: Await biopsy Continue acid suppression therapy Consider ENT for possible surgical myotomy of cryo pharyngeus muscle instead of repeated Botox injections in the future EGD 04/22/2021: PEG tube placement Follow-up chest x-ray 05/04/2021: COMPARISON: May 02, 2021 FINDINGS: Improvement in the bilateral pulmonary opacities. Heart remains enlarged. IMPRESSION: Mild improvement in the bilateral pneumonia Physical exam: General: Patient, alert and cooperative. HEENT: Atraumatic, Normocephalic, PERRLA Neck: Neck supple. Patient remains n.p.o. Respiratory: Slightly decreased to the bases. Currently on 15 L. Cardiovascular: No edema, Normal pulses, Regular rate/rhythm, Normal S1 S2 Gastrointestinal: Normal bowel sounds, Soft and benign, Non-distended, W/out succussion splash Musculoskeletal: No clubbing, No swelling, No erythema Integumentary: No rashes, No breakdown, No significant lesion Neurological: Abnormal affect Impression: Dyspnea secondary to bilateral Covid pneumonia with hypoxia complicated with left lower lobe recurrent aspiration pneumonia Atrial flutter/atrial fibrillation now with sinus bradycardia Acute on chronic diastolic CHF Dysphagia with history of muscular dystrophy status post EGD with Botox treatment of the upper esophageal sphincter Moderate gastritis with noted stenosis/spasm of the upper esophageal sphincter and antrum erosions status post Botox treatment Thrombocytopenia Hypernatremia Plan: Dyspnea secondary to bilateral Covid pneumonia with hypoxia complicated with left lower lobe recurrent aspiration pneumonia: Patient remained stable on 15 L. Case discussed at length with pulmonology and pharmacy. The patient has been on multiple antibiotics for multiple days including Zosyn and clindamycin. White count remains normal. Chest x-ray improved. Will discontinue IV clindamycin at this time. Remain off antibiotics for now. Case discussed with surgery. Surgery plans for J-tube extension and G-tube in place. This will likely occur tomorrow. Patient in agreement. Continue to monitor CRP and ferritin. Continue IV steroids. Patient remains on IV fluids for now until J- tube can be placed. Will change Xopenex and Atrovent to as needed. Patient remains on Mucomyst. Continue to wean off oxygen. Maintain sats above 93%. Aspiration precaution in place. Atrial flutter/atrial fibrillation now with bradycardia: Continue with digoxin. Acute on chronic diastolic CHF EF 40 to 45%: Ejection fraction 40 to 45%. Continue to monitor fluid intake. Dysphagia with history of muscular dystrophy status post EGD with Botox treatment of the upper esophageal sphincter status post PEG tube: Continue Protonix twice daily. Patient remains n.p.o. Plan for G-tube. Case discussed at length with surgery Moderate gastritis with noted stenosis/spasm of the upper esophageal sphincter and antrum erosions status post Botox treatment Status post PEG tube: Continue with above plan of care. Thrombocytopenia: This has improved. Will monitor closely.. Parameters in place to hold Lovenox if platelet count less than 100 Hypernatremia: Resolved. Continue IV fluids. CODE STATUS: Full code DVT prophylaxis: Lovenox Advanced care [id number] minutes: Continue long-term acute care facility placement. [place] today patient was denied. Will need to discuss with social media designer about plan of care after J- tube. He is discussed with brother yesterday concerning plan of care. His phone number is [phone]. Surgery to also discuss plan of care.
--- NOTE | 2021-05-05 09:10 | P.PN ---
Subjective Date of Service: 05/05/21 Primary Care Provider: Dr. Ramon Chief Complaint: Dysphagia/Covid penumonia Patient remains lethargic and minimally verbal during my examination, but required BIPAP and now non-rebreather Physical Examination - Vital Signs Temperature: 97.8 F Blood Pressure: 142/75 Pulse: 86 Respirations: 16 Pulse Ox (%): 93 - Physical Exam General: Cachectic Respiratory: Diminished, Other Cardiovascular: Regular rate/rhythm Gastrointestinal: Soft and benign - Studies Medications List Reviewed: Yes Assessment And Plan - Current Problems (Diagnosis) (1) Dysphagia Current Visit: No Status: Acute Plan: I have discussed the options with the patient as well as his brother whom is FERNANDOA, we have decided to start TPN via PICC line and will plan to exchange the PEG for a PEG Jejunostomy tube. - i have explained the risks, benefits and alterantives of the PEG J including but not limited to bleeding, infection, damage to surrounding internal organs, need for more surgery or procedures and noted that PEG-J frequently require ongoing procedures due to malpositioning. - will hold off on placement of PEG J @ this time due to increased oxygen requirements which would make procedure higher risk than necessary, will continue to plan for PICC / TPN, then when oxygen requirements improve will plan for PEG-J Physician Review: Patient Assessed, Agree with Above Assessment and Plan Physician Review Additional Text: COVID: Positive, unvaccinated CT scan: COMPARISON: Chest For Pe Angio dated 07/21/2020; Chest Single View dated 04/17/2021 TECHNIQUE: Dynamically enhanced 3 mm thick images of the chest were obtained during administration of approximately 150mL Isovue 370 IV contrast. Coronal and oblique MIP reconstruction images were generated and reviewed. Exam utilizes a protocol to evaluate the pulmonary arterial tree. All CT scans are performed using dose optimization technique as appropriate and may include automated exposure control or mA/KV adjustment according to patient size. FINDINGS: No pulmonary emboli are identified. The aorta as imaged shows no acute or suspicious finding. No pericardial thickening or effusion. Posteromedial left lower lobe airspace opacification present. Air bronchograms are present. Patchy opacification is seen in the air spaces of the left upper lobe along the fissure. Trace amounts of ground-glass opacification seen in the lateral right upper lobe along the major fissure. Trace amount of pleural fluid on the left and right. Trace amount of atelectasis in the posterior gutter on the right. No mediastinal or hilar suspicious masses. A few small reactive type mediastinal and hilar lymph nodes seen. No chest wall masses or abnormal axillary lymphade nopathy. No mass or abnormality seen at the GE junction. No evidence for esophageal wall thickening or mass. No endobronchial lesions seen. IMPRESSION: No pulmonary emboli identified. Left lower lobe pneumonia with minimal pneumonia findings in the left upper lobe and right upper lobe. Minimal bilateral pleural effusions. No esophageal or GE junction abnormality evident. ECHO: MEASUREMENTS (cm) DIASTOLIC (NORMALS) SYSTOLIC (NORMALS) IVSd 1.0 (0.6-1.2) LA Diam 2.5 (1.9-4.0) LVEF 43% LVIDd 4.7 (3.5-5.7) LVIDs 3.7 (2.0-3.5) %FS 21% LVPWd 0.9 (0.6-1.2) Ao Diam 3.9 (2.0-3.7) 2 DIMENSIONAL ASSESSMENT: RIGHT ATRIUM: NORMAL LEFT ATRIUM: NORMAL RIGHT VENTRICLE: NORMAL LEFT VENTRICLE: REDUCED FUNCTION TRICUSPID VALVE: MITRAL VALVE: PULMONIC VALVE: NORMAL AORTIC VALVE: NORMAL PERICARDIAL EFFUSION: NONE AORTIC ROOT: NORMAL LEFT VENTRICULAR WALL MOTION: MILD GLOBAL HYPOKINESIS. DOPPLER/COLOR FLOW: MILD MITRAL AND TRICUSPID REGURGITATION. COMMENTS: MILDLY REDUCED LEFT VENTRICULAR EJECTION FRACTION OF 40-45%. MILD GLOBAL HYPOKINESIS. MILD MITRAL AND TRICUSPID REGURGITATION. Endoscopy: Impression 1. 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 Moderate gastritis in the body at the antrum of the stomach, s/p biopsies 3. Multiple 7 erosions were found in the antrum Plan: Await biopsy Continue acid suppression therapy Consider ENT for possible surgical myotomy of cryo pharyngeus muscle instead of repeated Botox injections in the future EGD 04/22/2021: PEG tube placement Follow-up chest x-ray 05/04/2021: COMPARISON: May 02, 2021 FINDINGS: Improvement in the bilateral pulmonary opacities. Heart remains enlarged. IMPRESSION: Mild improvement in the bilateral pneumonia Physical exam: General: Patient, alert and cooperative. HEENT: Atraumatic, Normocephalic, PERRLA Neck: Neck supple. Patient remains n.p.o. Respiratory: Slightly decreased to the bases. Currently on 15 L. Cardiovascular: No edema, Normal pulses, Regular rate/rhythm, Normal S1 S2 Gastrointestinal: Normal bowel sounds, Soft and benign, Non-distended, W/out succussion splash Musculoskeletal: No clubbing, No swelling, No erythema Integumentary: No rashes, No breakdown, No significant lesion Neurological: Abnormal affect Impression: Dyspnea secondary to bilateral Covid pneumonia with hypoxia complicated with left lower lobe recurrent aspiration pneumonia Atrial flutter/atrial fibrillation now with sinus bradycardia Acute on chronic diastolic CHF Dysphagia with history of muscular dystrophy status post EGD with Botox treatment of the upper esophageal sphincter Moderate gastritis with noted stenosis/spasm of the upper esophageal sphincter and antrum erosions status post Botox treatment Thrombocytopenia Hypernatremia Plan: Dyspnea secondary to bilateral Covid pneumonia with hypoxia complicated with left lower lobe recurrent aspiration pneumonia: Patient remained stable on 15 L. Case discussed at length with pulmonology and pharmacy. The patient has been on multiple antibiotics for multiple days including Zosyn and clindamycin. White count remains normal. Chest x-ray improved. Will discontinue IV clindamycin at this time. Remain off antibiotics for now. Case discussed with surgery. Surgery plans for J-tube extension and G-tube in place. This will likely occur tomorrow. Patient in agreement. Continue to monitor CRP and ferritin. Continue IV steroids. Patient remains on IV fluids for now until J- tube can be placed. Will change Xopenex and Atrovent to as needed. Patient remains on Mucomyst. Continue to wean off oxygen. Maintain sats above 93%. Aspiration precaution in place. Atrial flutter/atrial fibrillation now with bradycardia: Continue with digoxin. Acute on chronic diastolic CHF EF 40 to 45%: Ejection fraction 40 to 45%. Continue to monitor fluid intake. Dysphagia with history of muscular dystrophy status post EGD with Botox treatment of the upper esophageal sphincter status post PEG tube: Continue Protonix twice daily. Patient remains n.p.o. Plan for G-tube. Case discussed at length with surgery Moderate gastritis with noted stenosis/spasm of the upper esophageal sphincter and antrum erosions status post Botox treatment Status post PEG tube: Continue with above plan of care. Thrombocytopenia: This has improved. Will monitor closely.. Parameters in place to hold Lovenox if platelet count less than 100 Hypernatremia: Resolved. Continue IV fluids. CODE STATUS: Full code DVT prophylaxis: Lovenox Advanced care minutes: Continue long-term acute care facility placement. Ranger today patient was denied. Will need to discuss with social and political studies professor about plan of care after J- tube. He is discussed with brother yesterday concerning plan of care. His phone number is [phone]. Surgery to also discuss plan of care.
[2021-05-05] MEDS: FOLIC ACID 1 MG in NA CHLORIDE 0.9% 50 ML IV SCH (09:13)
[2021-05-05] MEDS: THIAMINE 200 MG/2 ML INJ IVP SCH (09:13)
[2021-05-05] MEDS: PANTOPRAZOLE 40 MG INJ IVP SCH ×2 (09:14→22:12)
[2021-05-05] MEDS: DIGOXIN 0.125 MG TABLET FT SCH (10:20)
[2021-05-05] MEDS: LORazepam 2 MG/ML VIAL IV PRN (10:24)
[2021-05-05] MEDS: D5W 1,000 ML IV SCH (10:28)
[2021-05-06] MEDS: METHYLPREDNISOLONE 125 MG INJ IV SCH ×4 (00:47→17:14)
[2021-05-06] MEDS: METOCLOPRAMIDE 10 MG/2mL INJ IV SCH ×4 (00:47→17:14)
[2021-05-06 04:04] LABS: Absolute Lymphocytes (CBC) 0.1 K/uL (0.7-4.9); Basophils % 0.2 % (0-1.3); Hematocrit 44.4 % (39.6-49.0); Lymphocytes % 1.2 % (15.3-44.8); MPV 9.2 fL (7.6-11.3)
[2021-05-06 04:30] LABS: Ferritin 1544.1 ng/mL (26-388)
[2021-05-06 04:49] LABS: Blood Morphology Comment NOT SEEN (NOT SEEN); Platelet Estimate ADEQ; White Blood Cell Scan OK (OK)
[2021-05-06] MEDS: D5W 1,000 ML IV SCH (05:06)
--- NOTE | 2021-05-06 06:04 | P.PN ---
Subjective Date of Service: 05/06/21 Primary Care Provider: Dr. Ramon Chief Complaint: Dysphagia/Covid penumonia Subjective: Other (Patient remained stable on 15 L) Physical Examination - Vital Signs Temperature: 98.4 F Blood Pressure: 144/80 Pulse: 103 Respirations: 20 Pulse Ox (%): 92 - Studies Medications List Reviewed: Yes Assessment & Plan Discharge Plan: LTAC Plan to discharge in: Greater than 2 days Physician Review Additional Text: COVID: Positive, unvaccinated CT scan: COMPARISON: Chest For Pe Angio dated 07/21/2020; Chest Single View dated 04/17/2021 TECHNIQUE: Dynamically enhanced 3 mm thick images of the chest were obtained during administration of approximately 150mL Isovue 370 IV contrast. Coronal and oblique MIP reconstruction images were generated and reviewed. Exam utilizes a protocol to evaluate the pulmonary arterial tree. All CT scans are performed using dose optimization technique as appropriate and may include automated exposure control or mA/KV adjustment according to patient size. FINDINGS: No pulmonary emboli are identified. The aorta as imaged shows no acute or suspicious finding. No pericardial thickening or effusion. Posteromedial left lower lobe airspace opacification present. Air bronchograms are present. Patchy opacification is seen in the air spaces of the left upper lobe along the fissure. Trace amounts of ground-glass opacification seen in the lateral right upper lobe along the major fissure. Trace amount of pleural fluid on the left and right. Trace amount of atelectasis in the posterior gutter on the right. No mediastinal or hilar suspicious masses. A few small reactive type mediastinal and hilar lymph nodes seen. No chest wall masses or abnormal axillary lymphadenopathy. No mass or abnormality seen at the GE junction. No evidence for esophageal wall thickening or mass. No endobronchial lesions seen. IMPRESSION: No pulmonary emboli identified. Left lower lobe pneumonia with minimal pneumonia findings in the left upper lobe and right upper lobe. Minimal bilateral pleural effusions. No esophageal or GE junction abnormality evident. ECHO: MEASUREMENTS (cm) DIASTOLIC (NORMALS) SYSTOLIC (NORMALS) IVSd 1.0 (0.6-1.2) LA Diam 2.5 (1.9-4.0) LVEF 43% LVIDd 4.7 (3.5-5.7) LVIDs 3.7 (2.0-3.5) %FS 21% LVPWd 0.9 (0.6-1.2) Ao Diam 3.9 (2.0-3.7) 2 DIMENSIONAL ASSESSMENT: RIGHT ATRIUM: NORMAL LEFT ATRIUM: NORMAL RIGHT VENTRICLE: NORMAL LEFT VENTRICLE: REDUCED FUNCTION TRICUSPID VALVE: MITRAL VALVE: PULMONIC VALVE: NORMAL AORTIC VALVE: NORMAL PERICARDIAL EFFUSION: NONE AORTIC ROOT: NORMAL LEFT VENTRICULAR WALL MOTION: MILD GLOBAL HYPOKINESIS. DOPPLER/COLOR FLOW: MILD MITRAL AND TRICUSPID REGURGITATION. COMMENTS: MILDLY REDUCED LEFT VENTRICULAR EJECTION FRACTION OF 40-45%. MILD GLOBAL HYPOKINESIS. MILD MITRAL AND TRICUSPID REGURGITATION. Endoscopy: Impression 1. 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 Moderate gastritis in the body at the antrum of the stomach, s/p biopsies 3. Multiple 7 erosions were found in the antrum Plan: Await biopsy Continue acid suppression therapy Consider ENT for possible surgical myotomy of cryo pharyngeus muscle instead of repeated Botox injections in the future EGD 04/22/2021: PEG tube placement Follow-up chest x-ray 05/06/2021: COMPARISON: Chest Single View dated 05/04/2021; Chest Single View dated 05/02/2021; Chest Single View dated 05/01/2021; Chest Single View dated 04/29/2021; Chest For Pe Angio dated 04/17/2021 FINDINGS: Lines: None. Lungs: No significant change in aeration with bilateral patchy airspace disease and more consolidative type retrocardiac airspace opacities. Pleural: Blunted left costophrenic angle likely due to a small left effusion. Cardiac: The heart size is within normal limits. Bones: No acute fractures. IMPRESSION: No significant change compared with 05/04/2021 with mild bilateral airspace disease and consolidation at the left lung base. Physical exam: General: Patient, alert and cooperative. HEENT: Atraumatic, Normocephalic, PERRLA Neck: Neck supple. Patient remains n.p.o. Respiratory: Slightly decreased to the bases. Currently on 15 L. Cardiovascular: No edema, Normal pulses, Regular rate/rhythm, Normal S1 S2 Gastrointestinal: Normal bowel sounds, Soft and benign, Non-distended, W/out succussion splash Musculoskeletal: No clubbing, No swelling, No erythema Integumentary: No rashes, No breakdown, No significant lesion Neurological: Abnormal affect Impression: Dyspnea secondary to bilateral Covid pneumonia with hypoxia complicated with left lower lobe recurrent aspiration pneumonia Atrial flutter/atrial fibrillation now with sinus bradycardia Acute on chronic diastolic CHF Dysphagia with history of muscular dystrophy status post EGD with Botox treatment of the upper esophageal sphincter Moderate gastritis with noted stenosis/spasm of the upper esophageal sphincter and antrum erosions status post Botox treatment Thrombocytopenia Hypernatremia Plan: Dyspnea secondary to bilateral Covid pneumonia with hypoxia complicated with left lower lobe recurrent aspiration pneumonia: Patient remained stable currently on 15 L. Continue to wean off oxygen to maintain sats above 93%. Surgery waiting for patient condition to improve before proceeding with J-tube extension. Still waiting on PICC line. TPN ordered. Continue IV steroids. Patient off antibiotic therapy. Continue to monitor CRP and ferritin. Aspiration precaution in place. Atrial flutter/atrial fibrillation now with bradycardia: Continue with digoxin. Acute on chronic diastolic CHF EF 40 to 45%: Ejection fraction 40 to 45%. Continue to monitor fluid intake. Dysphagia with history of muscular dystrophy status post EGD with Botox treatment of the upper esophageal sphincter status post PEG tube: Continue Protonix twice daily. Patient remains n.p.o. current plan for J-tube extension once patient oxygen status improved Moderate gastritis with noted stenosis/spasm of the upper esophageal sphincter and antrum erosions status post Botox treatment Status post PEG tube: Continue with above plan of care. PICC line ordered along with TPN. Thrombocytopenia: Will monitor closely.. Parameters in place to hold Lovenox if platelet count less than 100 Hypernatremia: Resolved. Continue IV fluids. CODE STATUS: Full code DVT prophylaxis: Lovenox Advanced care [id number] minutes: Continue long-term acute care facility placement in the future. Continue discussed with brother his phone number is [phone]. Brother is aware of plan of care Time Spent Managing Pts Care (In Minutes): 55
--- NOTE | 2021-05-06 08:38 | RAD REPORT ---
EXAM DESCRIPTION: RAD - Chest Single View - 05/06/2021 4:10 am CLINICAL HISTORY: Follow-up Covid COMPARISON: Chest Single View dated 05/04/2021; Chest Single View dated 05/02/2021; Chest Single View dated 05/01/2021; Chest Single View dated 04/29/2021; Chest For Pe Angio dated 04/17/2021 FINDINGS: Lines: None. Lungs: No significant change in aeration with bilateral patchy airspace disease and more consolidativ e type retrocardiac airspace opacities. Pleural: Blunted left costophrenic angle likely due to a small left effusion. Cardiac: The heart size is within normal limits. Bones: No acute fractures. Other: IMPRESSION: No significant change compared with 05/04/2021 with mild bilateral airspace disease and consolidation at the left lung base.
[2021-05-06] MEDS: DIGOXIN 0.125 MG TABLET FT SCH (09:00)
[2021-05-06] MEDS: FOLIC ACID 1 MG in NA CHLORIDE 0.9% 50 ML IV SCH (09:09)
[2021-05-06] MEDS: THIAMINE 200 MG/2 ML INJ IVP SCH (09:09)
[2021-05-06] MEDS: PANTOPRAZOLE 40 MG INJ IVP SCH ×2 (09:10→21:57)
[2021-05-06] MEDS: ACETYLCYST 20% 4 ML VIAL IH SCH ×2 (09:50→22:15)
[2021-05-06] MEDS: LEVALBUTEROL 1.25 MG/3 ML NEB NEB PRN ×2 (09:50→22:15)
[2021-05-06 10:24] LABS: BUN Blood Urea Nitrogen 9 mg/dL (7-18); Bicarbonate 31 mmol/L (21-32); Glucose Level 98 mg/dL (74-106); Sodium Level 137 mmol/L (136-145)
[2021-05-06 10:26] LABS: Potassium 4.2 mmol/L (3.5-5.1)
--- NOTE | 2021-05-06 12:14 | RAD REPORT ---
EXAM DESCRIPTION: RAD - Chest Single View - 05/06/2021 12:04 pm CLINICAL HISTORY: Picc line placement COMPARISON: Chest Single View dated 05/06/2021; Chest Single View dated 05/04/2021; Chest Single View d ated 05/02/2021; Chest Single View dated 05/01/2021 FINDINGS: Lines: Right subclavian approach PICC with tip overlying the SVC in satisfactory position peer Lungs: Similar patchy multifocal airspace disease including consolidation of the left lung base. Pleural: No significant pleural effusions or pneumothorax. Cardiac: The heart size is within normal limits. Bones: No acute fractures. Other: IMPRESSION: Unchanged aeration lungs compared with 7 hours prior. Interval placement of a right subc lavian approach PICC with tip overlying the SVC in satisfactory position.
[2021-05-06] MEDS: ACETAMINOPHEN 650MG/RECT SUPP PR PRN (12:46)
[2021-05-06] MEDS ORDERED: AA 5%/D20W/ELECTROLYTES-TPN 2,000 ML, Lipids 20% 250 ML with MULTIVITAMINS INJ 10 ML IV SCH ×3 (15:10)
[2021-05-06] MEDS ORDERED: DEXTROSE 10%-WATER 500 ML IV SCH ×2 (16:00)
[2021-05-06] MEDS: ENOXAPARIN 30 MG/0.3 ML SQ SCH (16:14)
[2021-05-06] MEDS: AA 4.25 %/D5W/ELECTROLYTES 2,000 ML, WATER FOR INJ,STERILE 250 ML with MULTIVITAMINS IN... IV SCH ×3 (17:10)
--- NOTE | 2021-05-06 18:21 | P.PN ---
Subjective Date of Service: 05/06/21 Primary Care Provider: Dr. Ramon Chief Complaint: Dysphagia/Covid penumonia Patient remains lethargic and minimally verbal during my examination, but required BIPAP and now non-rebreather Physical Examination - Vital Signs Temperature: 98.1 F Blood Pressure: 131/83 Pulse: 78 Respirations: 20 Pulse Ox (%): 93 - Physical Exam General: Other (lethargic) Respiratory: Diminished - Studies Medications List Reviewed: Yes Assessment And Plan - Current Problems (Diagnosis) (1) Dysphagia Current Visit: No Status: Acute Plan: I have discussed the options with the patient as well as his brother whom is ARNAV, we have decided to start TPN via PICC line and will plan to exchange the PEG for a PEG Jejunostomy tube. - i have explained the risks, benefits and alterantives of the PEG J including but not limited to bleeding, infection, damage to surrounding internal organs, need for more surgery or procedures and noted that PEG-J frequently require ongoing procedures due to malpositioning. - will hold off on placement of PEG J @ this time due to increased oxygen requirements which would make procedure higher risk than necessary, will continue to plan for PICC / TPN, then when oxygen requirements improve will plan for PEG-J - will sign off for now, please call back when oxygen requirements are decreased Physician Review: Patient Assessed, Agree with Above Assessment and Plan Physician Review Additional Text: COVID: Positive, unvaccinated CT scan: COMPARISON: Chest For Pe Angio dated 07/21/2020; Chest Single View dated 04/17/2021 TECHNIQUE: Dynamically enhanced 3 mm thick images of the chest were obtained during administration of approximately 150mL Isovue 370 IV contrast. Coronal and oblique MIP reconstruction images were generated and reviewed. Exam utilizes a protocol to evaluate the pulmonary arterial tree. All CT scans are performed using dose optimization technique as appropriate and may include automated exposure control or mA/KV adjustment according to patient size. FINDINGS: No pulmonary emboli are identified. The aorta as imaged shows no acute or suspicious finding. No pericardial thickening or effusion. Posteromedial left lower lobe airspace opacification present. Air bronchograms are present. Patchy opacification is seen in the air spaces of the left upper lobe along the fissure. Trace amounts of ground-glass opacification seen in the lateral right upper lobe along the major fissure. Trace amount of pleural fluid on the left and right. Trace amount of atelectasis in the posterior gutter on the right. No mediastinal or hilar suspicious masses. A few small reactive type mediastinal and hilar lymph nodes seen. No chest wall masses or abnormal axillary lymphadenopathy. No mass or abnormality seen at the GE junction. No evidence for esophageal wall thickening or mass. No endobronchial lesions seen. IMPRESSION: No pulmonary emboli identified. Left lower lobe pneumonia with minimal pneumonia findings in the left upper lobe and right upper lobe. Minimal bilateral pleural effusions. No esophageal or GE junction abnormality evident. ECHO: MEASUREMENTS (cm) DIASTOLIC (NORMALS) SYSTOLIC (NORMALS) IVSd 1.0 (0.6-1.2) LA Diam 2.5 (1.9-4.0) LVEF 43% LVIDd 4.7 (3.5-5.7) LVIDs 3.7 (2.0-3.5) %FS 21% LVPWd 0.9 (0.6-1.2) Ao Diam 3.9 (2.0-3.7) 2 DIMENSIONAL ASSESSMENT: RIGHT ATRIUM: NORMAL LEFT ATRIUM: NORMAL RIGHT VENTRICLE: NORMAL LEFT VENTRICLE: REDUCED FUNCTION TRICUSPID VALVE: MITRAL VALVE: PULMONIC VALVE: NORMAL AORTIC VALVE: NORMAL PERICARDIAL EFFUSION: NONE AORTIC ROOT: NORMAL LEFT VENTRICULAR WALL MOTION: MILD GLOBAL HYPOKINESIS. DOPPLER/COLOR FLOW: MILD MITRAL AND TRICUSPID REGURGITATION. COMMENTS: MILDLY REDUCED LEFT VENTRICULAR EJECTION FRACTION OF 40-45%. MILD GLOBAL HYPOKINESIS. MILD MITRAL AND TRICUSPID REGURGITATION. Endoscopy: Impression 1. 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 Moderate gastritis in the body at the antrum of the stomach, s/p biopsies 3. Multiple 7 erosions were found in the antrum Plan: Await biopsy Continue acid suppression therapy Consider ENT for possible surgical myotomy of cryo pharyngeus muscle instead of repeated Botox injections in the future EGD 04/22/2021: PEG tube placement Follow-up chest x-ray 05/06/2021: COMPARISON: Chest Single View dated 05/04/2021; Chest Single View dated 05/02/2021; Chest Single View dated 05/01/2021; Chest Single View dated 04/29/2021; Chest For Pe Angio dated 04/17/2021 FINDINGS: Lines: None. Lungs: No significant change in aeration with bilateral patchy airspace disease and more consolidative type retrocardiac airspace opacities. Pleural: Blunted left costophrenic angle likely due to a small left effusion. Cardiac: The heart size is within normal limits. Bones: No acute fractures. IMPRESSION: No significant change compared with 05/04/2021 with mild bilateral airspace disease and consolidation at the left lung base. Physical exam: General: Patient, alert and cooperative. HEENT: Atraumatic, Normocephalic, PERRLA Neck: Neck supple. Patient remains n.p.o. Respiratory: Slightly decreased to the bases. Currently on 15 L. Cardiovascular: No edema, Normal pulses, Regular rate/rhythm, Normal S1 S2 Gastrointestinal: Normal bowel sounds, Soft and benign, Non-distended, W/out succussion splash Musculoskeletal: No clubbing, No swelling, No erythema Integumentary: No rashes, No breakdown, No significant lesion Neurological: Abnormal affect Impression: Dyspnea secondary to bilateral Covid pneumonia with hypoxia complicated with left lower lobe recurrent aspiration pneumonia Atrial flutter/atrial fibrillation now with sinus bradycardia Acute on chronic diastolic CHF Dysphagia with history of muscular dystrophy status post EGD with Botox treatment of the upper esophageal sphincter Moderate gastritis with noted stenosis/spasm of the upper esophageal sphincter and antrum erosions status post Botox treatment Thrombocytopenia Hypernatremia Plan: Dyspnea secondary to bilateral Covid pneumonia with hypoxia complicated with left lower lobe recurrent aspiration pneumonia: Patient remained stable currently on 15 L. Continue to wean off oxygen to maintain sats above 93%. Surgery waiting for patient condition to improve before proceeding with J-tube extension. Still waiting on PICC line. TPN ordered. Continue IV steroids. Patient off antibiotic therapy. Continue to monitor CRP and ferritin. Aspiration precaution in place. Atrial flutter/atrial fibrillation now with bradycardia: Continue with digoxin. Acute on chronic diastolic CHF EF 40 to 45%: Ejection fraction 40 to 45%. Continue to monitor fluid intake. Dysphagia with history of muscular dystrophy status post EGD with Botox treatment of the upper esophageal sphincter status post PEG tube: Continue Protonix twice daily. Patient remains n.p.o. current plan for J-tube extension once patient oxygen status improved Moderate gastritis with noted stenosis/spasm of the upper esophageal sphincter and antrum erosions status post Botox treatment Status post PEG tube: Continue with above plan of care. PICC line ordered along with TPN. Thrombocytopenia: Will monitor closely.. Parameters in place to hold Lovenox if platelet count less than 100 Hypernatremia: Resolved. Continue IV fluids. CODE STATUS: Full code DVT prophylaxis: Lovenox Advanced care [id number] minutes: Continue long-term acute care facility placement in the future. Continue discussed with brother his phone number is [phone]. Brother is aware of plan of care
[2021-05-06] MEDS ORDERED: ONDANSETRON 4 MG/2 ML VIAL IV PRN (20:43)
[2021-05-06] MEDS ORDERED: PROMETHAZINE INJ 25 MG/ML AMP IV PRN (21:44)
[2021-05-06] MEDS ORDERED: PROMETHAZINE INJ 25 MG/ML AMP IV ONE (21:49)
[2021-05-07] MEDS: D5W 1,000 ML IV SCH ×2 (00:22→18:00)
[2021-05-07] MEDS: METOCLOPRAMIDE 10 MG/2mL INJ IV SCH ×5 (00:23→23:39)
[2021-05-07] MEDS: METHYLPREDNISOLONE 125 MG INJ IV SCH ×3 (02:36→17:24)
[2021-05-07 06:07] LABS: Absolute Lymphocytes (CBC) 0.1 K/uL (0.7-4.9); Basophils % 0.3 % (0-1.3); Hematocrit 45.1 % (39.6-49.0); Lymphocytes % 0.9 % (15.3-44.8); MPV 9.6 fL (7.6-11.3); RBC Red Blood Cell Count 4.91 M/uL (4.33-5.43)
--- NOTE | 2021-05-07 06:12 | P.PN ---
Subjective Date of Service: 05/07/21 Primary Care Provider: Dr. Ramon Chief Complaint: Dysphagia/Covid penumonia Subjective: Other (Overall stable on 15 L) Physical Examination - Vital Signs Temperature: 98.9 F Blood Pressure: 100/62 Pulse: 133 Respirations: 20 Pulse Ox (%): 92 - Studies Medications List Reviewed: Yes Assessment & Plan Discharge Plan: Home Plan to discharge in: Greater than 2 days Physician Review Additional Text: COVID: Positive, unvaccinated CT scan: COMPARISON: Chest For Pe Angio dated 07/21/2020; Chest Single View dated 04/17/2021 TECHNIQUE: Dynamically enhanced 3 mm thick images of the chest were obtained during administration of approximately 150mL Isovue 370 IV contrast. Coronal and oblique MIP reconstruction images were generated and reviewed. Exam utilizes a protocol to evaluate the pulmonary arterial tree. All CT scans are performed using dose optimization technique as appropriate and may include automated exposure control or mA/KV adjustment according to patient size. FINDINGS: No pulmonary emboli are identified. The aorta as imaged shows no acute or suspicious finding. No pericardial thickening or effusion. Posteromedial left lower lobe airspace opacification present. Air bronchograms are present. Patchy opacification is seen in the air spaces of the left upper lobe along the fissure. Trace amounts of ground-glass opacification seen in the lateral right upper lobe along the major fissure. Trace amount of pleural fluid on the left and right. Trace amount of atelectasis in the posterior gutter on the right. No mediastinal or hilar suspicious masses. A few small reactive type mediastinal and hilar lymph nodes seen. No chest wall masses or abnormal axillary lymph adenopathy. No mass or abnormality seen at the GE junction. No evidence for esophageal wall thickening or mass. No endobronchial lesions seen. IMPRESSION: No pulmonary emboli identified. Left lower lobe pneumonia with minimal pneumonia findings in the left upper lobe and right upper lobe. Minimal bilateral pleural effusions. No esophageal or GE junction abnormality evident. ECHO: MEASUREMENTS (cm) DIASTOLIC (NORMALS) SYSTOLIC (NORMALS) IVSd 1.0 (0.6-1.2) LA Diam 2.5 (1.9-4.0) LVEF 43% LVIDd 4.7 (3.5-5.7) LVIDs 3.7 (2.0-3.5) %FS 21% LVPWd 0.9 (0.6-1.2) Ao Diam 3.9 (2.0-3.7) 2 DIMENSIONAL ASSESSMENT: RIGHT ATRIUM: NORMAL LEFT ATRIUM: NORMAL RIGHT VENTRICLE: NORMAL LEFT VENTRICLE: REDUCED FUNCTION TRICUSPID VALVE: MITRAL VALVE: PULMONIC VALVE: NORMAL AORTIC VALVE: NORMAL PERICARDIAL EFFUSION: NONE AORTIC ROOT: NORMAL LEFT VENTRICULAR WALL MOTION: MILD GLOBAL HYPOKINESIS. DOPPLER/COLOR FLOW: MILD MITRAL AND TRICUSPID REGURGITATION. COMMENTS: MILDLY REDUCED LEFT VENTRICULAR EJECTION FRACTION OF 40-45%. MILD GLOBAL HYPOKINESIS. MILD MITRAL AND TRICUSPID REGURGITATION. Endoscopy: Impression 1. 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 Moderate gastritis in the body at the antrum of the stomach, s/p biopsies 3. Multiple 7 erosions were found in the antrum Plan: Await biopsy Continue acid suppression therapy Consider ENT for possible surgical myotomy of cryo pharyngeus muscle instead of repeated Botox injections in the future EGD 04/22/2021: PEG tube placement Follow-up chest x-ray 05/06/2021: COMPARISON: Chest Single View dated 05/04/2021; Chest Single View dated 05/02/2021; Chest Single View dated 05/01/2021; Chest Single View dated 04/29/2021; Chest For Pe Angio dated 04/17/2021 FINDINGS: Lines: None. Lungs: No significant change in aeration with bilateral patchy airspace disease and more consolidative type retrocardiac airspace opacities. Pleural: Blunted left costophrenic angle likely due to a small left effusion. Cardiac: The heart size is within normal limits. Bones: No acute fractures. IMPRESSION: No significant change compared with 05/04/2021 with mild bilateral airspace disease and consolidation at the left lung base. Physical exam: General: Patient, alert and cooperative. HEENT: Atraumatic, Normocephalic, PERRLA Neck: Neck supple. Patient remains n.p.o. Respiratory: Slightly decreased to the bases. Currently on 15 L. Cardiovascular: No edema, Normal pulses, Regular rate/rhythm, Normal S1 S2 Gastrointestinal: Normal bowel sounds, Soft and benign, Non-distended, W/out succussion splash Musculoskeletal: No clubbing, No swelling, No erythema Integumentary: No rashes, No breakdown, No significant lesion Neurological: Abnormal affect Impression: Dyspnea secondary to bilateral Covid pneumonia with hypoxia complicated with left lower lobe recurrent aspiration pneumonia Atrial flutter/atrial fibrillation now with sinus bradycardia Acute on chronic diastolic CHF Dysphagia with history of muscular dystrophy status post EGD with Botox treatment of the upper esophageal sphincter Moderate gastritis with noted stenosis/spasm of the upper esophageal sphincter and antrum erosions status post Botox treatment Thrombocytopenia Hypernatremia Plan: Dyspnea secondary to bilateral Covid pneumonia with hypoxia complicated with left lower lobe recurrent aspiration pneumonia: No significant change since yesterday. Will transfer patient to ICU for close monitoring. Patient remained stable currently on 15 L. Continue to wean off oxygen to maintain sats above 93%. Surgery waiting for patient condition to improve before proceeding with J- tube extension. Surgery wants patient to be less than 4 L to proceed with surgical intervention. PICC line in place. Continue with TPN. Continue IV steroids. Continue to monitor CRP and ferritin. Aspiration precaution in place. Atrial flutter/atrial fibrillation now with bradycardia: Continue with digoxin. Acute on chronic diastolic CHF EF 40 to 45%: Ejection fraction 40 to 45%. Continue to monitor fluid intake. Dysphagia with history of muscular dystrophy status post EGD with Botox treatment of the upper esophageal sphincter status post PEG tube: Continue Protonix twice daily. Patient remains n.p.o. current plan for J-tube extension once patient oxygen status improved. Continue with above plan of care Moderate gastritis with noted stenosis/spasm of the upper esophageal sphincter and antrum erosions status post Botox treatment Status post PEG tube: Continue with above plan of care. PICC line in place. Continue TPN Thrombocytopenia: Improved. Will monitor closely.. Parameters in place to hold Lovenox if platelet count less than 100 Hypernatremia: Resolved. Continue IV fluids. CODE STATUS: Full code DVT prophylaxis: Lovenox Advanced care [id number] minutes: Continue long-term acute care facility placement in the future. Brother-Sylvester, his phone number is [phone]. Brother is aware of plan of care Time Spent Managing Pts Care (In Minutes): 55
[2021-05-07 06:24] LABS: ALT/SGPT 54 U/L (12-78); AST/SGOT 55 U/L (15-37); Albumin 1.4 g/dL (3.4-5.0); Alkaline Phosphatase 134 U/L (45-117); BUN Blood Urea Nitrogen 12 mg/dL (7-18); Bicarbonate 33 mmol/L (21-32); Ferritin 1834.3 ng/mL (26-388); Glucose Level 122 mg/dL (74-106); Potassium 3.7 mmol/L (3.5-5.1); Protein, Total 5.5 g/dL (6.4-8.2); Sodium Level 136 mmol/L (136-145)
[2021-05-07 07:07] LABS: RBC Red Blood Cell Count 5.01 M/uL (4.33-5.43)
[2021-05-07 07:57] LABS: Protime INR 1.27
[2021-05-07] MEDS: ACETYLCYST 20% 4 ML VIAL IH SCH ×2 (09:25→20:30)
[2021-05-07] MEDS: LEVALBUTEROL 1.25 MG/3 ML NEB NEB PRN (09:25)
[2021-05-07] MEDS: PANTOPRAZOLE 40 MG INJ IVP SCH ×2 (10:14→20:56)
[2021-05-07] MEDS: THIAMINE 200 MG/2 ML INJ IVP SCH (10:14)
[2021-05-07] MEDS: FOLIC ACID 1 MG in NA CHLORIDE 0.9% 50 ML IV SCH (10:21)
[2021-05-07] MEDS: DIGOXIN 0.125 MG TABLET FT SCH (12:00)
[2021-05-07] MEDS ORDERED: LEVALBUTEROL 1.25 MG/3 ML NEB NEB PRN (15:00)
[2021-05-07] MEDS: ENOXAPARIN 30 MG/0.3 ML SQ SCH (17:24)
[2021-05-07] MEDS: LORazepam 2 MG/ML VIAL IV PRN (17:25)
[2021-05-07] MEDS: AA 4.25 %/D5W/ELECTROLYTES 2,000 ML, Lipids 20% 250 ML with MULTIVITAMINS INJ 10 ML IV SCH ×3 (17:40)
[2021-05-07] MEDS: IPRATROPIUM BROM 0.5MG/2.5ML NEB PRN (20:30)
[2021-05-08] MEDS: METHYLPREDNISOLONE 125 MG INJ IV SCH ×2 (02:28→10:37)
[2021-05-08] MEDS: METOCLOPRAMIDE 10 MG/2mL INJ IV SCH ×3 (05:47→17:42)
--- NOTE | 2021-05-08 06:00 | P.PN ---
Subjective Date of Service: 05/08/21 Primary Care Provider: Dr. Ramon Chief Complaint: Dysphagia/Covid penumonia Subjective: Other (Patient on 15 L. Increased heart rate noted.) Physical Examination - Vital Signs Temperature: 97.7 F Blood Pressure: 121/70 Pulse: 124 Respirations: 26 Pulse Ox (%): 87 - Studies Medications List Reviewed: Yes Assessment & Plan Discharge Plan: Home Plan to discharge in: Greater than 2 days Physician Review Additional Text: COVID: Positive, unvaccinated CT scan: COMPARISON: Chest For Pe Angio dated 07/21/2020; Chest Single View dated 04/17/2021 TECHNIQUE: Dynamically enhanced 3 mm thick images of the chest were obtained during administration of approximately 150mL Isovue 370 IV contrast. Coronal and oblique MIP reconstruction images were generated and reviewed. Exam utilizes a protocol to evaluate the pulmonary arterial tree. All CT scans are performed using dose optimization technique as appropriate and may include automated exposure control or mA/KV adjustment according to patient size. FINDINGS: No pulmonary emboli are identified. The aorta as imaged shows no acute or suspicious finding. No pericardial thickening or effusion. Posteromedial left lower lobe airspace opacification present. Air bronchograms are present. Patchy opacification is seen in the air spaces of the left upper lobe along the fissure. Trace amounts of ground-glass opacification seen in the lateral right upper lobe along the major fissure. Trace amount of pleural fluid on the left and right. Trace amount of atelectasis in the posterior gutter on the right. No mediastinal or hilar suspicious masses. A few small reactive type mediastinal and hilar lymph nodes seen. No chest wall masses or abnormal axillary lymphadenopathy. No mass or abnormality seen at the GE junction. No evidence for esophageal wall thickening or mass. No endobronchial lesions seen. IMPRESSION: No pulmonary emboli identified. Left lower lobe pneumonia with minimal pneumonia findings in the left upper lobe and right upper lobe. Minimal bilateral pleural effusions. No esophageal or GE junction abnormality evident. ECHO: MEASUREMENTS (cm) DIASTOLIC (NORMALS) SYSTOLIC (NORMALS) IVSd 1.0 (0.6-1.2) LA Diam 2.5 (1.9-4.0) LVEF 43% LVIDd 4.7 (3.5-5.7) LVIDs 3.7 (2.0-3.5) %FS 21% LVPWd 0.9 (0.6-1.2) Ao Diam 3.9 (2.0-3.7) 2 DIMENSIONAL ASSESSMENT: RIGHT ATRIUM: NORMAL LEFT ATRIUM: NORMAL RIGHT VENTRICLE: NORMAL LEFT VENTRICLE: REDUCED FUNCTION TRICUSPID VALVE: MITRAL VALVE: PULMONIC VALVE: NORMAL AORTIC VALVE: NORMAL PERICARDIAL EFFUSION: NONE AORTIC ROOT: NORMAL LEFT VENTRICULAR WALL MOTION: MILD GLOBAL HYPOKINESIS. DOPPLER/COLOR FLOW: MILD MITRAL AND TRICUSPID REGURGITATION. COMMENTS: MILDLY REDUCED LEFT VENTRICULAR EJECTION FRACTION OF 40-45%. MILD GLOBAL HYPOKINESIS. MILD MITRAL AND TRICUSPID REGURGITATION. Endoscopy: Impression 1. 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 Moderate gastritis in the body at the antrum of the stomach, s/p biopsies 3. Multiple 7 erosions were found in the antrum Plan: Await biopsy Continue acid suppression therapy Consider ENT for possible surgical myotomy of cryo pharyngeus muscle instead of repeated Botox injections in the future EGD 04/22/2021: PEG tube placement Follow-up chest x-ray 05/07/2021: New small left pneumothorax noted. Physical exam: General: Patient, alert and cooperative. HEENT: Atraumatic, Normocephalic, PERRLA Neck: Neck supple. Patient remains n.p.o. Respiratory: Decreased at the bases. Currently on 15 L. Cardiovascular: No edema, Normal pulses, Regular rate/rhythm, Normal S1 S2 Gastrointestinal: Normal bowel sounds, Soft and benign, Non-distended, W/out succussion splash Musculoskeletal: No clubbing, No swelling, No erythema Integumentary: No rashes, No breakdown, No significant lesion. Muscle wasting to the upper and lower extremity. Neurological: Abnormal affect Impression: Dyspnea secondary to bilateral Covid pneumonia with hypoxia complicated with left lower lobe recurrent aspiration pneumonia complicated with left small pneumothorax Atrial flutter/atrial fibrillation now with sinus bradycardia Acute on chronic diastolic CHF Dysphagia with history of muscular dystrophy status post EGD with Botox treatment of the upper esophageal sphincter Moderate gastritis with noted stenosis/spasm of the upper esophageal sphincter and antrum erosions status post Botox treatment Thrombocytopenia Hypernatremia Plan: Dyspnea secondary to bilateral Covid pneumonia with hypoxia complicated with left lower lobe recurrent aspiration pneumonia complicated with left small pneumothorax: Heart rate increased today. Patient on 15 L. Chest x-ray shows small pneumothorax on the left side. Case discussed with surgery. We will repeat chest x-ray now to further evaluate for possible need of chest tube. If worsening will need chest tube. Case discussed in detail with patient and brother. Patient wants to proceed with aggressive measures. Will discuss with pulmonology as well. CRP ferritin increase. Continue IV steroids and supplements. Patient remains on TPN. Stewart catheter placed yesterday for strict input output. Advanced directives readdressed with the patient. Patient wants to proceed with aggressive measures including ventilator if required. We will continue to monitor the patient closely. Await chest x-ray and recommendations by surgery. Await further recommendations by pulmonology. Atrial flutter/atrial fibrillation now with bradycardia: Continue with digoxin. Acute on chronic diastolic CHF EF 40 to 45%: Ejection fraction 40 to 45%. Continue to monitor fluid intake. Dysphagia with history of muscular dystrophy status post EGD with Botox treatment of the upper esophageal sphincter status post PEG tube: Continue Protonix twice daily. Patient remains on TPN. J-tube extension once patient is below 4 L per nasal cannula. Moderate gastritis with noted stenosis/spasm of the upper esophageal sphincter and antrum erosions status post Botox treatment Status post PEG tube: Continue with above plan of care. PICC line in place. Continue TPN Thrombocytopenia: Improved. Will monitor closely.. Parameters in place to hold Lovenox if platelet count less than 100 Hypernatremia: Resolved. Continue IV fluids. CODE STATUS: Full code DVT prophylaxis: Lovenox Advanced care minutes: Continue long-term acute care facility placement in the future. Brother-Sylvester, his phone number is [phone]. Brother is aware of plan of care Time Spent Managing Pts Care (In Minutes): 55
[2021-05-08 06:01] LABS: Absolute Lymphocytes (CBC) 0.1 K/uL (0.7-4.9); Basophils % 0.1 % (0-1.3); Hematocrit 44.5 % (39.6-49.0); Lymphocytes % 1.3 % (15.3-44.8); MPV 9.8 fL (7.6-11.3); RBC Red Blood Cell Count 4.76 M/uL (4.33-5.43)
[2021-05-08 06:18] LABS: ALT/SGPT 44 U/L (12-78); AST/SGOT 38 U/L (15-37); Albumin 1.3 g/dL (3.4-5.0); Alkaline Phosphatase 108 U/L (45-117); BUN Blood Urea Nitrogen 16 mg/dL (7-18); Bicarbonate 35 mmol/L (21-32); Bilirubin Total 0.9 mg/dL (0.2-1.0); Glucose Level 113 mg/dL (74-106); Magnesium 2.2 mg/dL (1.8-2.4); Potassium 4.1 mmol/L (3.5-5.1); Protein, Total 5.5 g/dL (6.4-8.2); Sodium Level 141 mmol/L (136-145)
[2021-05-08 06:35] LABS: Ferritin 2588.7 ng/mL (26-388)
[2021-05-08] MEDS: ACETYLCYST 20% 4 ML VIAL IH SCH ×2 (08:00→19:50)
--- NOTE | 2021-05-08 08:06 | RAD REPORT ---
EXAM DESCRIPTION: Denzel Single View05/08/2021 7:11 am CLINICAL HISTORY: Chest pain COMPARISON: May 06, 2021 FINDINGS: No significant change bilateral pulmonary opacities. Heart is normal size. PICC line posi tion. Small left pleural effusion may present. Questionable small left pneumothorax IMPRESSION: No significant change in bilateral pulmonary opacities probably pneumonia Questionable small left pneumothorax. This can be re-evaluated with a followup x-ray in expiration. The ICU nurses were performing a code blue and were unavailable. The ICU design engineering specialist was notified of this report
[2021-05-08] MEDS: DIGOXIN 0.125 MG TABLET FT SCH (09:00)
--- NOTE | 2021-05-08 09:47 | RAD REPORT ---
EXAM DESCRIPTION: Denzel Single View05/08/2021 9:20 am CLINICAL HISTORY: Pneumothorax COMPARISON: May 08 FINDINGS: No significant change in an equivocal small left pneumothorax
[2021-05-08] MEDS: FOLIC ACID 1 MG in NA CHLORIDE 0.9% 50 ML IV SCH (10:35)
[2021-05-08] MEDS: THIAMINE 200 MG/2 ML INJ IVP SCH (10:36)
[2021-05-08] MEDS: PANTOPRAZOLE 40 MG INJ IVP SCH (10:43)
[2021-05-08 11:19] LABS: Blood Morphology Comment NOT SEEN (NOT SEEN); Platelet Estimate DECR
--- NOTE | 2021-05-08 12:03 | P.PN ---
Subjective Date of Service: 05/08/21 Primary Care Provider: Dr. Ramon Chief Complaint: Respiratory failure Patient's condition has patient's condition worsened he was transferred here to the ICU currently he is minimally responsive may have a slight apical pneumothorax is currently on TPN chest x-ray shows no significant change he has bilateral coronavirus pneumonia Review of Systems is unable to be obtained Physical Examination - Vital Signs Temperature: 97.7 F Blood Pressure: 131/78 Pulse: 126 Respirations: 28 Pulse Ox (%): 92 - Physical Exam General: Unresponsive - Studies Medications List Reviewed: Yes Assessment & Plan - Problems (Diagnosis) (1) Pneumonia Onset Date: 09/27/18 Current Visit: No Status: Acute Plan: Respiratory failure respiratory failure severe coronavirus pneumonia in addition patient has muscular dystrophy overall prognosis is very poor I discussed with the brother regarding DNR and withdrawal of care labs all reviewed labs all reviewed I have reduced the dose I have reduced the dose of steroids Qualifiers: Pneumonia type: due to unspecified organism Laterality: left Lung location: lower lobe of lung Qualified Code(s): J18.9 - Pneumonia, unspecified organism Physician Review: Patient Assessed, Agree with Above Assessment and Plan
[2021-05-08] MEDS: D5W 1,000 ML IV SCH (14:00)
[2021-05-08] MEDS ORDERED: MORPHINE 2 MG/ML SYR IV ONE (14:40)
[2021-05-08] MEDS: AA 4.25 %/D5W/ELECTROLYTES 2,000 ML, WATER FOR INJ,STERILE 250 ML with MULTIVITAMINS IN... IV SCH ×3 (17:40)
[2021-05-08] MEDS: ENOXAPARIN 30 MG/0.3 ML SQ SCH (17:42)
[2021-05-08] MEDS: IPRATROPIUM BROM 0.5MG/2.5ML NEB PRN (19:50)
[2021-05-08] MEDS: METHYLPREDNISOLONE 40 MG INJ IV SCH (21:00)
[2021-05-08] MEDS ORDERED: NOREPINEPHRINE 4 MG in D5W 250 ML IV PRN (23:11)
[2021-05-08] MEDS ORDERED: RSI MEDICATION KIT IV ONE (23:11)
[2021-05-08] MEDS ORDERED: NA CHLORIDE 0.9% 1,000 ML ONE (23:25)
[2021-05-08] MEDS ORDERED: NOREPINEPHRINE 4mg/D5W 250mL 4 MG/250 ML BAG IV ONE (23:31)
[2021-05-08] MEDS ORDERED: NA CHLORIDE 0.9% 250 ML ONE (23:51)
[2021-05-08] MEDS ORDERED: Phenylephrine HCl 10 MG/ML 1 ML VIAL ONE (23:51)
--- NOTE | 2021-05-09 00:03 | P.PN ---
Date of Service: 05/08/21 Nursing staff called to inform me that the patient was unresponsive, patient at baseline was arousable and was communicating with staff at this time patient completely unresponsive to verbal or painful stimulus, agonal breathing respiratory rate of 8. Blood sugar was checked which was normal, called patient's brother to inform him of patient's current clinical status, brother does want proceed with aggressive measures including ventilation/intubation. ED provider was called for assistance and intubation, patient was intubated with first-pass excess, and immediate post intubation timeframe patient was severely hypertensive with blood pressures in the 40s to 50s systolic for short period of time. Fluid bolus started, patient that she had on Levophed which was quickly maxed out at 30 mcg/min. At this time second vasopressor Connor-Synephrine has been initiated, currently blood pressures in the 70s systolic. Family again wan ts to continue with all aggressive measures. Patient also with history of equivocal/small left pneumothorax, stat chest x-ray ordered after intubation awaiting interpretation from radiology. We will also continue daily chest x- rays, general surgery called and made aware of patient's intubation and need for positive pressure ventilation. Will place chest tube if needed.
[2021-05-09] MEDS ORDERED: NOREPINEPHRINE 4mg/D5W 250mL 4 MG/250 ML BAG IV ONE (01:31)
[2021-05-09 01:55] LABS: Blood O2 Saturation 95.8 % (92-98.5)
[2021-05-09 01:56] LABS: Arterial Blood Carboxyhemoglob 0.4 % (0-1.5); Blood Gas Oxyhemoglobin 93.8 % (94-97)
[2021-05-09] MEDS: MIDAZOLAM HCL 2 MG/2 ML INJ IV PRN ×3 (03:56→23:21)
[2021-05-09 05:09] LABS: Arterial Blood Carboxyhemoglob 0.7 % (0-1.5); Blood Gas Oxyhemoglobin 95.6 % (94-97); Blood O2 Saturation 97.7 % (92-98.5)
[2021-05-09] MEDS: LORazepam 2 MG/ML VIAL IV PRN (05:36)
--- NOTE | 2021-05-09 05:54 | P.PN ---
Subjective Date of Service: 05/09/21 Primary Care Provider: Dr. Ramon Chief Complaint: Respiratory failure Subjective: Worsening, Other (Patient significantly declined last night. Patient required intubation. Patient became hypotensive thereafter. Now on multiple vasopressors.) Physical Examination - Vital Signs Temperature: 97.1 F Blood Pressure: 99/55 Pulse: 105 Respirations: 26 Pulse Ox (%): 98 - Studies Medications List Reviewed: Yes Assessment & Plan Discharge Plan: Home Plan to discharge in: Greater than 2 days Physician Review Additional Text: COVID: Positive, unvaccinated CT scan: COMPARISON: Chest For Pe Angio dated 07/21/2020; Chest Single View dated 04/17/2021 TECHNIQUE: Dynamically enhanced 3 mm thick images of the chest were obtained during administration of approximately 150mL Isovue 370 IV contrast. Coronal and oblique MIP reconstruction images were generated and reviewed. Exam utilizes a protocol to evaluate the pulmonary arterial tree. All CT scans are performed using dose optimization technique as appropriate and may include automated exposure control or mA/KV adjustment according to patient size. FINDINGS: No pulmonary emboli are identified. The aorta as imaged shows no acute or suspicious finding. No pericardial thickening or effusion. Posteromedial left lower lobe airspace opacification present. Air bronchograms are present. Patchy opacification is seen in the air spaces of the left upper lobe along the fissure. Trace amounts of ground-glass opacification seen in the lateral right upper lobe along the major fissure. Trace amount of pleural fluid on the left and right. Trace amount of atelectasis in the posterior gutter on the right. No mediastinal or hilar suspicious masses. A few small reactive type mediastinal and hilar lymph nodes seen. No chest wall masses or abnormal axillary lymphadenopathy. No mass or abnormality seen at the GE junction. No evidence for esophageal wall thickening or mass. No endobronchial lesions seen. IMPRESSION: No pulmonary emboli identified. Left lower lobe pneumonia with minimal pneumonia findings in the left upper lobe and right upper lobe. Minimal bilateral pleural effusions. No esophageal or GE junction abnormality evident. ECHO: MEASUREMENTS (cm) DIASTOLIC (NORMALS) SYSTOLIC (NORMALS) IVSd 1.0 (0.6-1.2) LA Diam 2.5 (1.9-4.0) LVEF 43% LVIDd 4.7 (3.5-5.7) LVIDs 3.7 (2.0-3.5) %FS 21% LVPWd 0.9 (0.6-1.2) Ao Diam 3.9 (2.0-3.7) 2 DIMENSIONAL ASSESSMENT: RIGHT ATRIUM: NORMAL LEFT ATRIUM: NORMAL RIGHT VENTRICLE: NORMAL LEFT VENTRICLE: REDUCED FUNCTION TRICUSPID VALVE: MITRAL VALVE: PULMONIC VALVE: NORMAL AORTIC VALVE: NORMAL PERICARDIAL EFFUSION: NONE AORTIC ROOT: NORMAL LEFT VENTRICULAR WALL MOTION: MILD GLOBAL HYPOKINESIS. DOPPLER/COLOR FLOW: MILD MITRAL AND TRICUSPID REGURGITATION. COMMENTS: MILDLY REDUCED LEFT VENTRICULAR EJECTION FRACTION OF 40-45%. MILD GLOBAL HYPOKINESIS. MILD MITRAL AND TRICUSPID REGURGITATION. Endoscopy: Impression 1. 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 Moderate gastritis in the body at the antrum of the stomach, s/p biopsies 3. Multiple 7 erosions were found in the antrum Plan: Await biopsy Continue acid suppression therapy Consider ENT for possible surgical myotomy of cryo pharyngeus muscle instead of repeated Botox injections in the future EGD 04/22/2021: PEG tube placement Follow-up chest x-ray 05/09/2021: No pneumothorax noted. Widespread Covid infection noted. Physical exam: General: Patient intubated and sedated. HEENT: Neck supple Respiratory: Decreased at the bases. Patient on ventilator. FiO2 at 100% Cardiovascular: No edema, Normal pulses, Regular rate/rhythm, Normal S1 S2 Gastrointestinal: Normal bowel sounds, Soft and benign Musculoskeletal: No clubbing, No swelling, No erythema Integumentary: No rashes, No breakdown, No significant lesion. Muscle wasting to the upper and lower extremity. Neurological: Patient on ventilator Impression: Dyspnea secondary to bilateral Covid pneumonia with hypoxia complicated with left lower lobe recurrent aspiration pneumonia with further complication of septic shock and acute respiratory failure Atrial flutter/atrial fibrillation now with sinus bradycardia Acute on chronic diastolic CHF Dysphagia with history of muscular dystrophy status post EGD with Botox treatment of the upper esophageal sphincter Moderate gastritis with noted stenosis/spasm of the upper esophageal sphincter and antrum erosions status post Botox treatment Thrombocytopenia Hypernatremia Plan: Dyspnea secondary to bilateral Covid pneumonia with hypoxia complicated with left lower lobe recurrent aspiration pneumonia with further complication of septic shock and acute respiratory failure: Patient required intubation last night. He became hypotensive now requiring multiple pressors. Currently on Levophed and Connor-Synephrine. Patient on ventilator. FiO2 at 100%. Chest x-ray this morning shows no pneumothorax. Widespread Covid infection noted. Inflammatory markers elevated. Continue vasopressors. Will adjust IV fluids. Will add cefepime and Diflucan to cover for opportunistic infection. Will check blood cultures. Continue to monitor the patient closely. Continue to monitor lab and repeat chest x-rays. Will discuss with pulmonology. Surgery was informed last night as the patient had a small left pneumothorax yesterday. No evidence of this at this time. Continue TPN. Spoke at length with the brother who has medical power of family law attorney. He spoke to his father and family concerning and readdressing advanced directives. After a long discussion brother is changing his advanced directives to DO NOT RESUSCITATE. Brother wants to continue with current measures at this time. If he further declines brother would consider withdrawal of care but would like to wait over the next 24 to 48 hours to determine if the patient will improve. I will turn the service over to the hospitalist team tomorrow. I will go plan of care with him. Atrial flutter/atrial fibrillation now with bradycardia: Continue with digoxin. Acute on chronic diastolic CHF EF 40 to 45%: Ejection fraction 40 to 45%. Continue to monitor fluid intake. Dysphagia with history of muscular dystrophy status post EGD with Botox treatment of the upper esophageal sphincter status post PEG tube: Continue TPN. Continue Protonix. J-tube extension has been suspended due to current status. Moderate gastritis with noted stenosis/spasm of the upper esophageal sphincter and antrum erosions status post Botox treatment Status post PEG tube: Continue with above plan of care. PICC line in place. Continue TPN. Will adjust IV fluids. Thrombocytopenia: Improved. Will monitor closely. Continue Lovenox with parameters. Hypernatremia: Resolved. IV fluids adjusted. CODE STATUS: This was readdressed with his brother who has medical power of family law attorney. He spoke to the rest of the family. Patient now DO NOT RESUSCITATE. We will continue to monitor and reassess over the next 24 to 48 hours. If his condition continues to decline and efforts are futile then brother would consider withdrawal of care. We will continue with current management at this time. DVT prophylaxis: Lovenox Advanced care [id number] minutes: Continue as above. Case discussed with Brother-Sylvester who has medical power of family law attorney, his phone number is [phone]. Time Spent Managing Pts Care (In Minutes): 55
[2021-05-09] MEDS: METOCLOPRAMIDE 10 MG/2mL INJ IV SCH ×4 (06:00→17:12)
[2021-05-09 06:27] LABS: Absolute Lymphocytes (CBC) 0.2 K/uL (0.7-4.9); Basophils % 0.3 % (0-1.3); Hematocrit 41.3 % (39.6-49.0); Lymphocytes % 0.9 % (15.3-44.8); MPV 10.1 fL (7.6-11.3); RBC Red Blood Cell Count 4.39 M/uL (4.33-5.43)
[2021-05-09 06:30] LABS: ALT/SGPT 74 U/L (12-78); AST/SGOT 87 U/L (15-37); Albumin 1.1 g/dL (3.4-5.0); Alkaline Phosphatase 143 U/L (45-117); BUN Blood Urea Nitrogen 34 mg/dL (7-18); Bicarbonate 32 mmol/L (21-32); Bilirubin Total 2.1 mg/dL (0.2-1.0); Glucose Level 113 mg/dL (74-106); Magnesium 2.2 mg/dL (1.8-2.4); Protein, Total 5.1 g/dL (6.4-8.2); Sodium Level 139 mmol/L (136-145)
[2021-05-09 06:46] LABS: Ferritin 11582.1 ng/mL (26-388)
--- NOTE | 2021-05-09 07:29 | RAD REPORT ---
EXAM DESCRIPTION: RAD - Chest Single View - 05/09/2021 6:40 am CLINICAL HISTORY: Follow up COVID COMPARISON: Chest Single View dated 05/08/2021; Chest Single View dated 05/08/2021; Chest Single View da kay 05/08/2021; Chest Single View dated 05/06/2021 FINDINGS: Lines: Endotracheal tube at the aortic arch. NG tube below diaphragm. Right subclavian angela king PICC at the SVC. Lungs: Unchanged bilateral widespread airspace disease. More focal consolidative process in the lung bases is similar. Pleural: No significant pleural effusions or pneumothorax. Cardiac: The heart size is within normal limits. Bones: No acute fractures. Other: IMPRESSION: Similar widespread airspace disease concerning for multifocal pneumonia. Support apparat us in similar position.
[2021-05-09] MEDS ORDERED: FLUCONAZOLE 100mg IVPB 100 MG/50 ML BAG IV SCH (08:00)
[2021-05-09] MEDS: ACETYLCYST 20% 4 ML VIAL IH SCH (08:00)
[2021-05-09] MEDS ORDERED: FAMOTIDINE 20 MG/2 ML VIAL IV SCH (09:00)
[2021-05-09] MEDS ORDERED: CEFEPIME 1 GM/VIAL IV SCH (09:00)
[2021-05-09] MEDS: DIGOXIN 0.125 MG TABLET FT SCH ×2 (09:00→09:23)
[2021-05-09] MEDS: METHYLPREDNISOLONE 40 MG INJ IV SCH ×2 (09:06→20:13)
[2021-05-09] MEDS: D5 0.45 NS 1,000 ML IV SCH ×3 (09:06→23:43)
[2021-05-09] MEDS: FLUCONAZOLE 100mg IVPB 100 MG/50 ML BAG IV SCH (09:16)
[2021-05-09] MEDS: THIAMINE 200 MG/2 ML INJ IVP SCH (09:18)
[2021-05-09] MEDS: PANTOPRAZOLE 40 MG INJ IVP SCH (09:23)
[2021-05-09] MEDS: CEFEPIME/SWI 1gm 10 ML IV SCH ×2 (09:23→20:13)
[2021-05-09] MEDS: FOLIC ACID 1 MG in NA CHLORIDE 0.9% 50 ML IV SCH (09:24)
[2021-05-09 12:14] LABS: Blood Morphology Comment NOT SEEN (NOT SEEN); Platelet Estimate ADEQ; Platelets, Giant FEW PRESENT
[2021-05-09] MEDS: DIGOXIN 0.25 MG/ML AMP IV SCH (15:20)
[2021-05-09] MEDS: ENOXAPARIN 30 MG/0.3 ML SQ SCH (17:12)
[2021-05-09] MEDS: AA 4.25 %/D5W/ELECTROLYTES 2,000 ML, WATER FOR INJ,STERILE 250 ML with MULTIVITAMINS IN... IV SCH ×3 (17:12)
--- NOTE | 2021-05-09 19:06 | P.PN ---
Subjective Date of Service: 05/09/21 Primary Care Provider: Dr. Ramon Chief Complaint: Respiratory failure Condition worsening now on vasopressors and Mech vent Review of Systems is unable to be obtained Physical Examination - Vital Signs Temperature: 98.8 F Blood Pressure: 92/56 Pulse: 121 Respirations: 23 Pulse Ox (%): 96 - Physical Exam General: Unresponsive - Studies Medications List Reviewed: Yes Assessment & Plan - Problems (Diagnosis) (1) COVID-19 Current Visit: Yes Status: Acute Plan: Resp failure from COVID, Now on vent and shock prognosis poor Consider withdrawal of care/CXRY and labs reviewed widespread COVID penumonia Physician Review: Patient Assessed, Agree with Above Assessment and Plan Physician Review Additional Text: C
[2021-05-09] MEDS: NOREPINEPHRINE 8 MG in D5W 250 ML IV PRN (20:20)
[2021-05-10] MEDS: METOCLOPRAMIDE 10 MG/2mL INJ IV SCH ×2 (00:18→06:00)
[2021-05-10] MEDS: MIDAZOLAM HCL 2 MG/2 ML INJ IV PRN ×2 (04:02→20:06)
[2021-05-10 05:03] LABS: Absolute Lymphocytes (CBC) 0.3 K/uL (0.7-4.9); Basophils % 0.1 % (0-1.3); Hematocrit 39.5 % (39.6-49.0); Lymphocytes % 1.8 % (15.3-44.8); MPV 9.9 fL (7.6-11.3); RBC Red Blood Cell Count 4.21 M/uL (4.33-5.43)
[2021-05-10 05:55] LABS: ALT/SGPT 85 U/L (12-78); AST/SGOT 94 U/L (15-37); Alkaline Phosphatase 165 U/L (45-117); BUN Blood Urea Nitrogen 25 mg/dL (7-18); Bicarbonate 33 mmol/L (21-32); Glucose Level 144 mg/dL (74-106); Magnesium 2.3 mg/dL (1.8-2.4); Protein, Total 4.9 g/dL (6.4-8.2); Sodium Level 139 mmol/L (136-145)
[2021-05-10 07:45] LABS: Blood Morphology Comment NOT SEEN (NOT SEEN); Platelet Estimate DECR; White Blood Cell Scan OK (OK)
[2021-05-10] MEDS ORDERED: ETOMIDATE 20 MG/10 ML VIAL IV ONE (07:46)
[2021-05-10] MEDS ORDERED: SUCCINYLCHOLINE 20 MG/ML (10 ML) IV ONE (07:46)
[2021-05-10] MEDS: METHYLPREDNISOLONE 40 MG INJ IV SCH ×2 (08:46→20:06)
[2021-05-10] MEDS: THIAMINE 200 MG/2 ML INJ IVP SCH (08:46)
[2021-05-10] MEDS: FLUCONAZOLE 100mg IVPB 100 MG/50 ML BAG IV SCH (08:46)
[2021-05-10] MEDS: PANTOPRAZOLE 40 MG INJ IVP SCH (08:47)
[2021-05-10] MEDS: DIGOXIN 0.25 MG/ML AMP IV SCH (08:47)
[2021-05-10] MEDS: CEFEPIME/SWI 1gm 10 ML IV SCH ×2 (08:48→20:06)
--- NOTE | 2021-05-10 08:57 | RAD REPORT ---
EXAM DESCRIPTION: Denzel Single View05/10/2021 6:34 am CLINICAL HISTORY: Shortness of breath COMPARISON: May 09, 2021 FINDINGS: Endotracheal tube with its tip 9 millimeters above the top of the aortic arch. Nasogastri c tube within the stomach. PICC line in place Mild improvement in the bilateral pulmonary opacities. Heart is normal size IMPRESSION: Mild improvement in the bilateral pulmonary opacities probably pneumonia
[2021-05-10] MEDS: FOLIC ACID 1 MG in NA CHLORIDE 0.9% 50 ML IV SCH (09:13)
[2021-05-10] MEDS ORDERED: NA CHLORIDE 0.9% 1,000 ML IV ONE ×2 (10:20→14:00)
--- NOTE | 2021-05-10 10:53 | P.PN ---
Subjective Date of Service: 05/10/21 Primary Care Provider: Dr. Ramon Chief Complaint: Respiratory failure Condition stable is on 60% FiO2 blood pressure stable however patient is on 2 vasopressors Review of Systems is unable to be obtained Physical Examination - Vital Signs Temperature: 97.5 F Blood Pressure: 106/75 Pulse: 75 Respirations: 22 Pulse Ox (%): 100 - Physical Exam General: Unresponsive - Studies Medications List Reviewed: Yes Assessment & Plan - Problems (Diagnosis) (1) COVID-19 Current Visit: Yes Status: Acute Plan: Respiratory failure patient on mechanical ventilator and vasopressors plan to wean off the vasopressors with IV fluid boluses.pressure is stable sats sat isfactory on 60% FiO2 is 97% white count is declining renal function satisfactory chest x-ray reviewed satisfactory endotracheal tube position as patient on is on a ventilator discussed with Dr. Jones plan for jejunostomy changed to SIMV mode on the ventilator Physician Review: Patient Assessed, Agree with Above Assessment and Plan
[2021-05-10] MEDS: D5 0.45 NS 1,000 ML IV SCH ×2 (13:37→21:56)
--- NOTE | 2021-05-10 13:48 | RAD REPORT ---
EXAM DESCRIPTION: RAD - Chest Single View - 05/08/2021 11:26 pm CLINICAL HISTORY: 51 years, Male, S/P INTUBATION COMPARISON: 05/08/2021 FINDINGS: Single view of the chest was obtained portable. Prior films were compared. There is a endo tracheal tube at mid clavicular line in good position at approximately 4.5 cm from the dhaval. There is a NG tube tip of the catheter within the fundus of the stomach in good position external There is a right upper extremity PICC line in place. External EKG leads within the [id number] limits diagno sis. The cardiomediastinal silhouette demonstrate to be unremarkable. The heart is not enlarged. Costophrenic there are diffuse increased interstitial airspace densities opacity similar to prior shiva dy. The rest of the soft tissue and bony structures demonstrate to be unremarkable. IMPRESSION: Support and lines in good position. Diffuse increased interstitial airspace densities similar to prior study. Electronically signed by: Justin Vicente MD 05/08/2021 11:42 PM CDT Due to temporary technical issues with the PACS/Fluency reporting system, reports are being signed by the in house radiologists without review as a courtesy to insure prompt reporting. The interpreting radiologist is fully responsible for the content of the report.
[2021-05-10] MEDS: AA 4.25 %/D5W/ELECTROLYTES 2,000 ML, Lipids 20% 250 ML with MULTIVITAMINS INJ 10 ML IV SCH ×3 (16:44)
[2021-05-10] MEDS: ENOXAPARIN 30 MG/0.3 ML SQ SCH (16:44)
--- NOTE | 2021-05-10 16:57 | EKG ---
Test Date: 2021-05-09 Test Time: 00:20:59 Cheese Processor: RT-O MEASUREMENT RESULTS: Intervals: Rate: 100 MD: 160 QRSD: 148 QT: 390 QTc: 503 [place]: P: 266 MD: 160 QRS: -34 T: 116 INTERPRETIVE STATEMENTS: Unusual P axis, possible ectopic atrial rhythm Left axis deviation Nonspecific intraventricular block Abnormal ECG Compared to ECG 04/23/2021 02:29:49 Atrial fibrillation no longer present Ventricular premature complex(es) no longer present Right bundle-branch block no longer present Left ventricular hypertrophy no longer present Electronically Signed On 05-10-21 16:55:50 CDT by Chapo Mcgrath
[2021-05-11] MEDS: D5 0.45 NS 1,000 ML IV SCH ×2 (02:55→16:29)
[2021-05-11 07:32] LABS: Hematocrit 31.5 % (39.6-49.0); MPV 9.5 fL (7.6-11.3); RBC Red Blood Cell Count 3.37 M/uL (4.33-5.43)
[2021-05-11 07:58] LABS: BUN Blood Urea Nitrogen 25 mg/dL (7-18); Bicarbonate 32 mmol/L (21-32); Glucose Level 138 mg/dL (74-106); Potassium 4.4 mmol/L (3.5-5.1); Sodium Level 141 mmol/L (136-145)
--- NOTE | 2021-05-11 07:59 | RAD REPORT ---
EXAM DESCRIPTION: RAD - Chest Single View - 05/11/2021 5:51 am CLINICAL HISTORY: follow up COVID COMPARISON: Chest Single View dated 05/10/2021; Chest Single View dated 05/09/2021; Chest Single View da kay 05/08/2021; Chest Single View dated 05/08/2021 FINDINGS: Lines: The endotracheal tube tip terminates less than 1 cm above the aortic arch. NG tube below the diaphragm. Lungs: Patchy ill-defined bilateral airspace disease is similar. Pleural: Difficult to exclude a small left effusion. Cardiac: Cardiomegaly Bones: No acute fractures. Other: IMPRESSION: Similar aeration of the lungs with patchy multifocal airspace disease. Endotracheal tube is less than 1 cm above the aortic arch and may have slightly retracted from prior.
[2021-05-11] MEDS: METHYLPREDNISOLONE 40 MG INJ IV SCH ×2 (08:21→20:15)
[2021-05-11] MEDS: DIGOXIN 0.25 MG/ML AMP IV SCH (08:21)
[2021-05-11] MEDS: THIAMINE 200 MG/2 ML INJ IVP SCH (08:21)
[2021-05-11] MEDS: CEFEPIME/SWI 1gm 10 ML IV SCH ×2 (08:21→20:15)
[2021-05-11] MEDS: PANTOPRAZOLE 40 MG INJ IVP SCH (08:21)
[2021-05-11] MEDS: FOLIC ACID 1 MG in NA CHLORIDE 0.9% 50 ML IV SCH (08:21)
[2021-05-11] MEDS: FLUCONAZOLE 100mg IVPB 100 MG/50 ML BAG IV SCH (08:22)
--- NOTE | 2021-05-11 09:05 | P.PN ---
Date of Service: 05/10/21 Subjective Patient remains on mechanical ventilation. Plan for J tube on Monday or . May need to get tracheostomy placed at that same time. Review of Systems Unable to obtain because patient is intubated and sedated Physical Examination - Vital Signs reviewed - Physical Exam General: Intubated and sedated Respiratory: rhonchi basilar crackles Cardiovascular: Regular rate/rhythm, Normal S1 S2, No murmurs Gastrointestinal: Normal bowel sounds, Soft and benign, Non-distended, No tenderness; G-tube Musculoskeletal: No clubbing, No swelling, No tenderness Neurological: Wakes up and follows some commands Assessment & Plan - Problems (Diagnosis) (1) Acute diastolic heart failure Current Visit: No Status: Acute (2) Atrial flutter Current Visit: No Status: Acute (3) Leukopenia Current Visit: No Status: Acute (4) Aspiration pneumonia Onset Date: 04/27/21 Status: Acute Pneumonia type: due to unspecified organism Laterality: left Lung location: lower lobe of lung Qualified Code(s): J18.9 - Pneumonia, unspecified organism (5) Dysphagia Current Visit: No Status: Acute (6) Muscular dystrophy Onset Date: 09/27/1979 Current Visit: No Status: Acute - Plan Plan: 1. Mechanical ventilation management per Pulmonary 2. J-tube placement on Monday or ; may need to consider tracheostomy at that time. Patient with muscular dystrophy in unlikely to get off the ventilator; generalized weakness 3. Echocardiogram with global hypokinesis; continue with cardiac meds; continue with diuresing 4. Monitor volume status and continue with beta-giana therapy orally. 5. Monitor labs closely 6. Continue with cardiac meds for rate control 7. long-term prognosis is poor. Patient with probably be an ideal candidate for withdrawal of care. Will talk to brother regarding this.
--- NOTE | 2021-05-11 09:06 | P.PN ---
Date of Service: 05/11/21 Subjective Patient continues to remain stable. Planning on J-tube placement. Review of Systems Unable to obtain because patient is intubated and sedated Physical Examination - Vital Signs reviewed - Physical Exam General: Intubated and sedated Respiratory: rhonchi basilar crackles Cardiovascular: Regular rate/rhythm, Normal S1 S2, No murmurs Gastrointestinal: Normal bowel sounds, Soft and benign, Non-distended, No tenderness; G-tube Musculoskeletal: No clubbing, No swelling, No tenderness Neurological: Wakes up and follows some commands Assessment & Plan - Problems (Diagnosis) (1) Acute diastolic heart failure Current Visit: No Status: Acute (2) Atrial flutter Current Visit: No Status: Acute (3) Leukopenia Current Visit: No Status: Acute (4) Aspiration pneumonia Onset Date: 04/27/21 Status: Acute Pneumonia type: due to unspecified organism Laterality: left Lung location: lower lobe of lung Qualified Code(s): J18.9 - Pneumonia, unspecified organism (5) Dysphagia Current Visit: No Status: Acute (6) Muscular dystrophy Onset Date: 09/27/1979 Current Visit: No Status: Acute - Plan Plan: 1. Mechanical ventilation management per Pulmonary 2. Arrange for J-tube placement. 3. Echocardiogram with global hypokinesis; continue with cardiac meds; continue with diuresing 4. Monitor volume status and continue with beta-giana therapy orally. 5. Monitor labs closely 6. Continue with cardiac meds for rate control 7. long-term prognosis is poor. Patient with probably be an ideal candidate for withdrawal of care. Will talk to brother regarding this.
[2021-05-11 09:45] LABS: Blood Morphology Comment NOT SEEN (NOT SEEN); Platelet Estimate DECR; White Blood Cell Scan OK (OK)
--- NOTE | 2021-05-11 11:02 | EKG ---
Test Date: 2021-05-09 Test Time: 00:25:41 Blending Line Attendant: RT-O MEASUREMENT RESULTS: Intervals: Rate: 98 WI: 160 QRSD: 148 QT: 394 QTc: 503 [place]: P: 267 WI: 160 QRS: -34 T: 144 INTERPRETIVE STATEMENTS: Unusual P axis, possible ectopic atrial rhythm Left axis deviation Nonspecific intraventricular block Abnormal ECG Compared to ECG 05/09/2021 00:20:59 No significant changes Electronically Signed On 05-11-21 10:54:41 CDT by Chapo Mcgrath
--- NOTE | 2021-05-11 12:00 | P.PN ---
Subjective Date of Service: 05/11/21 Primary Care Provider: Dr. Ramon Chief Complaint: Respiratory failure Condition stable patient condition stable patient unresponsive on a ventilator FiO2 is 50% Review of Systems is unable to be obtained Physical Examination - Vital Signs Temperature: 97.8 F Blood Pressure: 87/55 Pulse: 74 Respirations: 18 Pulse Ox (%): 98 - Physical Exam General: Unresponsive - Studies Medications List Reviewed: Yes Assessment & Plan - Problems (Diagnosis) (1) COVID-19 Current Visit: Yes Status: Acute Plan: Respiratory failure respiratory failure blood pressure is slightly low on 50% FiO2 white count is 11,000 mildly anemic renal function is normal will try will try low-dose of tube feeds scheduled for jejunostomy chest x-ray no chest x-ray no change endotracheal tube satisfactory plan to wean him off possible wean off the ventilator Physician Review: Patient Assessed, Agree with Above Assessment and Plan
[2021-05-11] MEDS: ENOXAPARIN 30 MG/0.3 ML SQ SCH (16:28)
[2021-05-11] MEDS: AA 4.25 %/D5W/ELECTROLYTES 2,000 ML, WATER FOR INJ,STERILE 250 ML with MULTIVITAMINS IN... IV SCH ×3 (16:28)
[2021-05-11] MEDS: MIDAZOLAM HCL 2 MG/2 ML INJ IV PRN (19:28)
[2021-05-11] MEDS: LORazepam 2 MG/ML VIAL IV PRN (19:34)
[2021-05-12] MEDS: D5 0.45 NS 1,000 ML IV SCH ×3 (02:24→18:24)
[2021-05-12 04:45] LABS: Hematocrit 39.7 % (39.6-49.0); MPV 9.4 fL (7.6-11.3); RBC Red Blood Cell Count 4.19 M/uL (4.33-5.43)
[2021-05-12] MEDS: MIDAZOLAM HCL 2 MG/2 ML INJ IV PRN ×3 (05:01→22:39)
[2021-05-12 05:04] LABS: BUN Blood Urea Nitrogen 22 mg/dL (7-18); Bicarbonate 32 mmol/L (21-32); Glucose Level 153 mg/dL (74-106); Potassium 4.4 mmol/L (3.5-5.1); Sodium Level 145 mmol/L (136-145)
--- NOTE | 2021-05-12 07:21 | RAD REPORT ---
EXAM DESCRIPTION: Denzel Single View05/12/2021 6:13 am CLINICAL HISTORY: Chest pain COMPARISON: May 11, 2021 FINDINGS: Large right pneumothorax. Endotracheal tube with its tip 1.2 centimeters above the top of the aortic arch. No significant change in the bilateral pulmonary opacities. NG tube in place IMPRESSION: Large right pneumothorax The patient's nurse Marcella notified 7:14 a.m. 05/12/2021
[2021-05-12] MEDS: FOLIC ACID 1 MG in NA CHLORIDE 0.9% 50 ML IV SCH (09:44)
[2021-05-12] MEDS: THIAMINE 200 MG/2 ML INJ IVP SCH (09:44)
[2021-05-12] MEDS: PANTOPRAZOLE 40 MG INJ IVP SCH (09:44)
[2021-05-12] MEDS: FLUCONAZOLE 100mg IVPB 100 MG/50 ML BAG IV SCH (09:45)
[2021-05-12] MEDS: CEFEPIME/SWI 1gm 10 ML IV SCH ×2 (09:45→20:10)
[2021-05-12] MEDS: DIGOXIN 0.25 MG/ML AMP IV SCH (09:45)
[2021-05-12] MEDS: METHYLPREDNISOLONE 40 MG INJ IV SCH ×2 (09:45→20:10)
[2021-05-12] MEDS ORDERED: DEXTROSE 10%-WATER 500 ML IV SCH (10:15)
--- NOTE | 2021-05-12 10:25 | RAD REPORT ---
EXAM DESCRIPTION: RORYChest Single View05/12/2021 10:08 am CLINICAL HISTORY: Device placement chest tube placement IMPRESSION: Right chest tube has been inserted with its tip overlying the medial upper right hemitho rax. Right lung has re-expanded with small residual pneumothorax Endotracheal tube has its tip 17 millimeters above top of the aortic arch The patient's nurse Marcella was notified 10:20 a.m. May 12, 2021
--- NOTE | 2021-05-12 10:45 | P.OP ---
Preoperative diagnosis: RIGHT Pneumothorax Postoperative diagnosis: RIGHT Pneumothorax Primary procedure: Right Thoracostomy Tube Placement Anesthesia: Local 1% lidocaine Estimated blood loss: <2cc Specimen: none Findings: air immediately returned Complications: None Implants: 18 Fr THAL Chest tube Transferred to: ICU Condition: Serious
--- NOTE | 2021-05-12 11:35 | P.PN ---
Subjective Date of Service: 05/12/21 Primary Care Provider: Dr. Ramon Chief Complaint: Respiratory failure/pnemothorax Deveolped R sided penumothorax. S/p chesttube/ unresponsive Review of Systems is unable to be obtained Physical Examination - Vital Signs Temperature: 97.2 F Blood Pressure: 137/81 Pulse: 105 Respirations: 28 Pulse Ox (%): 93 - Physical Exam General: Unresponsive - Studies Medications List Reviewed: Yes Assessment & Plan - Problems (Diagnosis) (1) COVID-19 Current Visit: Yes Status: Acute Plan: Resp failure S/p chest tube for penumothorax/labs reviewed/NC in penumonia/ Try and wean off vent/ consider NIVinstead of trach/ tolerating Low dose tube feeds/ labs rewied/sputm cultures ordered Physician Review: Patient Assessed, Agree with Above Assessment and Plan
--- NOTE | 2021-05-12 12:31 | OP ---
Date of Procedure: 05/12/2021 Surgeon: Tong Garcia MD, Brief History Of Present Illness: The patient is a 51-year-old male, known to me from previous consu ltation with a history of muscular dystrophy. I was consulted for a possible PEG-J extension. I dis cussed with the patient with his medical power of defense attorney. He has a history of muscular dystrophy a nd COVID-19 pneumonia with worsening respiratory function. Ultimately, we held off on performing his PEG-J extension due to his worsening pulmonary function and increased oxygen requirements. The elsa ent ultimately was transferred to the ICU intubated and required pressor support temporarily. He had significant worsening of his COVID-19 pneumonia, at which point, this morning I was notified. The p atient had a right [id number] pneumothorax. As such, I contacted the brother who is medical p ower of defense attorney and discussed the risks, benefits, and alternatives of placement of a right thoracos anthony tube, including but not limited to bleeding, infection, damage to surrounding tissues, need for further operation and procedures. The patient's brother agreed to proceed with the placement of a ri ght thoracostomy tube. Preoperative Diagnosis: Right pneumothorax. Postoperative Diagnosis: Right pneumothorax. Procedure Performed: A right thoracostomy tube placement. Anesthesia: Local 1% lidocaine used. Estimated Blood Loss: Less than 2 mL. Specimen: None. Findings: Air immediately returned. Complications: None. Implants: An 18-[place] Thal chest tube placed in the right thoracic space, fifth to sixth intercosta l space. Condition: The patient remained in ICU in serious condition. Procedure In Detail: After informed consent was obtained as above, the patient was prepped and drape d in the usual sterile fashion after adequate anesthesia was achieved. A finder needle was used to c annulate the right thoracic cavity. A wire was advanced through this tract without evidence of compl ication. The needle was then removed at this point. I then made a neeta incision overlying the inser tion site and performed sequential dilatation using Seldinger technique ultimately placing an 18-Fren ch Thal chest tube in the right thoracic cavity point posterior superiorly. Air was immediately retu rned. No blood or fluid was appreciated at this point. The chest tube was then hooked up to a Pneum ovax system and secured to the skin with the same said 2-0 nylon suture and a sterile dressing placed on top. The patient tolerated the procedure well without evidence of complication, remained in the ICU in serious condition throughout the procedure. All counts were correct at the end of the case. CARLOS/JOEY Voice ID: [id number] Report ID: [id number]
--- NOTE | 2021-05-12 16:41 | RAD REPORT ---
EXAM DESCRIPTION: RAD - Chest Single View - 05/12/2021 4:22 pm CLINICAL HISTORY: ET tube placement verification COMPARISON: Chest Single View dated 05/12/2021; Chest Single View dated 05/12/2021; Chest Single View da kay 05/11/2021; Chest Single View dated 05/10/2021 FINDINGS: Lines: Endotracheal tube at the level of the aortic arch. NG tube below the diaphragm. Rig ht subclavian approach PICC with tip overlying the SVC.Right-sided chest tube in similar positioning. Lungs: Similar mild patchy bilateral airspace disease. Pleural: Small residual right apical pneumothorax . Cardiac: The heart size is within normal limits. Bones: No acute fractures. Other: IMPRESSION: Endotracheal tube has been advanced to the level of the aortic arch and is in good posit ion. Right chest tube in place with small residual right-sided pneumothorax.
[2021-05-12] MEDS: ENOXAPARIN 30 MG/0.3 ML SQ SCH (17:00)
[2021-05-12] MEDS: AA 4.25 %/D5W/ELECTROLYTES 2,000 ML, Lipids 20% 250 ML with MULTIVITAMINS INJ 10 ML IV SCH ×3 (18:24)
--- NOTE | 2021-05-12 22:34 | RAD REPORT ---
EXAM DESCRIPTION: US - UPPER EXTREMITY VENOUS UNILATE - 05/12/2021 6:14 pm CLINICAL HISTORY: swelling COMPARISON: No comparisons FINDINGS: There is incomplete compressibility with echogenic material within the right subclavian ve in, right axillary vein, right brachial vein, and right basilic veins. The radial and ulnar veins are patent. The internal jugular vein is patent. A PICC is present in the right cephalic vein. IMPRESSION: Positive for venous thrombosis in the right upper extremity.
[2021-05-13 05:10] LABS: Absolute Lymphocytes (CBC) 0.2 K/uL (0.7-4.9); Basophils % 0.3 % (0-1.3); Hematocrit 38.1 % (39.6-49.0); Lymphocytes % 1.1 % (15.3-44.8); MPV 9.2 fL (7.6-11.3); RBC Red Blood Cell Count 4.09 M/uL (4.33-5.43)
[2021-05-13] MEDS: D5 0.45 NS 1,000 ML IV SCH ×2 (05:20→08:29)
[2021-05-13 05:32] LABS: BUN Blood Urea Nitrogen 21 mg/dL (7-18); Bicarbonate 31 mmol/L (21-32); Ferritin 1451.3 ng/mL (26-388); Glucose Level 139 mg/dL (74-106); Magnesium 2.3 mg/dL (1.8-2.4); Potassium 4.5 mmol/L (3.5-5.1); Sodium Level 142 mmol/L (136-145)
--- NOTE | 2021-05-13 08:33 | RAD REPORT ---
EXAM DESCRIPTION: RAD - Chest Single View - 05/13/2021 8:18 am CLINICAL HISTORY: pneumonia, intubation COMPARISON: May 12 TECHNIQUE: AP portable chest image was obtained 05/13/2021 8:18 am . FINDINGS: Right-sided chest tube remains in place with the tip in the apex. Small right-sided pneumo thorax remains. No left-sided pneumothorax seen. ET tube tip is top of the aortic arch 4 cm above the dhaval. This is good positioning and stable. NG tube tip is in the stomach similar to comparison. Patient is significantly rotated. There is left base opacification obscuring the left hemidiaphragm. This is similar to comparison. No new or progressive right lung parenchymal process. Heart size is prominent but stable. Left pleural effusion is not excluded. IMPRESSION: No change in positioning of the chest tube. Small residual right pneumothorax seen in th e apex similar to comparison. ET tube, NG tube and right-sided PICC line in good position and unchanged. Left base opacification remains. Left hemidiaphragm is obscured.
--- NOTE | 2021-05-13 08:55 | P.PN ---
Date of Service: 05/12/21 Subjective Spoke to patient's brother who is wanting to continue to proceed with J-tube at this time. He was agreeable that tube placement. He is also agreeable to additional plan of care. Spoke with them regarding future trach placement if needed and he is agreeable. Spoke with Pulmonary and they would feel patient should be able to come off the ventilator. Continue to see how patient progresses. Review of Systems Unable to obtain because patient is intubated and sedated Physical Examination - Vital Signs reviewed - Physical Exam General: Intubated and sedated Respiratory: rhonchi basilar crackles Cardiovascular: Regular rate/rhythm, Normal S1 S2, No murmurs Gastrointestinal: Normal bowel sounds, Soft and benign, Non-distended, No tenderness; G-tube Musculoskeletal: No clubbing, No swelling, No tenderness Neurological: Wakes up and follows some commands Assessment & Plan - Problems (Diagnosis) (1) Acute diastolic heart failure Current Visit: No Status: Acute (2) Atrial flutter Current Visit: No Status: Acute (3) Leukopenia Current Visit: No Status: Acute (4) Aspiration pneumonia Onset Date: 04/27/21 Status: Acute Pneumonia type: due to unspecified organism Laterality: left Lung location: lower lobe of lung Qualified Code(s): J18.9 - Pneumonia, unspecified organism (5) Dysphagia Current Visit: No Status: Acute (6) Muscular dystrophy Onset Date: 09/27/1979 Current Visit: No Status: Acute - Plan Plan: 1. Mechanical ventilation management per Pulmonary 2. J-tube placement in the future. Patient with muscular dystrophy in unlikely to get off the ventilator; generalized weakness; may need to consider trach in the future if difficult to wean off 3. Echocardiogram with global hypokinesis; continue with cardiac meds; continue with diuresing 4. Monitor volume status and continue with beta-giana therapy orally. 5. Monitor labs closely 6. Continue with cardiac meds for rate control 7. Long-term prognosis is poor. Brother still wants everything done at this time except for resuscitation.
--- NOTE | 2021-05-13 09:08 | P.PN ---
Date of Service: 05/13/21 Subjective Patient had a chest tube placed. Tolerating it well. Review of Systems Unable to obtain because patient is intubated and sedated Physical Examination - Vital Signs reviewed - Physical Exam General: Intubated and sedated Respiratory: rhonchi basilar crackles; chest tube placement to the right rib cage Cardiovascular: Regular rate/rhythm, Normal S1 S2, No murmurs Gastrointestinal: Normal bowel sounds, Soft and benign, Non-distended, No tenderness; G-tube Musculoskeletal: No clubbing, No swelling, No tenderness Neurological: Wakes up and follows some commands Assessment & Plan - Problems (Diagnosis) (1) Acute diastolic heart failure Current Visit: No Status: Acute (2) Atrial flutter Current Visit: No Status: Acute (3) Leukopenia Current Visit: No Status: Acute (4) Aspiration pneumonia Onset Date: 04/27/21 Status: Acute Pneumonia type: due to unspecified organism Laterality: left Lung location: lower lobe of lung Qualified Code(s): J18.9 - Pneumonia, unspecified organism (5) Dysphagia Current Visit: No Status: Acute (6) Muscular dystrophy Onset Date: 09/27/1979 Current Visit: No Status: Acute - Plan Plan: 1. Mechanical ventilation management per Pulmonary 2. J-tube placement in the future. Patient with muscular dystrophy in unlikely to get off the ventilator; generalized weakness; may need to consider trach in the future if difficult to wean off 3. Echocardiogram with global hypokinesis; continue with cardiac meds; continue with diuresing 4. Continue monitoring chest tube 5. Monitor labs closely 6. Continue with antibiotic therapy 7. Long-term prognosis is poor. Brother still wants everything done at this time except for resuscitation.
[2021-05-13] MEDS: FOLIC ACID 1 MG in NA CHLORIDE 0.9% 50 ML IV SCH (09:10)
[2021-05-13] MEDS: PANTOPRAZOLE 40 MG INJ IVP SCH (09:10)
[2021-05-13] MEDS: CEFEPIME/SWI 1gm 10 ML IV SCH (09:10)
[2021-05-13] MEDS: METHYLPREDNISOLONE 40 MG INJ IV SCH ×2 (09:11→20:16)
[2021-05-13] MEDS: FLUCONAZOLE 100mg IVPB 100 MG/50 ML BAG IV SCH (09:11)
[2021-05-13] MEDS: THIAMINE 200 MG/2 ML INJ IVP SCH (09:12)
[2021-05-13] MEDS: DIGOXIN 0.25 MG/ML AMP IV SCH (09:12)
[2021-05-13] MEDS: ENOXAPARIN 30 MG/0.3 ML SQ SCH (17:00)
[2021-05-13] MEDS ORDERED: AA 4.25 %/D5W/ELECTROLYTES 2,000 ML with MULTIVITAMINS INJ 10 ML IV SCH ×2 (17:00)
--- NOTE | 2021-05-13 17:34 | P.PN ---
Subjective Date of Service: 05/13/21 Primary Care Provider: Dr. Ramon Chief Complaint: Respiratory failure/pnemothorax Subjective: Working w/ PT Not doign well. large air leak on the right side unresponsive Review of Systems is unable to be obtained Physical Examination - Vital Signs Temperature: 97.3 F Blood Pressure: 125/74 Pulse: 97 Respirations: 20 Pulse Ox (%): 93 - Physical Exam General: Unresponsive - Studies Medications List Reviewed: Yes Assessment & Plan - Problems (Diagnosis) (1) COVID-19 Current Visit: Yes Status: Acute Plan: Resp failure, prog poor tolerating tube foods/ Need to discuss with brother regarding withdrawal of care and hospice care /saturation satisfacotey on 40 % Fio2/ large air leak. Right lung expanded /DC Cefepime Physician Review: Patient Assessed, Agree with Above Assessment and Plan
[2021-05-13] MEDS: AA 4.25 %/D5W/ELECTROLYTES 2,000 ML with MULTIVITAMINS INJ 10 ML IV SCH ×2 (18:04)
[2021-05-13] MEDS: LORazepam 2 MG/ML VIAL IV PRN (20:16)
[2021-05-13] MEDS: MIDAZOLAM HCL 2 MG/2 ML INJ IV PRN (20:49)
[2021-05-14] MEDS: D5 0.45 NS 1,000 ML IV SCH ×2 (00:26→08:00)
[2021-05-14 05:58] LABS: Absolute Lymphocytes (CBC) 0.2 K/uL (0.7-4.9); Basophils % 0.1 % (0-1.3); Hematocrit 30.2 % (39.6-49.0); Lymphocytes % 1.8 % (15.3-44.8)
[2021-05-14 06:24] LABS: BUN Blood Urea Nitrogen 26 mg/dL (7-18); Bicarbonate 32 mmol/L (21-32); Glucose Level 137 mg/dL (74-106); Magnesium 2.3 mg/dL (1.8-2.4); Potassium 4.7 mmol/L (3.5-5.1); Sodium Level 141 mmol/L (136-145)
[2021-05-14 06:42] LABS: Ferritin 2036.9 ng/mL (26-388)
[2021-05-14] MEDS: PANTOPRAZOLE 40 MG INJ IVP SCH (08:18)
[2021-05-14] MEDS: THIAMINE 200 MG/2 ML INJ IVP SCH (08:18)
[2021-05-14] MEDS: DIGOXIN 0.25 MG/ML AMP IV SCH (08:18)
[2021-05-14] MEDS: METHYLPREDNISOLONE 40 MG INJ IV SCH ×2 (08:18→20:15)
[2021-05-14] MEDS: FLUCONAZOLE 100mg IVPB 100 MG/50 ML BAG IV SCH (08:19)
[2021-05-14 08:51] LABS: White Blood Cell Scan OK (OK)
[2021-05-14 08:52] LABS: Blood Morphology Comment NOT SEEN (NOT SEEN); Platelet Estimate DECR
[2021-05-14] MEDS: FOLIC ACID 1 MG in NA CHLORIDE 0.9% 50 ML IV SCH (09:00)
--- NOTE | 2021-05-14 09:28 | P.PN ---
Subjective Date of Service: 05/13/21 Primary Care Provider: Dr. Ramon Chief Complaint: Respiratory failure/pnemothorax Patient remains intubated, with chest tube in place with large air leak. Physical Examination - Vital Signs Temperature: 97.5 F Blood Pressure: 102/62 Pulse: 83 Respirations: 18 Pulse Ox (%): 96 - Physical Exam General: Comatose Respiratory: Diminished, Other (ventilated, RIGHT chest tube in place, large air leak) - Studies Medications List Reviewed: Yes Assessment And Plan - Current Problems (Diagnosis) (1) Dysphagia Current Visit: No Status: Acute Plan: I have discussed the options with the patient as well as his brother whom is FERNANDOA, we have decided to start TPN via PICC line and will plan to exchange the PEG for a PEG Jejunostomy tube. - i have explained the risks, benefits and alterantives of the PEG J including but not limited to bleeding, infection, damage to surrounding internal organs, need for more surgery or procedures and noted that PEG-J frequently require ongoing procedures due to malpositioning. - will hold off on placement of PEG J @ this time due to increased oxygen requirements which would make procedure higher risk than necessary, will continue to plan for PICC / TPN, then when oxygen requirements improve will plan for PEG-J - chest tube has large air leak, patient has airway protected with ET tube and is tolerating PEG tube feedings, as such will delay replacement of PEG for PEG-J @ this time. - Covid 19 pneumonia remains Physician Review: Patient Assessed, Agree with Above Assessment and Plan Physician Review Additional Text: C
--- NOTE | 2021-05-14 09:29 | P.PN ---
Subjective Date of Service: 05/14/21 Primary Care Provider: Dr. Ramon Chief Complaint: Respiratory failure/pnemothorax Patient remains intubated, with chest tube in place with large air leak. Physical Examination - Vital Signs Temperature: 97.5 F Blood Pressure: 102/62 Pulse: 83 Respirations: 18 Pulse Ox (%): 96 - Physical Exam General: Confused Respiratory: Diminished, Other (Chest tube in place, large air leak remains) - Studies Medications List Reviewed: Yes Assessment And Plan - Current Problems (Diagnosis) (1) Dysphagia Current Visit: No Status: Acute Plan: I have discussed the options with the patient as well as his brother whom is ARNAV, we have decided to start TPN via PICC line and will plan to exchange the PEG for a PEG Jejunostomy tube. - i have explained the risks, benefits and alterantives of the PEG J including but not limited to bleeding, infection, damage to surrounding internal organs, need for more surgery or procedures and noted that PEG-J frequently require ongoing procedures due to malpositioning. - will hold off on placement of PEG J @ this time due to increased oxygen requirements which would make procedure higher risk than necessary, will continue to plan for PICC / TPN, then when oxygen requirements improve will plan for PEG-J - chest tube has large air leak, patient has airway protected with ET tube and is tolerating PEG tube feedings, as such will delay replacement of PEG for PEG-J @ this time. - Covid 19 pneumonia remains Physician Review: Patient Assessed, Agree with Above Assessment and Plan Physician Review Additional Text: C
--- NOTE | 2021-05-14 11:09 | RAD REPORT ---
EXAM DESCRIPTION: RAD - Chest Single View - 05/14/2021 10:54 am CLINICAL HISTORY: Respiratory Failure COMPARISON: Chest Single View dated 05/13/2021; Chest Single View dated 05/12/2021; Chest Single View da kay 05/12/2021; Chest Single View dated 05/12/2021 FINDINGS: Lines: The endotracheal tube tip is just under a cm above the aortic arch. Right-sided esther st tube in similar positioning. Right subclavian approach PICC with tip overlying the SVC. NG tube be low the diaphragm. Lungs: Similar bilateral airspace opacities. There are more focal opacities at the left lung base whi ch are similar. Pleural: Difficult to exclude a small left effusion. Cardiac: The heart size is within normal limits. Bones: No acute fractures. Other: IMPRESSION: 1. Patchy multifocal airspace disease without significant change. 2. The endotracheal tube is slightly retracted and is just under 1 cm above the aortic arch. 3. Small unchanged right-sided residual pneumothorax.
--- NOTE | 2021-05-14 11:57 | P.PN ---
Subjective Date of Service: 05/14/21 Primary Care Provider: Dr. Ramon Chief Complaint: Respiratory failure/pnemothorax Minimally responsive hemodynamically stable oxygenation satisfactory significant air leak Review of Systems is unable to be obtained Physical Examination - Vital Signs Temperature: 97.5 F Blood Pressure: 119/66 Pulse: 75 Respirations: 16 Pulse Ox (%): 95 - Physical Exam General: Unresponsive - Studies Medications List Reviewed: Yes Assessment & Plan - Problems (Diagnosis) (1) COVID-19 Current Visit: Yes Status: Acute Plan: Respiratory failure plan to wean off the ventilator increased tube feeds significant air leak labs reviewed white count is normal his prognosis is very poor very weak patient is on TPN DC IV fluids Physician Review: Patient Assessed, Agree with Above Assessment and Plan
[2021-05-14] MEDS: ENOXAPARIN 30 MG/0.3 ML SQ SCH (17:00)
[2021-05-14] MEDS: AA 4.25 %/D5W/ELECTROLYTES 2,000 ML, Lipids 20% 250 ML with MULTIVITAMINS INJ 10 ML IV SCH ×3 (18:01)
[2021-05-15] MEDS: PANTOPRAZOLE 40 MG INJ IVP SCH (09:00)
[2021-05-15] MEDS: METHYLPREDNISOLONE 40 MG INJ IV SCH ×3 (09:00→20:41)
[2021-05-15] MEDS: DIGOXIN 0.25 MG/ML AMP IV SCH (09:00)
[2021-05-15] MEDS: THIAMINE 200 MG/2 ML INJ IVP SCH (09:01)
[2021-05-15] MEDS: FOLIC ACID 1 MG in NA CHLORIDE 0.9% 50 ML IV SCH (09:02)
[2021-05-15] MEDS: FLUCONAZOLE 100mg IVPB 100 MG/50 ML BAG IV SCH (09:03)
[2021-05-15] MEDS: SODIUM CHLORIDE 0.9% 10ML INJ IV PRN (09:04)
[2021-05-15] MEDS ORDERED: WATER FOR INJ,STERILE 10 ML ONE (10:48)
--- NOTE | 2021-05-15 10:51 | P.PN ---
Subjective Date of Service: 05/15/21 Primary Care Provider: Dr. Ramon Chief Complaint: Respiratory failure/pnemothorax Patient remains intubated, with chest tube in place with large air leak. Physical Examination - Vital Signs Temperature: 96.9 F Blood Pressure: 122/75 Pulse: 57 Respirations: 14 Pulse Ox (%): 98 - Physical Exam General: Alert, In no apparent distress, Cooperative Respiratory: Diminished (large air leak continue) - Studies Medications List Reviewed: Yes Assessment And Plan - Current Problems (Diagnosis) (1) Dysphagia Current Visit: No Status: Acute Plan: I have discussed the options with the patient as well as his brother whom is ARNAV, we have decided to start TPN via PICC line and will plan to exchange the PEG for a PEG Jejunostomy tube. - i have explained the risks, benefits and alterantives of the PEG J including but not limited to bleeding, infection, damage to surrounding internal organs, need for more surgery or procedures and noted that PEG-J frequently require ongoing procedures due to malpositioning. - will hold off on placement of PEG J @ this time due to increased oxygen requirements which would make procedure higher risk than necessary, will continue to plan for PICC / TPN, then when oxygen requirements improve will plan for PEG-J - chest tube has large air leak, patient has airway protected with ET tube and is tolerating PEG tube feedings, as such will delay replacement of PEG for PEG-J @ this time. - Covid 19 pneumonia remains Physician Review: Patient Assessed, Agree with Above Assessment and Plan Physician Review Additional Text: C
[2021-05-15] MEDS ORDERED: ALTEPLASE 2 MG/VIAL IV SCH (11:00)
[2021-05-15 14:20] LABS: Absolute Lymphocytes (CBC) 0.1 K/uL (0.7-4.9); Basophils % 0.3 % (0-1.3); Hematocrit 34.6 % (39.6-49.0); Lymphocytes % 0.8 % (15.3-44.8); RBC Red Blood Cell Count 3.69 M/uL (4.33-5.43)
[2021-05-15 14:43] LABS: BUN Blood Urea Nitrogen 28 mg/dL (7-18); Bicarbonate 31 mmol/L (21-32); Ferritin 2257.9 ng/mL (26-388); Glucose Level 124 mg/dL (74-106); Magnesium 2.5 mg/dL (1.8-2.4); Potassium 4.8 mmol/L (3.5-5.1); Sodium Level 145 mmol/L (136-145)
[2021-05-15] MEDS: ENOXAPARIN 30 MG/0.3 ML SQ SCH (17:00)
[2021-05-15] MEDS: AA 4.25 %/D5W/ELECTROLYTES 2,000 ML with MULTIVITAMINS INJ 10 ML IV SCH ×2 (17:01)
[2021-05-15 19:38] LABS: Blood Morphology Comment NOTED (NOT SEEN); Platelet Estimate DECR; Platelets, Giant RARE; Polychromasia SLIGHT
[2021-05-16 05:21] LABS: Hematocrit 30.9 % (39.6-49.0); MPV 9.4 fL (7.6-11.3); RBC Red Blood Cell Count 3.27 M/uL (4.33-5.43)
[2021-05-16 05:48] LABS: BUN Blood Urea Nitrogen 30 mg/dL (7-18); Bicarbonate 32 mmol/L (21-32); Glucose Level 132 mg/dL (74-106); Potassium 4.9 mmol/L (3.5-5.1); Sodium Level 145 mmol/L (136-145)
--- NOTE | 2021-05-16 07:42 | P.PN ---
Date of Service: 05/16/21 Subjective Patient is not really been able to get weaned off the ventilator. Spontaneous breathing trial yesterday patient had low tidal volumes. J-tube placement will be done on Monday or Monday. Hopefully we can see if patient can get weaned off the ventilator and if not trach tube can be placed at that time as well. Patient's long-term prognosis is poor. Patient brother does want to continue with aggressive management. He is a DNR so were not to resuscitate if patient's heart or respirations are suppressed. Review of Systems Unable to obtain because patient is intubated and sedated Physical Examination - Vital Signs reviewed - Physical Exam General: Intubated and sedated Respiratory: rhonchi basilar crackles Cardiovascular: Regular rate/rhythm, Normal S1 S2, No murmurs Gastrointestinal: Normal bowel sounds, Soft and benign, Non-distended, No tenderness; G-tube Musculoskeletal: No clubbing, No swelling, No tenderness Neurological: Wakes up and follows some commands Assessment & Plan - Problems (Diagnosis) (1) Acute respiratory failure secondary to aspiration pneumonia; status post pneumothorax with chest tube placement Current Visit: No Status: Acute (2) Atrial flutter Current Visit: No Status: Acute (3) Leukopenia Current Visit: No Status: Acute (4) Diastolic heart failure Onset Date: 04/27/21 Status: Acute Pneumonia type: due to unspecified organism Laterality: left Lung location: lower lobe of lung Qualified Code(s): J18.9 - Pneumonia, unspecified organism (5) Dysphagia status post PEG tube placement; planning J-tube placement Current Visit: No Status: Acute (6) Muscular dystrophy Onset Date: 09/27/1979 Current Visit: No Status: Acute - Plan Plan: 1. Mechanical ventilation management per Pulmonary 2. J-tube placement early this week. Patient is still not weaning off the ventilator-look tidal volumes on spontaneous breathing trial. He has been hospitalized for 35 days now. Patient been intubated for 8 days. May need to consider tracheostomy 3. Echocardiogram with global hypokinesis; continue with cardiac meds; continue with diuresing 4. Monitor volume status and continue with beta-giana therapy orally. 5. Monitor labs closely 6. Continue with cardiac meds for rate control 7. Long-term prognosis is poor. Brother still wants everything done at this time except for resuscitation.
--- NOTE | 2021-05-16 08:33 | P.PN ---
Date of Service: 05/15/21 Subjective Patient has spontaneous breathing trial today. Will reassess need for trach Review of Systems Unable to obtain because patient is intubated and sedated Physical Examination - Vital Signs reviewed - Physical Exam General: Intubated and sedated Respiratory: basilar crackles Cardiovascular: Regular rate/rhythm, Normal S1 S2, No murmurs Gastrointestinal: Normal bowel sounds, Soft and benign, Non-distended, No tenderness; G-tube Musculoskeletal: No clubbing, No swelling, No tenderness Neurological: Wakes up and follows some commands Assessment & Plan - Problems (Diagnosis) (1) Acute respiratory failure secondary to aspiration pneumonia; status post pneumothorax with chest tube placement Current Visit: No Status: Acute (2) Atrial flutter Current Visit: No Status: Acute (3) Leukopenia Current Visit: No Status: Acute (4) Diastolic heart failure Onset Date: 04/27/21 Status: Acute Pneumonia type: due to unspecified organism Laterality: left Lung location: lower lobe of lung Qualified Code(s): J18.9 - Pneumonia, unspecified organism (5) Dysphagia status post PEG tube placement; planning J-tube placement Current Visit: No Status: Acute (6) Muscular dystrophy Onset Date: 09/27/1979 Current Visit: No Status: Acute - Plan Plan: 1. Mechanical ventilation management per Pulmonary 2. J-tube placement Monday/Monday. Patient is still not weaning off the ventilator-low tidal volumes on spontaneous breathing trial. He has been hospitalized for 35 days now. Patient been intubated for 7 days. May need to consider tracheostomy 3. Echocardiogram with global hypokinesis; continue with cardiac meds; continue with diuresing 4. Monitor volume status and continue with beta-giana therapy orally. 5. Monitor labs closely 6. Continue with cardiac meds for rate control 7. Long-term prognosis is poor. Brother still wants everything done at this time except for resuscitation.
--- NOTE | 2021-05-16 08:41 | RAD REPORT ---
EXAM DESCRIPTION: RAD - Chest Single View - 05/16/2021 6:09 am CLINICAL HISTORY: pneumonia, pneumothorax Chest pain. COMPARISON: Chest Single View dated 05/14/2021; Chest Single View dated 05/13/2021; Chest Single View d ated 05/12/2021; Chest Single View dated 05/12/2021 FINDINGS: Portable technique limits examination quality. Tip of the endotracheal tube is at the level of the superior aortic arch. Enteric tube descends into the stomach. Small right-sided pneumothorax with right-sided chest tube remains in place, unchanged.M ild bilateral pulmonary opacities are stable since comparative study. The heart is normal in size. IMPRESSION: Stable chest is seen since 05/14/2021.
[2021-05-16] MEDS: PANTOPRAZOLE 40 MG INJ IVP SCH (09:00)
[2021-05-16] MEDS: FOLIC ACID 1 MG in NA CHLORIDE 0.9% 50 ML IV SCH (09:01)
[2021-05-16] MEDS: METHYLPREDNISOLONE 40 MG INJ IV SCH ×2 (09:02→20:39)
[2021-05-16] MEDS: DIGOXIN 0.25 MG/ML AMP IV SCH (09:02)
[2021-05-16] MEDS: THIAMINE 200 MG/2 ML INJ IVP SCH (09:03)
--- NOTE | 2021-05-16 09:03 | P.PN ---
Date of Service: 05/14/21 Subjective Chest tube remains in place. Patient doing otherwise well. Spoke with the brother and updated him on patient's current clinical status. Review of Systems Unable to obtain because patient is intubated and sedated Physical Examination - Vital Signs reviewed - Physical Exam General: Intubated and sedated Respiratory: basilar crackles Cardiovascular: Regular rate/rhythm, Normal S1 S2, No murmurs Gastrointestinal: Normal bowel sounds, Soft and benign, Non-distended, No tenderness; G-tube Musculoskeletal: No clubbing, No swelling, No tenderness Neurological: Wakes up and follows some commands Assessment & Plan - Problems (Diagnosis) (1) Acute respiratory failure secondary to aspiration pneumonia; status post pneumothorax with chest tube placement Current Visit: No Status: Acute (2) Atrial flutter Current Visit: No Status: Acute (3) Leukopenia Current Visit: No Status: Acute (4) Diastolic heart failure Onset Date: 04/27/21 Status: Acute Pneumonia type: due to unspecified organism Laterality: left Lung location: lower lobe of lung Qualified Code(s): J18.9 - Pneumonia, unspecified organism (5) Dysphagia status post PEG tube placement; planning J-tube placement Current Visit: No Status: Acute (6) Muscular dystrophy Onset Date: 09/27/1979 Current Visit: No Status: Acute - Plan Plan: 1. Mechanical ventilation management per Pulmonary; chest tube in place 2. J-tube placement pending. May also need to consider tracheostomy on the same day depending on patient's volumes on spontaneous breathing trial 3. Echocardiogram with global hypokinesis; continue with cardiac meds; continue with diuresing 4. Monitor volume status and continue with beta-giana therapy intravenously 5. Monitor labs closely as needed 6. Continue with cardiac meds for rate control 7. Long-term prognosis is poor. Brother still wants everything done at this ti me except for resuscitation.
--- NOTE | 2021-05-16 10:56 | P.PN ---
Subjective Date of Service: 05/16/21 Primary Care Provider: Dr. Ramon Chief Complaint: Respiratory failure Minimally responsive hemodynamically stable oxygenation satisfactory significant air leak Review of Systems is unable to be obtained Physical Examination - Vital Signs Temperature: 98.2 F Blood Pressure: 128/75 Pulse: 83 Respirations: 20 Pulse Ox (%): 94 - Physical Exam General: Unresponsive - Studies Medications List Reviewed: Yes Assessment & Plan - Problems (Diagnosis) (1) COVID-19 Current Visit: Yes Status: Acute Plan: Respiratory failure unable to wean from the ventilator patient has underlying muscular dystrophy prognosis is very poor we will try again if not possible c onsider trach labs reviewed tolerating tube feeds continue to wean off the TPN reduced dose of steroids chest x-ray is improving arterial blood gases Physician Review: Patient Assessed, Agree with Above Assessment and Plan
[2021-05-16 16:02] LABS: Arterial Blood Carboxyhemoglob 1.1 % (0-1.5); Blood Gas Oxyhemoglobin 94.2 % (94-97); Blood O2 Saturation 96.3 % (92-98.5)
[2021-05-16] MEDS: AA 4.25 %/D5W/ELECTROLYTES 2,000 ML with MULTIVITAMINS INJ 10 ML IV SCH ×2 (17:00)
[2021-05-16] MEDS: ENOXAPARIN 30 MG/0.3 ML SQ SCH (17:00)
[2021-05-16] MEDS: MIDAZOLAM HCL 2 MG/2 ML INJ IV PRN (22:58)
[2021-05-17] MEDS ORDERED: WATER FOR INJ,STERILE 10 ML ONE (05:44)
--- NOTE | 2021-05-17 05:52 | P.PN ---
Subjective Date of Service: 05/17/21 Primary Care Provider: Dr. Ramon Chief Complaint: Respiratory failure Subjective: Improving (Currently on ventilator at 40%) Physical Examination - Vital Signs Temperature: 97.4 F Blood Pressure: 106/61 Pulse: 80 Respirations: 24 Pulse Ox (%): 99 - Studies Medications List Reviewed: Yes Assessment & Plan Discharge Plan: Home Plan to discharge in: Greater than 2 days Physician Review Additional Text: COVID: Positive, unvaccinated CT scan: COMPARISON: Chest For Pe Angio dated 07/21/2020; Chest Single View dated 04/17/2021 TECHNIQUE: Dynamically enhanced 3 mm thick images of the chest were obtained during administration of approximately 150mL Isovue 370 IV contrast. Coronal and oblique MIP reconstruction images were generated and reviewed. Exam utilizes a protocol to evaluate the pulmonary arterial tree. All CT scans are performed using dose optimization technique as appropriate and may include automated exposure control or mA/KV adjustment according to patient size. FINDINGS: No pulmonary emboli are identified. The aorta as imaged shows no acute or suspicious finding. No pericardial thickening or effusion. Posteromedial left lower lobe airspace opacification present. Air bronchograms are present. Patchy opacification is seen in the air spaces of the left upper l obe along the fissure. Trace amounts of ground-glass opacification seen in the lateral right upper lobe along the major fissure. Trace amount of pleural fluid on the left and right. Trace amount of atelectasis in the posterior gutter on the right. No mediastinal or hilar suspicious masses. A few small reactive type mediastinal and hilar lymph nodes seen. No chest wall masses or abnormal axillary lymphadenopathy. No mass or abnormality seen at the GE junction. No evidence for esophageal wall thickening or mass. No endobronchial lesions seen. IMPRESSION: No pulmonary emboli identified. Left lower lobe pneumonia with minimal pneumonia findings in the left upper lobe and right upper lobe. Minimal bilateral pleural effusions. No esophageal or GE junction abnormality evident. ECHO: MEASUREMENTS (cm) DIASTOLIC (NORMALS) SYSTOLIC (NORMALS) IVSd 1.0 (0.6-1.2) LA Diam 2.5 (1.9-4.0) LVEF 43% LVIDd 4.7 (3.5-5.7) LVIDs 3.7 (2.0-3.5) %FS 21% LVPWd 0.9 (0.6-1.2) Ao Diam 3.9 (2.0-3.7) 2 DIMENSIONAL ASSESSMENT: RIGHT ATRIUM: NORMAL LEFT ATRIUM: NORMAL RIGHT VENTRICLE: NORMAL LEFT VENTRICLE: REDUCED FUNCTION TRICUSPID VALVE: MITRAL VALVE: PULMONIC VALVE: NORMAL AORTIC VALVE: NORMAL PERICARDIAL EFFUSION: NONE AORTIC ROOT: NORMAL LEFT VENTRICULAR WALL MOTION: MILD GLOBAL HYPOKINESIS. DOPPLER/COLOR FLOW: MILD MITRAL AND TRICUSPID REGURGITATION. COMMENTS: MILDLY REDUCED LEFT VENTRICULAR EJECTION FRACTION OF 40-45%. MILD GLOBAL HYPOKINESIS. MILD MITRAL AND TRICUSPID REGURGITATION. Endoscopy: Impression 1. 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 Moderate gastritis in the body at the antrum of the stomach, s/p biopsies 3. Multiple 7 erosions were found in the antrum Plan: Await biopsy Continue acid suppression therapy Consider ENT for possible surgical myotomy of cryo pharyngeus muscle instead of repeated Botox injections in the future EGD 04/22/2021: PEG tube placement Follow-up chest x-ray 05/17/2021: COMPARISON: Chest Single View dated 05/16/2021; Chest Single View dated 05/14/2021; Chest Single View dated 05/13/2021; Chest Single View dated 05/12/2021 FINDINGS: Lines: Right-sided chest tube in similar position. Endotracheal tube at the aortic arch in satisfactory position. NG tube below the diaphragm. Right subclavian approach PICC with tip overlying the SVC. Lungs: Mild to moderate patchy bilateral airspace disease is similar to prior. Retrocardiac consolidation is similar. Pleural: Tiny right sided pneumothorax again noted. Cardiac: The heart size is within normal limits. Bones: No acute fractures. IMPRESSION: Aeration of the lungs is unchanged compared with 05/16/2021. Support apparatus stable. Tiny right apical pneumothorax. Physical exam: General: Patient alert. Patient remains intubated HEENT: Neck supple Respiratory: Currently on ventilator at 40%. Chest tube right side Cardiovascular: No edema, Normal pulses, Regular rate/rhythm, Normal S1 S2 Gastrointestinal: Normal bowel sounds, Soft and benign Musculoskeletal: No clubbing, No swelling, No erythema Integumentary: No rashes, No breakdown, No significant lesion. Muscle wasting to the upper and lower extremity. Neurological: Patient on ventilator Impression: Dyspnea secondary to bilateral Covid pneumonia with hypoxia complicated with left lower lobe recurrent aspiration pneumonia with further complication of septic shock, acute respiratory failure, and right-sided pneumothorax status post chest tube placement Atrial flutter/atrial fibrillation now with sinus bradycardia Acute on chronic diastolic CHF Dysphagia with history of muscular dystrophy status post EGD with Botox treatment of the upper esophageal sphincter Moderate gastritis with noted stenosis/spasm of the upper esophageal sphincter and antrum erosions status post Botox treatment Thrombocytopenia Hypernatremia Plan: Dyspnea secondary to bilateral Covid pneumonia with hypoxia complicated with left lower lobe recurrent aspiration pneumonia with further complication of septic shock, acute respiratory failure, and right-sided pneumothorax status post chest tube placement: Patient much improved since last time I saw him. Patient remains intubated patient alert. Currently on 40% FiO2. Chest tube in place. No longer on vasopressors. Will adjust medications accordingly. Continue IV steroids. Continue to monitor chest tube. Will discuss plan of care with surgery and pulmonology. Patient remains on TPN. Atrial flutter/atrial fibrillation now with bradycardia: She remains in normal sinus rhythm. No longer on digoxin. Acute on chronic diastolic CHF EF 40 to 45%: Ejection fraction 40 to 45%. Continue to monitor fluid intake. Dysphagia with history of muscular dystrophy status post EGD with Botox treatment of the upper esophageal sphincter status post PEG tube: Continue TPN. Continue Protonix. J-tube extension has been suspended due to current status. Moderate gastritis with noted stenosis/spasm of the upper esophageal sphincter and antrum erosions status post Botox treatment Status post PEG tube: Continue with above plan of care. PICC line in place. Continue TPN. Will adjust IV fluids. Thrombocytopenia: Improved. Will monitor closely. Continue Lovenox with parameters. Hypernatremia: Resolved. IV fluids adjusted. CODE STATUS: He remains DO NOT RESUSCITATE. DVT prophylaxis: Lovenox Advanced care [id number] minutes: Continue as above. Will discuss plan of care with Brother-Sylvester who has medical power of contracts attorney, his phone number is [phone]. Time Spent Managing Pts Care (In Minutes): 55
[2021-05-17] MEDS ORDERED: ALTEPLASE 2 MG/VIAL IV ONE (06:00)
[2021-05-17 06:39] LABS: Absolute Lymphocytes (CBC) 0.2 K/uL (0.7-4.9); Basophils % 0.5 % (0-1.3); Hematocrit 34.9 % (39.6-49.0); Lymphocytes % 1.4 % (15.3-44.8); MPV 9.3 fL (7.6-11.3); RBC Red Blood Cell Count 3.68 M/uL (4.33-5.43)
[2021-05-17 07:05] LABS: ALT/SGPT 278 U/L (12-78); AST/SGOT 101 U/L (15-37); Albumin 1.4 g/dL (3.4-5.0); Alkaline Phosphatase 267 U/L (45-117); BUN Blood Urea Nitrogen 26 mg/dL (7-18); Bicarbonate 30 mmol/L (21-32); Bilirubin Total 0.6 mg/dL (0.2-1.0); Ferritin 2901.6 ng/mL (26-388); Glucose Level 115 mg/dL (74-106); Magnesium 2.3 mg/dL (1.8-2.4); NT PRO-BNP 3272 pg/mL (<125); Potassium 4.7 mmol/L (3.5-5.1); Protein, Total 5.2 g/dL (6.4-8.2); Sodium Level 145 mmol/L (136-145)
--- NOTE | 2021-05-17 07:08 | RAD REPORT ---
EXAM DESCRIPTION: RAD - Chest Single View - 05/17/2021 6:17 am CLINICAL HISTORY: pneumonia, pneumothorax COMPARISON: Chest Single View dated 05/16/2021; Chest Single View dated 05/14/2021; Chest Single View dated 05/13/2021; Chest Single View dated 05/12/2021 FINDINGS: Lines: Right-sided chest tube in similar position. Endotracheal tube at the aortic arch in satisfactory position. NG tube below the diaphragm. Right subclavian approach PICC with tip overlyin g the SVC. Lungs: Mild to moderate patchy bilateral airspace disease is similar to prior. Retrocardiac consolida tion is similar. Pleural: Tiny right sided pneumothorax again noted. Cardiac: The heart size is within normal limits. Bones: No acute fractures. Other: IMPRESSION: Aeration of the lungs is unchanged compared with 05/16/2021. Support apparatus stable. T iny right apical pneumothorax.
[2021-05-17] MEDS: METHYLPREDNISOLONE 40 MG INJ IV SCH ×2 (08:00→20:01)
[2021-05-17] MEDS: THIAMINE 200 MG/2 ML INJ IVP SCH (08:01)
[2021-05-17] MEDS: SODIUM CHLORIDE 0.9% 10ML INJ IV PRN (08:01)
[2021-05-17] MEDS: FOLIC ACID 1 MG in NA CHLORIDE 0.9% 50 ML IV SCH (08:06)
[2021-05-17 10:19] LABS: Blood Morphology Comment NOT SEEN (NOT SEEN); Platelet Estimate DECR; White Blood Cell Scan OK (OK)
[2021-05-17] MEDS: ENOXAPARIN 30 MG/0.3 ML SQ SCH (17:35)
[2021-05-18] MEDS: MIDAZOLAM HCL 2 MG/2 ML INJ IV PRN ×2 (05:00→06:52)
[2021-05-18 05:08] LABS: Absolute Lymphocytes (CBC) 0.2 K/uL (0.7-4.9); Basophils % 0.4 % (0-1.3); Hematocrit 31.7 % (39.6-49.0); Lymphocytes % 2.5 % (15.3-44.8); MPV 9.6 fL (7.6-11.3); RBC Red Blood Cell Count 3.34 M/uL (4.33-5.43)
[2021-05-18 05:55] LABS: AST/SGOT 122 U/L (15-37); Albumin 1.3 g/dL (3.4-5.0); Alkaline Phosphatase 270 U/L (45-117); BUN Blood Urea Nitrogen 25 mg/dL (7-18); Bicarbonate 31 mmol/L (21-32); Bilirubin Total 0.5 mg/dL (0.2-1.0); Ferritin 2513.3 ng/mL (26-388); Glucose Level 106 mg/dL (74-106); Magnesium 2.2 mg/dL (1.8-2.4); Potassium 4.4 mmol/L (3.5-5.1); Protein, Total 4.7 g/dL (6.4-8.2); Sodium Level 144 mmol/L (136-145)
--- NOTE | 2021-05-18 05:55 | P.PN ---
Subjective Date of Service: 05/18/21 Primary Care Provider: Dr. Ramon Chief Complaint: Respiratory failure Subjective: Other (Patient remains stable) Physical Examination - Vital Signs Temperature: 99.7 F Blood Pressure: 93/57 Pulse: 82 Respirations: 17 Pulse Ox (%): 93 - Studies Medications List Reviewed: Yes Assessment & Plan Discharge Plan: Transfer Plan to discharge in: 48 Hours Physician Review Additional Text: COVID: Positive, unvaccinated CT scan: COMPARISON: Chest For Pe Angio dated 07/21/2020; Chest Single View dated 04/17/2021 TECHNIQUE: Dynamically enhanced 3 mm thick images of the chest were obtained during administration of approximately 150mL Isovue 370 IV contrast. Coronal and oblique MIP reconstruction images were generated and reviewed. Exam utilizes a protocol to evaluate the pulmonary arterial tree. All CT scans are performed using dose optimization technique as appropriate and may include automated exposure control or mA/KV adjustment according to patient size. FINDINGS: No pulmonary emboli are identified. The aorta as imaged shows no acute or suspicious finding. No pericardial thi ckening or effusion. Posteromedial left lower lobe airspace opacification present. Air bronchograms are present. Patchy opacification is seen in the air spaces of the left upper lobe along the fissure. Trace amounts of ground-glass opacification seen in the lateral right upper lobe along the major fissure. Trace amount of pleural fluid on the left and right. Trace amount of atelectasis in the posterior gutter on the right. No mediastinal or hilar suspicious masses. A few small reactive type mediastinal and hilar lymph nodes seen. No chest wall masses or abnormal axillary lymphadenopathy. No mass or abnormality seen at the GE junction. No evidence for esophageal wall thickening or mass. No endobronchial lesions seen. IMPRESSION: No pulmonary emboli identified. Left lower lobe pneumonia with minimal pneumonia findings in the left upper lobe and right upper lobe. Minimal bilateral pleural effusions. No esophageal or GE junction abnormality evident. ECHO: MEASUREMENTS (cm) DIASTOLIC (NORMALS) SYSTOLIC (NORMALS) IVSd 1.0 (0.6-1.2) LA Diam 2.5 (1.9-4.0) LVEF 43% LVIDd 4.7 (3.5-5.7) LVIDs 3.7 (2.0-3.5) %FS 21% LVPWd 0.9 (0.6-1.2) Ao Diam 3.9 (2.0-3.7) 2 DIMENSIONAL ASSESSMENT: RIGHT ATRIUM: NORMAL LEFT ATRIUM: NORMAL RIGHT VENTRICLE: NORMAL LEFT VENTRICLE: REDUCED FUNCTION TRICUSPID VALVE: MITRAL VALVE: PULMONIC VALVE: NORMAL AORTIC VALVE: NORMAL PERICARDIAL EFFUSION: NONE AORTIC ROOT: NORMAL LEFT VENTRICULAR WALL MOTION: MILD GLOBAL HYPOKINESIS. DOPPLER/COLOR FLOW: MILD MITRAL AND TRICUSPID REGURGITATION. COMMENTS: MILDLY REDUCED LEFT VENTRICULAR EJECTION FRACTION OF 40-45%. MILD GLOBAL HYPOKINESIS. MILD MITRAL AND TRICUSPID REGURGITATION. Endoscopy: Impression 1. 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 Moderate gastritis in the body at the antrum of the stomach, s/p biopsies 3. Multiple 7 erosions were found in the antrum Plan: Await biopsy Continue acid suppression therapy Consider ENT for possible surgical myotomy of cryo pharyngeus muscle instead of repeated Botox injections in the future EGD 04/22/2021: PEG tube placement Follow-up chest x-ray 05/18/2021: COMPARISON: Chest Single View dated 05/17/2021; Chest Single View dated 05/16/2021; Chest Single View dated 05/14/2021; Chest Single View dated 05/13/2021 FINDINGS: Portable technique limits examination quality. Tip of the endotracheal tube at the level of the superior aortic arch. Enteric tube is in the stomach. Right-sided PICC line has tip in the SVC. Right-sided chest tube remains in place. The previously noted small volume right pneumothorax is not well seen on today's examination may have resolved. Bilateral pulmonary opacities appear stable since comparative examination. The heart size is upper limit normal. Physical exam: General: Patient alert. Patient remains intubated HEENT: Neck supple Respiratory: Currently on ventilator at 40%. Chest tube right side Cardiovascular: No edema, Normal pulses, Regular rate/rhythm, Normal S1 S2 Gastrointestinal: Normal bowel sounds, Soft and benign Musculoskeletal: No clubbing, No swelling, No erythema Integumentary: No rashes, No breakdown, No significant lesion. Muscle wasting to the upper and lower extremity. Neurological: Patient on ventilator Impression: Dyspnea secondary to bilateral Covid pneumonia with hypoxia complicated with left lower lobe recurrent aspiration pneumonia with further complication of septic shock, acute respiratory failure, and right-sided pneumothorax status post chest tube placement Atrial flutter/atrial fibrillation now with sinus bradycardia Acute on chronic diastolic CHF Dysphagia with history of muscular dystrophy status post EGD with Botox treatment of the upper esophageal sphincter Moderate gastritis with noted stenosis/spasm of the upper esophageal sphincter and antrum erosions status post Botox treatment Thrombocytopenia Hypernatremia Plan: Dyspnea secondary to bilateral Covid pneumonia with hypoxia complicated with left lower lobe recurrent aspiration pneumonia with further complication of septic shock, acute respiratory failure, and right-sided pneumothorax status post chest tube placement: She remains intubated. Patient on ventilator at 35% FiO2. Case discussed with [employer] regulator yesterday about transfer to [place] for thoracic surgery evaluation for VATS. Patient with air leak. Transfer was recommended by pulmonology and surgery. Still trying to arrange for non-Covid bed as recommended by [employer] regulator. Continue current treatment plan at this time. Atrial flutter/atrial fibrillation now with bradycardia: She remains in normal sinus rhythm. No longer on digoxin. Acute on chronic diastolic CHF EF 40 to 45%: Ejection fraction 40 to 45%. Continue to monitor fluid intake. Dysphagia with history of muscular dystrophy status post EGD with Botox treatment of the upper esophageal sphincter status post PEG tube: Continue TPN. Continue Protonix. J-tube extension has been suspended due to current status. Moderate gastritis with noted stenosis/spasm of the upper esophageal sphincter and antrum erosions status post Botox treatment Status post PEG tube: Continue with above plan of care. PICC line in place. Continue TPN. Will adjust IV fluids. Thrombocytopenia: Improved. Will monitor closely. Continue Lovenox with parameters. Hypernatremia: Resolved. IV fluids adjusted. CODE STATUS: He remains DO NOT RESUSCITATE. DVT prophylaxis: Lovenox Advanced care [id number] minutes: Continue as above. Will discuss plan of care with Brother-Sylvester who has medical power of assistant city attorney, his phone number is [phone]. Time Spent Managing Pts Care (In Minutes): 55
[2021-05-18 05:56] LABS: ALT/SGPT 337 U/L (12-78)
[2021-05-18] MEDS: LORazepam 2 MG/ML VIAL IV PRN (06:21)
--- NOTE | 2021-05-18 08:29 | RAD REPORT ---
EXAM DESCRIPTION: RAD - Chest Single View - 05/18/2021 6:03 am CLINICAL HISTORY: pneumonia, pneumothorax Chest pain. COMPARISON: Chest Single View dated 05/17/2021; Chest Single View dated 05/16/2021; Chest Single View dated 05/14/2021; Chest Single View dated 05/13/2021 FINDINGS: Portable technique limits examination quality. Tip of the endotracheal tube at the level of the superior aortic arch. Enteric tube is in the stomach . Right-sided PICC line has tip in the SVC. Right-sided chest tube remains in place. The previously n oted small volume right pneumothorax is not well seen on today's examination may have resolved. Bilat eral pulmonary opacities appear stable since comparative examination. The heart size is upper limit n ormal.
[2021-05-18] MEDS: METHYLPREDNISOLONE 40 MG INJ IV SCH ×2 (08:50→20:03)
[2021-05-18] MEDS: THIAMINE 200 MG/2 ML INJ IVP SCH (08:50)
[2021-05-18] MEDS: FOLIC ACID 1 MG in NA CHLORIDE 0.9% 50 ML IV SCH (09:14)
--- NOTE | 2021-05-18 11:36 | P.PN ---
Subjective Date of Service: 05/17/21 Primary Care Provider: Dr. Ramon Chief Complaint: Respiratory failure Patient remains intubated, with chest tube in place with large air leak. Physical Examination - Vital Signs Temperature: 99.7 F Blood Pressure: 120/68 Pulse: 82 Respirations: 25 Pulse Ox (%): 96 - Physical Exam General: Comatose Respiratory: Diminished (Large air leak in RIGHT Chest tube) - Studies Medications List Reviewed: Yes Assessment And Plan - Current Problems (Diagnosis) (1) Dysphagia Current Visit: No Status: Acute Plan: I have discussed the options with the patient as well as his brother whom is ARNAV, we have decided to start TPN via PICC line and will plan to exchange the PEG for a PEG Jejunostomy tube. - i have explained the risks, benefits and alterantives of the PEG J including but not limited to bleeding, infection, damage to surrounding internal organs, need for more surgery or procedures and noted that PEG-J frequently require ongoing procedures due to malpositioning. - will hold off on placement of PEG J @ this time due to increased oxygen requir ements which would make procedure higher risk than necessary, will continue to plan for PICC / TPN, then when oxygen requirements improve will plan for PEG-J - chest tube has large air leak, patient has airway protected with ET tube and is tolerating PEG tube feedings, as such will delay replacement of PEG for PEG-J @ this time. - Covid 19 pneumonia remains - recommend Thoracic surgery consult for persistent air leak in chest tube, discussed with Dr. Greenfield Physician Review: Patient Assessed, Agree with Above Assessment and Plan Physician Review Additional Text: COVID: Positive, unvaccinated CT scan: COMPARISON: Chest For Pe Angio dated 07/21/2020; Chest Single View dated 021 TECHNIQUE: Dynamically enhanced 3 mm thick images of the chest were obtained during administration of approximately 150mL Isovue 370 IV contrast. Coronal and oblique MIP reconstruction images were generated and reviewed. Exam utilizes a protocol to evaluate the pulmonary arterial tree. All CT scans are performed using dose optimization technique as appropriate and may include automated exposure control or mA/KV adjustment according to patient size. FINDINGS: No pulmonary emboli are identified. The aorta as imaged shows no acute or suspicious finding. No pericardial thickening or effusion. Posteromedial left lower lobe airspace opacification present. Air bronchograms are present. Patchy opacification is seen in the air spaces of the left upper lobe along the fissure. Trace amounts of ground-glass opacification seen in the lateral right upper lobe along the major fissure. Trace amount of pleural fluid on the left and right. Trace amount of atelectasis in the posterior gutter on the right. No mediastinal or hilar suspicious masses. A few small reactive type mediastinal and hilar lymph nodes seen. No chest wall masses or abnormal axillary lymphadenopathy. No mass or abnormality seen at the GE junction. No evidence for esophageal wall thickening or mass. No endobronchial lesions seen. IMPRESSION: No pulmonary emboli identified. Left lower lobe pneumonia with minimal pneumonia findings in the left upper lobe and right upper lobe. Minimal bilateral pleural effusions. No esophageal or GE junction abnormality evident. ECHO: MEASUREMENTS (cm) DIASTOLIC (NORMALS) SYSTOLIC (NORMALS) IVSd 1.0 (0.6-1.2) LA Diam 2.5 (1.9-4.0) LVEF 43% LVIDd 4.7 (3.5-5.7) LVIDs 3.7 (2.0-3.5) %FS 21% LVPWd 0.9 (0.6-1.2) Ao Diam 3.9 (2.0-3.7) 2 DIMENSIONAL ASSESSMENT: RIGHT ATRIUM: NORMAL LEFT ATRIUM: NORMAL RIGHT VENTRICLE: NORMAL LEFT VENTRICLE: REDUCED FUNCTION TRICUSPID VALVE: MITRAL VALVE: PULMONIC VALVE: NORMAL AORTIC VALVE: NORMAL PERICARDIAL EFFUSION: NONE AORTIC ROOT: NORMAL LEFT VENTRICULAR WALL MOTION: MILD GLOBAL HYPOKINESIS. DOPPLER/COLOR FLOW: MILD MITRAL AND TRICUSPID REGURGITATION. COMMENTS: MILDLY REDUCED LEFT VENTRICULAR EJECTION FRACTION OF 40-45%. MILD GLOBAL HYPOKINESIS. MILD MITRAL AND TRICUSPID REGURGITATION. Endoscopy: Impression 1. 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 Moderate gastritis in the body at the antrum of the stomach, s/p biopsies 3. Multiple 7 erosions were found in the antrum Plan: Await biopsy Continue acid suppression therapy Consider ENT for possible surgical myotomy of cryo pharyngeus muscle instead of repeated Botox injections in the future EGD 04/22/2021: PEG tube placement Follow-up chest x-ray 05/17/2021: COMPARISON: Chest Single View dated 05/16/2021; Chest Single View dated 05/14/2021; Chest Single View dated 05/13/2021; Chest Single View dated 05/12/2021 FINDINGS: Lines: Right-sided chest tube in similar position. Endotracheal tube at the aortic arch in satisfactory position. NG tube below the diaphragm. Right subclavian approach PICC with tip overlying the SVC. Lungs: Mild to moderate patchy bilateral airspace disease is similar to prior. Retrocardiac consolidation is similar. Pleural: Tiny right sided pneumothorax again noted. Cardiac: The heart size is within normal limits. Bones: No acute fractures. IMPRESSION: Aeration of the lungs is unchanged compared with 05/16/2021. Support apparatus stable. Tiny right apical pneumothorax. Physical exam: General: Patient alert. Patient remains intubated HEENT: Neck supple Respiratory: Currently on ventilator at 40%. Chest tube right side Cardiovascular: No edema, Normal pulses, Regular rate/rhythm, Normal S1 S2 Gastrointestinal: Normal bowel sounds, Soft and benign Musculoskeletal: No clubbing, No swelling, No erythema Integumentary: No rashes, No breakdown, No significant lesion. Muscle wasting to the upper and lower extremity. Neurological: Patient on ventilator Impression: Dyspnea secondary to bilateral Covid pneumonia with hypoxia complicated with left lower lobe recurrent aspiration pneumonia with further complication of septic shock, acute respiratory failure, and right-sided pneumothorax status post chest tube placement Atrial flutter/atrial fibrillation now with sinus bradycardia Acute on chronic diastolic CHF Dysphagia with history of muscular dystrophy status post EGD with Botox treatment of the upper esophageal sphincter Moderate gastritis with noted stenosis/spasm of the upper esophageal sphincter and antrum erosions status post Botox treatment Thrombocytopenia Hypernatremia Plan: Dyspnea secondary to bilateral Covid pneumonia with hypoxia complicated with left lower lobe recurrent aspiration pneumonia with further complication of septic shock, acute respiratory failure, and right-sided pneumothorax status post chest tube placement: Patient much improved since last time I saw him. Patient remains intubated patient alert. Currently on 40% FiO2. Chest tube in place. No longer on vasopressors. Will adjust medications accordingly. Continue IV steroids. Continue to monitor chest tube. Will discuss plan of care with surgery and pulmonology. Patient remains on TPN. Atrial flutter/atrial fibrillation now with bradycardia: She remains in normal sinus rhythm. No longer on digoxin. Acute on chronic diastolic CHF EF 40 to 45%: Ejection fraction 40 to 45%. Continue to monitor fluid intake. Dysphagia with history of muscular dystrophy status post EGD with Botox t reatment of the upper esophageal sphincter status post PEG tube: Continue TPN. Continue Protonix. J-tube extension has been suspended due to current status. Moderate gastritis with noted stenosis/spasm of the upper esophageal sphincter and antrum erosions status post Botox treatment Status post PEG tube: Continue with above plan of care. PICC line in place. Continue TPN. Will adjust IV fluids. Thrombocytopenia: Improved. Will monitor closely. Continue Lovenox with parameters. Hypernatremia: Resolved. IV fluids adjusted. CODE STATUS: He remains DO NOT RESUSCITATE. DVT prophylaxis: Lovenox Advanced care [id number] minutes: Continue as above. Will discuss plan of care with Brother-Sylvester who has medical power of traffic law attorney, his phone number is [phone].
--- NOTE | 2021-05-18 14:47 | P.PN ---
Subjective Date of Service: 05/18/21 Primary Care Provider: Dr. Ramon Chief Complaint: Respiratory failure Patient is minimally responsive no change in his condition still has a significant air leak respiratory failure on a ventilator unable to wean Review of Systems is unable to be obtained Physical Examination - Vital Signs Temperature: 99.7 F Blood Pressure: 93/57 Pulse: 82 Respirations: 17 Pulse Ox (%): 93 - Physical Exam General: Other - Studies Medications List Reviewed: Yes Assessment & Plan - Problems (Diagnosis) (1) COVID-19 Current Visit: Yes Status: Acute Plan: Respiratory failure minimal oxygen requirement will try to wean again abnormal LFTs liver function tests have worsened chest x-ray no significant change minimal oxygen requirement pneumothorax significant air leak awaiting transfer to acute care facility tolerating tube feeds Physician Review: Patient Assessed, Agree with Above Assessment and Plan
[2021-05-18] MEDS: ENOXAPARIN 30 MG/0.3 ML SQ SCH (17:17)
[2021-05-19 05:36] LABS: Absolute Lymphocytes (CBC) 0.3 K/uL (0.7-4.9); Basophils % 0.1 % (0-1.3); Hematocrit 30.1 % (39.6-49.0); Lymphocytes % 3.4 % (15.3-44.8); MPV 9.3 fL (7.6-11.3); RBC Red Blood Cell Count 3.18 M/uL (4.33-5.43)
--- NOTE | 2021-05-19 05:55 | P.PN ---
Subjective Date of Service: 05/19/21 Primary Care Provider: Dr. Ramon Chief Complaint: Respiratory failure Subjective: Other (Overall stable. Currently on ventilator at 35%) Physical Examination - Vital Signs Temperature: 98.0 F Blood Pressure: 95/53 Pulse: 69 Respirations: 17 Pulse Ox (%): 95 - Studies Medications List Reviewed: Yes Assessment & Plan Discharge Plan: Transfer Plan to discharge in: Greater than 2 days Physician Review Additional Text: COVID: Positive, unvaccinated CT scan: COMPARISON: Chest For Pe Angio dated 07/21/2020; Chest Single View dated 04/17/2021 TECHNIQUE: Dynamically enhanced 3 mm thick images of the chest were obtained during administration of approximately 150mL Isovue 370 IV contrast. Coronal and oblique MIP reconstruction images were generated and reviewed. Exam utilizes a protocol to evaluate the pulmonary arterial tree. All CT scans are performed using dose optimization technique as appropriate and may include automated exposure control or mA/KV adjustment according to patient size. FINDINGS: No pulmonary emboli are identified. The aorta as imaged shows no acute or suspicious finding. No pericardial thickening or effusion. Posteromedial left lower lobe airspace opacification present. Air bronchograms are present. Patchy opacification is seen in the air spaces of the left upper lobe along the fissure. Trace amounts of ground-glass opacification seen in the lateral right upper lobe along the major fissure. Trace amount of pleural fluid on the left and right. Trace amount of atelectasis in the posterior gutter on the right. No mediastinal or hilar suspicious masses. A few small reactive type mediastinal and hilar lymph nodes seen. No chest wall masses or abnormal axillary lymphadenopathy. No mass or abnormality seen at the GE junction. No evidence for esophageal wall thickening or mass. No endobronchial lesions seen. IMPRESSION: No pulmonary emboli identified. Left lower lobe pneumonia with minimal pneumonia findings in the left upper lobe and right upper lobe. Minimal bilateral pleural effusions. No esophageal or GE junction abnormality evident. ECHO: MEASUREMENTS (cm) DIASTOLIC (NORMALS) SYSTOLIC (NORMALS) IVSd 1.0 (0.6-1.2) LA Diam 2.5 (1.9-4.0) LVEF 43% LVIDd 4.7 (3.5-5.7) LVIDs 3.7 (2.0-3.5) %FS 21% LVPWd 0.9 (0.6-1.2) Ao Diam 3.9 (2.0-3.7) 2 DIMENSIONAL ASSESSMENT: RIGHT ATRIUM: NORMAL LEFT ATRIUM: NORMAL RIGHT VENTRICLE: NORMAL LEFT VENTRICLE: REDUCED FUNCTION TRICUSPID VALVE: MITRAL VALVE: PULMONIC VALVE: NORMAL AORTIC VALVE: NORMAL PERICARDIAL EFFUSION: NONE AORTIC ROOT: NORMAL LEFT VENTRICULAR WALL MOTION: MILD GLOBAL HYPOKINESIS. DOPPLER/COLOR FLOW: MILD MITRAL AND TRICUSPID REGURGITATION. COMMENTS: MILDLY REDUCED LEFT VENTRICULAR EJECTION FRACTION OF 40-45%. MILD GLOBAL HYPOKINESIS. MILD MITRAL AND TRICUSPID REGURGITATION. Endoscopy: Impression 1. 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 Moderate gastritis in the body at the antrum of the stomach, s/p biopsies 3. Multiple 7 erosions were found in the antrum Plan: Await biopsy Continue acid suppression therapy Consider ENT for possible surgical myotomy of cryo pharyngeus muscle instead of repeated Botox injections in the future EGD 04/22/2021: PEG tube placement Follow-up chest x-ray 05/19/2021: COMPARISON: Chest Single View dated 05/18/2021; Chest Single View dated 05/17/2021; Chest Single View dated 05/16/2021; Chest Single View dated 05/14/2021 FINDINGS: Lines: Right-sided chest tube in similar positioning. Endotracheal tube at the aortic arch in satisfactory position. Enteric tube below the diaphragm . Right subclavian approach PICC with tip overlying the SVC. Lungs: Similar mild to moderate patchy bilateral airspace disease with more focal left basilar consolidation that is unchanged . Pleural: No appreciable pneumothorax . Cardiac: The heart size is within normal limits. Bones: No acute fractures. IMPRESSION: No change compared with 05/18/2021. Airspace disease bilaterally with left basilar consolidation again identified. Support apparatus unchanged. No appreciable pneumothorax. Physical exam: General: Patient alert. Patient remains intubated HEENT: Neck supple Respiratory: Currently on ventilator at 35%. Chest tube right side Cardiovascular: No edema, Normal pulses, Regular rate/rhythm, Normal S1 S2 Gastrointestinal: Normal bowel sounds, Soft and benign Musculoskeletal: No clubbing, No swelling, No erythema Integumentary: No rashes, No breakdown, No significant lesion. Muscle wasting to the upper and lower extremity. Neurological: Patient on ventilator Impression: Dyspnea secondary to bilateral Covid pneumonia with hypoxia complicated with left lower lobe recurrent aspiration pneumonia with further complication of septic shock, acute respiratory failure, and right-sided pneumothorax status post chest tube placement Atrial flutter/atrial fibrillation now with sinus bradycardia Acute on chronic diastolic CHF Dysphagia with history of muscular dystrophy status post EGD with Botox treatment of the upper esophageal sphincter Moderate gastritis with noted stenosis/spasm of the upper esophageal sphincter and antrum erosions status post Botox treatment Thrombocytopenia Hypernatremia Plan: Dyspnea secondary to bilateral Covid pneumonia with hypoxia complicated with left lower lobe recurrent aspiration pneumonia with further complication of septic shock, acute respiratory failure, and right-sided pneumothorax status post chest tube placement: Patient remains intubated overall stable. Currently on 35% FiO2. Pulmonology and surgery recommend transfer for evaluation by thoracic surgery for VATS procedure. Last discussed with orange grower for transfer at [facility]. Spot Worker recommended patient to be transferred but to a non-Covid bed. Will check with transfer center on availability. Continue with current treatment plan per pulmonology. Patient on oral steroid. Continue supplementation. Continue TPN. Case discussed with brother. Atrial flutter/atrial fibrillation now with bradycardia: She remains in normal sinus rhythm. No longer on digoxin. Acute on chronic diastolic CHF EF 40 to 45%: Ejection fraction 40 to 45%. Continue to monitor fluid intake. Dysphagia with history of muscular dystrophy status post EGD with Botox treatment of the upper esophageal sphincter status post PEG tube: Continue TPN. Continue Protonix. J-tube extension has been suspended due to current status. Moderate gastritis with noted stenosis/spasm of the upper esophageal sphincter and antrum erosions status post Botox treatment Status post PEG tube: Continue with above plan of care. PICC line in place. Continue TPN. Will adjust IV fluids. Thrombocytopenia: Stable. Will monitor closely. Continue Lovenox with parameters. Hypernatremia: Resolved. IV fluids adjusted. CODE STATUS: He remains DO NOT RESUSCITATE. DVT prophylaxis: Lovenox Advanced care [id number] minutes: Continue as above. Will discuss plan of care with BrothKathryn who has medical power of compliance attorney, his phone number is [phone]. Time Spent Managing Pts Care (In Minutes): 55
[2021-05-19 06:27] LABS: ALT/SGPT 293 U/L (12-78); AST/SGOT 73 U/L (15-37); Albumin 1.3 g/dL (3.4-5.0); Alkaline Phosphatase 242 U/L (45-117); BUN Blood Urea Nitrogen 26 mg/dL (7-18); Bicarbonate 30 mmol/L (21-32); Bilirubin Total 0.7 mg/dL (0.2-1.0); Ferritin 2801.6 ng/mL (26-388); Glucose Level 109 mg/dL (74-106); Magnesium 2.1 mg/dL (1.8-2.4); Potassium 4.4 mmol/L (3.5-5.1); Protein, Total 4.8 g/dL (6.4-8.2); Sodium Level 141 mmol/L (136-145)
--- NOTE | 2021-05-19 07:07 | RAD REPORT ---
EXAM DESCRIPTION: RAD - Chest Single View - 05/19/2021 5:33 am CLINICAL HISTORY: pneumonia, pneumothorax COMPARISON: Chest Single View dated 05/18/2021; Chest Single View dated 05/17/2021; Chest Single View dated 05/16/2021; Chest Single View dated 05/14/2021 FINDINGS: Lines: Right-sided chest tube in similar positioning. Endotracheal tube at the aortic arch in satisfactory position. Enteric tube below the diaphragm . Right subclavian approach PICC with tip overlying the SVC. Lungs: Similar mild to moderate patchy bilateral airspace disease with more focal left basilar consol idation that is unchanged . Pleural: No appreciable pneumothorax . Cardiac: The heart size is within normal limits. Bones: No acute fractures. Other: IMPRESSION: No change compared with 05/18/2021. Airspace disease bilaterally with left basilar conso lidation again identified. Support apparatus unchanged. No appreciable pneumothorax.
[2021-05-19] MEDS: FOLIC ACID 1 MG in NA CHLORIDE 0.9% 50 ML IV SCH (08:49)
[2021-05-19] MEDS ORDERED: predniSONE 20 MG TAB PO SCH (09:00)
[2021-05-19] MEDS ORDERED: THIAMINE HCL 100 MG TABLET PO SCH (09:00)
[2021-05-19 11:53] VITALS: O2SAT 91
[2021-05-19] MEDS: NOREPINEPHRINE 8 MG in D5W 250 ML IV PRN (12:46)
[2021-05-19 14:23] VITALS: BP 106/51
[2021-05-19 14:36] VITALS: TEMP 97.4
--- NOTE | 2021-05-19 15:27 | P.DS ---
Admission Date: 04/11/21 Discharge Date: 05/19/21 Primary Care Provider: Dr. Ramon Disposition: TRANSFER TO [facility] Discharge Condition: FAIR Reason for Admission: Respiratory failure Consultations: Pulmonary-Dr. Krishnamurthy GI-Dr. Becerril Surgery-Dr. Garcia Cardiology-Dr. Mcgrath Procedures: COVID: Positive, unvaccinated CT scan: COMPARISON: Chest For Pe Angio dated 07/21/2020; Chest Single View dated 04/17/2021 TECHNIQUE: Dynamically enhanced 3 mm thick images of the chest were obtained during administration of approximately 150mL Isovue 370 IV contrast. Coronal and oblique MIP reconstruction images were generated and reviewed. Exam utilizes a protocol to evaluate the pulmonary arterial tree. All CT scans are performed using dose optimization technique as appropriate and may include automated exposure control or mA/KV adjustment according to patient size. FINDINGS: No pulmonary emboli are identified. The aorta as imaged shows no acute or suspicious finding. No pericardial thickening or effusion. Posteromedial left lower lobe airspace opacification present. Air bronchograms are present. Patchy opacification is seen in the air spaces of the left upper lobe along the fissure. Trace amounts of ground-glass opacification seen in the lateral right upper lobe along the major fissure. Trace amount of pleural fluid on the left and right. Trace amount of atelectasis in the posterior gutter on the right. No mediastinal or hilar suspicious masses. A few small reactive type mediastinal and hilar lymph nodes seen. No chest wall masses or abnormal axillary lymphadenopathy. No mass or abnormality seen at the GE junction. No evidence for esophageal wall thickening or mass. No endobronchial lesions seen. IMPRESSION: No pulmonary emboli identified. Left lower lobe pneumonia with minimal pneumonia findings in the left upper lobe and right upper lobe. Minimal bilateral pleural effusions. No esophageal or GE junction abnormality evident. ECHO: MEASUREMENTS (cm) DIASTOLIC (NORMALS) SYSTOLIC (NORMALS) IVSd 1.0 (0.6-1.2) LA Diam 2.5 (1.9-4.0) LVEF 43% LVIDd 4.7 (3.5-5.7) LVIDs 3.7 (2.0-3.5) %FS 21% LVPWd 0.9 (0.6-1.2) Ao Diam 3.9 (2.0-3.7) 2 DIMENSIONAL ASSESSMENT: RIGHT ATRIUM: NORMAL LEFT ATRIUM: NORMAL RIGHT VENTRICLE: NORMAL LEFT VENTRICLE: REDUCED FUNCTION TRICUSPID VALVE: MITRAL VALVE: PULMONIC VALVE: NORMAL AORTIC VALVE: NORMAL PERICARDIAL EFFUSION: NONE AORTIC ROOT: NORMAL LEFT VENTRICULAR WALL MOTION: MILD GLOBAL HYPOKINESIS. DOPPLER/COLOR FLOW: MILD MITRAL AND TRICUSPID REGURGITATION. COMMENTS: MILDLY REDUCED LEFT VENTRICULAR EJECTION FRACTION OF 40-45%. MILD GLOBAL HYPOKINESIS. MILD MITRAL AND TRICUSPID REGURGITATION. Endoscopy: Impression 1. 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 Moderate gastritis in the body at the antrum of the stomach, s/p biopsies 3. Multiple 7 erosions were found in the antrum Plan: Await biopsy Continue acid suppression therapy Consider ENT for possible surgical myotomy of cryo pharyngeus muscle instead of repeated Botox injections in the future EGD 04/22/2021: PEG tube placement Follow-up chest x-ray 05/19/2021: COMPARISON: Chest Single View dated 05/18/2021; Chest Single View dated 05/17/2021; Chest Single View dated 05/16/2021; Chest Single View dated 05/14/2021 FINDINGS: Lines: Right-sided chest tube in similar positioning. Endotracheal tube at the aortic arch in satisfactory position. Enteric tube below the diaphragm . Right subclavian approach PICC with tip overlying the SVC. Lungs: Similar mild to moderate patchy bilateral airspace disease with more focal left basilar consolidation that is unchanged . Pleural: No appreciable pneumothorax . Cardiac: The heart size is within normal limits. Bones: No acute fractures. IMPRESSION: No change compared with 05/18/2021. Airspace disease bilaterally with left basilar consolidation again identified. Support apparatus unchanged. No appreciable pneumothorax. Physical exam: General: Patient alert. Patient remains intubated HEENT: Neck supple Respiratory: Currently on ventilator at 35%. Chest tube right side Cardiovascular: No edema, Normal pulses, Regular rate/rhythm, Normal S1 S2 Gastrointestinal: Normal bowel sounds, Soft and benign Musculoskeletal: No clubbing, No swelling, No erythema Integumentary: No rashes, No breakdown, No significant lesion. Muscle wasting to the upper and lower extremity. Neurological: Patient on ventilator Medical problem list: Dyspnea secondary to bilateral Covid pneumonia with hypoxia complicated with left lower lobe recurrent aspiration pneumonia with further complication of septic shock, acute respiratory failure, and right-sided pneumothorax status post chest tube placement Atrial flutter/atrial fibrillation now with sinus bradycardia Acute on chronic diastolic CHF Dysphagia with history of muscular dystrophy status post EGD with Botox treatment of the upper esophageal sphincter Moderate gastritis with noted stenosis/spasm of the upper esophageal sphincter and antrum erosions status post Botox treatment Thrombocytopenia Hypernatremia Brief History of Present Illness: 51-year-old male with history of muscular dystrophy, atrial fibrillation, obstructive sleep apnea and history of dysphagia with multiple PEG tube placements presents emergency department for dysphagia. Patient reports over the last 4 days has been unable to tolerate anything by mouth. Patient was evaluated in the emergency department, labs were significant for white blood cell count 3.5 hemoglobin 18.1 hematocrit 35.2 platelet count 112 potassium 3.4 chloride 108 BUN 19 GFR 73 museum 2.7T bili 1.1T bili 0.4 AST 59 alk phos 136. Patient was admitted for further evaluation and treatment. Patient also found to have Covid positive. Hospital Course: Patient initially presented with poor oral intake, dysphagia complicated with history of muscular dystrophy. Patient also found to have Covid pneumonia. Patient with underlying history of atrial fibrillation, chronic diastolic CHF with EF of 40 to 45%. His hospital course was prolonged and complicated. Patient has been evaluated by GI. GI felt patient would benefit with Botox injection to the upper sphincter of the esophagus. This was performed. Patient subsequently still had difficulty with dysphagia. Patient was evaluated by surgery after that time and recommended PEG tube which had been done in the past. PEG tube was placed. Feeds were initiated. Patient unfortunately failed with aspiration pneumonia. This was again retried continue to have aspiration and worsening respiratory failure complicated with bilateral Covid pneumonia and aspiration pneumonia. The patient further declined with septic shock and acute respiratory failure eventually had to be intubated. Patient subsequently developed a right- sided pneumothorax requiring chest tube placement. The patient continued to have persistent air leak. At which point patient was evaluated for transfer to high- level facility for thoracic surgery evaluation. The patient was ultimately accepted to thoracic surgery for further evaluation and likely requirement for VATS procedure. I did speak to the call center assistant concerning the patient who accepted the patient. Patient will likely require VATS procedure with possible J-tube extension. Patient stable for transfer. Patient will continue his care at high level center to include pulmonology/critical care, thoracic surgery, and GI. I was able to speak to the brother in detail concerning the plan of care. Patient now full code to continue therapy. Patient remains on IV steroids, TPN, Lovenox for DVT prophylaxis. Patient will likely require long-term acute care facility placement in the future. I was able to speak to the medical research assistant of the insurance to confirm this. They are requesting the patient have a tracheotomy in the future to consider long-term acute care facility placement. This should be considered in his future care. Vital Signs/Physical Exam: Temp Pulse Resp BP Pulse Ox 97.4 F 90 21 H 106/51 L 98 05/19/21 12:00 05/19/21 14:22 05/19/21 14:22 05/19/21 14:22 05/19/21 14:22 General: Alert, Cooperative HEENT: Atraumatic, Other (Dry mucous membranes) Neck: Supple Respiratory: Other (Patient remains on ventilator. Currently on FiO2 of 35%) Cardiovascular: Normal pulses Gastrointestinal: Normal bowel sounds, No ascites, No tenderness, Other (PEG tube in place) Musculoskeletal: No erythema, No tenderness, No warmth, Other (Muscle wasting noted throughout) Neurological: Other (Overall weakness with muscle wasting) Laboratory Data at Discharge: WBC 7.60 K/uL (4.3-10.9) 05/19/21 04:53 Hgb 9.9 g/dL (13.6-17.9) L 05/19/21 04:53 Hct 30.1 % (39.6-49.0) L 05/19/21 04:53 Plt Count 103 K/uL (152-406) L 05/19/21 04:53 PT 14.6 SECONDS (9.5-12.5) H 05/07/21 07:33 INR 1.27 05/07/21 07:33 APTT 27.5 SECONDS (24.3-36.9) 05/07/21 07:33 Sodium 141 mmol/L (136-145) 05/19/21 04:53 Potassium 4.4 mmol/L (3.5-5.1) 05/19/21 04:53 BUN 26 mg/dL (7-18) H 05/19/21 04:53 Creatinine < 0.15 mg/dL (0.55-1.3) L 05/19/21 04:53 Glucose 109 mg/dL (74-106) H 05/19/21 04:53 Magnesium 2.1 mg/dL (1.8-2.4) 05/19/21 04:53 Total Bilirubin 0.7 mg/dL (0.2-1.0) 05/19/21 04:53 AST 73 U/L (15-37) H 05/19/21 04:53 ALT 293 U/L (12-78) H 05/19/21 04:53 Alkaline Phosphatase 242 U/L (45-117) H 05/19/21 04:53 Lipase 86 U/L (73-393) 04/11/21 15:40 Home Medications: Aspirin 81 mg PO DAILY 04/14/21 Physician Discharge Instructions: Patient to be transferred to high-level center for further evaluation and treatment. Diet: TPN Activity: Bedrest Followup: NONE,NONE [Primary Care Provider] - Time spent managing pt's care (in minutes): 55
== END 2021-05-19 14:45 | disposition short-term general hospital (02) | DRG 207 ==
LOC: ER 11:35 → ERHOLD 19:20 → 4TH 04-14 12:42 → 3RD-ICU 05-07 12:15
PROVIDERS: ADMIT Hospitalist; ATTEND Family Medicine
PROC: 3E0G8GC Introduction of Other Therapeutic Substance into Upper GI, Via Natural or Artificial Opening Endoscopic (ICD-10-PCS; 2021-04-16)
PROC: 0DH63UZ Insertion of Feeding Device into Stomach, Percutaneous Approach (ICD-10-PCS; principal; 2021-04-22 11:30)
PROC: 02HV33Z Insertion of Infusion Device into Superior Vena Cava, Percutaneous Approach (ICD-10-PCS; 2021-05-06)
PROC: 5A1955Z Respiratory Ventilation, Greater than 96 Consecutive Hours (ICD-10-PCS; 2021-05-08)
PROC: 0BH17EZ Insertion of Endotracheal Airway into Trachea, Via Natural or Artificial Opening (ICD-10-PCS; 2021-05-08)
PROC: 0W9930Z Drainage of Right Pleural Cavity with Drainage Device, Percutaneous Approach (ICD-10-PCS; 2021-05-12)
DX: U07.1 COVID-19 (principal); I50.33 Acute on chronic diastolic (congestive) heart failure; J96.20 Acute and chronic respiratory failure, unspecified whether with hypoxia or hypercapnia; J12.82 Pneumonia due to coronavirus disease 2019; J69.0 Pneumonitis due to inhalation of food and vomit; A41.9 Sepsis, unspecified organism; R65.21 Severe sepsis with septic shock; I48.92 Unspecified atrial flutter; E46 Unspecified protein-calorie malnutrition; I48.20 Chronic atrial fibrillation, unspecified; E87.0 Hyperosmolality and hypernatremia; J93.9 Pneumothorax, unspecified; G71.00 Muscular dystrophy, unspecified; I48.91 Unspecified atrial fibrillation; R19.7 Diarrhea, unspecified; G47.33 Obstructive sleep apnea (adult) (pediatric); K22.4 Dyskinesia of esophagus; K29.70 Gastritis, unspecified, without bleeding; R62.7 Adult failure to thrive; Z68.22 Body mass index [BMI] 22.0-22.9, adult; R00.0 Tachycardia, unspecified; D69.6 Thrombocytopenia, unspecified; R00.1 Bradycardia, unspecified; Z66 Do not resuscitate; Z91.14 Patient's other noncompliance with medication regimen; Z79.01 Long term (current) use of anticoagulants
CPT/HCPCS: 36415; 36569; 49450; 71045; 71275; 74230; 76705; 80048; 80053; 80076; 81003; 81015; 82728; 82805; 82947; 83010; 83615; 83690; 83735; 83880; 84132; 84145; 84439; 84443; 84484; 85025; 85027; 85044; 85610; 85730; 86140; 87040; 87070; 87205; 88305; 88312; 92610; 92611; 93005; 93306; 93971; 94002; 94003; 94640; 94760; 96372; 97110; 97161; 97530; 99285; C9113; J0330; J0585; J0692; J1160; J1200; J1450; J1650; J1720; J2250; J2270; J2370; J2405; J2543; J2550; J2704; J2765; J2920; J2930; J2997; J3010; J3411; J3475; J3480; J7030; J7040; J7050; J7060; J7120; J7512; J7799; P9047; Q9967; U0003